=== PATIENT | male | born 1960 | race Caucasian/White ===

== ENCOUNTER 2018-06-09 06:50 | Inpatient (IN) ==
--- NOTE | 2018-05-22 09:19 | PAT Medication Instructions ---
Medication Instructions Date of Service May 22, 2018 Home Medications lisinopril-hydrochlorothiazide 1 tab PO QAM gabapentin 300 mg PO BID meloxicam 7.5 mg PO QAM ASK your surgeon for instructions meloxicam 7.5 mg PO QAM DO NOT take the morning of surgery lisinopril-hydrochlorothiazide 1 tab PO QAM Take morning of surgery With a small sip of water, OTHERWISE NOTHING TO EAT OR DRINK AFTER MIDNIGHT: gabapentin 300 mg PO BID Take evening before surgery gabapentin 300 mg PO BID Other Notes If you have any questions please call us at [phone] or [phone] or [phone] or [phone]
--- NOTE | 2018-05-22 12:52 | Anesthesiology Consultation ---
Date of Service May 22, 2018 Assessment & Plan (1) Encounter for pre-operative examination: Plan: Note sent to PCP re: hyponatremia ON 05/25/18. PCP rechecked labs initially and there was minimal improvement, so they had him increase salt intake and decrease free water intake. Repeat labs showed that sodium had normalized. Updated labs included above in testing section. Chart Review Chart Review: Acceptable Risk for Surgery and Patient seen in Pre Admission Testing Consults Requested medical (Dr. Edward (05/22/18)) Teaching & Discussion Pre-Anesthesia Teaching/Discussion Notes: Instructed NPO after midnight before surgery, except medications with 15 cc of water. Medication instructions provided according to the PAT guidelines. Note received from Dr. Edward on 06/03 stating that patients labs have normalized and patient is "ok to proceed". History Surgery Operation Date: 06/09/18 09:20 Proposed Procedures p Right Total Knee Arthroplasty - Gasper Everett MD Height/Weight Height: 6 ft 2 in Weight: 90.2 kg Allergies Allergy/AdvReac Type Severity Reaction Status Date / Time No Known Allergies Allergy Unknown Verified 05/21/18 07:35 Medications Home Medications Medication Instructions Recorded Confirmed Last Taken lisinopril-hydrochlorothiazide 1 tab PO QAM 03/10/18 05/22/18 03/11/18 gabapentin 300 mg PO BID 05/21/18 05/22/18 Unknown meloxicam 15 mg PO QAM 05/22/18 05/22/18 Unknown Past Anesthesia History No Hx of Anesthesia Complications and No Family Hx of Anesthesia Complications History of PONV No Motion Sickness Screening History of Motion Sickness: No Social History Smoking Status: Former smoker Smoking cigarettes per day: 1ppd x 20+ years Do You Dip or Chew Tobacco: No Smoking End Date: QUIT 6 YEARS AGO Hx Alcohol Use: Yes Alcohol type: beer alcohol intake frequency: a few times a week Hx Substance Use: No substance use type: does not use Exercise / Class Metabolic Activity II 4-5 Yardwork/Stairs/Walk up hill (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 Still able to climb stairs. Denies CP. Does have some SOB when knee pain is acting up, but when taking meloxicam, SOB goes away. ) Review of Systems Patient denies chest pain, shortness of breath, dyspnea on exertion (see previous section), reflux, cough, wheezing, palpitations. +joint pain (knees) Physical Exam Vital Signs BP: 126/80 P: 97 R: 14 T: 98.1 SPO2: 96% on RA ENMT Mouth: + dentures (upper and lower) and + edentulous Thyromental Distance: > or= 3.5 Finger Breadths (4) Mallampati Class: II Neck normal visual inspection and trachea midline; neck extension not limited Respiratory normal respiratory effort Auscultation: lungs clear to auscultation bilaterally Cardiovascular Rate/Rhythm: regular rate and regular rhythm Heart Sounds: no murmur Vessels: no carotid bruit Neurologic moves all extremities Psychiatric Orientation: alert and oriented x 3 Testing Electrocardiogram Date: 05/22/18 Findings: + NSR @ (94) and + no change from (01/17/16) Chest X-Ray Date: 05/22/18 Findings: + NAD FINDINGS: Mild chronic parenchymal scarring both lung bases. Old bilateral healed rib fractures. Lungs are considered clear. Diaphragms are smooth. No significant cardiac enlargement. IMPRESSION: No acute process. Chronic changes as noted. Stress Test Date: 04/17/18 Type: DSE Findings: + WNL Resting EF: 75% Resting LV Function: normal Resting RWMA: + none Resting ECG showed NSR with nonspecific ST/T wave abnormalities. Stess ECG showed no ischemic ST/T wave changes with dobutamine. No cardiac symptoms. Rare PVCs. Hyperdynamic LV systolic function. Negative Dobutamine stress ECG for ischemia at 88% MPHR. Negative Dobutamine stress echo for ischemia at 88% MPHR. Other Testing CT Angio chest PE Protocol 05/22/18: IMPRESSION: 1. No evidence for pulmonary most. 2. Subsegmental atelectasis posterior aspect right midlung. 3. Lungs otherwise are clear. Laboratory Results 05/22/18 12:45 05/22/18 12:45 Blood Type O Positive 05/22/18 12:45 Antibody Screen NEGATIVE 05/22/18 12:45 PT 10.1 Seconds (9.0-12.0) 05/22/18 12:45 INR 1.0 (0.9-1.1) 05/22/18 12:45 APTT 26.6 Seconds (21.0-31.0) 05/22/18 12:45 UPDATED LABS FROM [facility] [place]: 06/02/18 SODIUM: 138 POTASSIUM: 4.3 CHLORIDE: 104 CO2: 27 BUN: 17 CREATININE: 0.99 GLUCOSE: 106
[2018-05-22 13:20] LABS: Basophils # (auto) 0.04 K/uL (0-0.2); Basophils % (auto) 0.6 %; Eosinophils # (auto) 0.04 K/uL (0-0.5); Eosinophils % (auto) 0.6 %; Hematocrit (blood only) 44.9 % (42-52); Hemoglobin 15.8 g/dL (14.0-18.0); Immature Granulocytes # (auto) 0.02 K/uL (0.00-0.02); Immature Granulocytes % (auto) 0.3 %; Lymphocytes # (auto) 0.68 K/uL (1.2-3.4); Lymphocytes % (auto) 10.6 %; Mean Corpuscular Hgb Conc 35.2 g/dL (32-36); Mean Corpuscular Volume 95.3 fL (80-100); Mean Platelet Volume 8.8 fL (7.4-10.4); Monocytes # (auto) 0.67 K/uL (0.11-0.59); Monocytes % (auto) 10.5 %; Neutrophils # (auto) 4.94 K/uL (1.4-6.5); Neutrophils % (auto) 77.4 %; Platelet Count 201 K/uL (130-400); RDW Coefficient of Variation 12.8 % (11.5-14.5); RDW Standard Deviation 44.8 fL (36.4-46.3); Red Blood Count 4.71 M/uL (4.7-6.1); White Blood Count 6.39 K/uL (4.8-10.8)
[2018-05-22 13:37] LABS: Partial Thromboplastin Time 26.6 Seconds (21.0-31.0); Prothrombin Time 10.1 Seconds (9.0-12.0)
--- NOTE | 2018-05-22 13:41 | XRay Report ---
XR chest Pre-admission PA/Lat CLINICAL HISTORY: pat preoperative evaluation COMPARISON STUDY: 11/30/2014 FINDINGS: Mild chronic parenchymal scarring both lung bases. Old bilateral healed rib fractures. Lung s are considered clear. Diaphragms are smooth. No significant cardiac enlargement. IMPRESSION: No acute process. Chronic changes as noted. The above report was generated using voice recognition software. It may contain grammatical, syntax or spelling errors. Electronically signed by: Michael Mcdermott M.D. 05/22/2018 1:40 PM
[2018-05-22 14:03] LABS: BUN Creatinine Ratio 10.2 (10-20); Creatinine Clr Calc Pharmacy 92.4 ml/min; Est GFR (African American) 92.2; Est GFR (Non-African American) 79.5; Potassium 4.7 mmol/L (3.5-5.1)
--- NOTE | 2018-05-25 14:34 | History & Physical Report ---
Date of Service May 25, 2018 History of Present Illness Chief Complaint: Right knee pain Primary Care Provider: Liliam Edward Allergies Allergy/AdvReac Type Severity Reaction Status Date / Time No Known Allergies Allergy Unknown Verified 05/21/18 07:35 Home Medications Home Medications Medication Instructions Recorded Confirmed Type lisinopril-hydrochlorothiazide 1 tab PO QAM 03/10/18 05/22/18 History gabapentin 300 mg PO BID 05/21/18 05/22/18 History meloxicam 15 mg PO QAM 05/22/18 05/22/18 History Past Med/Surg History Social History marital status: Current Living Situation: Significant Other Feels Safe at Home: Yes Smoking Status: Former smoker Second Hand Exposure: No Hx Alcohol Use: Yes Alcohol type: beer Alcohol Intake Frequency: a few times a week Hx Substance Use: No Beliefs That Will Affect Care: None Preferred Language: Welsh Communication Ability: Effective
--- NOTE | 2018-05-28 14:34 | History & Physical Report ---
Date of Service May 28, 2018 Assessment & Plan (1) DJD (degenerative joint disease) of knee: Patient (scheduled for right total knee arthroplasty on June 09, [address] Gasper Everett. Risks and complications surgery were explained to the patient and include but are not limited to infection, pain, bleeding, scarring, nerve and blood vessel damage, wound problems, weakness, stiffness, incomplete relief of symptoms, hardware failure, loosening, wear, fracture, blood clots, embolisms, heart attack, stroke and . All questions were answered and informed consent was obtained Dr. Everett. He will have preoperative medical clearance by his family physician Dr. Edward. We will use Lovenox 30 mg twice a day 2-4 weeks after surgery for DVT prophylaxis. Once the Lovenox is completed he will use aspirin 325 mg twice a day 4 weeks. He will preadmission testing which she will obtain a preoperative CBC, BMP, PT/PTT, type and screen, EKG and chest x-ray. He would like to go home after surgery with outpatient physical therapy versus an home health and physical therapy. Hospitalists will be consult did postoperatively on an as-needed basis for postoperative medical management. His home medications will be continued during his inpatient stay. He will be admitted for 1-2 nights after surgery. All questions were answered and he knows to call with any further palms questions or concerns. Present on Admission?: Yes History of Present Illness Chief Complaint: Right knee pain Primary Care Provider: Liliam Edward Patient is a pleasant 57-year-old male who is here today for preoperative history and physical. He is scheduled to have an elective right total knee arthroplasty by Dr. Everett on June 09, 2018 at the [facility]. He complains of right knee pain that has beenFor the last year or so. He has had progressively worsening symptoms over the last 2-3 months. 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 He states that he does have bilateral knee pain but his right knee pain is more significant than the left. Pain is located on the anterior medial aspect of his right knee. He does have some mild radiation down into his bertrand and occasionally up into his thigh. His pain is increased with activity and weightbearing. He does have decreasing activities of daily living due to pain in his right knee. He has pain with range of motion and occasionally limited range of motion due to pain in his right knee. He states that he also gets swelling and stiffness of the right knee. Aggravating activities include walking, going up and down steps. He also has pain at rest and occasionally at night. He states that after he sits or stands or sleeps for a length of time he gets significant stiffness in his right knee. Prior treatments include nonsteroidal anti-inflammatory medications such as meloxicam and ibuprofen. He also has undergone corticosteroid injections with no significant relief. He also occasionally wears a knee brace. He does not use any assistive device to assist with ambulation at this time. Pain does cause him to limp. He has also taken Tylenol for pain control. He feels that his pain is controlled with the Mobic but he otherwise has failed conservative treatment. Due to his failure conservative treatment, he wishes to proceed with a right total knee arthroplasty. Allergies Allergy/AdvReac Type Severity Reaction Status Date / Time No Known Allergies Allergy Unknown Verified 05/21/18 07:35 Home Medications Home Medications Medication Instructions Recorded Confirmed Type lisinopril-hydrochlorothiazide 1 tab PO QAM 03/10/18 05/22/18 History gabapentin 300 mg PO BID 05/21/18 05/22/18 History meloxicam 15 mg PO QAM 05/22/18 05/22/18 History Past Med/Surg History Family History Brother Colon cancer Mother Cancer Brain Father CVA (cerebral vascular accident) Other HTN (hypertension) Social History marital status: Current Living Situation: Significant Other Feels Safe at Home: Yes Smoking Status: Former smoker Second Hand Exposure: No Hx Alcohol Use: Yes Alcohol type: beer Alcohol Intake Frequency: a few times a week Hx Substance Use: No Beliefs That Will Affect Care: None Preferred Language: Mohawk Communication Ability: Effective Review of Systems Constitutional: no fever, no chills, no sweats, no weight loss and no weight gain Eyes: no blind spots, no discharge and no dry eyes Ear, Nose, Mouth, Throat: no ear pain, no tinnitus, no dizziness, no nasal discharge, no sinus pain/pressure, no dental pain and no dental caries Respiratory: + dyspnea on exertion (Recent dyspnea on exertion but patient feels that is resolved. He feels that he was short of breath due to uncontrolled pain and in his right knee. He is reecently been taking meloxicam which has helped his pain and his shortness of breath has improved.); no stopping breathing during sleep and no wheezing Cardiovascular: no chest pain, no chest pain at rest, no chest pain with activity, no dyspnea at rest, no palpitations, no syncope, no edema and no calf pain Gastrointestinal: no abdominal pain, no heartburn, no nausea, no vomiting, no constipation and no diarrhea/loose stools Genitourinary (Male): no dysuria, no urinary frequency and no post-void dribbling Musculoskeletal: + joint pain and + limited range of motion; no back pain, no deformity and no swelling Integumentary: + lesions (eczema), + dry skin and + pruritus; no rash, no sores and no skin swelling Neurologic: + gait abnormality; no unsteadiness, no localized weakness, no loss of sensation, no tingling, no numbness, no paresthesia, no radiating pain, no dizziness and no syncope Psychiatric: no depression, no irritability and no anxiety Hematologic / Lymphatic: no easy bleeding, no easy bruising and no coagulopathy Physical Exam 2 Constitutional: well developed, well nourished and + acute distress Eyes: PERRL, conjunctivae normal, anicteric sclerae ENMT: external ear and nose normal, oropharynx normal Nose: no nasal discharge and no sinus tenderness Mouth: no dentition abnormality Throat: uvula midline Neck: trachea midline, no thyromegaly normal visual inspection; no neck crepitus Thyroid: normal thyroid Respiratory: normal respiratory effort, lungs clear to auscultation Auscultation: no rales, no rhonchi and no wheezes Cardiovascular: RRR, no murmur, no edema Heart Sounds: normal S1 and normal S2 Vessels: posterior tibial pulses present and dorsalis pedis pulses present Extremities: normal capillary refill; no calf tenderness and no pedal edema Gastrointestinal (Abdomen): normal bowel sounds, soft, nontender, no hepatosplenomegaly Musculoskeletal: Exam of right knee: Medial joint line tenderness with palpation. 1+ MCL and LCL laxity. Full extension and flexion to about 130. No effusion. Active leg raise intact with normal strength throughout both lower extremities. There is alignment with some minor thrust. Neutral alignment on the left. Minor antalgic gait. Painless range of motion of bilateral hips. Posterior tibial pulses 1+. Small patches erythema, thickened skin right lateral aspect of his knee. Skin: + rash Eczema Neurologic: moves all extremities Psychiatric: A+Ox3, euthymic affect Speech: normal rate/rhythm/volume of speech Results & Data Laboratory Results Lab Results 05/22/18 05/22/18 05/22/18 Range/Units 12:45 12:45 12:45 WBC 6.39 (4.8-10.8) K/uL RBC 4.71 (4.7-6.1) M/uL Hgb 15.8 (14.0-18.0) g/dL Hct 44.9 (42-52) % MCV 95.3 (80-100) fL MCH 33.5 (25-34) pg MCHC 35.2 (32-36) g/dL RDW Std Deviation 44.8 (36.4-46.3) fL RDW Coeff of Mabel 12.8 (11.5-14.5) % Plt Count 201 (130-400) K/uL MPV 8.8 (7.4-10.4) fL Immature Gran % (Auto) 0.3 % Neut % (Auto) 77.4 % Lymph % (Auto) 10.6 % Williamson % (Auto) 10.5 % Eos % (Auto) 0.6 % Baso % (Auto) 0.6 % Immature Gran # (Auto) 0.02 (0.00-0.02) K/uL Neut # (Auto) 4.94 (1.4-6.5) K/uL Lymph # (Auto) 0.68 L (1.2-3.4) K/uL Williamson # (Auto) 0.67 H (0.11-0.59) K/uL Eos # (Auto) 0.04 (0-0.5) K/uL Baso # (Auto) 0.04 (0-0.2) K/uL PT 10.1 (9.0-12.0) Seconds INR 1.0 (0.9-1.1) APTT 26.6 (21.0-31.0) Seconds PTT Ratio 1.0 Sodium 128 L (136-145) mmol/L Potassium 4.7 (3.5-5.1) mmol/L Chloride 93 L (98-107) mmol/L Carbon Dioxide 24 (21-32) mmol/L Anion Gap 12.0 H (3-11) BUN 11 (7-18) mg/dl Creatinine 1.05 (0.6-1.4) mg/dl Est Cr Clr Drug Dosing 92.4 ml/min Est GFR ( Amer) 92.2 Est GFR (Non-Af Amer) 79.5 BUN/Creatinine Ratio 10.2 (10-20) Glucose 76 (70-99) mg/dl Calcium 10.0 (8.5-10.1) mg/dl Blood Type Antibody Screen 05/22/18 Range/Units 12:45 WBC (4.8-10.8) K/uL RBC (4.7-6.1) M/uL Hgb (14.0-18.0) g/dL Hct (42-52) % MCV (80-100) fL MCH (25-34) pg MCHC (32-36) g/dL RDW Std Deviation (36.4-46.3) fL RDW Coeff of Mabel (11.5-14.5) % Plt Count (130-400) K/uL MPV (7.4-10.4) fL Immature Gran % (Auto) % Neut % (Auto) % Lymph % (Auto) % Williamson % (Auto) % Eos % (Auto) % Baso % (Auto) % Immature Gran # (Auto) (0.00-0.02) K/uL Neut # (Auto) (1.4-6.5) K/uL Lymph # (Auto) (1.2-3.4) K/uL Williamson # (Auto) (0.11-0.59) K/uL Eos # (Auto) (0-0.5) K/uL Baso # (Auto) (0-0.2) K/uL PT (9.0-12.0) Seconds INR (0.9-1.1) APTT (21.0-31.0) Seconds PTT Ratio Sodium (136-145) mmol/L Potassium (3.5-5.1) mmol/L Chloride (98-107) mmol/L Carbon Dioxide (21-32) mmol/L Anion Gap (3-11) BUN (7-18) mg/dl Creatinine (0.6-1.4) mg/dl Est Cr Clr Drug Dosing ml/min Est GFR ( Amer) Est GFR (Non-Af Amer) BUN/Creatinine Ratio (10-20) Glucose (70-99) mg/dl Calcium (8.5-10.1) mg/dl Blood Type O Positive Antibody Screen NEGATIVE Diagnostic Findings XR chest Pre-admission PA/Lat CLINICAL HISTORY: pat preoperative evaluation COMPARISON STUDY: 11/30/2014 FINDINGS: Mild chronic parenchymal scarring both lung bases. Old bilateral healed rib fractures. Lungs are considered clear. Diaphragms are smooth. No significant cardiac enlargement. IMPRESSION: No acute process. Chronic changes as noted. Diagnostic imagin views of both knees show osteoarthritis bilaterally varus deformity with medial joint space narrowing of the right knee. Osteophyte formation and [id number] changes. The left knee shows more uniform narrowing of both the medial and lateral compartments. There is no fracture and no visible bone or soft tissue lesions.
[~2018-06-09 06:50] MED LIST: ACETAMINOPHEN 500 MG TAB PO SCH; BUPIVACAINE 0.5 % 5 MG/1 ML PF 10ML VIAL ONE; CEFAZOLIN 2000MG 2,000 MG/15 ML SYR IV SCH; CeleBREX 200 MG CAP PO SCH; FAMOTIDINE 20 MG TAB PO SCH; GABAPENTIN 300 MG x 2 PO SCH; LR 60ML/HR IV SCH; METOCLOPRAMIDE HCL 10 MG TABLET PO SCH; OXYCODONE HCL 10 MG TABCR (OXYCONTIN) PO SCH; ROPIVACAINE 0.5% 5 MG/ML 30 ML VIAL ONE; ROPIVACAINE 0.5% HCL/PF 150 MG, BUPIVACAINE 0.5% MPF 30 ML, EPINEPHrine 0.15 MG, Ketoro... INFIL SCH; TRAMADOL HCL 50 MG TABLET PO SCH; TRANEXAMIC ACID 1,000 MG **IV Intra-op IV SCH; TRANEXAMIC ACID 1,000 MG **IV Pre-op IV SCH; cloNIDine HCL 0.1 MG/24 HR TRANSDERM SYS TD SCH; dexAMETHasone 4 MG TAB PO SCH
[2018-06-09] MEDS: LR 500ML BOLUS, THEN 15ML/HR IV SCH ×3 (07:50→15:52)
[2018-06-09] MEDS ORDERED: PROPOFOL IV EMULSION 10 MG/ML 20 ML VIAL IV ONE ×6 (08:13→13:22)
[2018-06-09] MEDS ORDERED: fentaNYL citrate 100 MCG/2 ML VIAL ONE (08:14)
[2018-06-09] MEDS ORDERED: MIDAZOLAM HCL 1 MG/ML 2ML VIAL ONE ×2 (08:14→11:09)
[2018-06-09] MEDS ORDERED: PROMETHAZINE HCL 12.5 MG in SODIUM CHLORIDE 0.9% 50 ML IV PRN (08:26)
[2018-06-09] MEDS ORDERED: ATROPINE SULFATE 0.1 MG/ML 10ML SYR IV PRN (08:26)
[2018-06-09] MEDS ORDERED: ONDANSETRON INJ 2 MG/ML 2 ML VIAL IV PRN ×2 (08:26→15:17)
[2018-06-09] MEDS ORDERED: PHENYLEPHRINE 100MCG/ML 5ML SYR IV PRN (08:26)
[2018-06-09] MEDS ORDERED: HYDROmorphone INJ 1 MG/ML SYRINGE IV PRN (08:26)
[2018-06-09] MEDS ORDERED: fentaNYL citrate 100 MCG/2 ML VIAL IV PRN (08:26)
[2018-06-09] MEDS ORDERED: ePHEDrine sulfate 50 MG/ML AMP IV PRN (08:26)
--- NOTE | 2018-06-09 10:16 | History & Physical Bridge Note ---
Date of Service June 09, 2018 History & Physical Bridge Note I have examined the patient, reviewed the History & Physical and in the interval since the performance of the History & Physical I have noted the following changes of clinical significance: no changes noted. Echo results yesterday are noted and do not preclude surgery. His lower extremities are free of eczema. He does have some mild eczema on both elbows which is under treatment. There is no evidence of infection. Sodium normal.
[2018-06-09] MEDS ORDERED: ORTHO JOINT ANESTHETIC ONE (10:30)
[2018-06-09] MEDS ORDERED: BACITRACIN INJ 50,000 UNIT VIAL ONE (10:30)
[2018-06-09] MEDS ORDERED: POVIDONE-IODINE OP SOLN 30 ML BTL ONE (10:30)
--- NOTE | 2018-06-09 13:33 | Post Operative Brief Note ---
Immediate Post Op Note v1 Date of Surgery June 09, 2018 Pre & Post Diagnosis Operation Date: 06/09/18 09:20 Pre-Op Diagnosis: Right Knee Osteoarthritis Post-Op Diagnosis: Right Knee Osteoarthritis Procedure Operation Date: 06/09/18 09:20 Actual Procedures p Right Total Knee Arthroplasty(Right) - Gasper Everett MD Surgeon Gasper Everett MD Appeals Board Referee Tala Chase Estimated Blood Loss 35 Findings Consistent with Post-Op Diagnosis Anesthesia Type MAC Spinal Regional Complications none Disposition Accompanied Patient To Recovery: No Disposition: Recovery Room
--- NOTE | 2018-06-09 14:00 | Operative Report ---
Post Operative Report Pre & Post Diagnosis Operation Date: 06/09/18 09:20 Pre-Op Diagnosis: Right Knee Osteoarthritis Post-Op Diagnosis: Right Knee Osteoarthritis Procedure Operation Date: 06/09/18 09:20 Actual Procedures p Right Total Knee Arthroplasty(Right) - Gasper Everett MD Surgeon Gasper Everett MD Academic Physician Tala Chase Estimated Blood Loss 35 Findings Consistent with Post-Op Diagnosis Specimens Bone and soft tissue Drains None Anesthesia Type MAC Spinal Regional Complications none Disposition Accompanied Patient To Recovery: No Disposition: Recovery Room Indications Patient is a 57-year-old male. Severe osteoarthritis right knee medial compartment. Refractory to nonsurgical methods of management. He wishes to proceed with surgery. He has had an extensive preoperative medical workup. He does have eczema but his skin was clear on his knee prior to surgery. He had eczema on his elbows but nothing that was inflamed or infected. Description of Procedure Informed consent obtained. Patient identified. He identified the operative site the right knee. I marked with my initials. A preop surgical timeout was performed. Preop dose of IV antibiotics given. He was positioned supine on the OR table with a bump under the right calf and right hip. A tourniquet was applied to the right thigh and the leg was prepped and draped in the usual sterile fashion. DVT prophylaxis with foot pumps intraoperatively and Lovenox and aspirin postoperatively. The exam under anesthesia revealed range of motion 0-140 degrees with 1+ MCL laxity in mid position and varus alignment to the knee. There is no effusion. The knee was otherwise stable. The limb was exsanguinated with the Esmarch. Tourniquet inflated to 250 mmHg. A midline longitudinal incision was made followed by medial parapatellar arthrotomy. The patella was large and thick. It had very minimal osteophytes around the margin of the patella. The synovium around the patella was resected. There was some grade 1 chondrosis around the periphery of the patella but by enlarge the majority of the cartilage was normal except for a small area laterally. I elected to leave the patella and resurfaced. It was difficult to aurelio the patella and I therefore went ahead and did a quadriceps snip. Marginal osteophytes were removed particularly in the medial compartment. The ACL was apparently absent. The medial meniscus was largely deficient and/or torn. There is a flipped fragment anteriorly but the meniscus generally was largely deficient. In the lateral compartment the articular surfaces were normal and the meniscus was intact. There were large areas of grade 4 chondrosis with aware and eburnation and osteophyte formation on both sides of the medial compartment. The PCL was sacrificed. The retropatellar fat pad was resected. The synovial reflection in the lateral gutter was released. The medial release on the tibia was performed and the tibia was subluxated. A captain airline pilot hole was drilled in the proximal tibia just in front of the tibial spines. An intramedullary alignment sunitha was inserted. The 0 degree cutting block was applied. It was aligned with the tibial tubercle and pinned into place. It was set to take 10 mm off the lateral side corresponding to a skim cut medially. The geometry of the proximal tibia made it a little bit difficult to get the rotational alignment perfect. The extra medullary alignment sunitha was utilized and the slope was acceptable. The alignment was good. Intersecting the second ray and bisecting the ankle joint. This cut was then made. Marginal osteophytes medial and posterior medial removed and the tibia was sized to a 4 or 5.Sod Cutter hole drilled in the distal femur followed by the insertion of the intramedullary cutting guide set at 6 degrees right knee valgus 12 mm thick cut. This was pinned in place and the cut was made and the extension gap was a 10 with slight laxity on the lateral side. The epicondylar axis was marked out. The sizing block was utilized to a #4. The femur was a little bit wider but the AP depth was not a 5. The external rotation match the epicondylar axis. The block was pinned in the place and the cuts were made protecting the collateral ligaments. The the osteophytes in the back of the knee were then removed particularly medially. The flexion gap was 12.5. The extension gap was rechecked and it also was 12.5. The box cutting guide was applied lateralized and that cut was made. A size 4 femur was applied. The tibia was prepared with the keel and punch at a #5. Trialing was performed. The knee was stable in full extension. There is 1+ LCL laxity in mid position and trace LCL laxity at 90 degrees flexion. The components removed and the bony surfaces were prepared with pulse lavage. The canals were plugged and eburnated bone on the medial tibial plateau was drilled. Orth O joint mix was injected into the back of the knee and later throughout the remainder of the knee. 2 bags of Simplex P cement were mixed and while in a doughy state. The femur and tibia were cemented into place with the knee held in full extension with a trial spacer in place until the cement hardened. The remainder of the Orth O joint mix was injected and the Betadine lavage was performed. Trialing was again performed after letting the tourniquet down and the 12.5 spacer gave the appropriate stability and this was inserted. The back the knee was inspected for cement of which there was none. Pulsatile lavage was performed. The extensor mechanism was closed with interrupted #2 FiberWire. This was above the equator of the patella. The quadriceps snip was closed with #2 FiberWire. The entire repair was then oversewn with #1 Vicryl. [place] assisted flexion was 130 degrees although I did not push it very far. The knee could easily be flexed to 90. The patella tracked appropriately. The inferior portion of the extensor mechanism was closed with running and interrupted #1 Vicryl. The skin was closed in layers with 0 and 2-0 Vicryl and janina on the skin. The leg was cleaned with wet and dry sponges. A soft sterile dressing was applied Xeroform 4 x 4's ABD full-length Gabriel wrap. He was awakened from anesthesia without difficulty and taken to the recovery room in stable condition. There were no complications. Bone and soft tissue were sent for specimen. Counts were correct. Blood loss is estimated to be 35 cc. Transanexamic acid was utilized. PT will be slightly modified. We will hold on active straight leg raises until he has good quad control. He can do quad sets and will have him do knee flexion 0-60. He can weight-bear as tolerated with a knee immobilizer. Lovenox will be begun the evening of surgery. Components inserted with a J[employer]J PFC Sigma rotating platform knee size 4 right posterior stabilized femur. A size 5 mobile bearing keeled tibial tray. No patella. A size 4 12.5 mm thick polyethylene insert. I attest to the content of the Intraoperative Record and any orders documented therein. Any exceptions are noted below.
--- NOTE | 2018-06-09 14:10 | Operative Report ---
Post Operative Report Pre & Post Diagnosis Operation Date: 06/09/18 09:20 Pre-Op Diagnosis: Right Knee Osteoarthritis Post-Op Diagnosis: Right Knee Osteoarthritis Procedure Operation Date: 06/09/18 09:20 Actual Procedures p Right Total Knee Arthroplasty(Right) - Gasper Everett MD Surgeon Willard Brar. Blacksmith Supervisor Tala Chase PA-C Estimated Blood Loss 35 Findings Consistent with Post-Op Diagnosis Specimens Bone and soft tissue Drains None Anesthesia Type MAC Spinal Regional Complications none Disposition Accompanied Patient To Recovery: No Description of Procedure Patient was taken to the operating room and placed under IV sedation spinal anesthesia. He was also given a peripheral nerve block preoperatively. He was given 2 g of IV Ancef for surgical prophylaxis. Timeout was performed. He was prepped and draped in routine sterile fashion. I was present during the entire case, please see Dr. Everett's operative report for further detail. Patient was awakened and transferred to recovery room in stable condition.
--- NOTE | 2018-06-09 14:30 | XRay Report ---
XR knee RT 2V routine CLINICAL HISTORY: 57 years-old Male presenting with Surgical Post Op. TECHNIQUE: Frontal and lateral views of the right knee were obtained. COMPARISON: 02/19/2019. FINDINGS: Interval post-surgical changes of total right knee arthroplasty. Expected intra-articular and soft ti ssue emphysema. No malalignment or periprosthetic fracture. Skin janina noted. Atherosclerosis. IMPRESSION: Expected post-surgical findings of total right knee arthroplasty. Electronically signed by: Gasper Gibson M.D. 06/09/2018 2:29 PM
--- NOTE | 2018-06-09 14:37 | Anesthesiology Progress Note ---
Date of Service June 09, 2018 Anesthesia Post Procedure Vital Signs Vital Signs: Temp Pulse Pulse Resp BP Pulse Ox 06/09/18 14:25 37.3 C 81 14 104/74 94 06/09/18 14:15 80 12 104/76 93 06/09/18 14:05 81 16 107/73 93 06/09/18 13:59 36.5 C 84 18 109/77 96 06/09/18 08:17 37 C 88 20 117/85 95 06/09/18 08:14 37 C 88 20 95 Pain Intensity Right Knee: Pain Intensity: 0 Notes Mental Status: alert / awake / arousable Patient Amnestic to Procedure: Yes Nausea / Vomiting: adequately controlled Pain: adequately controlled Airway Patency, RR, SpO2: stable & adequate BP & HR: stable & adequate Neuraxial Anesthesia: was administered and sensory block is resolving Anesthetic Complications: no major complications apparent
[2018-06-09] MEDS ORDERED: NALOXONE HCL 0.4 MG/1 ML VIAL/CARP IV PRN (15:17)
[2018-06-09] MEDS ORDERED: TAMSULOSIN HCL 0.4 MG CAP PO PRN (15:17)
[2018-06-09] MEDS ORDERED: BISACODYL 10 MG SUPP PR PRN (15:17)
[2018-06-09] MEDS ORDERED: MAGNESIUM HYDROXIDE SUSP 30 ML UDC PO PRN (15:17)
[2018-06-09] MEDS ORDERED: METOCLOPRAMIDE HCL INJ 5 MG/ML 2 ML VIAL IV PRN (15:17)
[2018-06-09] MEDS ORDERED: ALUMINUM/MAGNESIUM SUSP 30 ML UDC PO PRN (15:17)
[2018-06-09] MEDS ORDERED: DiphenhydrAMINE HCL 50 MG/ML VIAL IV PRN (15:17)
[2018-06-09] MEDS ORDERED: HYDROmorphone INJ 0.5 MG/0.5 ML SYR IV PRN (15:17)
[2018-06-09] MEDS: CHECK CLONIDINE PATCH PLACEMENT SCH ×3 (15:27→16:26)
[2018-06-09] MEDS: SODIUM CHLORIDE 0.9% 1000ML 1,000 ML IV SCH (15:30)
[2018-06-09] MEDS: KETOROLAC 30 MG/ML VIAL IV SCH ×2 (16:26→21:26)
[2018-06-09] MEDS ORDERED: INFLUENZA VIRUS QUAD VACCINE 0.5 ML SYR IM ONE (16:30)
[2018-06-09] MEDS ORDERED: INFLUENZA ADMINISTRATION CHARGE ONE (16:30)
[2018-06-09] MEDS: TRAMADOL HCL 50 MG TABLET PO PRN ×2 (17:13→21:23)
--- NOTE | 2018-06-09 18:06 | Progress Note ---
DATE: 06/09/2018 SUBJECTIVE: He is resting comfortably in bed. No nausea. Tolerating oral diet. He is experiencing some pain, which is reflected in his elevated blood pressure. OBJECTIVE: VITAL SIGNS: Otherwise stable. EXTREMITIES: Posterior tibial is 1+. I do not palpate a dorsalis pedis. Sensation is normal in the foot. Dressing is clean and dry. Ankle and toe plantar flexion and dorsiflexion are 5/5. IMAGING: X-rays show good positioning of the implants without complication. The patella is not resurfaced. IMPRESSION: Right knee replacement. PLAN: I discussed my findings with him. We talked about not resurfacing the patella. I did give him some minor restrictions on rehabilitation due to the quadriceps snip needed for exposure of the knee. We talked about pain control. [place]ev[place]t will begin tonight. Will follow up with him tomorrow. Surgical findings discussed.
[2018-06-09] MEDS: CEFAZOLIN 2000MG 2,000 MG/15 ML SYR IV SCH (19:36)
[2018-06-09] MEDS: GABAPENTIN 300 MG CAP PO SCH (21:24)
[2018-06-09] MEDS: SENNA 8.6 MG TAB PO SCH (21:25)
[2018-06-09] MEDS: ACETAMINOPHEN 500 MG TAB PO SCH (21:25)
[2018-06-09] MEDS: DOCUSATE SODIUM 100 MG CAP PO SCH (21:25)
[2018-06-10] MEDS: OXYCODONE HCL IR 5 MG TAB (IMMEDIATE RELEASE) PO PRN ×6 (01:22→22:29)
[2018-06-10] MEDS: CHECK CLONIDINE PATCH PLACEMENT SCH ×3 (01:24→15:50)
[2018-06-10] MEDS: KETOROLAC 30 MG/ML VIAL IV SCH ×2 (03:09→09:26)
[2018-06-10] MEDS: CEFAZOLIN 2000MG 2,000 MG/15 ML SYR IV SCH (03:09)
[2018-06-10] MEDS: ACETAMINOPHEN 500 MG TAB PO SCH ×3 (05:41→21:44)
[2018-06-10 07:02] LABS: Hematocrit (blood only) 31.3 % (42-52); Hemoglobin 10.6 g/dL (14.0-18.0); Mean Corpuscular Hgb Conc 33.9 g/dL (32-36); Mean Corpuscular Volume 96.9 fL (80-100); Mean Platelet Volume 8.5 fL (7.4-10.4); Platelet Count 156 K/uL (130-400); RDW Coefficient of Variation 12.6 % (11.5-14.5); RDW Standard Deviation 44.4 fL (36.4-46.3); Red Blood Count 3.23 M/uL (4.7-6.1); White Blood Count 7.47 K/uL (4.8-10.8)
[2018-06-10] MEDS: SODIUM CHLORIDE 0.9% 1000ML 1,000 ML IV SCH (07:02)
[2018-06-10 07:29] LABS: BUN Creatinine Ratio 17.7 (10-20); Calcium 8.1 mg/dl (8.5-10.1); Creatinine Clr Calc Pharmacy 101.1 ml/min; Est GFR (African American) 102.7; Est GFR (Non-African American) 88.6; Potassium 3.8 mmol/L (3.5-5.1)
[2018-06-10] MEDS: TRAMADOL HCL 50 MG TABLET PO PRN ×4 (07:36→20:08)
[2018-06-10] MEDS ORDERED: dexAMETHasone 4 MG TAB PO SCH (08:00)
[2018-06-10] MEDS: LISINOPRIL/HCTZ 10/12.5MG TAB PO SCH (08:35)
[2018-06-10] MEDS: MULTIVITAMIN TAB PO SCH (08:35)
[2018-06-10] MEDS: ENOXAPARIN INJ 30 MG/0.3 ML SYR SQ SCH ×3 (08:35→20:12)
[2018-06-10] MEDS: DOCUSATE SODIUM 100 MG CAP PO SCH ×2 (08:35→20:12)
[2018-06-10] MEDS: GABAPENTIN 300 MG CAP PO SCH ×2 (08:36→20:12)
[2018-06-10] MEDS ORDERED: TRIAMCINOLONE ACET 0.1% CR 15 GM TUBE EXT PRN (10:17)
--- NOTE | 2018-06-10 10:22 | Progress Note ---
DATE: 06/10/2018 SUBJECTIVE: Mr. Fraser is up and out of bed. He has already had a sponge bath, and he is sitting in a chair. He did have substantial pain last night. We reviewed the pain medication options that were available to him. Otherwise, he is breathing well, has no chest or abdominal pain. OBJECTIVE: VITAL SIGNS: He is afebrile. Stable. EXTREMITIES: The foot is warm with normal sensation and 5/5 ankle and toe plantar flexion and dorsiflexion strength. Pedal pulses are not palpable, but they are dopplerable at both the posterior tibialis and dorsalis pedis. His dressing shows a minimal amount of breakthrough bleeding, which has been reinforced with no further breakthrough. LABORATORY DATA: White count is 7, hemoglobin 11, hematocrit 31, platelet count is 156. PRP is noted. His sodium is 134. We will check that again in a few days as an outpatient. IMAGING: X-rays were reviewed with the patient last evening and showed good positioning of the implants, without evidence of complication. There was no fracture. IMPRESSION: Right total knee replacement. PLAN: Findings discussed. He is thinking about staying an additional day, which is fine. He would like to get more PT and better pain control. We did talk to him about some generalities of discharge in terms of followup, bathing instructions, etc. Will check back with him later today and see what his status is. Will order triamcinolone cream for his eczema on the elbow. Lovenox for DVT prophylaxis. PT ponce, we are going to limit him to 60 degrees. We are going to hold on active straight leg raises for now, but he can do quad sets, ambulate with knee immobilizer. He had a quadriceps snip to aid in exposure of his knee.
--- NOTE | 2018-06-10 16:44 | Discharge Summary ---
Date of Service June 10, 2018 Admission HPI Per Admitting Provider Patient is a pleasant 57-year-old male who is here today for preoperative history and physical. He is scheduled to have an elective right total knee arthroplasty by Dr. Everett on June 09, 2018 at the [facility]. He complains of right knee pain that has beenFor the last year or so. He has had progressively worsening symptoms over the last 2-3 months. 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 He states that he does have bilateral knee pain but his right knee pain is more significant than the left. Pain is located on the anterior medial aspect of his right knee. He does have some mild radiation down into his bertrand and occasionally up into his thigh. His pain is increased with activity and weightbearing. He does have decreasing activities of daily living due to pain in his right knee. He has pain with range of motion and occasionally limited range of motion due to pain in his right knee. He states that he also gets swelling and stiffness of the right knee. Aggravating activities include walking, going up and down steps. He also has pain at rest and occasionally at night. He states that after he sits or stands or sleeps for a length of time he gets significant stiffness in his right knee. Prior treatments include nonsteroidal anti-inflammatory medications such as meloxicam and ibuprofen. He also has undergone corticosteroid injections with no significant relief. He also occasionally wears a knee brace. He does not use any assistive device to assist with ambulation at this time. Pain does cause him to limp. He has also taken Tylenol for pain control. He feels that his pain is controlled with the Mobic but he otherwise has failed conservative treatment. Due to his failure conservative treatment, he wishes to proceed with a right total knee arthroplasty. Discharge Data Consultations 06/09/18 15:17 Consult Case Management - Discharge Planning Routine Procedures Performed Operation Date: 06/09/18 09:20 Actual Procedures p Right Total Knee Arthroplasty(Right) - Gasper Everett MD Hospital Course (1) DJD (degenerative joint disease) of knee: Patient was admitted the [facility] after undergoing an elective right total knee arthroplasty with Dr. Everett on June 09, 2018. His surgery was performed with IV sedation, spinal anesthesia and a peripheral nerve block. He tolerated the procedure well without any intraoperative complications. He was given 2 g of IV Ancef for surgical prophylaxis and was continued for 24 hours postoperatively. His postoperative x-rays were performed in PACU and showed a stable prosthesis with neutral alignment. Vital signs were stable during his inpatient stay. He tolerated a regular diet during his inpatient stay. His pain was well-controlled with oral Tylenol, tramadol and oxycodone. He did develop acute blood loss anemia but was asymptomatic during his inpatient stay and did not require any blood transfusions. This we followed as an outpatient. He also developed a low sodium of 134 which will also be rechecked early next week as an outpatient. Consultation was placed for physical therapy and occupational therapy as well as case management. He did well in PT and OT and was deemed safe for home. Case management made arranges for in-home nursing and home physical therapy. No medical Consultation was placed during his inpatient stay as it was not as necessary. He did have some smallish actions with flexion as and no flexion passed 60 and no active straight leg raising due to his procedure. He was allowed out of bed, weightbearing as tolerated right lower extremity with a knee immobilizer and the assistance of a walker or crutches. On POD 2 his dressings were changed, he had some mild bloody drainage with fluid in the prepatellar bursa, this was removed by Dr. Everett at the bedside, another pressure dressing applied. Follow up as instructed in our office as an outpatient on 06/12/18. Instructed to hold Lovenox until further notice and take a baby ASA tomorrow morning. He was deemed safe for home and was discharged to his home on June 11, 2018. Discharge instructions were reviewed and provided. Discharge Instructions New Medicine: * You will likely be taking one or more of these medications: 1. Oxycodone - Take, as directed, when you need it, every four to six hours to control your pain. Take 1 tablet every 4 hours or 1-2 tabs every 4-6 hours 2. Tramadol - Take, as directed, when you need it, every four to six hours to control your pain. 3. Lovenox - Take 30mg twice daily as instructed, HOLD LOVENOX STARTING 06/11 UNTIL FURTHER NOTICE. You will take this for 2-4 weeks after surgery. This thins your blood to lessen the chance of forming a blood clot. 4. Senokot/Colace (Senokot-S)- take twice daily, as needed for constipation. You should take while on pain medication. You can get this over the counter. 5. Tylenol - 2 tabs oral every 8 hours as needed for pain. You can get this over the counter. 6. ASPIRIN - 81mg tablet, tomorrow morning x 1 dose. "VERY IMPORTANT TO READ AND REVIEW" Blood Clots and Blood Thinning Medicine: * You are given Lovenox during the immediate post-operative period to lessen the risk of blood clots forming in your legs and/or lungs. Lovenox is usually given for 2-4 weeks after surgery. * The prescription is for 30 mg syringes. * You will need to get your blood checked on Friday following your surgery. You will have a prescription for this when you leave the hospital. If you are having home nursing come to your house, they will take the blood work. Pain: * The immediate post-operative period after knee replacement surgery is often quite painful. * You are given a prescription for pain medicine. You should take it, as directed, when you need it, especially before physical therapy and before going to bed. Pain that interferes with sleep is very common and can last several months. * You will likely need pain medicine for the first four to six weeks. It will not stop all of the pain. The pain will lessen and as you feel better, you may change to milder pain medicine such as Tylenol. * The most common side effects of pain medicine are nausea and constipation, so don't take more than you need. Physical Therapy: * You will have physical therapy two or three times each week for four to six weeks after your surgery in order to regain your knee range of motion and to retrain your knee to work properly. * It is just as important to make sure you are getting your knee perfectly straight as it is to regain your knee bend. * Taking a pain pill an hour before therapy can help you have a more productive and comfortable therapy session if needed. Home Exercise: * You were shown a series of exercises (heel props, heel slides, etc.) in the hospital. Do these exercises three to four times each day including the exercises you were shown in physical therapy. Walking: * Get up and walk several times each day. For the first four weeks, try not to stand or walk for more than one hour at a time. If you do stand or walk for more than one hour, you will not hurt anything, but your knee and leg will likely swell. * As you feel comfortable, you may change from the walker or crutches to a cane and then to independent walking. SELF CARE INSTRUCTIONS AFTER TOTAL KNEE REPLACEMENT A. You may need to continue a physical therapy program after discharge from the hospital. There are several options available to you. Your doctor will assist you in selecting the best one for you. 1. An out-patient facility 2 to 3 times a week for therapy or home therapy. 2. Continue working on all exercises taught to you in the hospital. Your goals should be to increase bending of your knee to 90 degrees and beyond and to fully straighten your knee. B. You may progress at your own pace from walking with a walker or crutches to a cane; then to no assistive devices. C. Make walking a part of your daily routine. Be up as much as comfortable with rest periods throughout the day. Rest with leg elevation is very important. Use the ice wrap frequently for the first 3-4 weeks. D. There are no restrictions on activities. You may ride in a car, shop, participate in circular saw filer and all social activities. E. Wear the long elastic stockings (SABINO hose) 20 hours a day for six weeks after surgery. They can be removed several times a day for laundering and for a shower. F. Do not place a pillow behind your knee when resting. A pillow at your ankle is okay. VERY IMPORTANT TO READ AND REVIEW A. Take Lovenox (blood thinning medications) as directed by your doctor. 1. YOU WILL BE GIVEN AN ORDER AT DISCHARGE FOR CBC (BLOOD WORK). PLEASE HAVE THIS DONE INSTRUCTED. PLEASE CALL OUR OFFICE AFTER YOUR BLOODWORK IS COMPLETE SO WE CAN TRACK YOUR RESULTS. You will get a CBC on Friday06/01/18 ( script provided at discharge). You may get done as an outpatient after your appointment Friday. IF YOU ARE GOING TO OUTPATIENT PHYSICAL THERAPY, YOU WILL NEED TO GO TO OUTPATIENT TESTING TO HAVE IT DRAWN. B. There are a few signs you need to watch for after you are home. Call [facility] if you notice any of the followin. Increased severe knee pain. Some pain is expected especially when you exercise. 2. Increased swelling in your leg or knee; pain or swelling of the calf muscle in either lower leg. 3. Any fluid drainage from the incision. 4. Shortness of breath or chest pain. C. Please call [facility] at if you have any concerns or questions about your operation or recovery. The doctor or his nurse will return your call promptly. D. You must take antibiotics before dental work, bladder, bowel or other surgery. Call the office to obtain a prescription at least 2 days prior to your appointment. * CALL IF INCREASED PAIN, REDNESS, DRAINAGE OR FEVER GREATER THAT 101. * Sutures should be removed 12-14 days after surgery unless you are on chronic steriods, then it will be 14-18 days after surgery. Call your doctor if: * Temperature above 101 degrees F. * Pain not relieved by pain medicine ordered. * Increased drainage or redness from incision. * Notify your doctor with any questions or concerns. YOU MAY SHOWER STARTING ON FRIDAY, DO NO SCRUB OR SOAK INCISION. PAT INCISION DRY. CHANGE DRESSING ON RIGHT KNEE FRIDAY WITH HOME NURSING, KEEP INCISION COVERED , APPLY SABINO STOCKING ONCE VENITA REMOVED DO NOT TOUCH INCISION, IF SOMEONE IS CHANGING DRESSING YOU MUST WASH HANDS AND WEAR GLOVES.
[2018-06-10] MEDS: SENNA 8.6 MG TAB PO SCH (20:12)
[2018-06-10] MEDS: CeleBREX 200 MG CAP PO SCH (20:12)
[2018-06-11] MEDS: CHECK CLONIDINE PATCH PLACEMENT SCH ×2 (00:30→09:26)
[2018-06-11] MEDS: TRAMADOL HCL 50 MG TABLET PO PRN ×4 (00:38→13:14)
[2018-06-11] MEDS: OXYCODONE HCL IR 5 MG TAB (IMMEDIATE RELEASE) PO PRN ×3 (03:02→11:13)
[2018-06-11] MEDS: ACETAMINOPHEN 500 MG TAB PO SCH ×2 (06:09→13:14)
[2018-06-11] MEDS: CeleBREX 200 MG CAP PO SCH (09:20)
[2018-06-11] MEDS: LISINOPRIL/HCTZ 10/12.5MG TAB PO SCH (09:21)
[2018-06-11] MEDS: MULTIVITAMIN TAB PO SCH (09:21)
[2018-06-11] MEDS: DOCUSATE SODIUM 100 MG CAP PO SCH (09:22)
[2018-06-11] MEDS: GABAPENTIN 300 MG CAP PO SCH (09:22)
[2018-06-11] MEDS: ENOXAPARIN INJ 30 MG/0.3 ML SYR SQ SCH (09:31)
--- NOTE | 2018-06-11 10:23 | Progress Note ---
DATE: 06/11/2018 SUBJECTIVE: No problems reported. Having pain, but controlled. Up with therapy and is pleased with progress. OBJECTIVE: Afebrile, vital signs stable. Urine output adequate. He does not have palpable pedal pulses bilaterally, but both feet are warm with capillary refill less than 2 seconds. He has 5/5 ankle and toe plantar flexion and dorsiflexion strength with normal sensation throughout the foot and leg and no significant swelling. There is some bleed through on this dressing. The dressing is changed. There is some active oozing from the central medial portion of the wound. He does not have a tense hemarthrosis. He does have a slight bit of fluid in the subcutaneous tissues. He did have well-developed bursa which may have accumulated some bleeding. Verbal informed consent is obtained and a preprocedural timeout is performed. Sterile technique utilized with alcohol and Betadine double prep followed by aspiration of the prepatellar bursa from the lateral approach yielding 2.5 mL of blood. A compressive dressing is then applied with a full-length SABINO hose. Xeroform, 4 x 4's, multiple ABDs, Michi and VENITA. IMPRESSION: Right knee replacement. PLAN: Findings discussed. He is set for discharge. He will follow up in my office tomorrow. He will minimize activity, elevate and ice. Wear a knee immobilizer and do minimal bending. Hold on straight leg raises. He can do quad sets and weightbear as tolerated. Reviewed heel props, ankle pumps and gluteal squeezes. We will see him in the office tomorrow and evaluate wound. I think that he has a small subcutaneous hematoma which has been evacuated. We will also have him hold his Lovenox at this point and have him take an 81 mg aspirin. We will reevaluate him tomorrow. Activity restrictions reinforced. We have gone over his medications with him.
== END 2018-06-11 13:41 | disposition home health service (06) | DRG 470 ==
LOC: ASU 06:50 → 3E 14:07

== ENCOUNTER 2018-06-26 12:30 | Inpatient (IN) ==
[2018-06-26] MEDS ORDERED: ONDANSETRON INJ 2 MG/ML 2 ML VIAL IV PRN (13:02)
[2018-06-26] MEDS ORDERED: VANCOMYCIN CONSULT ACTIVE PRN (13:02)
[2018-06-26] MEDS ORDERED: METOCLOPRAMIDE HCL INJ 5 MG/ML 2 ML VIAL IV PRN (13:02)
[2018-06-26] MEDS ORDERED: MAGNESIUM HYDROXIDE SUSP 30 ML UDC PO PRN (13:02)
[2018-06-26] MEDS ORDERED: VANCOMYCIN HCL 1,250 MG in SODIUM CHLORIDE 0.9% 500 ML IV SCH (13:15)
[2018-06-26] MEDS ORDERED: PATIENT'S HEIGHT AND/OR WEIGHT NEEDED SCH (13:30)
[2018-06-26] MEDS ORDERED: TRIAMCINOLONE ACET 0.1% CR 15 GM TUBE EXT PRN (14:14)
--- NOTE | 2018-06-26 14:14 | History & Physical Report ---
Date of Service June 26, 2018 Assessment & Plan (1) Cellulitis, wound, post-operative: Patient is status post right total knee arthroplasty on June 09, 2018. We will plan to admit to [facility] and will start IV vancomycin every 12 hours. We will start with a regular diet and follow cultures obtained today in our office. Obtain a CBC, sedimentation rate, CRP. Regular diet ordered. Erythema marked on his right leg. We will plan to hold his Lovenox for the time being and preparation for possible upcoming surgery. Place him on aspirin 325 mg by mouth twice a day for DVT prophylaxis. We will also order thigh-high SABINO stockings for bilateral lower extremities. He can be out of bed, weightbearing as tolerated right lower extremity with the assistance of crutches. Regular pain medication was ordered which included oxycodone, tramadol, Tylenol. Activities as tolerated, range of motion to his right knee as tolerated. We will follow cultures of his prepatellar bursa as well as his right knee joint and decide upon surgery based on those results. Patient understands and agrees to plan. We will also continue his home medications. All questions were answered. Present on Admission?: Yes History of Present Illness Chief Complaint: Right knee pain, status post right total knee arthroplasty with new erythema and drainage Primary Care Provider: Liliam Edward Patient is a 57-year-old male who was seen and evaluated by Dr. Everett in his cuff patient clinic today. He is status post a right total knee arthroplasty on June 09, 2018. Lesion states that he noticed some redness starting over the weekend worsening on Friday. He is here today for his two- week postoperative check. His janina have remained intact. He has been keeping his incision clean and dry. He states that his home nurses also been coming to look at it. He has had some mild drainage. He changes his dressings daily. As needed fevers or chills. States that he does have a lot of pain in his right knee which been has been constant since his surgery. His been taking oxycodone and tramadol for his pain. Dr. Everett was unaware of the redness or drainage up until today. He denies any fevers or chills. Denies any nausea or vomiting. Stop relief from his knee did develop some fracture blisters which have healed nicely. Bombay were removed today. We also aspirated his prepatellar bursa as well as his right knee joint and sent for cell counts, aerobic and anaerobic cultures of both. Due to him having a recent total knee replacement and this new erythema and drainage admission to the hospital was recommended. We will start him on IV antibiotics and await the cultures that were taken today. We will continue his routine pain medications which consist of oxycodone, tramadol, and Tylenol. New dressings are applied to his right knee. Depending on the alters he may need to undergo formal irrigation and debridement of his right knee in the future. Patient agrees. Allergies Allergy/AdvReac Type Severity Reaction Status Date / Time No Known Allergies Allergy Unknown Verified 06/09/18 08:04 Home Medications Home Medications Medication Instructions Recorded Confirmed Type acetaminophen [Pain Reliever] 1,000 mg PO Q8 #30 tab 06/10/18 Rx docusate sodium 100 mg PO BID 30 Days #60 cap 06/10/18 Rx enoxaparin [Lovenox] 30 mg SUBCUT Q12H 14 Days #28 syr 06/10/18 Rx multivitamin [Daily-Jose Eduardo] 1 tab PO QAM #30 tab 06/10/18 Rx sennosides [Senokot] 17.2 mg PO HS 30 Days #60 tab 06/10/18 Rx triamcinolone acetonide 1 applic EXT Q6H PRN 30 Days #30 gm 06/10/18 Rx gabapentin 300 mg PO BID #30 cap 06/11/18 Rx lisinopril-hydrochlorothiazide 1 tab PO QAM #7 tab 06/11/18 Rx oxycodone 5 - 10 mg PO Q6H PRN #40 cap 06/11/18 Rx tramadol 50 - 100 mg PO Q6H PRN #40 tab 06/11/18 Rx Past Med/Surg History Medical History Abdominopelvic abscess (Resolved) Diverticular disease H/O cervical fracture 2014. FULL ROM Hypertension Osteoarthritis Surgical History History of appendectomy History of bowel resection History of cataract surgery BILATERAL History of colonoscopy History of colostomy History of colostomy reversal Social History marital status: Current Living Situation: Significant Other Other Information That Helps Us Care for You: No Feels Safe at Home: Yes Safety Concerns: Feels Safe At This Time Smoking Status: Former smoker Second Hand Exposure: No Hx Alcohol Use: Yes Alcohol type: beer Alcohol Intake Frequency: a few times a week Hx Substance Use: No Beliefs That Will Affect Care: None Preferred Language: Colombian Communication Ability: Effective Human Relations Professor Required: No Review of Systems Constitutional: + fatigue and + weakness (right leg); no fever, no chills and no sweats Eyes: no discharge and no eye pain Ear, Nose, Mouth, Throat: no ear pain, no tinnitus, no hearing loss and no dizziness Respiratory: no cough, no chest congestion and no dyspnea Cardiovascular: no chest pain, no chest pain at rest, no dyspnea at rest, no lightheadedness, no syncope, no edema and no calf pain Gastrointestinal: no abdominal pain, no heartburn, no nausea, no vomiting, no constipation and no diarrhea/loose stools Genitourinary (Male): no dysuria, no difficulty urinating, no urinary frequency and no urinary incontinence Musculoskeletal: + joint pain (right knee) and + swelling (right knee) Integumentary: + erythema (surrounding surgical incision); no pruritus Neurologic: no tingling and no numbness Psychiatric: no behavioral changes, no depression and no anxiety Physical Exam 2 Physical Exam: Weight 88.6 kg Height 184.5cm Constitutional: WD/WN, vitals as above average body habitus; no acute distress Eyes: PERRL, conjunctivae normal, anicteric sclerae EOM intact bilaterally ENMT: external ear and nose normal, oropharynx normal Mouth: no dentition abnormality Neck: trachea midline, no thyromegaly tolerates gentle ROM neck Respiratory: normal respiratory effort, lungs clear to auscultation Auscultation: no rales, no rhonchi and no wheezes Cardiovascular: RRR, no murmur, no edema Heart Sounds: normal S1 and normal S2 Vessels: no carotid bruit Extremities: normal capillary refill; no calf tenderness and no pedal edema Gastrointestinal (Abdomen): Inspection/Auscultation: abdomen normal to inspection and normal bowel sounds; abdomen not distended Percussion/ Palpation: abdomen soft; abdomen nontender Musculoskeletal: no cyanosis or clubbing, extremities motor strength 5/5 ROM right knee 0-110 degrees. Erythema outlining border of incision. Incision intact, with small amount of clear yellow drainage from central/proximal aspect of incision. Small pustules around insertion of janina, Tenderness to palpation, warmth to palpation. Bombay removed, Prepatellar bursa effusion, moderate right knee joint effusion. Able to independently SLR right lower extremity, ambulates with antaligic gait with assistance of a crutch. Mild distal edema. Skin: normal turgor, + ulcer and + induration Neurologic: patellar DTR's 2+ bilat, sensation intact moves all extremities Psychiatric: A+Ox3, euthymic affect Results & Data Laboratory Results CBC, ESR, CRP ordered upon admission, currently pending.
[2018-06-26 14:18] LABS: Basophils # (auto) 0.06 K/uL (0-0.2); Basophils % (auto) 1.1 %; Eosinophils # (auto) 0.09 K/uL (0-0.5); Eosinophils % (auto) 1.6 %; Hematocrit (blood only) 34.7 % (42-52); Hemoglobin 11.7 g/dL (14.0-18.0); Immature Granulocytes # (auto) 0.02 K/uL (0.00-0.02); Immature Granulocytes % (auto) 0.4 %; Lymphocytes % (auto) 19.9 %; Mean Corpuscular Hgb Conc 33.7 g/dL (32-36); Mean Corpuscular Volume 96.7 fL (80-100); Mean Platelet Volume 7.9 fL (7.4-10.4); Monocytes # (auto) 0.47 K/uL (0.11-0.59); Monocytes % (auto) 8.5 %; Neutrophils % (auto) 68.5 %; Platelet Count 375 K/uL (130-400); RDW Coefficient of Variation 12.9 % (11.5-14.5); RDW Standard Deviation 45.1 fL (36.4-46.3); Red Blood Count 3.59 M/uL (4.7-6.1); White Blood Count 5.54 K/uL (4.8-10.8)
[2018-06-26] MEDS ORDERED: VANCOMYCIN HCL 1,750 MG in SODIUM CHLORIDE 0.9% 500 ML IV STA (14:22)
[2018-06-26 14:35] LABS: Creatinine Clr Calc Pharmacy 115.5 ml/min; Est GFR (African American) 114.2; Est GFR (Non-African American) 98.6
[2018-06-26] MEDS: TRAMADOL HCL 50 MG TABLET PO PRN ×2 (15:24→21:00)
[2018-06-26] MEDS: ACETAMINOPHEN 500 MG TAB PO SCH ×2 (15:26→22:37)
--- NOTE | 2018-06-26 15:33 | Pharmacy Report ---
Pharmacy Abx Dose Short Note - Date of Service June 26, 2018 - Assessment & Plan A/P Pt is a 57yo M receiving vancomycin for erythematous cellulitis. Unsure if there is presence of purulent discharge. Pt population p'kinetics: t1/2=7hrs, ke =[phone]. C/s ordered and pending. trough ordered for 06/27/18 @1530 prior to the third maintenance dose. Goal trough until c/s result will be 15-20mcg/mL Vancomycin: Vanco 1750mg (20mg/kg) x1 to quickly achieve a therapeutic peak then vanco 1250mg (14.5mg/kg) q8 Pharmacy will continue to follow and will adjust dose/frequency as necessary. Thank you.
[2018-06-26] MEDS: OXYCODONE HCL IR 5 MG TAB (IMMEDIATE RELEASE) PO PRN ×2 (17:11→20:59)
[2018-06-26] MEDS: GABAPENTIN 300 MG CAP PO SCH (20:57)
[2018-06-26] MEDS: ASPIRIN 325 MG ECTAB PO SCH (20:57)
[2018-06-26] MEDS: DOCUSATE SODIUM 100 MG CAP PO SCH (20:57)
[2018-06-26] MEDS: VANCOMYCIN HCL 1,250 MG in SODIUM CHLORIDE 0.9% 250 ML IV SCH (23:48)
[2018-06-27] MEDS: OXYCODONE HCL IR 5 MG TAB (IMMEDIATE RELEASE) PO PRN ×6 (01:13→23:13)
[2018-06-27] MEDS: ACETAMINOPHEN 500 MG TAB PO SCH ×3 (06:06→21:45)
[2018-06-27] MEDS: TRAMADOL HCL 50 MG TABLET PO PRN ×3 (08:04→21:46)
[2018-06-27] MEDS: VANCOMYCIN HCL 1,250 MG in SODIUM CHLORIDE 0.9% 250 ML IV SCH ×3 (08:06→23:42)
[2018-06-27] MEDS: LISINOPRIL/HCTZ 10/12.5MG TAB PO SCH (09:15)
[2018-06-27] MEDS: ASPIRIN 325 MG ECTAB PO SCH ×2 (09:15→20:51)
[2018-06-27] MEDS: PANTOprazole 40 MG TAB PO SCH (09:15)
[2018-06-27] MEDS: GABAPENTIN 300 MG CAP PO SCH ×2 (09:16→20:51)
[2018-06-27] MEDS: MULTIVITAMIN TAB PO SCH (09:16)
--- NOTE | 2018-06-27 09:54 | Orthopedic Progress Note ---
Date of Service June 27, 2018 Assessment & Plan (1) Cellulitis, wound, post-operative: We will continue to monitor while he is in the hospital. He remains afebrile. Awaiting culture results to determine whether he requires irrigation and debridement tomorrow morning. Continue vancomycin twice a day. Subjective Patient evaluated in 356 this morning. States that his knee is still painful. He denies any fevers. He states he did not sleep well due to interruptions. Other than his knee, he feels fine. No other complaints. Physical Exam 2 Vital Signs (Past 24 Hours): Last Vital Signs Temp 36.6 C 06/27/18 07:56 Pulse 73 06/27/18 07:56 Resp 16 06/27/18 07:56 BP 123/77 06/27/18 07:56 Pulse Ox 96 06/27/18 07:56 Physical Exam: Reclining in bed. No acute distress. Afebrile. Right knee has the Gabriel wrap and web roll in place. Gabriel wraps were removed. Upper portion of the labral was removed for inspection. Wound remains red. It is within the initial line of demarcation and has actually receded slightly. No significant warmth when compared to his surrounding normal tissue. He does have some very minor a drop of pus at each of the staple entry sites. A single drop is expressible at several of the visible sites. Full terminal extension. Flexion to around 45 degrees secondary to pain. Intact motor function to the ankle. Neurologic exam reveals intact sensation across the right knee and lower leg. Results & Data Laboratory Results Gram stain submitted yesterday is negative for WBCs and negative for organisms. Cultures are pending.
[2018-06-27] MEDS: DOCUSATE SODIUM 100 MG CAP PO SCH ×2 (10:02→20:51)
[2018-06-27] MEDS ORDERED: VANCOMYCIN TROUGH ONE (15:30)
[2018-06-28] MEDS: OXYCODONE HCL IR 5 MG TAB (IMMEDIATE RELEASE) PO PRN ×5 (03:34→20:21)
[2018-06-28] MEDS: ACETAMINOPHEN 500 MG TAB PO SCH ×3 (06:13→21:09)
[2018-06-28] MEDS: TRAMADOL HCL 50 MG TABLET PO PRN ×3 (06:14→23:25)
[2018-06-28] MEDS ORDERED: VANCOMYCIN TROUGH ONE (07:30)
[2018-06-28] MEDS: PANTOprazole 40 MG TAB PO SCH (07:53)
[2018-06-28] MEDS: VANCOMYCIN HCL 1,250 MG in SODIUM CHLORIDE 0.9% 250 ML IV SCH ×2 (07:53→20:11)
[2018-06-28] MEDS: ASPIRIN 325 MG ECTAB PO SCH ×2 (07:53→20:12)
[2018-06-28] MEDS: MULTIVITAMIN TAB PO SCH (07:53)
[2018-06-28] MEDS: LISINOPRIL/HCTZ 10/12.5MG TAB PO SCH (07:53)
[2018-06-28] MEDS: GABAPENTIN 300 MG CAP PO SCH ×2 (07:54→20:12)
[2018-06-28] MEDS: DOCUSATE SODIUM 100 MG CAP PO SCH ×2 (07:54→20:11)
[2018-06-28 08:23] LABS: Creatinine Clr Calc Pharmacy 115.5 ml/min; Est GFR (African American) 114.2; Est GFR (Non-African American) 98.6
--- NOTE | 2018-06-28 09:25 | Pharmacy Report ---
Pharmacy Abx Dose Short Note - Date of Service June 28, 2018 - Assessment & Plan Laboratory Tests 06/28/18 06/28/18 07:28 07:28 Creatinine 0.84 Est Cr Clr Drug Dosing 115.5 Vancomycin Trough 21.9 Assessment: 57 yo Male receiving VANC-IV for treatment of cellulitis, wound, post-operative- s/p right TKA 06/09/18. * Day # 3 of antimicrobial therapy. Plan: Vanc-IV: * Trough level of 21.9 mcg/mL is supratherapeutic and indicates drug accumulation. Will extend dosing interval moving forward. * Change to VANC 1250mg (~14.5mg/kg) IV every 12 hours (was q8h). * Goal trough level: ~15 mcg/mL * Will recheck VANC Trough in ~2 days. Pharmacy will continue to follow and will adjust dose/frequency as necessary. Thank you.
--- NOTE | 2018-06-28 12:38 | Progress Note ---
DATE: 06/28/2018 SUBJECTIVE: Knee feels better. Feels stronger. No problems reported. He is afebrile and his vital signs are stable. Distal neurovascularly intact. Range of motion easily 0-90. Straight leg raise without a lag. The wound is inspected. There were some punctate areas of purulence expressed only from the areas where the janina were, mainly in the upper half of the wound. There is some fluid within the knee joint, but I would grade this as being a small amount of fluid. There is no fluctuance within the subcutaneous tissues and there is no drainage from the wound. There is an area 1 cm proximally where there is some blackish discoloration consistent with some superficial necrosis. There is an area of mid incision where the skin edges are not completely healed together, about 1 cm in length; otherwise, the wound is healed. There is induration and erythema present. The erythema is less than it was previously and has not extended beyond the inked margin. Tenderness is absent around the incision. IMPRESSION: Cellulitis of the right knee, status post right total knee replacement. PLAN: My findings are discussed with the patient. His cultures today both of the superficial bursa area and of the knee joint proper show no growth to date. He is informed of these findings. At this time, this is consistent with a postoperative cellulitis. My recommendations are that we continue the antibiotics and continue to monitor the wound. I do not see an indication for repeat aspiration, nor is there any indication for surgery at present. He will continue to rest and elevate. Aspirin for DVT prophylaxis. PT will be consulted along with Infectious Diseases for antibiotic recommendations, type, route and duration.
--- NOTE | 2018-06-28 16:38 | Infectious Disease Consult ---
Date of Consultation June 28, 2018 Assessment & Plan (1) Cellulitis, wound, post-operative: 57-year-old male with what appears to be superficial wound infection following TKA with right knee cellulitis, appears to be responding to IV vancomycin. Patient will continue on IV antibiotics through tonight, may be able to transition to oral antibiotics tomorrow if continues to improve. Await final culture results. Will follow. History of Present Illness Reason for Consultation: Cellulitis right knee status post TKA Attending Physician: Gasper Everett MD History of Present Illness 57-year-old male who underwent right knee replacement June 09, did well initially, but then developed increasing redness at the superior aspect of wound with some serous drainage, then developed fever and chills so was admitted to the hospital for further management. He was started on IV vancomycin and has shown clinical improvement with resolution of fever and regression of erythema from marked margins. Has had significant pain in his knee since surgery, relatively unchanged. Allergies Allergy/AdvReac Type Severity Reaction Status Date / Time No Known Allergies Allergy Unknown Verified 06/09/18 08:04 Home Medications Home Medications Medication Instructions Recorded Confirmed Type acetaminophen [Pain Reliever] 1,000 mg PO Q8 #30 tab 06/10/18 Rx docusate sodium 100 mg PO BID 30 Days #60 cap 06/10/18 Rx enoxaparin [Lovenox] 30 mg SUBCUT Q12H 14 Days #28 syr 06/10/18 Rx multivitamin [Daily-Jose Eduardo] 1 tab PO QAM #30 tab 06/10/18 Rx sennosides [Senokot] 17.2 mg PO HS 30 Days #60 tab 06/10/18 Rx triamcinolone acetonide 1 applic EXT Q6H PRN 30 Days #30 gm 06/10/18 Rx gabapentin 300 mg PO BID #30 cap 06/11/18 Rx lisinopril-hydrochlorothiazide 1 tab PO QAM #7 tab 06/11/18 Rx oxycodone 5 - 10 mg PO Q6H PRN #40 cap 06/11/18 Rx tramadol 50 - 100 mg PO Q6H PRN #40 tab 06/11/18 Rx Patient History Medical History Abdominopelvic abscess (Resolved) Diverticular disease H/O cervical fracture 2014. FULL ROM Hypertension Osteoarthritis Surgical History History of appendectomy History of bowel resection History of cataract surgery BILATERAL History of colonoscopy History of colostomy History of colostomy reversal Family History Brother Colon cancer Mother Cancer Brain Father CVA (cerebral vascular accident) Other HTN (hypertension) Social History marital status: Current Living Situation: Significant Other Feels Safe at Home: Yes Smoking Status: Former smoker Second Hand Exposure: No Hx Alcohol Use: Yes Alcohol type: beer Alcohol Intake Frequency: a few times a week Hx Substance Use: No Beliefs That Will Affect Care: None Preferred Language: Icelandic Communication Ability: Effective Review of Systems All systems were reviewed and are negative except as per HPI Physical Exam 2 Vital Signs (Past 24 Hours): Last Vital Signs Temp 36.5 C 06/28/18 15:18 Pulse 74 06/28/18 15:18 Resp 18 06/28/18 15:18 BP 95/61 L 06/28/18 15:18 Pulse Ox 92 06/28/18 15:18 Constitutional: WD/WN, vitals as above comfortable; no acute distress Eyes: PERRL, conjunctivae normal, anicteric sclerae ENMT: external ear and nose normal, oropharynx normal Neck: trachea midline, no thyromegaly neck nontender Respiratory: normal respiratory effort, lungs clear to auscultation normal percussion; does not use accessory muscles Cardiovascular: Rate/Rhythm: regular rate and regular rhythm Heart Sounds: normal S1 and normal S2; no gallop, no murmur and no cardiac rub Vessels: normal peripheral pulses; no JVD Gastrointestinal (Abdomen): normal bowel sounds, soft, nontender, no hepatosplenomegaly Musculoskeletal: no cyanosis or clubbing, extremities motor strength 5/5 Spine: thoracic spine normal to inspection and lumbar spine normal to inspection ; no cervical spinal tenderness Skin: no rashes, warm and dry Right knee with erythema around superior aspect of surgical wound, appears regressed from marked lines Neurologic: patellar DTR's 2+ bilat, sensation intact no focal motor deficits Psychiatric: A+Ox3, euthymic affect Orientation: cooperative Lymphatic: no cervical or axillary lymphadenopathy no inguinal lymphadenopathy Results & Data Laboratory Results BMP 06/28/18 07:28 Creatinine 0.84 Laboratory Results - last 48 hr 06/27/18 06/28/18 06/28/18 15:21 07:28 07:28 Creatinine 0.84 Est Cr Clr Drug Dosing 115.5 Est GFR ( Amer) 114.2 Est GFR (Non-Af Amer) 98.6 Vancomycin Trough 18.8 21.9 Diagnostic Findings Name: MONTSE ROSARIO Acct: [id number] Status: DEP CLI : 1960 [facility] [place] Date: 01/04 Age: 57 Sex: M Dis Date: Loc: Laboratory Specimen Drop Off Spec: [id number] Collected: 06/26/18-1230 Received: 06/26/18-[address]: Gasper Everett M.D. Copy To: Pradeep Edward M.D. Source: Knee OV Order: Ordered: Aer/Aleksandra Cult/Sm Comments: SYNOVIAL FLUID #1 Procedure Result Verified Site Gram Stain Final 06/27/1831 Gram Stain Result No WBCs Seen No Organisms Seen Aero/Aleksandra Cult Preliminary 06/28/18 No growth to date.
[2018-06-29] MEDS: OXYCODONE HCL IR 5 MG TAB (IMMEDIATE RELEASE) PO PRN ×4 (00:41→13:49)
[2018-06-29] MEDS: ACETAMINOPHEN 500 MG TAB PO SCH ×2 (05:51→13:49)
[2018-06-29] MEDS: TRAMADOL HCL 50 MG TABLET PO PRN (07:09)
[2018-06-29] MEDS: VANCOMYCIN HCL 1,250 MG in SODIUM CHLORIDE 0.9% 250 ML IV SCH (07:42)
[2018-06-29] MEDS: GABAPENTIN 300 MG CAP PO SCH (07:42)
[2018-06-29] MEDS: DOCUSATE SODIUM 100 MG CAP PO SCH (07:43)
[2018-06-29] MEDS: LISINOPRIL/HCTZ 10/12.5MG TAB PO SCH (07:43)
[2018-06-29] MEDS: MULTIVITAMIN TAB PO SCH (07:43)
[2018-06-29] MEDS: PANTOprazole 40 MG TAB PO SCH (07:43)
[2018-06-29] MEDS: ASPIRIN 325 MG ECTAB PO SCH (07:43)
--- NOTE | 2018-06-29 11:38 | Progress Note ---
DATE: 06/29/2018 SUBJECTIVE: No problems are reported. Overall, pain is slightly less. He did well with physical therapy. OBJECTIVE: He is afebrile. His vital signs are stable. Both of his cultures from the knee joint and the bursa are no growth to date. The knee motion is 0-90 without difficulty and he is able to do a leg raise without difficulty. There is minimal if any fluid within the knee joint and no fluid within the prepatellar bursa. There is markedly less erythema. The wound is completely healed today with no areas of opening and no drainage. There is no purulent drainage from the staple holes. There is 1 small eschar present proximally. Induration is present, but there is no significant tenderness. Skin wrinkles are in place. Calf is soft and supple. ASSESSMENT AND PLAN: He will be discharged today on oral antibiotics. I spoke with Dr. Farrar. Cefadroxil 1 gram b.i.d. and Bactrim DS 1 p.o. b.i.d. We will do this for 10 days and then reassess. He will need an appointment with Dr. Farrar in 1 week. We will have nursing see him at home tomorrow for dressing change and he will be seen at my office for physical therapy on and we will also do a wound check at that time. If there are any problems with increased pain, fever, swelling, redness or any other problems or questions, please contact me. He will continue to do PT, but will try to minimize his activity to promote healing. Continue to elevate, ice. He will resume his Lovenox injections until they are gone. Discontinue aspirin during that time and then will resume aspirin 325 mg p.o. b.i.d. He will continue his pain medication and should be in the process of tapering his medication. He will leave the dressing in place and keep clean and dry.
--- NOTE | 2018-06-29 11:50 | Discharge Summary ---
Date of Service June 29, 2018 Admission HPI Per Admitting Provider Patient is a 57-year-old male who was seen and evaluated by Dr. Everett in his cuff patient clinic today. He is status post a right total knee arthroplasty on June 09, 2018. Lesion states that he noticed some redness starting over the weekend worsening on Friday. He is here today for his two- week postoperative check. His janina have remained intact. He has been keeping his incision clean and dry. He states that his home nurses also been coming to look at it. He has had some mild drainage. He changes his dressings daily. As needed fevers or chills. States that he does have a lot of pain in his right knee which been has been constant since his surgery. His been taking oxycodone and tramadol for his pain. Dr. Everett was unaware of the redness or drainage up until today. He denies any fevers or chills. Denies any nausea or vomiting. Stop relief from his knee did develop some fracture blisters which have healed nicely. [place] were removed today. We also aspirated his prepatellar bursa as well as his right knee joint and sent for cell counts, aerobic and anaerobic cultures of both. Due to him having a recent total knee replacement and this new erythema and drainage admission to the hospital was recommended. We will start him on IV antibiotics and await the cultures that were taken today. We will continue his routine pain medications which consist of oxycodone, tramadol, and Tylenol. New dressings are applied to his right knee. Depending on the alters he may need to undergo formal irrigation and debridement of his right knee in the future. Patient agrees. Discharge Data Consultations 06/26/18 13:25 Consult Case Management - Discharge Planning Routine 06/28/18 11:34 Consult Infectious Diseases Routine Hospital Course (1) Cellulitis, wound, post-operative: Patient was direct admitted from Dr. Everett's office on 06/26/18 due to post operative wound cellulitis possible joint or bursal infection. Cultures from right pre-patella bursa and right knee joint were obtained on Friday. He was admitted and IV Vancomycin was started. His pain and redness improved daily. He was allowed out of bed, weight bear as tolerated right knee with the assistance of one crutch. He was given pain medication which consisted of oxycodone, oral Tylenol, tramadol for pain control. Cultures were followed daily and remained at no growth during his inpatient stay. He had physical therapy see him to do exercises. Dressing changes were done daily. IV Vancomycin was continued twice daily. A consult was placed for DR. Farrar from Infectious Disease, recommendations were to continue IV Vanco, followed cultures , and recommended to go home on oral antibiotics Bactrim and cefadroxil. He tolerated a regular diet during his stay. Due to the cultures remaining negative and his improving pain and redness, no surgical intervention was needed. He continued to do well out of bed, pain was controlled during his stay. Cultures remained no growth. No fluid recollected in bursa or knee joint. New dressings applied daily. Placed on ASA 325mg BID and SABINO stocking LLE for DVT prophylaxis. New prescriptions called into his pharmacy. Follow up instructions provided. He was discharged to his home in stable condition on 06/29/18. He will start outpatient PT on 07/02/18. Discharge Instructions as per EMR.
--- NOTE | 2018-06-29 15:10 | Infectious Disease Progress Nt ---
Date of Service June 29, 2018 Assessment & Plan (1) Cellulitis, wound, post-operative: 57-year-old male with what appears to be superficial wound infection following TKA with right knee cellulitis, responding to IV vancomycin. Patient will continue be discharged home on oral antibiotics with, and an cefadroxil, and will see patient back within 10 days to evaluate need for further therapy. Patient advised to call immediately if any signs or symptoms of worsening infection. Discussed with Dr. Craig. Subjective Patient seen in follow-up for right lower extremity cellulitis/wound infection. Patient states pain and swelling and erythema have improved since yesterday. Has been afebrile, tolerating antibiotics without apparent difficulty. No new complaints. Review of Systems All systems reviewed & are unremarkable except as noted in HPI & below Physical Exam 2 Vital Signs (Past 24 Hours): Last Vital Signs Temp 36.6 C 06/29/18 12:36 Pulse 75 06/29/18 12:36 Resp 18 06/29/18 12:36 BP 118/84 06/29/18 12:36 Pulse Ox 96 06/29/18 12:36 Constitutional: WD/WN, vitals as above comfortable; no acute distress Eyes: PERRL, conjunctivae normal, anicteric sclerae ENMT: external ear and nose normal, oropharynx normal Neck: trachea midline, no thyromegaly neck nontender Respiratory: normal respiratory effort, lungs clear to auscultation normal percussion; does not use accessory muscles Cardiovascular: Rate/Rhythm: regular rate and regular rhythm Heart Sounds: normal S1 and normal S2; no gallop, no murmur and no cardiac rub Vessels: normal peripheral pulses; no JVD Gastrointestinal (Abdomen): normal bowel sounds, soft, nontender, no hepatosplenomegaly Musculoskeletal: no cyanosis or clubbing, extremities motor strength 5/5 Spine: thoracic spine normal to inspection and lumbar spine normal to inspection ; no cervical spinal tenderness Skin: no rashes, warm and dry Neurologic: patellar DTR's 2+ bilat, sensation intact no focal motor deficits Psychiatric: A+Ox3, euthymic affect Orientation: cooperative Lymphatic: no cervical or axillary lymphadenopathy no inguinal lymphadenopathy Results & Data Laboratory Results Laboratory Results - last 48 hr 06/27/18 06/28/18 06/28/18 15:21 07:28 07:28 Creatinine 0.84 Est Cr Clr Drug Dosing 115.5 Est GFR ( Amer) 114.2 Est GFR (Non-Af Amer) 98.6 Vancomycin Trough 18.8 21.9
== END 2018-06-29 15:49 | disposition home or self-care (01) | DRG 561 ==
LOC: 3W 13:41

== ENCOUNTER 2018-09-08 06:53 | Inpatient (IN) ==
--- NOTE | 2018-09-03 14:42 | Anesthesiology Consultation ---
Date of Service September 03, 2018 Assessment & Plan (1) Encounter for pre-operative examination: - S/P Right TKA= 06/09/18= SAB x 1 attempt + PNB at [facility] Chart Review Chart Review: Acceptable Risk for Surgery (pending preop labs) and Patient NOT seen in Pre Admission Testing History Surgery Operation Date: 09/08/18 09:20 Proposed Procedures p Right Total Knee Arthroplasty Arthrotomy Disruption Repair, Possible Allograft - Gasper Everett MD Allergies Allergy/AdvReac Type Severity Reaction Status Date / Time No Known Allergies Allergy Unknown Verified 06/09/18 08:04 Medications Home Medications Medication Instructions Recorded Confirmed Last Taken acetaminophen [Pain Reliever] 1,000 mg PO Q8 #30 tab 06/10/18 Unknown multivitamin [Daily-Jose Eduardo] 1 tab PO QAM #30 tab 06/10/18 Unknown gabapentin 300 mg PO BID #30 cap 06/11/18 Unknown lisinopril-hydrochlorothiazide 1 tab PO QAM #7 tab 06/11/18 Unknown oxycodone 5 - 10 mg PO Q6H PRN #40 cap 06/11/18 Unknown tramadol 50 - 100 mg PO Q6H PRN #40 tab 06/29/18 Unknown Past Medical History Medical History Diverticular disease Hypertension Osteoarthritis Past Family History Family History Brother Colon cancer Mother Cancer Brain Father Stroke Other Hypertension Past Surgical History Surgical History History of appendectomy History of bowel resection History of cataract surgery BILATERAL History of colonoscopy History of colostomy History of colostomy reversal Social History Smoking Status: Former smoker Hx Alcohol Use: Yes Alcohol type: beer alcohol intake frequency: a few times a week Hx Substance Use: No substance use type: does not use Testing Electrocardiogram Date: 05/22/18 Findings: + NSR @ (94) Chest X-Ray Date: 05/22/18 Findings: + NAD Mild chronic parenchymal scarring both lung bases. Old bilateral healed rib fractures. Echocardiogram Date: 06/05/18 EF: 65%. No RWMA. Mild concentric LVH. Grade I diastolic dysfunction. Indeterminate LA pressures. Stress Test Date: 04/17/18 Type: DSE Negative Dobutamine stress ECG for ischemia at 88% MPHR. Negative Dobutamine stress echo for ischemia at 88% MPHR. Hyperdynamic LV systolic function. LVEF 75%.
--- NOTE | 2018-09-04 16:47 | History & Physical Report ---
Date of Service September 04, 2018 Assessment & Plan (1) Painful total knee replacement, right: Dr. Everett discussed the options with the patient. We feel it is disrupted the arthrotomy from his total knee replacement surgery. He was recommended that it be explored and repaired. He does agree to proceed with surgery.[place] competition of the procedure were extended the patient and include but are not limited to infection, pain, bleeding, scarring, nerve and blood vessel damage, wound problems, weakness, stiffness, incomplete relief of symptoms, hardware failure, hardware loosening, wear, fracture, tendon or ligament injury, blood clots, embolisms, heart attack, stroke or . Also discussed the risks of the allograft such as transmission of infections or diseases including bacteria viruses such as HIV or hepatitis and a low-grade immunoreaction.Informed consent was obtained by Dr. Everett. He will have a right total knee arthroplasty arthrotomy disruption repair and possible allograft with Dr. Everett on September 08, 2018. He does not need any preadmission testing as he recently had his lab work performed. He does not need preoperative medical clearance. Postoperative course was discussed. He will be admitted to [facility] for 1-2 days after surgery. We will use aspirin 325 mg one tab by mouth twice a day 3-4 weeks after surgery for DVT prophylaxis. We most likely will need to use oxycodone and tramadol for postoperative pain management. He does have crutches which she will bring with him on the day of surgery. He has postoperative physical therapy scheduled as well as a postoperative appointment with Dr. Everett scheduled for suture removal. We most likely will use an incisional wound VAC after surgery. All questions were answered and he knows to call with any further problems, questions or concerns. Present on Admission?: Yes History of Present Illness Chief Complaint: Continued right knee pain, swelling. Status post right total knee arthroplasty Primary Care Provider: Pradeep Edward Patient is a 57-year-old maleStatus post a right total knee arthroplasty by Dr. Everett on June 09 2018.He then developed some wound breakdown and was admitted to [facility] for postoperative wound cellulitis. At that time he was started on IV antibiotics and was continued on oral antibiotics. Since that time he has had continued pain and swelling to his right knee. His had multiple aspirations of the right knee and multiple cultures obtained which have all been negative for any bacterial growth. He then had an injury to his right knee. He states he had an injury where he fell and this may have been where he injured the extensor mechanism. He subsequently had an aspiration which grew out nothing but he was on some oral antibiotics at that time he is now been off oral antibiotics for a month and re-aspiration was done for approximate 2 weeks ago. Cultures finalize on Friday for and show no growth. Labs look clean. He had an MRI of his right knee which was difficult to interpret but pretty clearly shows there is destruction of the arthrotomy over the superior portion of the patella. Due to his continued swelling, pain and MRI results surgical intervention was recommended for repair of the arthrotomy disruption. He continues to have pain in the front of his knee. Most of his pain is at nighttime. He continues to have some giving out type symptoms of his knee. He has elected to proceed with surgery and agrees with the plan. Allergies Allergy/AdvReac Type Severity Reaction Status Date / Time No Known Allergies Allergy Unknown Verified 09/03/18 15:30 Home Medications Home Medications Medication Instructions Recorded Confirmed Type multivitamin [Daily-Jose Eduardo] 1 tab PO QAM #30 tab 06/10/18 09/03/18 Rx gabapentin 300 mg PO BID #30 cap 06/11/18 09/03/18 Rx lisinopril-hydrochlorothiazide 1 tab PO QAM #7 tab 06/11/18 09/03/18 Rx oxycodone 5 - 10 mg PO Q6H PRN #40 cap 06/11/18 09/03/18 Rx tramadol 50 - 100 mg PO Q6H PRN #40 tab 06/29/18 09/03/18 Rx ibuprofen 2 tab PO QID PRN 09/03/18 09/03/18 History Past Med/Surg History Medical History Cellulitis RT S/T TKA 06/2018 Diverticular disease Eczema Hypertension Osteoarthritis Surgical History History of appendectomy History of bowel resection History of cataract surgery BILATERAL History of colonoscopy History of colostomy History of colostomy reversal History of total knee replacement RT Family History Brother Colon cancer Mother Cancer Brain Father Stroke Other Hypertension Social History Preferred Language: Polish Communication Ability: Effective Visual Impairment: No Limitations Hearing Ability: Normal 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 Required: No Beliefs That Will Affect Care: None marital status: Current Living Situation: Family and Significant Other Current Living Situation Comment: STEP-DAUGHTER Other Information That Helps Us Care for You: No Feels Safe at Home: Yes Safety Concerns: Feels Safe At This Time Smoking Status: Former smoker Cigarettes Per Day: 1ppd x 20+ years Do You Dip or Chew Tobacco: No Smoking End Date: 6 YEARS AGO Second Hand Exposure: No Tobacco Cessation Education Requested by Patient: No Hx Alcohol Use: Yes Alcohol type: beer Hx Substance Use: No Review of Systems Constitutional: no fever, no chills, no sweats and no weakness Eyes: no dry eyes and no itchy eyes Ear, Nose, Mouth, Throat: no tinnitus, no hearing loss, no dizziness, no nasal congestion, no sinus pain/pressure, no snoring and no dental pain Respiratory: no cough, no dyspnea, no pain on inspiration and no wheezing Cardiovascular: no chest pain, no chest pain with activity, no dyspnea, no dyspnea at rest, no dyspnea on exertion, no palpitations, no lightheadedness, no syncope, no edema and no calf pain Gastrointestinal: + nausea (while on antibiotics) and + diarrhea/loose stools (occasional); no abdominal pain, no belching, no heartburn, no vomiting, no pain with swallowing and no constipation Genitourinary: no dysuria, no urinary hesitancy, no hematuria and no flank pain Musculoskeletal: + joint pain (right knee); no back pain, no radicular pain and no deformity Integumentary: no rash, no lesions, no dry skin and no pruritus Neurologic: + headache(s) (occasional ); no unsteadiness, no tingling, no numbness, no radiating pain, no syncope and no memory loss Psychiatric: no irritability and no anxiety Endocrine: no polydipsia, no polyphagia and no polyuria Hematologic / Lymphatic: no easy bleeding, no easy bruising, no coagulopathy and no lymphadenopathy Physical Exam Constitutional: WD/WN, vitals as above + acute distress Eyes: PERRL, conjunctivae normal, anicteric sclerae ENMT: external ear and nose normal, oropharynx normal Nose: no nasal disch arge and no sinus tenderness Throat: uvula midline Neck: trachea midline, no thyromegaly no neck crepitus Respiratory: normal respiratory effort, lungs clear to auscultation Auscultation: no crackles and no wheezes Cardiovascular: RRR, no murmur, no edema Heart Sounds: normal S1 and normal S2 Palpation: normal PMI Vessels: posterior tibial pulses present and dorsalis pedis pulses present Extremities: normal capillary refill; no calf tenderness and no pedal edema Chest (Breasts): Chest: normal inspection of chest Gastrointestinal (Abdomen): normal bowel sounds, soft, nontender, no hepatosplenomegaly Inspection/Auscultation: abdomen not distended Musculoskeletal: Exam of his right knee: No patellar subluxation or apprehension. Moderate right knee effusion, no erythema or induration or drainage. He is a little bit of dry skin over the upper area of the incision. There is 1+ LCL laxity, trace MCL laxity, intact posterior drawer. Almost a normal gait. Range of motion is 0-140. Couple defect is present within the quads superior and slightly medial but does not appear to extend too far proximal. Does not appear to extend more than about 57 m proximal about 5 cm from midline. Straight leg raise intact without lag. Results & Data Laboratory Results Sent labs done on August 24, 2018 CBC: WBC 5.89, hemoglobin 14.0, hematocrit 42.5, platelets 220 ESR: 1 CRP: 0.19 Diagnostic Findings MRI of his right knee: Difficult to interpret but she is pretty clearly that there is a distraction of the arthrotomy over the superior portion of the patella. Status of the quadriceps snip is not clear
[~2018-09-08 06:53] MED LIST changes: -ACETAMINOPHEN 500 MG TAB PO SCH; -BUPIVACAINE 0.5 % 5 MG/1 ML PF 10ML VIAL ONE; -CeleBREX 200 MG CAP PO SCH; -FAMOTIDINE 20 MG TAB PO SCH; -GABAPENTIN 300 MG x 2 PO SCH; +LR 15ML/HR IV SCH; -LR 60ML/HR IV SCH; -METOCLOPRAMIDE HCL 10 MG TABLET PO SCH; -OXYCODONE HCL 10 MG TABCR (OXYCONTIN) PO SCH; -ROPIVACAINE 0.5% 5 MG/ML 30 ML VIAL ONE; -ROPIVACAINE 0.5% HCL/PF 150 MG, BUPIVACAINE 0.5% MPF 30 ML, EPINEPHrine 0.15 MG, Ketoro... INFIL SCH; -TRAMADOL HCL 50 MG TABLET PO SCH; -TRANEXAMIC ACID 1,000 MG **IV Intra-op IV SCH; -TRANEXAMIC ACID 1,000 MG **IV Pre-op IV SCH; -cloNIDine HCL 0.1 MG/24 HR TRANSDERM SYS TD SCH; -dexAMETHasone 4 MG TAB PO SCH
[2018-09-08] MEDS ORDERED: MIDAZOLAM HCL 1 MG/ML 2ML VIAL ONE ×3 (07:12→09:46)
[2018-09-08] MEDS ORDERED: fentaNYL citrate 100 MCG/2 ML VIAL ONE (07:12)
[2018-09-08] MEDS ORDERED: BUPIVACAINE 0.5 % 5 MG/1 ML PF 10ML VIAL ONE (07:12)
[2018-09-08] MEDS ORDERED: ROPIVACAINE 0.5% 5 MG/ML 30 ML VIAL ONE (07:12)
[2018-09-08] MEDS ORDERED: PROPOFOL IV EMULSION 10 MG/ML 20 ML VIAL IV ONE ×4 (07:14→10:57)
[2018-09-08] MEDS ORDERED: PROMETHAZINE HCL 12.5 MG in SODIUM CHLORIDE 0.9% 50 ML IV PRN (07:24)
[2018-09-08] MEDS ORDERED: HYDROmorphone INJ 1 MG/ML SYRINGE IV PRN (07:24)
[2018-09-08] MEDS ORDERED: ePHEDrine sulfate 50 MG/ML AMP IV PRN (07:24)
[2018-09-08] MEDS ORDERED: ONDANSETRON INJ 2 MG/ML 2 ML VIAL IV PRN ×2 (07:24→14:01)
[2018-09-08] MEDS ORDERED: PHENYLEPHRINE 100MCG/ML 5ML SYR IV PRN (07:24)
[2018-09-08] MEDS ORDERED: fentaNYL citrate 100 MCG/2 ML VIAL IV PRN (07:24)
[2018-09-08] MEDS ORDERED: ATROPINE SULFATE 0.1 MG/ML 10ML SYR IV PRN (07:24)
[2018-09-08 08:02] LABS: Partial Thromboplastin Time 26.9 Seconds (21.0-31.0); Prothrombin Time 10.3 Seconds (9.0-12.0)
[2018-09-08 08:08] LABS: Calcium 9.2 mg/dl (8.5-10.1); Creatinine Clr Calc Pharmacy 131.1 ml/min; Est GFR (African American) 120.4; Est GFR (Non-African American) 103.8
[2018-09-08] MEDS ORDERED: POVIDONE-IODINE OP SOLN 30 ML BTL ONE (08:23)
--- NOTE | 2018-09-08 08:36 | History & Physical Bridge Note ---
Date of Service September 08, 2018 History & Physical Bridge Note I have examined the patient, reviewed the History & Physical and in the interval since the performance of the History & Physical I have noted the following changes of clinical significance: His preoperative aspiration shows no growth for anaerobes x2 weeks and aerobes x5 days. No changes noted
[2018-09-08] MEDS ORDERED: KETAMINE HCL INJ 50 MG/ML 10 ML VIAL ONE (10:38)
[2018-09-08] MEDS ORDERED: TRANEXAMIC ACID 1,000 MG in 0.9 % SODIUM CHLORIDE 100 ML IV ONE (11:15)
[2018-09-08] MEDS ORDERED: PHENYLEPHRINE HCL 10 MG/ML VIAL ONE (11:35)
--- NOTE | 2018-09-08 12:35 | Post Operative Brief Note ---
Immediate Post Op Note v1 Date of Surgery September 08, 2018 Pre & Post Diagnosis Operation Date: 09/08/18 09:20 Pre-Op Diagnosis: Arthrotomy Disruption Right Total Knee Arthroplasty Post-Op Diagnosis: Arthrotomy Disruption Right Total Knee Arthroplasty Procedure Operation Date: 09/08/18 09:20 Actual Procedures p Right Total Knee Arthroplasty Arthrotomy Disruption Repair(Right) - Gasper Everett MD Surgeon Gasper Everett MD Slot Floorman cece Estimated Blood Loss 150 Findings Consistent with Post-Op Diagnosis Drains Hemovac Drain Anesthesia Type MAC Spinal Regional Complications none Disposition Accompanied Patient To Recovery: No Disposition: Recovery Room
--- NOTE | 2018-09-08 12:48 | Operative Report ---
Post Operative Report Pre & Post Diagnosis Operation Date: 09/08/18 09:20 Pre-Op Diagnosis: Arthrotomy Disruption Right Total Knee Arthroplasty Post-Op Diagnosis: Arthrotomy Disruption Right Total Knee Arthroplasty Procedure Operation Date: 09/08/18 09:20 Actual Procedures p Right Total Knee Arthroplasty Arthrotomy Disruption Repair(Right) - Gasper Everett MD Surgeon Gasper Everett M.D. Lot Attendant Tala Chase PA-C Estimated Blood Loss 150 Findings Consistent with Post-Op Diagnosis Specimens none Drains Prevena incisional wound vac Hemovac x 2 - deep and superficial Anesthesia Type MAC Spinal Regional Complications none Disposition Accompanied Patient To Recovery: No Disposition: Recovery Room Description of Procedure Patient was taken to the operating room, given IV Ancef for surgical prophylaxis. Time out was performed, prepped and draped in routine sterile fashion. I was present during the entire case, please see Dr. Everett's operative report for further detail. Patient was awakened and taken to the recovery room in stable condition. I attest to the content of the Intraoperative Record and any orders documented therein. Any exceptions are noted below.
--- NOTE | 2018-09-08 12:49 | Operative Report ---
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 Anesthesia Type MAC Spinal Regional Complications none Disposition Accompanied Patient To Recovery: No Disposition: Recovery Room Indications Patient is 57 years old. And is status post a right total knee replacement approximately 3 months ago. He developed a cellulitis in the early postoperative period. He also had a superficial hematoma that was evacuated percutaneously several times. He was admitted to the hospital for intravenous antibiotics. The knee was aspirated and did not grow out any bacteria. He was discharged home on antibiotics. He did have some lingering knee pain and swelling. About 6 weeks ago he stumbled and fell breaking his knee. I think that this is possibly when the arthrotomy may have been disrupted. I waited until his antibiotics were finished and reaspirated his knee. Cultures aerobic and anaerobic help for 14 days were no growth. Fluid showed a few 100 white cells and had normal sed rate and C-reactive protein. Neutrophil elastase and synovia sure alpha defense and were negative. As healing progressed his pain became more evident in the anterior knee. His extensor mechanism remained intact. Recently he reported some buckling symptoms and in the past few weeks it became evident that the arthrotomy was disrupted but his extensor mechanism remained intact. An MRI confirms this. He is taken to surgery for exploration. If his patella has changed substantially I would resurface it but otherwise leave it in situ as it was fairly normal at the time of surgery. I have allografts available if needed and plan on doing a repair of the disrupted arthrotomy. Description of Procedure Informed consent obtained. Patient identified. He identified the operative site as the right knee. I marked with my initials and a preop surgical timeout performed. Preop dose of IV antibiotics given. He was taken to the operating room positioned supine on the OR table with a bump under the right hip and a tourniquet on the right thigh. The right leg was prepped and draped completely. Exam showed range 0-1 35 with 1+ LCL laxity trace MCL laxity and intact posterior drawer. There is a moderate knee effusion and a palpable softness within the midportion medial and lateral portions of the arthrotomy consistent with superior and medial disruption and probable disruption of the quadriceps snip. DVT prophylaxis with the mechanical devices and postoperatively with early mobility mechanical devices and aspirin. The patella could not be dislocated or subluxated and patellar translation was 1 quadrant medial and la teral. The limb was exsanguinated with the Esmarch and tourniquet inflated 250 mmHg. After exposure of the arthrotomy disruption the tourniquet was let down after approximately 45 minutes of inflation and meticulous hemostasis was performed with electrocautery. The patient received intraoperative dose of TXA will receive 1 postoperatively. He had a area of delayed wound healing approximately with some hardness under the skin. His wound was completely healed with no drainage. He has been off antibiotics for almost a month. I excised the old scar and obliquely excised this proximal area which is about a centimeter in size where there had been some extra scarring. I then elevated full-thickness flaps down to the level of the inferior pole the patella. I identified the vastus medialis and vastus lateralis proximally and then worked distally to identify the extensor mechanism. A palpable softness was noted for the quadriceps snip superior and medial to about the 2 o'clock position on the patella. I then made an incision through the soft area which corresponded with a healed over scar defect. This was done at the mid to distal portion of this. I then exposed the proximal patella and noted that there was granulation tissue and complete avulsion of the repair from the proximal patella from 12 to about 230. I denuded the portion of the patella of soft tissue as there was nothing viable at this level to repair the tendon to. I excoriated it down to the level of the bone using a curette and rondure. The scar tissue I elevated as a flap slightly anterior. I then went ahead and debrided the intervening scar tissue back to the thickened quad tendon VMO tendon. I then debrided this with a rondure for getting rid of some granulation tissue until appeared to be reasona nohemy healthy thick tendon tissue. I then extended the arthrotomy proximally up the quadriceps tendon. Old sutures were removed as encountered. There was a palpable V-shaped defect laterally which I incised in the middle and this corresponded to the disruption of the quadriceps snip. This was taken down to healthy quad tendon tissue both proximally and distally. A provisional realignment was then made in repair was then able to be possible. Fluid from the knee was normal appearance without purulence. The patella looked normal with some minorly softened cartilage but nothing that was of any major thickness and I therefore did not think that a resurfacing of the patella was indicated. There is no significant synovitis within the knee itself and there was no fluid accumulation superficial to the extensor mechanism. I inserted to 2.9 juggernaut anchors into the proximal patella under direct visualization. I then took 1 of the double sutures from each anchor and ran it in a Krakw stitch up and down for 2-3 throws in either direction for a tension slide type repair. The opposite end of the stitch was passed up through the tendon. I then took the second stitch from each of the anchors and passed them up in a horizontal mattress fashion. The tension slide was done and tied x2 followed by the horizontal mattress stitches yielding a secure repair. I then went over to the disruption the quadriceps snip and ran #2 FiberWire proximally and distally at bili and a Achilles Krakw type we have. This was then reapproximated and tensioned and tied. I then took several #2 FiberWire's and use them to repair the VMO tendon back over to the intact distal stump of the vastus lateralis and also simple side to side repair of the quad tendon. Laterally there was a 2 cm stump of the vastus lateralis tendon which remained attached to the patella. There is intervening scar tissue and then the rest of the vastus lateralis sided quad tendon. I then took the stitches from the anc hor passed them up through the anterior leaflet of scar tissue after passing them through the tendon itself and double imbricated the repair. I then took several running locked #1 PDS sutures and oversewed all of the repairs. Prior to this I inserted a deep drain and made sure that was not incarcerated by the stitches. Betadine lavage was performed within the knee joint followed by about a liter and a half of irrigation. Prior to the repair I also released the suprapatellar pouch to mobilize the quad thoroughly on its inferior surface and I also dissected up into virgin tissue superficially to relieve any adhesions on the superficial surface of the quad tendon. The tendon could be easily reapproximated back down to where it belonged. After the repair had been performed [place] assisted flexion was approximately 80 to 90 degrees. There was no notable gaping. Again meticulous hemostasis was performed and irrigation was done. The cysts skin was 0 Vicryl 2-0 and 3-0 Vicryl. A superficial drain was inserted and placed medially. The deep drain exited laterally. Daquan were applied followed by a Sayra wound VAC. The leg was then placed into a hinged brace locked in extension after a full-length Gabriel wrap. There were no specimens or complications. Counts were correct. Blood loss was proximal 150 cc. There was no unavailable to speak to at the conclusion of the procedure. He was awakened from anesthesia without difficulty and taken to the recovery room stable condition. He will be admitted to the hospital. The plan will be to allow him to weight- bear as tolerated with the brace locked in extension. I will hold on any knee range of motion or straight leg raises for now he will be able to do some control quadriceps sets. I think eventually I will allow him to do some passive movement 0-30 initially. I will gradually increase his range of motion over the next couple months. I attest to the content of the Intraoperative Record and any orders documented therein. Any exceptions are noted below.
[2018-09-08] MEDS ORDERED: NALOXONE HCL 0.4 MG/1 ML VIAL/CARP IV PRN (14:01)
[2018-09-08] MEDS ORDERED: MAGNESIUM HYDROXIDE SUSP 30 ML UDC PO PRN (14:01)
[2018-09-08] MEDS ORDERED: HYDROmorphone INJ 0.5 MG/0.5 ML SYR IV PRN (14:01)
[2018-09-08] MEDS ORDERED: TAMSULOSIN HCL 0.4 MG CAP PO PRN (14:01)
[2018-09-08] MEDS ORDERED: BISACODYL 10 MG SUPP PR PRN (14:01)
[2018-09-08] MEDS ORDERED: METOCLOPRAMIDE HCL INJ 5 MG/ML 2 ML VIAL IV PRN (14:01)
[2018-09-08] MEDS: ACETAMINOPHEN 500 MG TAB PO SCH ×2 (14:36→22:08)
[2018-09-08] MEDS: SODIUM CHLORIDE 0.9% 1000ML 1,000 ML IV SCH ×2 (14:36→23:28)
[2018-09-08] MEDS: OXYCODONE HCL IR 5 MG TAB (IMMEDIATE RELEASE) PO PRN ×3 (14:39→23:27)
--- NOTE | 2018-09-08 15:15 | Anesthesiology Progress Note ---
Date of Service September 08, 2018 Anesthesia Post Procedure Vital Signs Vital Signs: Temp Pulse Pulse Resp BP Pulse Ox 09/08/18 14:51 36.2 C L 89 16 133/86 96 09/08/18 14:01 69 16 146/92 H 96 09/08/18 13:45 36.2 C L 68 18 126/85 99 09/08/18 13:25 36.3 C L 63 17 137/87 98 09/08/18 13:15 56 L 14 127/88 99 09/08/18 13:05 59 L 17 121/94 98 09/08/18 12:55 54 L 12 125/88 98 09/08/18 12:47 36.2 C L 62 14 108/85 96 09/08/18 07:16 36.6 C 88 18 133/88 93 Pain Intensity Right Knee: Pain Intensity: 5 Notes Mental Status: alert / awake / arousable Patient Amnestic to Procedure: Yes Nausea / Vomiting: adequately controlled Pain: adequately controlled Airway Patency, RR, SpO2: stable & adequate BP & HR: stable & adequate Neuraxial Anesthesia: was administered and sensory block is resolving Anesthetic Complications: no major complications apparent
[2018-09-08] MEDS: TRAMADOL HCL 50 MG TABLET PO PRN ×2 (15:45→21:16)
--- NOTE | 2018-09-08 16:31 | Orthopedic Progress Note ---
Date of Service September 08, 2018 Assessment & Plan (1) Painful total knee replacement, right: POD 0 - Repair right knee arthrotomy with Dr. Everett He may be out of bed, WBAT with brace locked in extension at all times PT/OT to start tomorrow - no knee ROM or SLR, allowed for quad sets Regular diet as ordered ASA 325mg BID for DVT prophylaxis. Pain medication as ordered Will discuss findings with Dr. Everett Will re-eval in AM. Present on Admission?: Yes Subjective Patient doing well, complaining of some pain in right knee. Seems worse than before. Taking pain medication. Tolerating regular diet. Denies chest pain, shortness of breath, headache, nausea or vomiting. Has not been out of bed yet. Physical Exam Physical Exam: Right knee dressings clean, dry, intact. Distal sensation normal. Strength 5/5. Moves toes well, brace intact. Hemovacs and Prevenas functioning. Results & Data Vital Signs (Past 12 Hours) Vital Signs Temp Pulse Pulse Resp BP Pulse Ox 09/08/18 15:57 36.6 C 101 H 16 130/88 94 09/08/18 14:51 36.2 C L 89 16 133/86 96 09/08/18 14:01 69 16 146/92 H 96 09/08/18 13:45 36.2 C L 68 18 126/85 99 09/08/18 13:25 36.3 C L 63 17 137/87 98 09/08/18 13:15 56 L 14 127/88 99 09/08/18 13:05 59 L 17 121/94 98 09/08/18 12:55 54 L 12 125/88 98 09/08/18 12:47 36.2 C L 62 14 108/85 96 09/08/18 07:16 36.6 C 88 18 133/88 93
[2018-09-08] MEDS: KETOROLAC 30 MG/ML VIAL IV PRN ×2 (16:51→23:28)
[2018-09-08] MEDS: CEFAZOLIN 2000MG 2,000 MG/15 ML SYR IV SCH (16:53)
--- NOTE | 2018-09-08 17:58 | Progress Note ---
DATE: 09/08/2018 I discussed with him my findings and recommendations. Reviewed with him my findings related to the surgery and we discussed the postoperative plan, rehab and restrictions. We discussed pain management. I louie him some pictures. His dorsalis pedis is 1+. His sensation is normal. Pain is controlled and his motor strength is 5/5 at the toes and ankle. The brace is intact and the drains are in place. He may weightbear as tolerated.
[2018-09-08] MEDS ORDERED: TRANEXAMIC ACID 1,000 MG in 0.9 % SODIUM CHLORIDE 100 ML IV SCH (18:52)
[2018-09-08] MEDS: GABAPENTIN 300 MG CAP PO SCH (21:13)
[2018-09-08] MEDS: DOCUSATE SODIUM 100 MG CAP PO SCH (21:13)
[2018-09-08] MEDS: ASPIRIN 325 MG ECTAB PO SCH (21:13)
[2018-09-08] MEDS: SENNA 8.6 MG TAB PO SCH (21:13)
[2018-09-09] MEDS: CEFAZOLIN 2000MG 2,000 MG/15 ML SYR IV SCH (02:06)
[2018-09-09] MEDS: TRAMADOL HCL 50 MG TABLET PO PRN ×5 (02:49→23:46)
[2018-09-09] MEDS: OXYCODONE HCL IR 5 MG TAB (IMMEDIATE RELEASE) PO PRN ×5 (03:37→21:45)
[2018-09-09] MEDS: ACETAMINOPHEN 500 MG TAB PO SCH ×3 (05:18→21:41)
[2018-09-09] MEDS: KETOROLAC 30 MG/ML VIAL IV PRN ×3 (05:39→23:00)
[2018-09-09 06:09] LABS: Hematocrit (blood only) 33.6 % (42-52); Mean Corpuscular Hgb Conc 32.7 g/dL (32-36); Mean Corpuscular Volume 90.8 fL (80-100); Mean Platelet Volume 8.8 fL (7.4-10.4); Platelet Count 173 K/uL (130-400); RDW Coefficient of Variation 14.6 % (11.5-14.5); RDW Standard Deviation 48.5 fL (36.4-46.3); White Blood Count 4.47 K/uL (4.8-10.8)
[2018-09-09] MEDS: PANTOprazole 40 MG TAB PO SCH (07:39)
[2018-09-09] MEDS: LISINOPRIL/HCTZ 10/12.5MG TAB PO SCH (07:39)
[2018-09-09] MEDS: ASPIRIN 325 MG ECTAB PO SCH (07:39)
[2018-09-09] MEDS: MULTIVITAMIN TAB PO SCH (07:39)
[2018-09-09] MEDS: GABAPENTIN 300 MG CAP PO SCH ×2 (07:39→20:32)
[2018-09-09] MEDS: DOCUSATE SODIUM 100 MG CAP PO SCH ×2 (07:40→20:32)
--- NOTE | 2018-09-09 08:08 | Anesthesiology Progress Note ---
Date of Service September 09, 2018 Anesthesia Post Procedure Vital Signs Vital Signs: Temp Pulse Pulse Resp BP Pulse Ox 09/09/18 07:56 36.3 C L 75 19 140/93 94 09/09/18 02:46 36.3 C L 82 16 138/79 97 09/08/18 23:13 36.4 C L 82 16 119/77 97 09/08/18 19:10 36.5 C 93 H 16 126/83 96 09/08/18 16:48 36.6 C 91 H 16 136/92 95 09/08/18 15:57 36.6 C 101 H 16 130/88 94 09/08/18 14:51 36.2 C L 89 16 133/86 96 09/08/18 14:01 69 16 146/92 H 96 09/08/18 13:45 36.2 C L 68 18 126/85 99 09/08/18 13:25 36.3 C L 63 17 137/87 98 09/08/18 13:15 56 L 14 127/88 99 09/08/18 13:05 59 L 17 121/94 98 09/08/18 12:55 54 L 12 125/88 98 09/08/18 12:47 36.2 C L 62 14 108/85 96 Pain Intensity Right Knee: Pain Intensity: 7 Notes Mental Status: alert / awake / arousable Patient Amnestic to Procedure: Yes Nausea / Vomiting: adequately controlled Pain: adequately controlled Airway Patency, RR, SpO2: stable & adequate BP & HR: stable & adequate Hydration State: stable & adequate Neuraxial Anesthesia: was administered and sensory block resolved Anesthetic Complications: no major complications apparent
--- NOTE | 2018-09-09 10:17 | Orthopedic Progress Note ---
Date of Service September 09, 2018 Assessment & Plan (1) Quadriceps tendon rupture: Patient had a total knee arthroplasty and he has a partially ruptured his quadriceps tendon and disrupted his arthrotomy repair. Continued admission for pain control and keep lateral Hemovac drain in place. We will continue with some simple PT for quad sets and ankle pumps and weightbearing. Would like to have wound stabilize. Will begin range of motion probably 0-30 in the near future. Continue brace with knee locked in extension. Change aspirin to 325 daily. Toradol is been helpful for the pain and will be continued 30 mg IV every 6 as needed and we can continue this as an outpatient. A.m. labs noted. Present on Admission?: Yes Subjective Pain reasonably well controlled. Toradol helps but still requires narcotics. Poor sleep. Otherwise okay. Has been able to do quad sets and get up and walk around the ortiz with crutches and brace. Physical Exam Physical Exam: Dorsalis pedis 1+. Ankle and toe plantarflexion and dorsiflexion 5 out of 5. Fair quad set. Medial Hemovac drain superficial 5 cc. Lateral Hemovac drain deep 110 cc. Dressings partially removed. The wound VAC intact. Medial Hemovac applied and dressing and brace reapplied. Results & Data Vital Signs (Past 12 Hours) Vital Signs Temp Pulse Pulse Resp BP Pulse Ox 09/09/18 07:56 36.3 C L 75 19 140/92 94 09/09/18 02:46 36.3 C L 82 16 138/79 97 09/08/18 23:13 36.4 C L 82 16 119/77 97 Laboratory Results 09/09/18 09/08/18 Range/Units 05:27 09:03 WBC 4.47 L (4.8-10.8) K/uL RBC 3.70 L (4.7-6.1) M/uL Hgb 11.0 L (14.0-18.0) g/dL Hct 33.6 L (42-52) % MCV 90.8 (80-100) fL MCH 29.7 (25-34) pg MCHC 32.7 (32-36) g/dL RDW Std Deviation 48.5 H (36.4-46.3) fL RDW Coeff of Mabel 14.6 H (11.5-14.5) % Plt Count 173 (130-400) K/uL MPV 8.8 (7.4-10.4) fL Miscellaneous Test Pending
[2018-09-09] MEDS: SENNA 8.6 MG TAB PO SCH ×2 (20:32→20:35)
[2018-09-10] MEDS: ACETAMINOPHEN 500 MG TAB PO SCH ×2 (05:57→13:04)
[2018-09-10] MEDS: OXYCODONE HCL IR 5 MG TAB (IMMEDIATE RELEASE) PO PRN ×3 (05:57→14:36)
[2018-09-10] MEDS: KETOROLAC 30 MG/ML VIAL IV PRN ×2 (05:58→13:06)
[2018-09-10] MEDS: TRAMADOL HCL 50 MG TABLET PO PRN (07:31)
[2018-09-10] MEDS: PANTOprazole 40 MG TAB PO SCH (07:32)
[2018-09-10] MEDS: DOCUSATE SODIUM 100 MG CAP PO SCH (07:32)
[2018-09-10] MEDS: LISINOPRIL/HCTZ 10/12.5MG TAB PO SCH (07:32)
[2018-09-10] MEDS: MULTIVITAMIN TAB PO SCH (07:32)
[2018-09-10] MEDS: GABAPENTIN 300 MG CAP PO SCH (07:32)
[2018-09-10 08:24] VITALS: TEMP 97.9; O2SAT 93
[2018-09-10] MEDS ORDERED: ASPIRIN 325 MG ECTAB PO SCH (09:00)
--- NOTE | 2018-09-10 09:20 | Orthopedic Progress Note ---
Date of Service September 10, 2018 Assessment & Plan (1) Quadriceps tendon rupture: Doing well. Pain well controlled. Discharge home. Aspirin 325 daily for DVT prophylaxis. Toradol 10 mg p.o. q. 6 as needed for pain along with Tylenol Ultram and oxycodone. We talked about minimizing use of narcotics as best as possible. Leave brace on keep clean and dry. Cover to bathe. Ice elevate. Weight-bear as tolerated. Quad sets and ankle pumps gluteal squeezes. No straight leg raises her knee range of motion for the time being. If there is any problems with the pump swelling fevers tingling numbness any other issues please call the office or go to the emergency room. Use a stool softener. Follow-up Friday or Friday and PT and we will change his dressing and initiate some gentle passive range of motion probably 0-30 to start. (2) Painful total knee replacement, right: Subjective Pain better controlled. No other issues. He has been up and about. Physical Exam Physical Exam: Dressing changed. Sayra left intact. SABINO hose applied. Drain pulled. 25 to 50 cc over the last several shifts. There is no significant fluid accumulation within the knee or subcutaneous tissues. The calf is soft the leg is not swollen and his strength and distal neurovascular function are intact. He is able to do a quad set. Results & Data Vital Signs (Past 12 Hours) Vital Signs Temp Pulse Resp BP BP Pulse Ox 09/10/18 08:00 36.6 C 69 16 107/68 93 09/09/18 23:15 36.8 C 86 14 137/81 95 09/09/18 21:42 92 H 99/63 L
--- NOTE | 2018-09-10 10:25 | Discharge Summary ---
Date of Service September 10, 2018 Admission HPI Per Admitting Provider Patient is a 57-year-old male status post a right total knee arthroplasty by Dr. Everett on June 09 2018.He then developed some wound breakdown and was admitted to [facility] for postoperative wound cellulitis. At that time he was started on IV antibiotics and was continued on oral antibiotics. Since that time he has had continued pain and swelling to his right knee. His had multiple aspirations of the right knee and multiple cultures obtained which have all been negative for any bacterial growth. He then had an injury to his right knee. He states he had an injury where he fell and this may have been where he injured the extensor mechanism. He subsequently had an aspiration which grew out nothing but he was on some oral antibiotics at that time he is now been off oral antibiotics for a month and re-aspiration was done for approximate 2 weeks ago. Cultures finalize on Friday for and show no growth. Labs look clean. He had an MRI of his right knee which was difficult to interpret but pretty clearly shows there is destruction of the arthrotomy over the superior portion of the patella. Due to his continued swelling, pain and MRI results surgical intervention was recommended for repair of the arthrotomy disruption. He continues to have pain in the front of his knee. Most of his pain is at nighttime. He continues to have some giving out type symptoms of his knee. He has elected to proceed with surgery and agrees with the plan. Discharge Data Consultations 09/08/18 14:01 Consult Case Management - Discharge Planning Routine Procedures Performed Operation Date: 09/08/18 09:20 Actual Procedures p Right Total Knee Arthroplasty Arthrotomy Disruption Repair(Right) - Gasper Everett MD Hospital Course (1) Painful total knee replacement, right: Patient was admitted to [facility] after undergoing a repair of his right total knee arthroplasty arthrotomy on September 08, [address] Gasper Everett. Surgery was performed with spinal anesthesia in peripheral nerve block. He was given 2 g of IV Ancef for surgery and this was continued for 24 hours after surgery.He tolerated the procedure well without any intraoperative complications. A serum drug test was performed prior to anesthesia due to insurance recommendations for preauthorization of his pain medication. He was allowed out of bed, weightbearing as tolerated right lower extremity with a hinged brace on his right leg locked in extension at all times. He used crutches for assistance with ambulation. PT consult was placed and he was deemed safe for out of bed. He was allowed to do quad sets, ankle pumps but no straight leg raising or region motion to his right knee. Postoperatively he had 2 Hemovacs placed in his knee, one superficial and one deep. Superficial one was removed on postop day one and a deep drain was removed on postop day 2. An incisional wound VAC was placed intraoperatively and will remain intact for 7 days after surgery. His pain was controlled with IV Toradol, oral Tylenol, oxycodone, tramadol and IV Dilaudid. On postoperative day 2 his pain much much better controlled and manageable. His dressings were changed on postoperative day 2 and the Gabriel bandage was removed and it had stocking was applied underneath his brace. He tolerated a regular diet. He did not develop any postoperative chest pain, shortness of breath, headaches, nausea or vomiting. He was seen and evaluated by case management. Vital signs remained stable during his inpatient stay. He was placed on aspirin 325 mg daily for DVT prophylaxis. This will be continued as an outpatient. His Toradol helped significantly with pain management, so he was discharged with oral Toradol for 3 days after surgery. It was determined that he would return home after surgery with outpatient physical therapy. Discharge instructions were reviewed with the patient. Follow-up appointments for physical therapy and see Dr. Everett were arranged. All questions were answered. He was discharged to his home in stable condition on September 10, 2018. Prescriptions for pain medication were provided. Discharge Instructions as per EMR
[2018-09-10 13:17] VITALS: BP 137/81; PULSE 81
--- OUTSIDE RECORDS SUMMARY | 2018-09-14 15:52 | External Medical Summary | Continuity of Care Document ---
:1960 Author Name Marge Eugene, Provider Address Unavailable Unavailable , Care Team Providers Name Role Phone Unavailable Unavailable Unavailable Leni Eugene, Gregorio Garces Unavailable [email or web address] Nikolay CONNORS Unavailable Unavailable Unavailable Unavailable Unavailable Problems Knee pain (719.46) (M25.569) History of colostomy (V12.70) Snoring (786.09) (R06.83) Fatigue (780.79) (R53.83) Witnessed apneic spells (786.03) (R06.81) Sleep disturbances (780.50) (G47.9) Insomnia (780.52) (G47.00) Cellulitis, wound, post-operative (998.59) (T81.49XA) Allergies and Adverse Reactions No Known Drug Allergies (Allergy) Medications Cefadroxil 1 GM Oral Tablet; Take 1 tablet twice daily Valorie Farrar Start: 07-Jul-2018 Quantity: 60 Refills: 1 Bactrim DS 800-160 MG Oral Tablet; Take 1 tablet twice daily Valorie Farrar Start: 07-Jul-2018 Quantity: 60 Refills: 1 Lisinopril-hydroCHLOROthiazide 10-12.5 MG Oral Tablet; Take 1 tablet daily , M.D. Refills: 0 Procedures History of Partial Colectomy With Colostomy Status: Completed 31-Aug-2014 0:00 History of Colostomy Closure Status: Com pleted 30-Nov-2014 0:00 History of Appendectomy Status: Complete d 30-Nov-2014 0:00 Immunizations Immunizations not documented Family History Mother No pertinent family history (V49.89) (Z78.9) Status: Active Father No pertinent family history (V49.89) (Z78.9) Status: Active Social History - Smoking Status Former smoker Former smoker Plan of Treatment Planned Observations Planned Goals not documented Results No Known Results Results not documented Encounters Appointment; Gregorio Farrar M.D. 28-Aug-2018 11:45 Encounter Diagnosis: Problem not documented Appointment; Gregorio Farrar M.D. 28-Jul-2018 14:00 Encounter Diagnosis: Problem not documented Appointment; Gregorio Farrar M.D. 07-Jul-2018 14:00 Encounter Diagnosis: Problem not documented Appointment; Chetan Bain M.D. 17-Apr-2018 8:30 Encounter Diagnosis: Problem not documented Appointment; Chetan Bain M.D. 20-Mar-2018 8:30 Encounter Diagnosis: Problem not documented
== END 2018-09-10 17:04 | disposition home or self-care (01) | DRG 502 ==
LOC: ASU 06:53 → 3E 13:02

== ENCOUNTER 2023-08-03 15:24 | Inpatient (IN) ==
[2023-08-03 17:04] LABS: Appearance Urine Cloudy (Clear); Blood Urine Negative (Negative); Color Urine Orange; Epithelial Cell Urine Auto >30 /lpf (0-5); Glucose Urine UA Negative (Negative); Ketones Urine Trace (Negative); Leukocyte Esterase Urine 1+ (Negative); Nitrite Urine Positive (Negative); Protein Urine 1+ (Negative); Urobilinogen Urine Negative (Negative)
[2023-08-03 17:07] LABS: Bilirubin Urine 2+ (Negative)
[2023-08-03 17:07] LABS: Basophils # (auto) 0.04 K/uL (0.00-0.20); Basophils % (auto) 0.5 %; Eosinophils # (auto) 0.03 K/uL (0.00-0.50); Eosinophils % (auto) 0.4 %; Hematocrit (blood only) 50.6 % (42.0-52.0); Hemoglobin 17.7 g/dl (14.0-18.0); Immature Granulocytes # (auto) 0.11 K/uL (0.01-0.20); Immature Granulocytes % (auto) 1.4 %; Lymphocytes # (auto) 0.97 K/uL (1.20-3.40); Lymphocytes % (auto) 12.6 %; Mean Corpuscular Hemoglobin 35.5 pg (25.0-34.0); Mean Corpuscular Volume 101.4 fL (80.0-100.0); Monocytes # (auto) 0.56 K/uL (0.11-0.59); Monocytes % (auto) 7.3 %; Neutrophils % (auto) 77.8 %; Platelet Count 159 K/uL (130-400); RDW Coefficient of Variation 13.8 % (11.5-14.5); RDW Standard Deviation 51.9 fL (36.4-46.3); Red Blood Count 4.99 M/uL (4.70-6.10); White Blood Count 7.71 K/ul (4.8-10.8)
--- NOTE | 2023-08-03 17:14 | XRay Report ---
XR chest 1V portable HISTORY: Dyspnea COMPARISON: Chest 01/17/2020. FINDINGS: No pneumothorax. No pleural effusions. There is mild elevation of the right hemidiaphragm, unchanged. Right basilar linear densities favor scarring or subsegmental atelectasis. Otherwise, the lungs are clear. The heart is normal in size. Posterior fusion hardware again noted within the mid th oracic spine. There are old, healed left-sided rib fractures again noted. IMPRESSION: No acute process. ACT 112: Negative or not required by law. Electronically signed by: Omer Lares M.D. 08/03/2023 5:12 PM
[2023-08-03 17:16] LABS: Calcium Oxalate Crystals Urine Present (None Prsent); Mucus Urine Present (None Prsent)
[2023-08-03 17:17] LABS: Bacteria Urine Automated 1+ (Negative); RBC Urine Automated 0-4 /hpf (0-4)
[2023-08-03 17:24] LABS: Albumin Globulin Ratio 1.1 (0.9-2); Albumin Level 3.6 gm/dl (3.4-5.0); BUN Creatinine Ratio 7.5 (10-20); Bilirubin,Total 1.6 mg/dl (0.2-1.0); Calcium 9.3 mg/dl (8.6-10.3); Creatinine Clr Calc Pharmacy 121.1 ml/min; Est GFR (Non-African American) 104.4 ml/min; Globulin 3.3 gm/dl (2.5-4.0); Potassium 4.7 mmol/L (3.5-5.1); Total Protein 6.9 gm/dl (6.0-8.3)
[2023-08-03 17:31] LABS: Troponin I High Sensitivity 7.9 pg/ml (0-20)
--- NOTE | 2023-08-03 17:48 | Emergency Department Note ---
Impression & Plan Syncope and collapse, Alcohol use, Shortness of breath, Emphysema lung ED Provider Note NAME: MONTSE ROSARIO AGE: 62 SEX: M : 1960 ARRIVES VIA: Walk-In INFORMANT: Patient, ED PROVIDER(S): Dario Marie MD CHIEF COMPLAINT: Shortness of breath, recurrent "seizures " HPI: This is a 62-year-old male presented for shortness of breath. Patient states that over the past 6 months he has had worsening shortness of breath. In this time he is also noticed worsening "seizures ". He states that whenever he stands up, at least once per day he will pass out and have "seizures". His is with him and states that she witnesses him going from sitting to standing, he feels an aura where he feels the vision going hoffman and he hangs onto something. He then collapses to the ground and had shaking-like episodes of the whole body for between 30 seconds to 5 minutes. He is somewhat confused during this time but quickly goes back to normal within 5 minutes. This happens almost daily for the past few days to months. Otherwise he noticed nausea and vomiting. He also notes chest tightness and shortness of breath that is progressively worsening. He does smoke about 4 cigars/day. ROS: See above HPI for pertinent positives & negatives. A total of 10 systems reviewed and were otherwise negative. PAST MEDICAL HISTORY: See Below PAST SURGICAL HISTORY: See Below FAMILY HISTORY: See Below SOCIAL HISTORY: See Below HOME MEDICATIONS: See Below ALLERGIES: See Below VITALS: See Below PHYSICAL EXAMINATION: General: resting comfortably in no acute distress Head: Normocephalic and atraumatic Eyes: Normal inspection, extraocular muscles intact Ear, nose, throat: Normal external exam Neck: Normal range of motion Respiratory: lungs clear to auscultation bilaterally Cardiovascular: Regular rate/rhythm, no murmur GI: soft, nontender, no guarding or rebound Extremities: nontender, moves all extremities Neuro: The patient awake and alert, appropriately conversive, no focal deficits, symmetric faces Skin: Warm, dry, and intact MEDICAL DECISION MAKING: Provider summary this is a 62-year-old male presented for shortness of breath and recurrent "seizures". I believe these are more likely syncopal episodes based on the description of the symptoms. He states when he stands up he feels lightheaded and then passes out. He has no chest pain and these episodes make cardiogenic syncope less likely kitty. Will do screening workup with CT imaging of the head to rule intracranial process such as mass, CTA of the chest and CT ab/pelvis. Patient has fallen multiple times requiring scans for trauma as well. -Blood was reviewed showing no leukocytosis, anemia, electrolyte disturbances. His AST is significant elevated compared to his ALT. Patient department 7.9 with a BNP of 51. -Urinalysis reveals signs of contamination. -Chest Xray independently interpreted by me showing no pneumothorax, focal opacity, or pleural effusions. -Patient CT imaging does not reveal any acute intracranial process, intrathoracic process or intra-abdominal abdominal process to explain his current symptoms. There are chronic findings as noted. -Patient orthostatic vital signs are positive. Will admit for further workup -Patient care scented under Differential diagnosis: Cardiogenic syncope, intracranial hemorrhage versus mass, hypovolemia, heart failure ER treatment provided: See below Diagnostics interpreted by me: ECG: ECG independently interpreted by me with sinus tachycardia, rate of 106, normal axis, normal DC, normal QRS, borderline QTc, no ST segment elevations consistent with STEMI criteria Cardiac Monitoring: An order was placed for continuous cardiac monitoring. The monitor shows a rate of 105 with sinus rhythm. Laboratory studies: As stated above and show below. Imaging studies: See below. Past Med/Surg History Medical History (Updated 08/04/23 @ 00:17 by Dario Marie MD) Alcohol use Tobacco use Syncope and collapse History of rib fracture Hx of fall fell from rope swing and landed on back. fx cervical and had emergency sugery fusion of c5-6-c7 Eczema Cellulitis RT S/T TKA 06/2018 Osteoarthritis Diverticular disease Hypertension no medication Surgical History Hx of fusion of cervical spine c5-c7 has some limitation with range of motion History of surgery on left wrist History of total knee replacement RT History of cataract surgery BILATERAL History of appendectomy History of colonoscopy History of colostomy reversal History of colostomy d/t diverticulitis Family History Brother Colon cancer Mother Cancer Brain Father Stroke Other Hypertension Social History Smoking Status: Current every day smoker Tobacco Type: Cigars Cigarettes Per Day: 4; Second Hand Exposure: No; Do You Dip or Chew Tobacco: No; Hx Alcohol Use: Yes Alcohol type: beer Hx Substance Use: No Preferred Language: B[place] Communication Ability: Effective Visual Impairment: No Limitations Hearing Ability: Normal Station Engineer Required: No Beliefs That Will Affect Care: None marital status: Current Living Situation: Significant Other Current Living Situation Comment: STEP-DAUGHTER How many Children do You have: 1 Other Information That Helps Us Care for You: No Feels Safe at Home: Yes Safety Concerns: Feels Safe At This Time Assistive Devices: Cane Allergies Allergies Allergy/AdvReac Type Severity Reaction Status Date / Time CELLULOSE Allergy Unknown cant Uncoded 08/03/23 17:07 process it Home Meds Home Medications Medication Instructions Recorded Confirmed acetaminophen 500 mg tablet 1,000 mg PO Q6H PRN Pain 01/17/20 08/03/23 meloxicam 15 mg tablet 15 mg PO DAILY 01/17/20 08/03/23 gabapentin 300 mg capsule 300 mg PO HS 04/14/23 08/03/23 gabapentin 600 mg tablet 600 mg PO TID 04/14/23 08/03/23 naproxen sodium 220 mg tablet 660 mg PO DIRECTED PRN Pain 08/03/23 08/03/23 (Aleve) Results & Data (ED) Vital Signs Vital Signs - 24 hr 08/03/23 15:31 08/03/23 16:48 08/03/23 16:54 Temperature 36.9 C Temperature Source Temporal Artery Scan Pulse Rate - Lying Pulse Rate - Sitting Pulse Rate - Standing Pulse Rate 104 H 109 H Pulse Rate [Apical] 109 H Respiratory Rate 19 18 20 Respiratory Effort / Characteristics Non-Labored Spontaneous Respiratory Depth Normal Blood Pressure - Lying Blood Pressure - Sitting Blood Pressure- Standing Blood Pressure 143/90 H Blood Pressure [Right Arm] 154/110 H Blood Pressure Mean 107 Blood Pressure Mean [Right Arm] 124 Pulse Oximetry 100 96 96 Oxygen Delivery Method Room Air Room Air Room Air Sepsis Recent Fever Within 48 Hours No Sepsis New/Unexplained Change in Mental Status No Sepsis Action Taken by Nursing No Action Required 08/03/23 17:11 08/03/23 18:00 08/03/23 20:00 Temperature Temperature Source Pulse Rate - Lying Pulse Rate - Sitting Pulse Rate - Standing Pulse Rate 99 H Pulse Rate [Apical] 96 H 113 H Respiratory Rate 18 20 Respiratory Effort / Characteristics Respiratory Depth Normal Blood Pressure - Lying Blood Pressure - Sitting Blood Pressure- Standing Blood Pressure Blood Pressure [Right Arm] 149/105 H 166/112 H Blood Pressure Mean Blood Pressure Mean [Right Arm] 119 130 Pulse Oximetry 100 Oxygen Delivery Method Sepsis Recent Fever Within 48 Hours Sepsis New/Unexplained Change in Mental Status Sepsis Action Taken by Nursing 08/03/23 20:30 08/03/23 21:12 Temperature Temperature Source Pulse Rate - Lying 104 H Pulse Rate - Sitting 108 H Pulse Rate - Standing 114 H Pulse Rate 101 H Pulse Rate [Apical] Respiratory Rate Respiratory Effort / Characteristics Respiratory Depth Blood Pressure - Lying 136/94 Blood Pressure - Sitting 114/90 Blood Pressure- Standing 87/69 L Blood Pressure Blood Pressure [Right Arm] Blood Pressure Mean Blood Pressure Mean [Right Arm] Pulse Oximetry Oxygen Delivery Method Sepsis Recent Fever Within 48 Hours Sepsis New/Unexplained Change in Mental Status Sepsis Action Taken by Nursing Laboratory Data 08/03/23 16:42 08/03/23 16:42 Lab Results 08/03/23 08/03/23 08/03/23 Range/Units 15:32 16:37 16:42 WBC 7.71 (4.8-10.8) K/ul RBC 4.99 (4.70-6.10) M/uL Hgb 17.7 (14.0-18.0) g/dl Hct 50.6 (42.0-52.0) % MCV 101.4 H (80.0-100.0) fL MCH 35.5 H (25.0-34.0) pg MCHC 35.0 (32.0-36.0) g/dL RDW Std Deviation 51.9 H (36.4-46.3) fL RDW Coeff of Mabel 13.8 (11.5-14.5) % Plt Count 159 (130-400) K/uL MPV 9.0 L (9.4-12.4) fL Immature Gran % (Auto) 1.4 % Neut % (Auto) 77.8 % Lymph % (Auto) 12.6 % [place] % (Auto) 7.3 % Eos % (Auto) 0.4 % Baso % (Auto) 0.5 % Neut # (Auto) 6.00 (1.40-6.50) K/uL Lymph # (Auto) 0.97 L (1.20-3.40) K/uL [place] # (Auto) 0.56 (0.11-0.59) K/uL Eos # (Auto) 0.03 (0.00-0.50) K/uL Baso # (Auto) 0.04 (0.00-0.20) K/uL Immature Gran # (Auto) 0.11 (0.01-0.20) K/uL Sodium 138 (136-145) mmol/L Potassium 4.7 (3.5-5.1) mmol/L Chloride 103 (98-107) mmol/L Carbon Dioxide 27 (21-32) mmol/L Anion Gap 8 (3-11) BUN 5 L (6-23) mg/dl Creatinine 0.67 (0.6-1.4) mg/dl Est Cr Clr Drug Dosing 121.1 ml/min Est GFR ( Amer) 121.0 ml/min Est GFR (Non-Af Amer) 104.4 ml/min BUN/Creatinine Ratio 7.5 L (10-20) Glucose 101 H (70-99(Fasting)) mg/dl Calcium 9.3 (8.6-10.3) mg/dl Magnesium 1.6 L (1.7-2.4) mg/dl Total Bilirubin 1.6 H (0.2-1.0) mg/dl AST 109 H (13-39) U/L ALT 41 (7-52) U/L Alkaline Phosphatase 228 H (34-104) U/L Troponin I High Sens 7.9 (0-20) pg/ml B-Natriuretic Peptide 51 (0-100) pg/ml Total Protein 6.9 (6.0-8.3) gm/dl Albumin 3.6 (3.4-5.0) gm/dl Globulin 3.3 (2.5-4.0) gm/dl Albumin/Globulin Ratio 1.1 (0.9-2) Vitamin B12 557 (180-914) pg/ml Folate 10.50 (>5.38) ng/ml Urine Color [place] Urine Appearance Cloudy A (Clear) Urine pH 6.0 (4.5-7.5) Ur Specific [place] 1.020 (1.000-1.030) Urine Protein 1+ H (Negative) Urine Glucose (UA) Negative (Negative) Urine Ketones Trace H (Negative) Urine Blood Negative (Negative) Urine Nitrite Positive A (Negative) Urine Bilirubin 2+ H (Negative) Urine Urobilinogen Negative (Negative) Ur Leukocyte Esterase 1+ H (Negative) Urine WBC (Auto) 5-10 H (0-5) /hpf Urine RBC (Auto) 0-4 (0-4) /hpf U Hyaline Cast (Auto) 10-30 H (0-5) /lpf U Epithel Cells (Auto) >30 H (0-5) /lpf Urine Bacteria (Auto) 1+ H (Negative) Urine Crystals Not Reportable Calcium Oxalate Crystal Present A (None Prsent) Urine Mucus Present A (None Prsent) Adenovirus (PCR) Not Detected (NotDetected) B. pertussis DNA (PCR) Not Detected (NotDetected) B.parapertussis DNA PCR Not Detected (NotDetected) C. pneumoniae DNA (PCR) Not Detected (NotDetected) Coronavirus OC43 (PCR) Not Detected (NotDetected) Coronavirus HKU1 (PCR) Not Detected (NotDetected) Coronavirus 229E (PCR) Not Detected (NotDetected) SARS-CoV-2 (PCR) Not Detected (NotDetected) Coronavirus NL63 (PCR) Not Detected (NotDetected) Human Metapneumovir PCR Not Detected (NotDetected) Influenza Type A (PCR) Not Detected (NotDetected) Influenza Type B (PCR) Not Detected (NotDetected) M. pneumoniae (PCR) Not Detected (NotDetected) Parainfluenza 1 (PCR) Not Detected (NotDetected) Parainfluenza 2 (PCR) Not Detected (NotDetected) Parainfluenza 3 (PCR) Not Detected (NotDetected) Parainfluenza 4 (PCR) Not Detected (NotDetected) RSV (PCR) Not Detected (NotDetected) Entero/Rhino (PCR) Not Detected (NotDetected) Administered Medications Discontinued Medications Multivitamins 10 ml/ Thiamine HCl 100 mg/ Folic Acid 1 mg/Sodium Chloride 1,011.2 mls @ 500 mls/hr IV .Q2H2M ONE Stop: 08/03/23 23:23 Last Admin: 03/17/24 22:17 Dose: 500 mls/hr Documented By: MARLENA Ioversol (Optiray 320 125ml) 115 ml IV ONCE ONE Stop: 08/03/23 18:12 Last Admin: 08/03/23 18:11 Dose: 115 ml Documented By: YOUSIF Nicotine (Nicotine 21 Mg/24 Hr Tdsy) 21 mg TD NOW STA Stop: 08/03/23 21:43 Last Admin: 08/03/23 22:17 Dose: 21 mg Documented By: MARLENA Pantoprazole Sodium (Pantoprazole 40 Mg Tab) 40 mg PO NOW STA Stop: 08/03/23 21:28 Last Admin: 08/03/23 22:17 Dose: 40 mg Documented By: MARLENA Imaging Data Radiologist's Impression: Chest X-Ray 08/03/23 16:30 XR chest 1V portable HISTORY: Dyspnea COMPARISON: Chest 01/17/2020. FINDINGS: No pneumothorax. No pleural effusions. There is mild elevation of the right hemidiaphragm, unchanged. Right basilar linear densities favor scarring or subsegmental atelectasis. Otherwise, the lungs are clear. The heart is normal in size. Posterior fusion hardware again noted within the mid thoracic spine. There are old, healed left-sided rib fractures again noted. IMPRESSION: No acute process. ACT 112: Negative or not required by law. Electronically signed by: Omer Lares M.D. 08/03/2023 5:12 PM Chest CTA 08/03/23 17:45 CHEST CTA for PULMONARY ARTERIES CT DOSE: 2689.96 mGy.cm HISTORY: PE, shortness of breath, chest pain TECHNIQUE: Multiaxial CT images of the chest were performed following the intravenous administration of contrast to evaluate the pulmonary arteries. 3D/Maximal intensity projection images were also obtained. Sagittal and coronal reformations were also reviewed. A dose lowering technique was utilized adhering to the principles of ALARA. COMPARISON STUDY: Chest CT 02/21/2023. FINDINGS: T6-T9 spinal fusion again noted with minimal anterior wedging at T7. This is considered to be chronic. Right posterior 11th and 12th rib fractures. Multiple old, healed additional bilateral rib fractures. No acute fractures within the chest. Abdominal structures will be reported on the same day abdomen and pelvis CT. Normal thyroid gland. Normal caliber esophagus. The heart is normal in size. No pleural or pericardial effusions. No mediastinal or hilar lymphadenopathy. Normal caliber thoracic aorta with no evidence for a dissection. Moderate coronary artery calcifications are noted. There is left ventricular hypertrophy, unchanged. No filling defects within the pulmonary arteries to suggest a pulmonary embolus. No pneumothorax. The central airways are patent. Mild emphysema. Bilateral lower lobe linear densities favor subsegmental atelectasis are scarring. Otherwise, no focal lung consolidations to suggest a pneumonia. No evidence for pulmonary edema. IMPRESSION: 1. No evidence for a pulmonary embolus. 2. No acute traumatic process within the chest. 3. Healing right posterior 11th and 12th rib fractures again noted. 4. Left ventricular hypertrophy. 5. Emphysema. ACT 112: Negative or not required by law. Electronically signed by: Omer Lares M.D. 08/03/2023 6:[address] 08/03/23 17:[address] DOSE: HISTORY: head trauma, recurrent syncope TECHNIQUE: Multiaxial CT images of the head were performed without the use of intravenous contrast. Automated exposure control was utilized for this study. A dose lowering technique was utilized adhering to the principles of ALARA. Comparison: Head CT 04/14/2023. Findings: Old nasal bone deformities again noted. The paranasal sinuses and mastoid air cells are clear. The calvarium and skull base are intact. There is no mass, hematoma, midline shift, acute infarct. White matter hypodensity is nonspecific but suggestive of microvascular ischemic change. The ventricles and sulci demonstrate mild age-related involutional changes. Impression: No acute intracranial abnormality. ACT 112: Negative or not required by law. Electronically signed by: Omer Lares M.D. 08/03/2023 6:46 PM Abdomen/Pelvis CT 08/03/23 17:[address] WITH IV CONTRAST CT DOSE: HISTORY: multiple falls, abd pain TECHNIQUE: Multiaxial CT images of the abdomen and pelvis were performed following the use of intravenous contrast. A dose lowering technique was utilized adhering to the principles of ALARA. COMPARISON STUDY: Abdomen and pelvis CT 02/21/2023. FINDINGS: The lung bases will be reported on the same day chest CT. No pneumoperitoneum. No pneumatosis. Healing fractures within the right posterior 11th and 12th ribs as well as the right L1 transverse process again noted. Multiple old, healed bilateral rib fractures again noted. No acute fractures identified. There are few small gallstones. No gallbladder wall thickening. Hepatic steatosis. The main portal vein is patent. The pancreas, spleen, and kidneys are unremarkable. No hydronephrosis. Small bilateral adrenal gland nodules, unchanged. Normal caliber abdominal aorta with extensive calcified plaque. No retroperitoneal hematoma or lymphadenopathy. No pelvic lymphadenopathy or pelvic free fluid. The bladder is decompressed. Bladder wall thickening may be due to underdistention and the mildly enlarged prostate gland. Small fat-containing left inguinal hernia is noted. Degenerative changes and mild scoliosis again noted within the lumbar spine. There are few punctate metallic densities within the proximal left thigh and left gluteal region. No bowel wall thickening or obstruction. Fluid-filled nondilated loops of large and small bowel seen throughout the abdomen. IMPRESSION: 1. No acute traumatic process within the abdomen or pelvis. 2. Hepatic steatosis. 3. Healing right posterior 11th and 12th rib fractures and a right L1 transverse process fracture again noted. 4. No bowel wall thickening or obstruction. 5. Fluid-filled nondilated loops of large and small bowel. This could represent a gastroenteritis/diarrheal illness. 6. Additional findings as described above. ACT 112: Negative or not required by law. Electronically signed by: Omer Lares M.D. 08/03/2023 7:03 PM Discharge Plan Visit Data Chief Complaint: Illness Stated Complaint: SHORTNESS BREATH,TIGHTNESS IN CHEST,POSS SEIZURE ED Provider: Dario Marie Discharge Problem: Syncope and collapse, Alcohol use, Shortness of breath, Emphysema lung Patient Disposition: Admitted As Inpatient Discharge Instructions Interventions: ED Discharge Assessment Last Done: 08/03/23 22:49
[2023-08-03 18:00] LABS: Adenovirus PCR Not Detected (NotDetected); Bordetella parapertussis PCR Not Detected (NotDetected); Bordetella pertussis PCR Not Detected (NotDetected); Chlamydia pneumoniae PCR Not Detected (NotDetected); Coronavirus 229E PCR Not Detected (NotDetected); Coronavirus CoV-2 (COVID19)PCR Not Detected (NotDetected); Coronavirus HKU1 PCR Not Detected (NotDetected); Coronavirus NL63 PCR Not Detected (NotDetected); Coronavirus OC43PCR Not Detected (NotDetected); Human Metapneumovirus PCR Not Detected (NotDetected); Influenza A PCR Not Detected (NotDetected); Influenza B PCR Not Detected (NotDetected); Mycoplasma pneumoniae PCR Not Detected (NotDetected); Parainfluenza Virus 1 PCR Not Detected (NotDetected); Parainfluenza Virus 2 PCR Not Detected (NotDetected); Parainfluenza Virus 3 PCR Not Detected (NotDetected); Parainfluenza Virus 4 PCR Not Detected (NotDetected); Respiratory Syncytial VirusPCR Not Detected (NotDetected); Rhinovirus/Enterovirus PCR Not Detected (NotDetected)
[2023-08-03] MEDS: OPTIRAY 320 125ml IV ONE (18:11)
--- NOTE | 2023-08-03 18:48 | CT Scan Report ---
HEAD CT NONCONTRAST CT DOSE: HISTORY: head trauma, recurrent syncope TECHNIQUE: Multiaxial CT images of the head were performed without the use of intravenous contrast. A utomated exposure control was utilized for this study. A dose lowering technique was utilized adheri ng to the principles of ALARA. Comparison: Head CT 04/14/2023. Findings: Old nasal bone deformities again noted. The paranasal sinuses and mastoid air cells are [place] ar. The calvarium and skull base are intact. There is no mass, hematoma, midline shift, acute infarct . White matter hypodensity is nonspecific but suggestive of microvascular ischemic change. The ventri cles and sulci demonstrate mild age-related involutional changes. Impression: No acute intracranial abnormality. ACT 112: Negative or not required by law. Electronically signed by: Omer Lares M.D. 08/03/2023 6:46 PM
--- NOTE | 2023-08-03 18:58 | CT Scan Report ---
CHEST CTA for PULMONARY ARTERIES CT DOSE: 2689.96 mGy.cm HISTORY: PE, shortness of breath, chest pain TECHNIQUE: Multiaxial CT images of the chest were performed following the intravenous administration of contrast to evaluate the pulmonary arteries. 3D/Maximal intensity projection images were also obta ined. Sagittal and coronal reformations were also reviewed. A dose lowering technique was utilized a dhering to the principles of ALARA. COMPARISON STUDY: Chest CT 02/21/2023. FINDINGS: T6-T9 spinal fusion again noted with minimal anterior wedging at T7. This is considered to be chronic. Right posterior 11th and 12th rib fractures. Multiple old, healed additional bilateral rib fractures. No acute fractures within the chest. Abdominal structures will be reported on the same day abdomen a nd pelvis CT. Normal thyroid gland. Normal caliber esophagus. The heart is normal in size. No pleural or pericardial effusions. No mediastinal or hilar lymphadenopathy. Normal caliber thoracic aorta wit h no evidence for a dissection. Moderate coronary artery calcifications are noted. There is left vent ricular hypertrophy, unchanged. No filling defects within the pulmonary arteries to suggest a pulmona ry embolus. No pneumothorax. The central airways are patent. Mild emphysema. Bilateral lower lobe andre ear densities favor subsegmental atelectasis are scarring. Otherwise, no focal lung consolidations to suggest a pneumonia. No evidence for pulmonary edema. IMPRESSION: 1. No evidence for a pulmonary embolus. 2. No acute traumatic process within the chest. 3. Healing right posterior 11th and 12th rib fractures again noted. 4. Left ventricular hypertrophy. 5. Emphysema. ACT 112: Negative or not required by law. Electronically signed by: Omer Lares M.D. 08/03/2023 6:56 PM
--- NOTE | 2023-08-03 19:05 | CT Scan Report ---
ABDOMEN AND PELVIS CT WITH IV CONTRAST CT DOSE: HISTORY: multiple falls, abd pain TECHNIQUE: Multiaxial CT images of the abdomen and pelvis were performed following the use of intrave nous contrast. A dose lowering technique was utilized adhering to the principles of ALARA. COMPARISON STUDY: Abdomen and pelvis CT 02/21/2023. FINDINGS: The lung bases will be reported on the same day chest CT. No pneumoperitoneum. No pneumatos is. Healing fractures within the right posterior 11th and 12th ribs as well as the right L1 transvers e process again noted. Multiple old, healed bilateral rib fractures again noted. No acute fractures i dentified. There are few small gallstones. No gallbladder wall thickening. Hepatic steatosis. The lia n portal vein is patent. The pancreas, spleen, and kidneys are unremarkable. No hydronephrosis. Small bilateral adrenal gland nodules, unchanged. Normal caliber abdominal aorta with extensive calcified plaque. No retroperitoneal hematoma or lymphadenopathy. No pelvic lymphadenopathy or pelvic free flui d. The bladder is decompressed. Bladder wall thickening may be due to underdistention and the mildly enlarged prostate gland. Small fat-containing left inguinal hernia is noted. Degenerative changes and mild scoliosis again noted within the lumbar spine. There are few punctate metallic densities within the proximal left thigh and left gluteal region. No bowel wall thickening or obstruction. Fluid-fill ed nondilated loops of large and small bowel seen throughout the abdomen. IMPRESSION: 1. No acute traumatic process within the abdomen or pelvis. 2. Hepatic steatosis. 3. Healing right posterior 11th and 12th rib fractures and a right L1 transverse process fracture aga in noted. 4. No bowel wall thickening or obstruction. 5. Fluid-filled nondilated loops of large and small bowel. This could represent a gastroenteritis/peyman rrheal illness. 6. Additional findings as described above. ACT 112: Negative or not required by law. Electronically signed by: Omer Lares M.D. 08/03/2023 7:03 PM
--- NOTE | 2023-08-03 20:58 | History & Physical Report ---
Date of Service August 03, 2023 Assessment & Plan (1) Syncope and collapse: Plan: Recurrent syncope over the past several months, that has become a daily occurrence recently Patient reports that he stands up, and then fades to black for approximately 4-5 minutes at a time; witnessed by girlfriend with occasional shaking ? Presumed convulsive syncope He has struck his head on occasion; not on blood thinners Head CT revealed no acute intercranial abnormality Positive orthostatic vital signs on arrival No leukocytosis; afebrile EKG revealed sinus tachycardia at 106 bpm; QTc 499 CXR revealed no acute processes Echocardiogram ordered, pending Fall precautions A.m. CBC, BMP, mag, A1c (2) SOB (shortness of breath): Plan: Worsening SOB x 6 months Chest CTA without pulmonary emboli, but noted emphysema and right ventricular hypertrophy BNP WNL Biofire negative Echocardiogram (as above) Will start on Spiriva QAM Albuterol inhaler as needed Recommend PFTs outpatient (3) Alcohol use: Plan: Patient endorses drinking 3 beers/4 days per week Last drink was the evening of 08/01 Denies history of alcohol withdrawal seizures A/P CT revealed hepatic steatosis Elevated bilirubin at 1.6, AST at 109, and alk phos at 228 UA cloudy orange could indicate break down of bilirubin Not anemic, but macrocytic at MCV 101.4 Patient endorses numbness in his feet Vitamin B12 and folate level ordered, pending AWSS at risk precautions; Ativan as needed Seizure precautions Banana bag x 1 in the ED Daily thiamine and folate supplementation (4) Nausea and vomiting: Plan: Patient endorses abdominal pain with daily nausea/vomiting He endorses occasional blood in his vomit and cough Unclear if meloxicam and naproxen use is playing a role Will start on Protonix 40 mg p.o. QAM Zofran as needed for nausea/vomiting; QTc 499 (5) Tobacco use: Plan: Patient endorses smoking cigars; 4/day; occasional tobacco cigarette use Nicotine patch daily application/removal while inpatient Plan Disposition: Admit to PCU telemetry Full code AHA diet VTE PPx: SCDs (hold chemical DVT PPx in the setting of potential hemoptysis, hematemesis) History of Present Illness Chief Complaint: Recurrent syncope Primary Care Provider: Liliam Edward MD Ancelmo is a 62-year-old male with PMH of DJD and colon perforation. Patient presented for daily episodes of syncope/seizures that have been ongo ing/worsening for the past 6-8 months. Patient is not currently on seizure medication. He reports that it tends to happen when he stands up; he reports that he is not dizzy after standing, but immediately faints. According to his girlfriend, who is not present in the room, he has full LOC for 3-4 minutes, and will occasionally shake, which she believes indicates seizures. He has struck his head on multiple occasions. He can usually feel it coming on, so he attempts to grab onto something prior to syncope. Of note, he decided come in today because he passed out yesterday while he was lying down. Patient also notes he has been having worsening SOB x 6 months. SOB is both at rest and with exertion. He reports that is not worse when lying flat, but does notice it immediately after standing. He reports regular chest tightness, and daily nausea/vomiting. He does not take his temperature at home, but also reports intermittent fevers and cold sweats. When asked about a cough, he says he has a chronic cough that is both productive and dry; notes occasional blood in his cough, but this is not consistent. When he vomited this morning, there was blood in his vomit. He is not currently on blood thinners. He does report that he uses naproxen 3 times daily for aches and pains, as well as meloxicam. He denies dark, tarry stool, but does note he is seeing bright red blood in his stool in the past. He often oscillates between constipation and diarrhea. He also endorses numbness and tingling in his feet. He denies PMH of OK, DVT/PE, or diabetes. He did have a colostomy in the past, but is s/p reversal. History of appendectomy. Patient is a current everyday smoker; he smokes 10 cigars; ~4/day; also endorses occasional tobacco cigarette use. He endorses alcohol use; 3 beers/4 days/week; last alcoholic drink was yesterday on 08/01. He denies history of alcohol withdrawal seizures. Patient is hypertensive at 166/112 and tachycardic at 113 bpm at time of admission. ROS: Patient endorses daily syncope with convulsions that lasts for minutes, worsening SOB x 6 months, difficulty swallowing intermittent fevers, chills, pleuritic CP, chest tightness, cough, hemoptysis, N/V, hematemesis, abdominal pain, diarrhea, constipation, dysuria, bilateral hip pain, and numbness/tingling in his feet. Patient denies changes in his vision, saddle anesthesia, or dark tarry stool. Allergies Allergy/AdvReac Type Severity Reaction Status Date / Time CELLULOSE Allergy Unknown cant Uncoded 08/03/23 17:07 process it Home Medications Medication Instructions Recorded Confirmed Type acetaminophen 500 mg tablet 1,000 mg PO Q6H PRN Pain 01/17/20 08/03/23 History meloxicam 15 mg tablet 15 mg PO DAILY 01/17/20 08/03/23 History gabapentin 300 mg capsule 300 mg PO HS 04/14/23 08/03/23 History gabapentin 600 mg tablet 600 mg PO TID 04/14/23 08/03/23 History naproxen sodium 220 mg tablet 660 mg PO DIRECTED PRN Pain 08/03/23 08/03/23 History (Aleve) Past Med/Surg History Medical History (Updated 08/04/23 @ 00:17 by Dario Marie MD) Alcohol use Tobacco use Syncope and collapse History of rib fracture Hx of fall fell from rope swing and landed on back. fx cervical and had emergency sugery fusion of c5-6-c7 Eczema Cellulitis RT S/T TKA 06/2018 Osteoarthritis Diverticular disease Hypertension no medication Surgical History Hx of fusion of cervical spine c5-c7 has some limitation with range of motion History of surgery on left wrist History of total knee replacement RT History of cataract surgery BILATERAL History of appendectomy History of colonoscopy History of colostomy reversal History of colostomy d/t diverticulitis Family History Brother Colon cancer Mother Cancer Brain Father Stroke Other Hypertension Social History Smoking Status: Current every day smoker Tobacco Type: Cigars Cigarettes Per Day: 1ppd x 20+ years; Second Hand Exposure: No; Do You Dip or Chew Tobacco: No; Hx Alcohol Use: Yes Alcohol type: beer Hx Substance Use: No Preferred Language: Mohawk Communication Ability: Effective Visual Impairment: No Limitations Hearing Ability: Normal 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: No Beliefs That Will Affect Care: None marital status: Current Living Situation: Significant Other Current Living Situation Comment: STEP-DAUGHTER How many Children do You have: 1 Feels Safe at Home: Yes Assistive Devices: Denture - Upper and Denture - Lower Review of Systems Review of Systems: See HPI above Physical Exam Physical Exam: General: no acute distress; non-toxic appearing; may exhibit some malnutrition; pleasant affect; cooperative HEENT: normocephalic, atraumatic; no scleral icterus; PERRLA; strabismus; moist mucus membrane; vision and hearing grossly intact Neck: supple; no lymphadenopathy; trachea midline Skin: warm, dry without signs of tenting; no cyanosis; no rashes, bruising, lesions, or erythema noted CV: chest wall NTP; RR, mildly tachycardic in the 100-110 bpm range; S1/S2 normal; pulses intact and symmetric at radial, DP, and PT Lungs: no acute respiratory distress; symmetrical chest wall expansion; clear breath sounds across all lung flores w/o adventitious sounds; no wheezing ABD: Soft; LUQ is TTP; BS present; no rebound/guarding; negative Keys's sign; no rashes, erythema, bruising, or tick bites on the abdomen MSK: no tics or fasciculations; no edema noted in the LEs b/l, nonerythematous; patient demonstrates ability to wiggle toes Neuro: A&Ox3; normal mood and affect; fluent speech; no focal deficits; sensation intact in the LEs b/l Results & Data Results & Data Vital Signs (Past 12 Hours) Vital Signs Temp Pulse Pulse Resp BP BP Pulse Ox 08/03/23 20:00 113 H 20 166/112 H 08/03/23 18:00 96 H 18 149/105 H 100 08/03/23 17:11 99 H 08/03/23 16:54 109 H 20 154/110 H 96 08/03/23 16:48 109 H 18 96 08/03/23 15:31 36.9 C 104 H 19 143/90 H 100 O2 Del Method 08/03/23 20:00 08/03/23 18:00 08/03/23 17:11 08/03/23 16:54 Room Air 08/03/23 16:48 Room Air 08/03/23 15:31 Room Air Laboratory Results Abnormal lab results 08/03/23 08/03/23 Range/Units 15:32 16:42 MCV 101.4 H (80.0-100.0) fL MCH 35.5 H (25.0-34.0) pg RDW Std Deviation 51.9 H (36.4-46.3) fL MPV 9.0 L (9.4-12.4) fL Lymph # (Auto) 0.97 L (1.20-3.40) K/uL BUN 5 L (6-23) mg/dl BUN/Creatinine Ratio 7.5 L (10-20) Glucose 101 H (70-99(Fasting)) mg/dl Total Bilirubin 1.6 H (0.2-1.0) mg/dl AST 109 H (13-39) U/L Alkaline Phosphatase 228 H (34-104) U/L Urine Appearance Cloudy A (Clear) Urine Protein 1+ H (Negative) Urine Ketones Trace H (Negative) Urine Nitrite Positive A (Negative) Urine Bilirubin 2+ H (Negative) Ur Leukocyte Esterase 1+ H (Negative) Urine WBC (Auto) 5-10 H (0-5) /hpf U Hyaline Cast (Auto) 10-30 H (0-5) /lpf U Epithel Cells (Auto) >30 H (0-5) /lpf Urine Bacteria (Auto) 1+ H (Negative) Calcium Oxalate Crystal Present A (None Prsent) Urine Mucus Present A (None Prsent) Diagnostic Findings Chest X-Ray 08/03/23 16:30 XR chest 1V portable HISTORY: Dyspnea COMPARISON: Chest 01/17/2020. FINDINGS: No pneumothorax. No pleural effusions. There is mild elevation of the right hemidiaphragm, unchanged. Right basilar linear densities favor scarring or subsegmental atelectasis. Otherwise, the lungs are clear. The heart is normal in size. Posterior fusion hardware again noted within the mid thoracic spine. There are old, healed left-sided rib fractures again noted. IMPRESSION: No acute process. ACT 112: Negative or not required by law. Electronically signed by: Omer Lares M.D. 08/03/2023 5:12 PM Chest CTA 03/17/24 17:45 CHEST CTA for PULMONARY ARTERIES CT DOSE: 2689.96 mGy.cm HISTORY: PE, shortness of breath, chest pain TECHNIQUE: Multiaxial CT images of the chest were performed following the intravenous administration of contrast to evaluate the pulmonary arteries. 3D/Maximal intensity projection images were also obtained. Sagittal and coronal reformations were also reviewed. A dose lowering technique was utilized adhering to the principles of ALARA. COMPARISON STUDY: Chest CT 02/21/2023. FINDINGS: T6-T9 spinal fusion again noted with minimal anterior wedging at T7. This is considered to be chronic. Right posterior 11th and 12th rib fractures. Multiple old, healed additional bilateral rib fractures. No acute fractures within the chest. Abdominal structures will be reported on the same day abdomen and pelvis CT. Normal thyroid gland. Normal caliber esophagus. The heart is normal in size. No pleural or pericardial effusions. No mediastinal or hilar lymphadenopathy. Normal caliber thoracic aorta with no evidence for a dissection. Moderate coronary artery calcifications are noted. There is left ventricular hypertrophy, unchanged. No filling defects within the pulmonary arteries to suggest a pulmonary embolus. No pneumothorax. The central airways are patent. Mild emphysema. Bilateral lower lobe linear densities favor subsegmental atelectasis are scarring. Otherwise, no focal lung consolidations to suggest a pneumonia. No evidence for pulmonary edema. IMPRESSION: 1. No evidence for a pulmonary embolus. 2. No acute traumatic process within the chest. 3. Healing right posterior 11th and 12th rib fractures again noted. 4. Left ventricular hypertrophy. 5. Emphysema. ACT 112: Negative or not required by law. Electronically signed by: Omer Lares M.D. 08/03/2023 6:[address] 08/03/23 17:[address] DOSE: HISTORY: head trauma, recurrent syncope TECHNIQUE: Multiaxial CT images of the head were performed without the use of intravenous contrast. Automated exposure control was utilized for this study. A dose lowering technique was utilized adhering to the principles of ALARA. Comparison: Head CT 04/14/2023. Findings: Old nasal bone deformities again noted. The paranasal sinuses and mastoid air cells are clear. The calvarium and skull base are intact. There is no mass, hematoma, midline shift, acute infarct. White matter hypodensity is nonspecific but suggestive of microvascular ischemic change. The ventricles and sulci demonstrate mild age-related involutional changes. Impression: No acute intracranial abnormality. ACT 112: Negative or not required by law. Electronically signed by: Omer Lares M.D. 08/03/2023 6:46 PM Abdomen/Pelvis CT 08/03/23 17:[address] WITH IV CONTRAST CT DOSE: HISTORY: multiple falls, abd pain TECHNIQUE: Multiaxial CT images of the abdomen and pelvis were performed following the use of intravenous contrast. A dose lowering technique was utilized adhering to the principles of ALARA. COMPARISON STUDY: Abdomen and pelvis CT 02/21/2023. FINDINGS: The lung bases will be reported on the same day chest CT. No pneumoperitoneum. No pneumatosis. Healing fractures within the right posterior 11th and 12th ribs as well as the right L1 transverse process again noted. Multiple old, healed bilateral rib fractures again noted. No acute fractures identified. There are few small gallstones. No gallbladder wall thickening. Hepatic steatosis. The main portal vein is patent. The pancreas, spleen, and kidneys are unremarkable. No hydronephrosis. Small bilateral adrenal gland nodules, unchanged. Normal caliber abdominal aorta with extensive calcified plaque. No retroperitoneal hematoma or lymphadenopathy. No pelvic lymphadenopathy or pelvic free fluid. The bladder is decompressed. Bladder wall thickening may be due to underdistention and the mildly enlarged prostate gland. Small fat-containing left inguinal hernia is noted. Degenerative changes and mild scoliosis again noted within the lumbar spine. There are few punctate metallic densities within the proximal left thigh and left gluteal region. No bowel wall thickening or obstruction. Fluid-filled nondilated loops of large and small bowel seen throughout the abdomen. IMPRESSION: 1. No acute traumatic process within the abdomen or pelvis. 2. Hepatic steatosis. 3. Healing right posterior 11th and 12th rib fractures and a right L1 transverse process fracture again noted. 4. No bowel wall thickening or obstruction. 5. Fluid-filled nondilated loops of large and small bowel. This could represent a gastroenteritis/diarrheal illness. 6. Additional findings as described above. ACT 112: Negative or not required by law. Electronically signed by: Omer Lares M.D. 08/03/2023 7:03 PM Code Status & VTE Plan Code Status Full code VTE Prophylaxis Plan VTE Prophylaxis will be ordered: Yes Supervising Physician Co-Signing Physician Notes Patient seen and examined, chart reviewed, case discussed with CAITY Bryan and I agree with the assessment and plan as above. In brief, Mr. Fraser is a 62yo male presenting with ongoing syncope - he reports that it has been going on for appx 6 months to 1 year but has steadily been increasing in frequency. He is not to the point where he is having a syncopal event (presumed) daily. It typically occurs with positional changes, standing up and is associated with a prodrome. His girlfriend notes that he has some full body shaking at times after he has passed out. He is typically out for 30 seconds to up to 3-4 minutes. He denies incontinence or tongue biting, no description of what would be consistent with post-ictal state. He has occasional chest tightness, palpitations and shortness of breath but does not necessarily experience these symptoms prior to his syncope. Patient additionally endorses persistent CHACON and occasional dyspnea at rest He denies previously diagnosed heart disease, lung disease or liver disease. Does not recall having a diagnosis of hypertension or emphysema. No prior OK or h/o CHF. On physical exam he is anxious in appearance, NAD Skin - intact, no rash HEENT - MMM, Neck supple Heart - +S1/S2, regular, no m/r/g, mildly distant sounding Lungs - equal air entry bilaterally, no rales/rhonchi/wheezes Abd - +BS, soft, tenderness in the LUQ Ext - warm, well perfused Patient's orthostatic VS POSITIVE as measured in the ER - laying 136/94 sitting 114/90 and standing 87/69. HR remains elevated 104 --> 108 --> 114 Labs and images reviewed As above, patient with macrocytosis with MCV of 101.4 which is new, no anemia Abnormal liver studies with elevation of AP and Tbili as well as AST of 109. Platelets and Albumin are normal. Patient's urine does shoe orange color with presence of bilirubin. CT with hepatic steatosis. Assessment/Plan: Syncope vs Seizure - patient history suggestive of orthostatic hypotension as well as positive orthostatic VS measured in the ER. Possible medication effect from Gabapentin? If workup unremarkable consider decreasing dose if able -Check 2D echo with bubble study -Consider EEG but more strongly suspect syncope/orthostatic at this time Liver disease - patient does drink EtOH - 4 drinks up to 4x daily -Repeat LFTs in the AM -Check Acetaminophen level, ferritin and acute hepatitis panel -Check INR -Monitor closely for signs of EtOH withdrawal. Placed on AWSS at-risk protocol already. Has been given a banana bag as well. -Daily thiamine and Folate Macrocytosis - B12 and Folate levels are WNL. Possibly secondary to underlying liver process, EtOH intake SOB - suspect COPD/emphysema. Patient with extensive smoking history. Emphysema noted on imaging -Spiriva initiated -Albuterol PRN -Recommend outpatient PFTs for formal diagnosis Remainder as above PG Care Time/CCT Total # of Minutes Spent Total Time Spent with Patient: Total time spent is greater than 50% in coordination of care (as documented) at patient's floor/unit and/or counseling patient: [place] [address] INT INP/OBS CARE 3/75MIN Patient Type New Medical Decision Making High Complexity Diagnoses Syncope and collapse R55 SOB (shortness of breath) R06.02 Alcohol use Z78.9 Nausea and vomiting R11.2 Tobacco use Z72.0
[2023-08-03] MEDS ORDERED: LORazepam 1 MG in SYRINGE 0.5 ML IV PRN (21:22)
[2023-08-03] MEDS ORDERED: FAMOTIDINE 20 MG TAB PO SCH (21:30)
[2023-08-03] MEDS: PANTOprazole 40 MG TAB PO STA (22:17)
[2023-08-03] MEDS: NICOTINE 21 MG/24 HR TDSY TD STA (22:17)
[2023-08-03] MEDS: MULTI-VITAMIN INFUSION 10 ML, THIAMINE HCL 100 MG, FOLIC ACID 1 MG in SODIUM CHLORIDE 0... IV ONE (22:17)
[2023-08-03 22:31] LABS: Magnesium 1.6 mg/dl (1.7-2.4)
[2023-08-03 23:11] LABS: Folate (Folic Acid),Ser orPlas 10.5 ng/ml (>5.38)
[2023-08-03] MEDS ORDERED: ALBUTEROL HFA 8 GM INHALER INH PRN (23:23)
[2023-08-04] MEDS: ACETAMINOPHEN 325 MG TAB PO PRN (00:22)
[2023-08-04] MEDS: MAGNESIUM SULFATE / D5W 1 GM/100 ML BAG IV SCH (01:00)
[2023-08-04 01:13] LABS: Ferritin 173.4 ng/ml (8-388)
[2023-08-04] MEDS: MELATONIN 3 MG TAB PO PRN (01:20)
[2023-08-04 06:47] LABS: BUN Creatinine Ratio 13.5 (10-20); Calcium 7.9 mg/dl (8.6-10.3); Est GFR (African American) 134.3 ml/min; Est GFR (Non-African American) 115.9 ml/min; Magnesium 2.2 mg/dl (1.7-2.4); Potassium 3.3 mmol/L (3.5-5.1)
[2023-08-04 06:55] LABS: Basophils # (auto) 0.04 K/uL (0.00-0.20); Basophils % (auto) 0.6 %; Eosinophils # (auto) 0.11 K/uL (0.00-0.50); Eosinophils % (auto) 1.7 %; Hematocrit (blood only) 41.8 % (42.0-52.0); Hemoglobin 14.6 g/dl (14.0-18.0); Immature Granulocytes # (auto) 0.05 K/uL (0.01-0.20); Immature Granulocytes % (auto) 0.8 %; Lymphocytes # (auto) 1.65 K/uL (1.20-3.40); Lymphocytes % (auto) 26.1 %; Mean Corpuscular Hemoglobin 35.4 pg (25.0-34.0); Mean Corpuscular Hgb Conc 34.9 g/dL (32.0-36.0); Mean Corpuscular Volume 101.2 fL (80.0-100.0); Mean Platelet Volume 9.2 fL (9.4-12.4); Monocytes % (auto) 9.5 %; Neutrophils # (auto) 3.88 K/uL (1.40-6.50); Neutrophils % (auto) 61.3 %; Platelet Count 144 K/uL (130-400); RDW Coefficient of Variation 13.9 % (11.5-14.5); RDW Standard Deviation 51.3 fL (36.4-46.3); Red Blood Count 4.13 M/uL (4.70-6.10); White Blood Count 6.33 K/ul (4.8-10.8)
[2023-08-04 07:33] LABS: Estimated Average Glucose 85 mg/dl; Hemoglobin A1C 4.6 % (4.5-5.6)
[2023-08-04] MEDS: POTASSIUM CHLORIDE CRTAB 20 MEQ TABCR PO ONE (08:35)
[2023-08-04] MEDS: FOLIC ACID 1 MG TAB PO SCH (08:37)
[2023-08-04] MEDS: THIAMINE HCL 100 MG TAB PO SCH (08:37)
[2023-08-04] MEDS: GABAPENTIN 600 MG TAB PO SCH (08:37)
[2023-08-04] MEDS: UMECLIDINIUM BROMIDE 62.5MCG/BLISTER 7 PUFFS/INHALER INH SCH (08:38)
--- NOTE | 2023-08-04 08:51 | Electrocardiogram Report ---
Test Reason : Blood Pressure : / mmHG Vent. Rate : 106 BPM Atrial Rate : 106 BPM P-R Int : 142 ms QRS Dur : 078 ms QT Int : 376 ms P-R-T Axes : 055 024 060 degrees QTc Int : 499 ms Sinus tachycardia Abnormal ECG When compared with ECG of 17-JAN-2020 15:08, No significant change was found Confirmed by Sam Vásquez ([id number]) on 08/04/2023 8:51:18 AM Referred By: REFERRED SELF Confirmed By:Tony Vásquez
--- NOTE | 2023-08-04 09:31 | Hospitalist Progress Note ---
Date of Service August 04, 2023 Assessment & Plan (1) Shortness of breath: Plan: Pt is a 62 yo male with PMH of alcohol/tobacco use, HTN, colon perforation s/p colostomy and subsequent reversal, and diverticulitis presenting d/t multiple concerns. Syncope - recurrent episodes over the past 6-8 mths; appears triggered by standing with some occasional shaking witnessed by pt's girlfriend - head CT neg; echo WNL - orthostatic VS positive; suspect this is the main short haul driver of pt's symptoms - ordered bilateral carotid dopplers to complete work up Shortness of breath - d/t progressive nature and smoking hx, suspect main short haul driver of symptoms is COPD - BNP and trop neg upon admission; echo WNL - CXR neg, CTA neg for PE but revealing for emphysema - began spiriva this hospitalization - recommend outpatient PFTs for official diagnosis - Pt/OT ordered to determine functional capacity Nausea/vomiting - chronic, worsening, unknown etiology with significant weight loss (~20 lbs over the last year) - will treat with daily PPI and famotidine BID, zofran PRN - will consult GI for further eval and possible scope if necessary Elevated LFTs - most likely secondary to alcohol use - hepatic steatosis seen on CTAP - hepatitis panel pending - continue daily thiamine, folate; AWSS protocol- no signs of alcohol withdrawal Dispo: PCU Code: full VTE ppx: SCDs, ambulation Diet: heart healthy (2) Syncope and collapse: (3) Nausea and vomiting: Admission and Anticipated Discharge Date Admission Date: August 03, 2023 Supervising Physician Co-Signing Physician Notes ATTESTATION I also saw the patient and confirmed schulz portions of the history and exam. I agree with the impression and plan in the resident documentation, and as summarized below. In bed this morning, the patient has no new complaints. He relays a 8-month history of progressive increasing nausea with vomiting; at first, it was once or twice a week although for the last couple of months it has been a daily occurrence. There is not a lot in terms of PCP visits and he has an outpatient chart. I was able to document a significant/consistent weight loss over the last 3 years. 12/2020 - 92.8 kg 11/2021 - 85.1 kg 09/2022 - 80.6 kg Admission -74.8 kg EXAM Hemodynamically stable, afebrile Alert and oriented. Heart regular rate and rhythm Respirations nonlabored DATA Labs Hemoglobin 14.6, platelet count 144 Potassium 3.3 BUN 7, creatinine 0.52 A1c 4.6% Total bilirubin 1.6, AST 109, ALT 41, alkaline phosphatase 228 Culture collected 08/03/2023 showed pinpoint growth, reincubating IMPRESSION & PLAN Syncopal episodes, recurrent Nausea with vomiting, with weight loss Elevated liver transaminase, alkaline phosphatase EtOH use Syncope workup nonrevealing thus far Concerning weight loss in the setting of progressively increasing nausea with vomiting, now daily Consult GI, question EGD Continue PPI and H2 orlin Fractionate alkaline phosphatase Additional per resident documentation Subjective Pt is a 62 yo male with PMH of alcohol/tobacco use, HTN, colon perforation s/p colostomy and subsequent reversal, and diverticulitis presenting d/t multiple concerns. Concerning syncope, pt notes this started ~8 mths ago. It mainly happens when standing up. He sometimes can stop it from occurring if he sits down/holds onto something. Concerning his SOB, this has been progressively getting worse over the last 6 mths. It has gotten to the point where he walks to the bathroom (maybe 20-30 feet) and he is out of breath. He does have a hx of cigarette/cigar smoking. He also notes that he has been having on/off nausea/vomiting for the past 6-8 mths. This has also gotten worse to almost a daily occurrence. It doesn't seem to be related to food in any way. Review of Systems Review of Systems: As per HPI Physical Exam Physical Exam: Constitutional: well appearing, no acute distress HEENT: normocephalic, no conjunctival injection CV: RRR, no murmur, no LE edema Respiratory: CTA bilaterally. No rhonchi, wheezes, or crackles. No increased work of breathing MSK: no gross deformities noted Skin: warm, dry, no rashes Neuro: alert, oriented, no FND noted Psych: mood and affect congruent Results & Data Results & Data Vital Signs (Past 12 Hours) Vital Signs Temp Pulse Pulse Resp BP Pulse Ox O2 Del Method 08/04/23 07:40 36.5 C 93 H 18 134/83 95 Room Air 08/04/23 04:00 36.6 C 90 18 129/86 96 Room Air 08/03/23 23:52 36.6 C 105 H 20 127/87 98 Room Air 08/03/23 23:30 108 H 08/03/23 23:23 Room Air 08/03/23 22:00 102 H 18 144/99 H 94 Room Air Resident Activity Tracking Resident Involvement: Resident Care Provided Care Provided: Adult Hospital Medicine
--- NOTE | 2023-08-04 14:08 | XCELERA ---
[id number]
[2023-08-04] MEDS ORDERED: ONDANSETRON INJ 2 MG/ML 2 ML VIAL IV PRN (14:14)
--- NOTE | 2023-08-04 16:05 | Ultrasound Report ---
BILATERAL CAROTID DOPPLER STUDY HISTORY: syncope COMPARISON: None. TECHNIQUE: Real-time, grayscale, and color Doppler sonography of the carotid arteries was performed. Imaging reviewed in the transverse and longitudinal planes. All measurements were calculated based on NASCET criteria. FINDINGS: Antegrade flow is seen in the bilateral vertebral arteries. There is moderate calcified plaque within the proximal bilateral internal carotid arteries. The peak systolic velocity within the right ICA is 92 cm/s. The right systolic ratio is 1.5. The peak systolic velocity within the left ICA is 169 cm/s proximally. The left systolic ratio is 2.6 . IMPRESSION: 1. Approximately 50-69% stenosis within the proximal left internal carotid artery. 2. No significant stenosis within the right carotid arteries. ACT 112: Negative or not required by law. Electronically signed by: Omer Lares M.D. 08/04/2023 4:03 PM
[2023-08-04] MEDS: NICOTINE POLACRILEX 2 MG GUM MT PRN (18:34)
[2023-08-04] MEDS: GABAPENTIN 300 MG CAP PO SCH (20:35)
[2023-08-04] MEDS: FAMOTIDINE 20 MG TAB PO SCH (20:35)
[2023-08-05 07:03] LABS: Basophils # (auto) 0.05 K/uL (0.00-0.20); Eosinophils # (auto) 0.14 K/uL (0.00-0.50); Eosinophils % (auto) 2.8 %; Hematocrit (blood only) 40.3 % (42.0-52.0); Hemoglobin 14.1 g/dl (14.0-18.0); Immature Granulocytes # (auto) 0.07 K/uL (0.01-0.20); Immature Granulocytes % (auto) 1.4 %; Lymphocytes % (auto) 32.4 %; Mean Corpuscular Hemoglobin 35.5 pg (25.0-34.0); Mean Corpuscular Volume 101.5 fL (80.0-100.0); Mean Platelet Volume 9.3 fL (9.4-12.4); Monocytes # (auto) 0.55 K/uL (0.11-0.59); Monocytes % (auto) 11.1 %; Neutrophils # (auto) 2.53 K/uL (1.40-6.50); Neutrophils % (auto) 51.3 %; Platelet Count 148 K/uL (130-400); RDW Coefficient of Variation 13.7 % (11.5-14.5); RDW Standard Deviation 51.4 fL (36.4-46.3); Red Blood Count 3.97 M/uL (4.70-6.10); White Blood Count 4.94 K/ul (4.8-10.8)
[2023-08-05 07:27] LABS: Prothrombin Time 10.9 Seconds (9.0-12.0)
[2023-08-05 07:35] LABS: Albumin Level 2.7 gm/dl (3.4-5.0); Bilirubin Direct 0.4 mg/dl (0-0.2); Bilirubin,Total 1.1 mg/dl (0.2-1.0); Calcium 8.1 mg/dl (8.6-10.3); Creatinine Clr Calc Pharmacy 117.6 ml/min; Est GFR (African American) 119.6 ml/min; Est GFR (Non-African American) 103.2 ml/min; Total Protein 5.3 gm/dl (6.0-8.3)
[2023-08-05] MEDS: PANTOprazole 40 MG TAB PO SCH (09:44)
--- NOTE | 2023-08-05 09:47 | Gastrointestinal Consultation ---
Date of Consultation August 05, 2023 Assessment & Plan (1) Nausea and vomiting: (2) Abdominal pain: (3) Alcohol use: (4) Elevated LFTs: Plan He has had a few month history of nausea, vomiting, heartburn and epigastric abdominal pain. He reports that his symptoms have improved since admission and starting PPI/H2 orlin. suspect a component of Gastritis. - continue with protonix 40mg once daily and famotidine 20mg po BID. he has has seen improvement in symptoms with this. - limit nsaids. - LFTs seem to be trending down. hepatitis panel pending. - we discussed ceasing etoh use. - we discussed fatty liver. advised diet / exercise. - Can consider EGD as an outpatient. Supervising Physician Co-Signing Physician Notes Patient was discharged before I saw him. History of Present Illness Reason for Consultation: daily nausea/vomiting. weight loss Requesting Physician: Mary Ellen Chen DO Attending Physician: Frantz Daniels DO History of Present Illness Patient is a 62 year old male with a past medical history of DJD and spontaneous colon perforation 8 years ago s/p colostomy with reversal. Patient presented to the ED for daily episodes of what he describes as seizures that have been ongoing/worsening for the past 6-8 months. He tells me he will pass out with these. He also has been dealing with issues with worsening shortness of breath over this same timer period. He has been having issues with nausea and vomiting over the past 6-8 months. He also endorses some issues with heartburn on occasion. He can get some epigastric discomfort at times. He tells me he will have 3 beers about 4 days a week. med list does list meloxicam. bowel movements are regular. once daily. no issues with bleeding or melena. He tells me that since admission he has seen improvement with his GI symptoms. nausea has improved. no vomiting. He has been on protonix 40mg once daily and pepcid 20mg po BID. colonoscopy last done 2017 showing anastamosis, rest of exam was unremarkable. He tells me that he has never had an EGD. CT 08/03/23 1. No acute traumatic process within the abdomen or pelvis. 2. Hepatic steatosis. 3. Healing right posterior 11th and 12th rib fractures and a right L1 transverse process fracture again noted. 4. No bowel wall thickening or obstruction. 5. Fluid-filled nondilated loops of large and small bowel. This could represent a gastroenteritis/diarrheal illness. Allergies Allergy/AdvReac Type Severity Reaction Status Date / Time CELLULOSE Allergy Unknown cant Uncoded 08/03/23 17:07 process it Home Medications Medication Instructions Recorded Confirmed Type acetaminophen 500 mg tablet 1,000 mg PO Q6H PRN Pain 01/17/20 08/03/23 History meloxicam 15 mg tablet 15 mg PO DAILY 01/17/20 08/03/23 History gabapentin 300 mg capsule 300 mg PO HS 04/14/23 08/03/23 History gabapentin 600 mg tablet 600 mg PO TID 04/14/23 08/03/23 History famotidine 20 mg tablet 20 mg PO BID #60 tabs 08/05/23 Rx pantoprazole 40 mg tablet,delayed 40 mg PO QAM #30 tabs 08/05/23 Rx release rosuvastatin 10 mg tablet 10 mg PO DAILY #30 tabs 08/05/23 Rx umeclidinium 62.5 mcg/actuation 1 inh inhalation QAM #30 ea 08/05/23 Rx blister powder for inhalation (Incruse Ellipta) Patient History Medical History (Updated 08/05/23 @ 09:50 by John Johns PA-C) Alcohol use Tobacco use Syncope and collapse History of rib fracture Hx of fall fell from rope swing and landed on back. fx cervical and had emergency sugery fusion of c5-6-c7 Eczema Cellulitis RT S/T TKA 06/2018 Osteoarthritis Diverticular disease Hypertension no medication Surgical History Hx of fusion of cervical spine c5-c7 has some limitation with range of motion History of surgery on left wrist History of total knee replacement RT History of cataract surgery BILATERAL History of appendectomy History of colonoscopy History of colostomy reversal History of colostomy d/t diverticulitis Family History Brother Colon cancer Mother Cancer Brain Father Stroke Other Hypertension Social History Smoking Status: Current every day smoker Tobacco Type: Cigars Cigarettes Per Day: 4; Second Hand Exposure: No; Do You Dip or Chew Tobacco: No; Hx Alcohol Use: Yes Alcohol type: beer Hx Substance Use: No Preferred Language: Japanese Communication Ability: Effective Visual Impairment: No Limitations Hearing Ability: Normal Boating Safety Officer Required: No Beliefs That Will Affect Care: None marital status: Current Living Situation: Significant Other Current Living Situation Comment: STEP-DAUGHTER How many Children do You have: 1 Feels Safe at Home: Yes Assistive Devices: None Review of Systems Review of Systems: All systems reviewed & are unremarkable except as noted in HPI & below Physical Exam Constitutional: WD/WN, vitals as above Respiratory: normal respiratory effort, lungs clear to auscultation Cardiovascular: RRR, no murmur, no edema Gastrointestinal (Abdomen): mild epigastric tenderness, no guarding, soft. normal bowel sounds. Psychiatric: Orientation: alert and oriented x 3 Results & Data Vital Signs (Past 12 Hours) Vital Signs Temp Pulse Pulse Resp BP Pulse Ox O2 Del Method 08/05/23 08:18 98.1 F 77 19 148/93 H 96 Room Air 08/05/23 03:11 97.7 F 84 16 121/84 97 Room Air 08/04/23 23:00 90 08/04/23 22:27 98.4 F 84 16 113/77 93 Room Air Coding Level of Care Code 37005 IN/OBS CONSULT LVL 2,35M Diagnoses Nausea and vomiting R11.2 Abdominal pain R10.9 Alcohol use Z78.9 Elevated LFTs R79.89 Time Spent (min) 35
[2023-08-05] MEDS: NICOTINE 21 MG/24 HR TDSY TD SCH (10:15)
--- NOTE | 2023-08-05 12:19 | Discharge Summary ---
Date of Service August 05, 2023 Admission HPI Per Admitting Provider Ancelmo is a 62-year-old male with PMH of DJD and colon perforation. Patient presented for daily episodes of syncope/seizures that have been ongoing/worsening for the past 6-8 months. Patient is not currently on seizure medication. He reports that it tends to happen when he stands up; he reports that he is not dizzy after standing, but immediately faints. According to his girlfriend, who is not present in the room, he has full LOC for 3-4 minutes, and will occasionally shake, which she believes indicates seizures. He has struck his head on multiple occasions. He can usually feel it coming on, so he attempt s to grab onto something prior to syncope. Of note, he decided come in today because he passed out yesterday while he was lying down. Patient also notes he has been having worsening SOB x 6 months. SOB is both at rest and with exertion. He reports that is not worse when lying flat, but does notice it immediately after standing. He reports regular chest tightness, and daily nausea/vomiting. He does not take his temperature at home, but also reports intermittent fevers and cold sweats. When asked about a cough, he says he has a chronic cough that is both productive and dry; notes occasional blood in his cough, but this is not consistent. When he vomited this morning, there was blood in his vomit. He is not currently on blood thinners. He does report that he uses naproxen 3 times daily for aches and pains, as well as meloxicam. He denies dark, tarry stool, but does note he is seeing bright red blood in his stool in the past. He often oscillates between constipation and diarrhea. He also endorses numbness and tingling in his feet. He denies PMH of IN, DVT/PE, or diabetes. He did have a colostomy in the past, but is s/p reversal. History of appendectomy. Patient is a current everyday smoker; he smokes 10 cigars; ~4/day; also endorses occasional tobacco cigarette use. He endorses alcohol use; 3 beers/4 days/week; last alcoholic drink was yesterday on 08/01. He denies history of alcohol withdrawal seizures. Patient is hypertensive at 166/112 and tachycardic at 113 bpm at time of admission. ROS: Patient endorses daily syncope with convulsions that lasts for minutes, worsening SOB x 6 months, difficulty swallowing intermittent fevers, chills, pleuritic CP, chest tightness, cough, hemoptysis, N/V, hematemesis, abdominal pain, diarrhea, constipation, dysuria, bilateral hip pain, and numbness/tingling in his feet. Patient denies changes in his vision, saddle anesthesia, or dark tarry stool. Admission Exam Per Admitting Provider General: no acute distress; non-toxic appearing; may exhibit some malnutrition; pleasant affect; cooperative HEENT: normocephalic, atraumatic; no scleral icterus; PERRLA; strabismus; moist mucus membrane; vision and hearing grossly intact Neck: supple; no lymphadenopathy; trachea midline Skin: warm, dry without signs of tenting; no cyanosis; no rashes, bruising, lesions, or erythema noted CV: chest wall NTP; RR, mildly tachycardic in the 100-110 bpm range; S1/S2 normal; pulses intact and symmetric at radial, DP, and PT Lungs: no acute respiratory distress; symmetrical chest wall expansion; clear breath sounds across all lung flores w/o adventitious sounds; no wheezing ABD: Soft; LUQ is TTP; BS present; no rebound/guarding; negative Keys's sign; no rashes, erythema, bruising, or tick bites on the abdomen MSK: no tics or fasciculations; no edema noted in the LEs b/l, nonerythematous; patient demonstrates ability to wiggle toes Neuro: A&Ox3; normal mood and affect; fluent speech; no focal deficits; sensation intact in the LEs b/l Principal Diagnosis orthostatic hypotension, COPD, N/V Discharge Exam Constitutional: well appearing, no acute distress HEENT: normocephalic, no conjunctival injection CV: clinically well perfused Respiratory: no increased work of breathing MSK: no gross deformities noted Skin: warm, dry, no rashes Neuro: alert, oriented, no FND noted Discharge Data Allergies Allergy/AdvReac Type Severity Reaction Status Date / Time CELLULOSE Allergy Unknown cant Uncoded 08/03/23 17:07 process it Consultations 08/03/23 22:21 ED Decision to Admit Stat 08/04/23 13:50 Consult Gastroenterology Routine Ordered Studies 08/03/23 17:45 CT for pulmonary embolism PE [CT angio chest PE protocol] Stat MPRESSION: 1. No evidence for a pulmonary embolus. 2. No acute traumatic process within the chest. 3. Healing right posterior 11th and 12th rib fractures again noted. 4. Left ventricular hypertrophy. 5. Emphysema. CT head/brain wo con Stat Impression: No acute intracranial abnormality. 08/03/23 17:46 CT abd pelvis IV con only Stat IMPRESSION: 1. No acute traumatic process within the abdomen or pelvis. 2. Hepatic steatosis. 3. Healing right posterior 11th and 12th rib fractures and a right L1 transverse process fracture again noted. 4. No bowel wall thickening or obstruction. 5. Fluid-filled nondilated loops of large and small bowel. This could represent a gastroenteritis/diarrheal illness. 6. Additional findings as described above. 08/04/23 12:35 Carotid duplex [US carotid doppler BI] Routine IMPRESSION: 1. Approximately 50-69% stenosis within the proximal left internal carotid artery. 2. No significant stenosis within the right carotid arteries. Hospital Course (1) Shortness of breath: Pt is a 62 yo male with PMH of alcohol/tobacco use, HTN, colon perforation s/p colostomy and subsequent reversal, and diverticulitis presenting d/t multiple concerns. Syncope - recurrent episodes over the past 6-8 mths; appears triggered by standing with some occasional shaking witnessed by pt's girlfriend - head CT neg; echo WNL - orthostatic VS positive; suspect this is the main local driver of pt's symptoms- discussed ways to prevent recurrence/loss of consciousness - bilateral carotid dopplers showed left sided stenosis 50-69% (which does not seem to be causing pt's symptoms); discussed starting pt on statin medication- script sent for rosuvastatin 10 mg daily Shortness of breath - d/t progressive nature and smoking hx, suspect main local driver of symptoms is COPD - BNP and trop neg upon admission; echo WNL - CXR neg, CTA neg for PE but revealing for emphysema - began spiriva this hospitalization; recommended continuation upon d/c - recommend outpatient PFTs for official diagnosis - PT/OT recommended outpatient PT Nausea/vomiting - chronic, worsening, unknown etiology with significant weight loss (~20 lbs ov er the last year) - daily PPI and famotidine BID improved pt's symptoms while hospitalized - GI consulted; recommended continuation of acid reducing medications, avoidance of NSAIDs, and f/u for outpatient scope Elevated LFTs - most likely secondary to alcohol use - hepatic steatosis seen on CTAP - hepatitis panel pending - daily thiamine and folate while hospitalized; AWSS protocol- no signs of alcohol withdrawal during this hospital stay Dispo: home Code: full VTE ppx: SCDs, ambulation Diet: heart healthy (2) Syncope and collapse: (3) Nausea and vomiting: Total Time Total Time Spent Total Time Spent (In Minutes): I spent 30 minutes seeing the patient, reviewing labs and consultation, and documenting. Discharge Plan Discharge Items Patient Disposition: Home - Self-Care Reason For Visit: RECURRENT SYNCOPE, SOB Discharge Diagnosis: orthostatic hypotension, SOB Activity: Per Instructions section Non-emergency contact: Primary Care Provider Call non-emergency contact if: you have any medication questions and your symptoms worsen Follow-up/Referrals: Liliam Edward MD [Primary Care Provider] - (f/u next week) Diet: Heart Healthy Addtl Attending Provider Instructions: You were admitted to the hospital for recurrent passing out and increasing shortness of breath. You are also experiencing daily nausea/vomiting. You were treated with new medications to help control acid in stomach which helped your nausea. Your heart was also examined with an ultrasound due to the lightheaded/dizziness. This was normal- your heart is functioning as it should. An ultrasound of the arteries of your neck was also performed which showed a partial blockage of the artery of the left side of your neck. It is thought that your passing out is mostly related to changes in your blood pressure upon standing. When switching positions (ie; from laying to sitting and sitting to standing), it is recommended that you do so slowly and make sure that you aren't feeling lightheaded before standing all the way up. In terms of your shortness of breath, this is most likely related to a lung disease called COPD. You have been prescribed a daily inhaler that should help with this. It is important that you follow up with your primary care doctor to follow up wi th the plans that were started in the hospital. Namely, you should have a breathing test (PFT, pulmonary function test) and an EGD (scope to look at your stomach for ulcers, irritation, etc). A discharge summary will be sent to your primary care physician to ensure continuity of care. Please bring this discharge summary with you to your next office appointment so that your provider can review it at that time. Medications: Your medication list has been reviewed and reconciled upon discharge to ensure accuracy and continuity of care. An updated list of all your medications is included with your hospital discharge paperwork. Please review this list closely and make note of any changes to your medications. - You have been prescribed a daily inhaler. You should use this once per day each morning. - You have also been prescribed medications to help reduce acid in your stomach (and hence reduce nausea). These are pantoprazole 40 mg each morning and famotidine 20 mg twice per day. - You are also being started on a cholesterol lowering medication due to the finding of plaque build up in an artery in your neck. This is rosuvastatin 20 mg daily. Follow up appointments: - Make a follow up appointment with your PCP within the next week. It is very important that you follow up with them shortly after discharge from the hospital. - Keep all of your follow up appointments as already scheduled. If you cannot make an appointment, notify your provider. CONTACT YOUR PRIMARY CARE PROVIDER if you experience any of the following: - Difficulty following your treatment plan - Difficulty taking any of your medications CALL 911 OR GO TO THE EMERGENCY DEPARTMENT if you experience any of the fo llowing: - Sudden, severe abdominal pain or nausea/vomiting - Severe chest pain or chest pain that radiates to your jaw or arm - Sudden, severe shortness of breath or difficulty breathing Pending Studies at Discharge: No Stand-Alone Forms: [facility] [employer], Work/School Release, Smoking Cessation Medications and DC Order Prescriptions: New Incruse Ellipta 62.5 mcg/actuation Blister With Device 1 inh inhalation QAM Qty: 30 3RF famotidine 20 mg Tablet 20 mg PO BID Qty: 60 3RF pantoprazole 40 mg Tablet,Delayed Release (Dr/Ec) 40 mg PO QAM Qty: 30 3RF rosuvastatin 10 mg tablet 10 mg PO DAILY Qty: 30 3RF Continued meloxicam 15 mg tablet 15 mg PO DAILY acetaminophen 500 mg Tablet 1,000 mg PO Q6H PRN (Reason: Pain) gabapentin 600 mg tablet 600 mg PO TID gabapentin 300 mg capsule 300 mg PO HS Rx Instructions: TOTAL DOSE 900 MG--TAKES WITH 300 MG CAP. Discontinued naproxen sodium [Aleve] 220 mg Tablet 660 mg PO DIRECTED PRN (Reason: Pain) Discharge Orders: Discharge Order (Routine); Ordered 08/05/23 Ordered By: Mary Ellen Ruff/Other Patient Handouts: COPD Using Inhalers, Orthostatic Hypotension Admission Data Admit Date/Time: 08/03/23 21:38 Attending Provider: Frantz Daniels Admit Provider: Daisy Collins Primary Care Provider: Liliam Edward Other Providers: Daisy Collins; Zion Palomino Supervising Physician Co-Signing Physician Notes ATTESTATION I also saw the patient and confirmed schulz portions of the history and exam. I agree with the impression and plan in the resident discharge summary and is summarized below. EXAM 123/79, 80, 20, 36.7, 97% room air Hemodynamically stable, afebrile Alert and oriented. Heart regular rate and rhythm Respirations nonlabored DATA Labs Fractionated alkaline phosphatase pending at discharge IMPRESSION & PLAN Syncopal episodes, recurrent CT head negative, echocardiogram within normal limits Discussed ways to prevent/decrease orthostatic hypotension Carotid Dopplers demonstrated 50-69% left sided stenosis, start rosuvastatin 10 mg daily Will need repeat lipid profile and ALT in 6-8 weeks Shortness of breath Suspect related to COPD Continues previous outpatient Consider outpatient PFTs There may also be involvement of deconditioning; consider outpatient PT Nausea with vomiting, with weight loss Elevated liver transaminase, alkaline phosphatase EtOH use Outpatient EGD Continue combination of PPI and H2 orlin Additional per resident documentation Resident Activity Tracking Resident Involvement: Resident Care Provided Care Provided: Adult Hospital Medicine
[2023-08-05 14:07] LABS: HBSAG NON-REACTIVE (NON-REACTIVE); Hepatitis A Antibody IgM NON-REACTIVE (NON-REACTIVE); Hepatitis B Core Antibody IgM NON-REACTIVE (NON-REACTIVE)
[2023-08-05] MEDS: INFLUENZA VIRUS QUADRIVALENT VACCINE (IIV4) 0.5 ML SYR IM ONE (14:33)
== END 2023-08-05 15:36 | disposition home or self-care (01) | DRG 312 ==
LOC: ED 15:24 → SUATTDRO 21:38 → 4W 21:38

== ENCOUNTER 2023-09-04 12:34 | Observation (INO) ==
[2023-09-04] MEDS: SODIUM CHLORIDE 0.9% 500 ML IV STA (13:19)
--- NOTE | 2023-09-04 13:32 | Emergency Department Note ---
ED Provider Note History of Present Illness Chief Complaint: Knee Injury/Pain Stated Complaint: KNEE PAIN Time Seen by Provider: 09/04/23 13:17 62-year-old male who presents the emergency department with primary complaint of right knee pain. The patient was brought to the emergency department via EMS for evaluation after suffering a fall on Friday. The patient reports that he stood up too quickly and blacked out. The patient reports that his legs somehow got twisted, and has persistent knee discomfort. The patient does have a prior history of right knee surgery. He did call his orthopedic surgeon today, and was advised to come to the emergency department for further evaluation. The patient reports a history of passing out. He was admitted to our facility a month ago with similar symptoms. The patient does not recall if he hit his head when he fell. Patient also denies any neck pain. The patient denied any preceding or current chest pain, shortness of breath, nausea, abdominal pain or back injury from his fall. The patient rates his discomfort a 9 out of 10. Home Medications Medication Instructions Recorded Confirmed Type acetaminophen 500 mg tablet 1,000 mg PO Q6H PRN Pain 01/17/20 09/04/23 History meloxicam 15 mg tablet 15 mg PO DAILY 01/17/20 09/04/23 History gabapentin 300 mg capsule 300 mg PO HS 04/14/23 09/04/23 History gabapentin 600 mg tablet 600 mg PO TID 04/14/23 09/04/23 History famotidine 20 mg tablet 20 mg PO BID #60 tabs 08/05/23 09/04/23 Rx pantoprazole 40 mg tablet,delayed 40 mg PO QAM #30 tabs 08/05/23 09/04/23 Rx release rosuvastatin 10 mg tablet 10 mg PO DAILY #30 tabs 08/05/23 09/04/23 Rx umeclidinium 62.5 mcg/actuation 1 inh inhalation QAM #30 ea 08/05/23 09/04/23 Rx blister powder for inhalation (Incruse Ellipta) Allergies Allergy/AdvReac Type Severity Reaction Status Date / Time CELLULOSE Allergy Unknown cant Uncoded 09/04/23 14:19 process it Past Med/Surg History Medical History Alcohol use Tobacco use Syncope and collapse History of rib fracture Hx of fall fell from rope swing and landed on back. fx cervical and had emergency sugery fusion of c5-6-c7 Eczema Cellulitis RT S/T TKA 06/2018 Osteoarthritis Diverticular disease Hypertension no medication Surgical History Hx of fusion of cervical spine c5-c7 has some limitation with range of motion History of surgery on left wrist History of total knee replacement RT History of cataract surgery BILATERAL History of appendectomy History of colonoscopy History of colostomy reversal History of colostomy d/t diverticulitis Family History Brother Colon cancer Mother Cancer Brain Father Stroke Other Hypertension Social History Smoking Status: Current every day smoker Tobacco Type: Cigars Cigarettes Per Day: 4; Second Hand Exposure: No; Do You Dip or Chew Tobacco: No; Hx Alcohol Use: Yes Alcohol type: beer Hx Substance Use: No Preferred Language: Frisian Communication Ability: Effective Visual Impairment: No Limitations Hearing Ability: Normal Road Consultant Required: No Beliefs That Will Affect Care: None marital status: Current Living Situation: Significant Other Current Living Situation Comment: STEP-DAUGHTER How many Children do You have: 1 Feels Safe at Home: Yes Assistive Devices: None Physical Exam Vital Signs Vital Signs - 24 hr 09/04/23 12:53 09/04/23 13:34 09/04/23 15:32 Temperature 36.2 C L Temperature Source Temporal Artery Scan Pulse Rate 113 H Pulse Rate [Radial] 97 H Pulse Rhythm [Radial] Regular Respiratory Rate 98 H 18 Respiratory Effort / Characteristics Non-Labored Respiratory Depth Normal Normal Respiratory Pattern Regular Blood Pressure 93/71 L Blood Pressure [Right Arm] 158/105 H Blood Pressure Mean 78 Blood Pressure Mean [Right Arm] 122 Pulse Oximetry 99 98 98 Oxygen Delivery Method Room Air Room Air Room Air Sepsis Recent Fever Within 48 Hours No Sepsis New/Unexplained Change in Mental Status No Sepsis Action Taken by Nursing Adv Provider Notified CONSTITUTIONAL: Healthy and well nourished. Alert and oriented X 3. GCS 15. Patient does not appear in any significant discomfort. HEENT: Normocephalic, atraumatic. NECK: Full active range of motion without discomfort. LYMPHATICS: No cervical chain adenopathy. RESPIRATORY: Clear to auscultation bilaterally with no wheezing, crackles, rhonchi or stridor. CARDIOVASCULAR: Regular rate and rhythm with no murmurs, rubs or gallops. GASTROINTESTINAL: Bowel sounds present in all quadrants. Soft and nontender to palpation MUSCULOSKELETAL: Examination of the right knee shows a large joint effusion without any open wounds or obvious deformities. Patient is tender over the medial lateral joint line. No obvious collateral ligament instability. Negative logroll of the right hip. No tenderness to palpation about the distal leg, ankle or foot. Pedal pulses are intact INTEGUMENTARY: No rash or other significant dermatologic conditions noted. HEMATOLOGIC: No ecchymosis or petechiae. PSYCHIATRIC: Positive affect. NEUROLOGIC: Cranial nerves II-XII grossly intact. No focal neurologic deficits noted. Right lower extremity is sensory intact. Course Course Patient history and physical exam were performed. Nurses notes reviewed. Vital signs reviewed, showing a mild hypotension of 93/71, and tachycardia 113. The patient is afebrile. O2 saturation on room air is normal. An ECG was performed showing a normal sinus rhythm with prolonged QT. Comparison with a prior ECG dated 08/03/2023 did not show any significant changes. The patient was placed on groundwater monitoring technician while in the emergency department. 2 view chest x-ray was normal. X-rays of the right knee shows a nondisplaced periprosthetic fracture of the femoral component. Noncontrast CT of the head was normal. Review of completed labs shows relatively normal CBC. The patient does have elevated total bilirubin, AST and alkaline phosphatase, which is chronic for the patient. Blood cultures were also initially ordered, with an initial elevated lactate, but normal procalcitonin. A repeat lactate 2 hours later was normal. Findings were discussed with the patient. I then reached out to Dr. Everett's office, and was told that he was in the OR. While awaiting a return phone call, the patient was administered IV morphine for pain control. Dr. Everett did come to the emergency department to evaluate the patient. He has ordered a noncontrast CT of the knee for further fracture evaluation, but indicated that this is likely a nonsurgical case. Both Dr. Everett and I discussed our concerns with the patient regarding his safety at home, and history of falls. We explained that he does have a periprosthetic fracture, and certainly could cause a worsening condition with another fall. We discussed rehabilitation and direct placement, however the patient thought that this was "overkill" for his condition. After further discussions for need for some PT/OT evaluation, the patient does agree to observation overnight for this evaluation. If the patient does well, he could possibly be discharged home. The patient understands that if he does not do well, he would likely benefit from some therapy, be at through placement or outpatient rehab. This can be further discussed with the patient tomorrow with Dr. Everett. The patient was in agreement with this plan. At this point, I discussed the case with [facility], who has agreed to evaluate the patient. Please see their dictation for further treatment and final disposition. Administered Medications Nicotine (Nicotine 21 Mg/24 Hr Tdsy) 1 patch TD QAM CAPO Stop: 10/04/23 16:14 Last Admin: 09/04/23 16:18 Dose: 1 patch Documented By: MARSHA Discontinued Medications Sodium Chloride (Nss) 500 mls @ 999 mls/hr IV .Q31M STA Stop: 09/04/23 13:32 Last Infusion: 09/04/23 13:57 Dose: Infused Documented By: Admin: 09/04/23 13:19 Dose: 999 mls/hr Documented By: MAYITO Morphine Sulfate (Morphine Sulfate 4 Mg/Ml 1 Ml Carp\\Vial) 4 mg IV NOW STA Stop: 09/04/23 15:54 Last Admin: 09/04/23 16:06 Dose: 4 mg Documented By: MARSHA Medical Decision Making Medical Records Attestation: I reviewed the patient's medical records. Home Medications was personally reviewed by me Laboratory Data Attestation: I reviewed the patient's lab results. 09/04/23 13:28 09/04/23 13:28 Lab Results 09/04/23 09/04/23 09/04/23 Range/Units 13:28 13:29 14:13 WBC 6.27 (4.8-10.8) K/ul RBC 4.29 L (4.70-6.10) M/uL Hgb 15.0 (14.0-18.0) g/dl Hct 42.7 (42.0-52.0) % MCV 99.5 (80.0-100.0) fL MCH 35.0 H (25.0-34.0) pg MCHC 35.1 (32.0-36.0) g/dL RDW Std Deviation 45.2 (36.4-46.3) fL RDW Coeff of Mabel 12.4 (11.5-14.5) % Plt Count 115 L (130-400) K/uL MPV 9.4 (9.4-12.4) fL Immature Gran % (Auto) 1.1 % Neut % (Auto) 72.0 % Lymph % (Auto) 19.0 % [place] % (Auto) 5.9 % Eos % (Auto) 1.4 % Baso % (Auto) 0.6 % Neut # (Auto) 4.51 (1.40-6.50) K/uL Lymph # (Auto) 1.19 L (1.20-3.40) K/uL [place] # (Auto) 0.37 (0.11-0.59) K/uL Eos # (Auto) 0.09 (0.00-0.50) K/uL Baso # (Auto) 0.04 (0.00-0.20) K/uL Immature Gran # (Auto) 0.07 (0.01-0.20) K/uL PT 10.4 (9.0-12.0) Seconds INR 0.9 (0.9-1.1) APTT 28 (21-31) Seconds PTT Ratio 1.0 Sodium 137 (136-145) mmol/L Potassium 3.8 (3.5-5.1) mmol/L Chloride 102 (98-107) mmol/L Carbon Dioxide 25 (21-32) mmol/L Anion Gap 10 (3-11) BUN 8 (6-23) mg/dl Creatinine 0.60 (0.6-1.4) mg/dl Est Cr Clr Drug Dosing 130.9 ml/min Est GFR ( Amer) 126.7 ml/min Est GFR (Non-Af Amer) 109.3 ml/min BUN/Creatinine Ratio 13.3 (10-20) Glucose 96 (70-99(Fasting)) mg/dl Lactate 2.5 H* (0.4-2.0) mmol/L Calcium 9.1 (8.6-10.3) mg/dl Magnesium 1.6 L (1.7-2.4) mg/dl Total Bilirubin 1.9 H (0.2-1.0) mg/dl AST 64 H (13-39) U/L ALT 25 (7-52) U/L Alkaline Phosphatase 201 H (34-104) U/L Troponin I High Sens 6.3 (0-20) pg/ml Total Protein 6.9 (6.0-8.3) gm/dl Albumin 3.5 (3.4-5.0) gm/dl Globulin 3.4 (2.5-4.0) gm/dl Albumin/Globulin Ratio 1.0 (0.9-2) Procalcitonin 0.12 (0-0.5) ng/ml Ethyl Alcohol mg/dL < 10.0 (<10.0) mg/dl 09/04/23 Range/Units 15:30 WBC (4.8-10.8) K/ul RBC (4.70-6.10) M/uL Hgb (14.0-18.0) g/dl Hct (42.0-52.0) % MCV (80.0-100.0) fL MCH (25.0-34.0) pg MCHC (32.0-36.0) g/dL RDW Std Deviation (36.4-46.3) fL RDW Coeff of Mabel (11.5-14.5) % Plt Count (130-400) K/uL MPV (9.4-12.4) fL Immature Gran % (Auto) % Neut % (Auto) % Lymph % (Auto) % [place] % (Auto) % Eos % (Auto) % Baso % (Auto) % Neut # (Auto) (1.40-6.50) K/uL Lymph # (Auto) (1.20-3.40) K/uL [place] # (Auto) (0.11-0.59) K/uL Eos # (Auto) (0.00-0.50) K/uL Baso # (Auto) (0.00-0.20) K/uL Immature Gran # (Auto) (0.01-0.20) K/uL PT (9.0-12.0) Seconds INR (0.9-1.1) APTT (21-31) Seconds PTT Ratio Sodium (136-145) mmol/L Potassium (3.5-5.1) mmol/L Chloride (98-107) mmol/L Carbon Dioxide (21-32) mmol/L Anion Gap (3-11) BUN (6-23) mg/dl Creatinine (0.6-1.4) mg/dl Est Cr Clr Drug Dosing ml/min Est GFR ( Amer) ml/min Est GFR (Non-Af Amer) ml/min BUN/Creatinine Ratio (10-20) Glucose (70-99(Fasting)) mg/dl Lactate 1.1 (0.4-2.0) mmol/L Calcium (8.6-10.3) mg/dl Magnesium (1.7-2.4) mg/dl Total Bilirubin (0.2-1.0) mg/dl AST (13-39) U/L ALT (7-52) U/L Alkaline Phosphatase (34-104) U/L Troponin I High Sens (0-20) pg/ml Total Protein (6.0-8.3) gm/dl Albumin (3.4-5.0) gm/dl Globulin (2.5-4.0) gm/dl Albumin/Globulin Ratio (0.9-2) Procalcitonin (0-0.5) ng/ml Ethyl Alcohol mg/dL (<10.0) mg/dl Imaging Data Attestation: I personally reviewed and interpreted this imaging study as follows: My Impression: My interpretation of right knee x-ray shows a nondisplaced periprosthetic fracture of the femoral component. A large joint effusion is also noted. My interpretation of a two-view chest x-ray does not show evidence for pneumothorax, pneumonia or cardiomegaly. My interpretation of a noncontrast CT of the head does not show evidence for skull fracture or intracranial bleed. Radiologist reports were also reviewed with concurrence. Radiologist's Impression: Knee X-Ray 09/04/23 13:24 XR knee RT 3V HISTORY: 62 years-old Male R knee injury s/p fall acute right knee pain status post fall COMPARISON: 09/30/2022 TECHNIQUE: 3 views of the right knee FINDINGS: Demineralized appearance of the bones. There is an acute periprosthetic fracture involving the medial distal femoral metaphysis demonstrating 3 mm of medial displacement. Moderate circumferential soft tissue swelling with large joint effusion. Chronic cortical irregularity of the inferior patella. Total joint arthroplasty with patellar resurfacing. Patella baja is similar to prior with lateral tilt. IMPRESSION: 1. Total joint arthroplasty with acute minimally displaced distal femoral periprosthetic fracture. 2. Soft tissue swelling with large joint effusion. 3. Chronic lateral tilt of the patella. ACT 112: Negative or not required by law. The above report was generated using voice recognition software. It may contain grammatical, syntax or spelling errors. Electronically signed by: Josiah Hand M.D. 09/04/2023 3:11 PM Chest X-Ray 09/04/23 13:25 XR chest 2V PA/lateral CLINICAL HISTORY: Syncope. COMPARISON STUDY: Chest radiograph and chest CT August 03, 2023. FINDINGS: Lung volumes are normal. There is no pneumothorax or pleural effusion. Postoperative findings within the thoracic spine are again noted. Linear bilateral densities represent atelectasis or scarring. There is no consolidation. There is no evidence for pulmonary edema. Old left-sided rib fractures are incidentally noted. IMPRESSION: No acute cardiopulmonary findings. No change in appearance of the chest. ACT 112: Negative or not required by law. Electronically signed by: Pasha Becerril M.D. 09/04/2023 3:[address] 09/04/23 13:26 CT head/brain wo con CLINICAL HISTORY: 62 years-old Male with Syncope. Acute syncope TECHNIQUE: Multiple axial CT images of the head were obtained without contrast. A dose lowering technique was utilized adhering to the principles of ALARA. CT DOSE: 625.8 mGy.cm COMPARISON: 08/03/2023 FINDINGS: No acute intracranial hemorrhage, midline shift, intracranial mass, hydrocephalus, territorial ischemia or abnormal extra-axial collection. Involutional changes with chronic microvascular ischemic disease. The calvarium is intact. Prior bilateral lens repair. Partially imaged chronic appearing bilateral nasal bone fractures The paranasal sinuses, mastoid air cells, and middle ear cavities are clear. IMPRESSION: No acute intracranial abnormality or calvarial fracture. ACT 112: Negative or not required by law. The above report was generated using voice recognition software. It may contain grammatical, syntax or spelling errors. Electronically signed by: Josiah Hand M.D. 09/04/2023 3:15 PM ECG Data Attestation: I personally reviewed and interpreted this ECG as follows: Indication: + syncope Rate (beats per minute): 96 Rhythm: + normal sinus ECG Intervals/blocks: + Prolonged QT ECG Ponce: + Normal ECG ST segments: + Normal ST segments Comparison ECG Date: from (08/03/2023) Change: no significant change MDM Narrative Cardiac monitoring: An order was placed for continuous cardiac monitoring. The monitor shows a rate of 96 bpm with a normal sinus rhythm and prolonged QT. monitoring and evaluation advisor history was reviewed throughout the evaluation, and no dysrhythmias were noted. See ED Course section for further details of today's visit. The patient suffered a fall Friday after standing up too quickly and reportedly passing out, losing loss of consciousness. Patient reports a history of orthostatic hypotension. The patient complains mostly of right knee pain since his fall. X-rays today confirms a nondisplaced periprosthetic fracture of the femoral component. Additional workup today does not show any other concerning cardiopulmonary findings, anemia, significant electrolyte abnormality or intracranial bleed/skull fracture from his fall. Workup also is not suggestive of sepsis. The patient did have an initially elevated lactate, however that resolved with IV normal saline hydration. It is also noted that the patient was hypotensive upon arrival, but the blood pressure improved with elevated blood pressure readings. I did reach out to Dr. Everett, orthopedic surgeon who completed two prior surgeries on the same knee. After Dr. Everett's evaluation, noncontrast CT imaging of the knee was ordered, and it was suggested that the patient be brought in for observation and PT/OT evaluation tomorrow to further plan for outpatient care. Please see Dr. Everett's and the hospitalist's dictations for further treatment and final disposition. Impression Periprosthetic fracture around internal prosthetic right knee joint, Status post fall, History of orthostatic hypotension Discharge Plan Visit Data Chief Complaint: Knee Injury/Pain Stated Complaint: KNEE PAIN ED Provider: Michael Borrero ED Midlevel Provider: Olu Palm Discharge Problem: Periprosthetic fracture around internal prosthetic right knee joint, Status post fall, History of orthostatic hypotension Forms Stand Alone Forms: My [facility] Prescriptions Prescriptions: No Action meloxicam 15 mg tablet 15 mg PO DAILY acetaminophen 500 mg Tablet 1,000 mg PO Q6H PRN (Reason: Pain) gabapentin 600 mg tablet 600 mg PO TID gabapentin 300 mg capsule 300 mg PO HS Rx Instructions: TOTAL DOSE 900 MG--TAKES WITH 300 MG CAP. Incruse Ellipta 62.5 mcg/actuation Blister With Device 1 inh inhalation QAM Qty: 30 3RF famotidine 20 mg Tablet 20 mg PO BID Qty: 60 3RF pantoprazole 40 mg Tablet,Delayed Release (Dr/Ec) 40 mg PO QAM Qty: 30 3RF rosuvastatin 10 mg tablet 10 mg PO DAILY Qty: 30 3RF Referrals Referrals: Liliam Edward MD [Primary Care Provider] - Discharge Problem: Periprosthetic fracture around internal prosthetic right knee joint Qualifiers: Encounter type: initial encounter Qualified Code(s): M97.11XA - Periprosthetic fracture around internal prosthetic right knee joint, initial encounter
[2023-09-04 13:46] LABS: Basophils # (auto) 0.04 K/uL (0.00-0.20); Basophils % (auto) 0.6 %; Eosinophils # (auto) 0.09 K/uL (0.00-0.50); Eosinophils % (auto) 1.4 %; Hematocrit (blood only) 42.7 % (42.0-52.0); Immature Granulocytes # (auto) 0.07 K/uL (0.01-0.20); Immature Granulocytes % (auto) 1.1 %; Lymphocytes # (auto) 1.19 K/uL (1.20-3.40); Mean Corpuscular Hgb Conc 35.1 g/dL (32.0-36.0); Mean Corpuscular Volume 99.5 fL (80.0-100.0); Mean Platelet Volume 9.4 fL (9.4-12.4); Monocytes # (auto) 0.37 K/uL (0.11-0.59); Monocytes % (auto) 5.9 %; Neutrophils # (auto) 4.51 K/uL (1.40-6.50); Platelet Count 115 K/uL (130-400); RDW Coefficient of Variation 12.4 % (11.5-14.5); RDW Standard Deviation 45.2 fL (36.4-46.3); Red Blood Count 4.29 M/uL (4.70-6.10); White Blood Count 6.27 K/ul (4.8-10.8)
[2023-09-04 14:11] LABS: Albumin Level 3.5 gm/dl (3.4-5.0); BUN Creatinine Ratio 13.3 (10-20); Bilirubin,Total 1.9 mg/dl (0.2-1.0); Calcium 9.1 mg/dl (8.6-10.3); Creatinine Clr Calc Pharmacy 130.9 ml/min; Est GFR (African American) 126.7 ml/min; Est GFR (Non-African American) 109.3 ml/min; Globulin 3.4 gm/dl (2.5-4.0); Magnesium 1.6 mg/dl (1.7-2.4); Potassium 3.8 mmol/L (3.5-5.1); Total Protein 6.9 gm/dl (6.0-8.3)
[2023-09-04 14:12] LABS: INR 0.9 (0.9-1.1); Partial Thromboplastin Time 28 Seconds (21-31); Prothrombin Time 10.4 Seconds (9.0-12.0)
[2023-09-04 14:16] LABS: Troponin I High Sensitivity 6.3 pg/ml (0-20)
--- NOTE | 2023-09-04 15:13 | XRay Report ---
XR knee RT 3V HISTORY: 62 years-old Male R knee injury s/p fall acute right knee pain status post fall COMPARISON: 09/30/2022 TECHNIQUE: 3 views of the right knee FINDINGS: Demineralized appearance of the bones. There is an acute periprosthetic fracture involving the medial distal femoral metaphysis demonstrating 3 mm of medial displacement. Moderate circumferential soft t issue swelling with large joint effusion. Chronic cortical irregularity of the inferior patella. Tota l joint arthroplasty with patellar resurfacing. Patella baja is similar to prior with lateral tilt. IMPRESSION: 1. Total joint arthroplasty with acute minimally displaced distal femoral periprosthetic fracture. 2. Soft tissue swelling with large joint effusion. 3. Chronic lateral tilt of the patella. ACT 112: Negative or not required by law. The above report was generated using voice recognition software. It may contain grammatical, syntax o r spelling errors. Electronically signed by: Josiah Hand M.D. 09/04/2023 3:11 PM
--- NOTE | 2023-09-04 15:17 | CT Scan Report ---
CT head/brain wo con CLINICAL HISTORY: 62 years-old Male with Syncope. Acute syncope TECHNIQUE: Multiple axial CT images of the head were obtained without contrast. A dose lowering tech nique was utilized adhering to the principles of ALARA. CT DOSE: 625.8 mGy.cm COMPARISON: 08/03/2023 FINDINGS: No acute intracranial hemorrhage, midline shift, intracranial mass, hydrocephalus, territorial ischem ia or abnormal extra-axial collection. Involutional changes with chronic microvascular ischemic disea se. The calvarium is intact. Prior bilateral lens repair. Partially imaged chronic appearing bilateral na sonya bone fractures The paranasal sinuses, mastoid air cells, and middle ear cavities are clear. IMPRESSION: No acute intracranial abnormality or calvarial fracture. ACT 112: Negative or not required by law. The above report was generated using voice recognition software. It may contain grammatical, syntax o r spelling errors. Electronically signed by: Josiah Hand M.D. 09/04/2023 3:15 PM
--- NOTE | 2023-09-04 15:25 | XRay Report ---
XR chest 2V PA/lateral CLINICAL HISTORY: Syncope. COMPARISON STUDY: Chest radiograph and chest CT August 03, 2023. FINDINGS: Lung volumes are normal. There is no pneumothorax or pleural effusion. Postoperative findin gs within the thoracic spine are again noted. Linear bilateral densities represent atelectasis or sca rring. There is no consolidation. There is no evidence for pulmonary edema. Old left-sided rib fractu res are incidentally noted. IMPRESSION: No acute cardiopulmonary findings. No change in appearance of the chest. ACT 112: Negative or not required by law. Electronically signed by: Pasha Becerril M.D. 09/04/2023 3:23 PM
[2023-09-04] MEDS: MoRPHine SULFATE 4 MG/ML 1 ML CARP\\VIAL IV STA (16:06)
[2023-09-04] MEDS: NICOTINE 21 MG/24 HR TDSY TD SCH (16:18)
--- NOTE | 2023-09-04 16:52 | Electrocardiogram Report ---
Test Reason : Blood Pressure : / mmHG Vent. Rate : 096 BPM Atrial Rate : 096 BPM P-R Int : 146 ms QRS Dur : 080 ms QT Int : 380 ms P-R-T Axes : 042 026 057 degrees QTc Int : 480 ms Normal sinus rhythm Prolonged QT Abnormal ECG When compared with ECG of 03-AUG-2023 16:40, No significant change was found Confirmed by Sam Vásquez ([id number]) on 09/04/2023 4:52:07 PM Referred By: Confirmed By:Tony Vásquez
--- NOTE | 2023-09-04 17:14 | Orthopedic Consultation ---
Date of Consultation September 04, 2023 Assessment & Plan (1) Periprosthetic fracture around internal prosthetic knee joint: Findings discussed with patient and Gabe Palm. Recommend Gabriel wrap Momin dressing knee immobilizer and no weightbearing. Crutches and walker. I would like to see if any further workup or treatment is necessary for his falling spells. He has fallen several times in the last couple months. He has had a couple CT scans of his head. Additional I think the patient would benefit from being admitted to the hospital for some PT and OT. This may enable him to eventually go home but we did talk about acute care rehab or extended care facility. At least aspirin for DVT prophylaxis. We also need to get a CT scan of his right knee today to further evaluate. At least based on radiographic imaging thus far I do not think that he needs surgery. I am concerned about his need for nonweightbearing and his ability to do so.Gabe will speak with medicine about workup/admission.Will follow-up CT scan. Elevate leg apply ice. Pain medication. History of Present Illness History of Present Illness Rc is known to me from previous right knee surgery.Recently he has had several falls. He has had some workup regarding this and sounds like orthostatic hypotension.He actually had an appointment with me on Friday but did not show. He reports having a fall on Friday. He blacked out. He then had pain in his right knee. He had difficulty walking and was using 2 sticks. He came to the ER today.Rc is had a chronic extensor mechanism problem status post his knee replacement. 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 Chronic right knee pain. Allergies Allergy/AdvReac Type Severity Reaction Status Date / Time CELLULOSE Allergy Unknown cant Uncoded 09/04/23 14:19 process it Home Medications Medication Instructions Recorded Confirmed Type acetaminophen 500 mg tablet 1,000 mg PO Q6H PRN Pain 01/17/20 09/04/23 History meloxicam 15 mg tablet 15 mg PO DAILY 01/17/20 09/04/23 History gabapentin 300 mg capsule 300 mg PO HS 04/14/23 09/04/23 History gabapentin 600 mg tablet 600 mg PO TID 04/14/23 09/04/23 History famotidine 20 mg tablet 20 mg PO BID #60 tabs 08/05/23 09/04/23 Rx pantoprazole 40 mg tablet,delayed 40 mg PO QAM #30 tabs 08/05/23 09/04/23 Rx release rosuvastatin 10 mg tablet 10 mg PO DAILY #30 tabs 08/05/23 09/04/23 Rx umeclidinium 62.5 mcg/actuation 1 inh inhalation QAM #30 ea 08/05/23 09/04/23 Rx blister powder for inhalation (Incruse Ellipta) Patient History Medical History Alcohol use Tobacco use Syncope and collapse History of rib fracture Hx of fall fell from rope swing and landed on back. fx cervical and had emergency sugery fusion of c5-6-c7 Eczema Cellulitis RT S/T TKA 06/2018 Osteoarthritis Diverticular disease Hypertension no medication Surgical History Hx of fusion of cervical spine c5-c7 has some limitation with range of motion History of surgery on left wrist History of total knee replacement RT History of cataract surgery BILATERAL History of appendectomy History of colonoscopy History of colostomy reversal History of colostomy d/t diverticulitis Family History Brother Colon cancer Mother Cancer Brain Father Stroke Other Hypertension Social History Smoking Status: Current every day smoker Tobacco Type: Cigars Cigarettes Per Day: 4; Second Hand Exposure: No; Do You Dip or Chew Tobacco: No; Hx Alcohol Use: Yes Alcohol type: beer Hx Substance Use: No Preferred Language: [place] Communication Ability: Effective Visual Impairment: No Limitations Hearing Ability: Normal Plater Supervisor Required: No Beliefs That Will Affect Care: None marital status: Current Living Situation: Significant Other Current Living Situation Comment: STEP-DAUGHTER How many Children do You have: 1 Feels Safe at Home: Yes Assistive Devices: None Physical Exam Physical Exam: He cannot do a leg lift. Knee range of motion 0-30. Large effusion. 2 mm esch ar anterior knee. Tenderness mostly medial slight inferolateral. Thigh and leg not swollen. 5 out of 5 ankle and toe plantarflexion dorsiflexion inversion eversion strength. Sensation intact. DP and PT pulses 1+. The knee is stable in full extension and he has at most trace MCL laxity at 20 degrees knee flexion. Results & Data Vital Signs (Past 12 Hours) Vital Signs Temp Pulse Pulse Resp BP BP Pulse Ox 09/04/23 15:32 97 H 18 158/105 H 98 09/04/23 13:34 98 09/04/23 12:53 36.2 C L 113 H 98 H 93/71 L 99 O2 Del Method 09/04/23 15:32 Room Air 09/04/23 13:34 Room Air 09/04/23 12:53 Room Air Diagnostic Findings Radiographs are reviewed and show a large effusion. Subluxated patella which is chronic. There is acute fracture involving the medial femoral condyle epicondylar area. Components appear to be intact and stable.
--- NOTE | 2023-09-04 17:22 | History & Physical Report ---
Date of Service September 04, 2023 Assessment & Plan (1) Periprosthetic fracture around internal prosthetic knee joint: Plan: -Admit to med/tele -Currently stable and non-toxic appearing -Significant right knee pain and ambulatory dysfunction due to right minimally displaced distal femoral periprosthetic fracture -Orthopedics is consulted and following, no surgical intervention at this time -They will review the CT of the right knee tomorrow -For now they recommend right knee immobilization with Gabriel wrap Momin dressing knee immobilizer and no weightbearing of the right knee -PT/OT consults placed -Pain control with scheduled tylenol, ice, and prn morphine -Fall precautions -SQ lovenox and BL SCD's for DVT PPX -HH diet -AM CBC, BMP, mag, (2) Syncope and collapse: Plan: -Patient was recently diagnosed with orthostatic hypotension during his last admission to [facility] in July -Patient states that his syncopal episode on 08/31 was similar to previous episodes -Normally he is able to prevent syncope with sitting and rest but tried to ambulate to his bedroom -No focal neuro defects on exam, CT head negative for acute findings -Dehydrated on exam today with initial lactate of 2.5 -S/P 500 mL NSS in the ED -Will give 1L LR on admission -Fall precautions ordered (3) Thrombocytopenia: Plan: -Platelets of 115 today -Has been as low as 105 in the past -No signs of active bleeding -Likely due to a combination of alcohol abuse and recent bruising of the right knee -Monitor daily CBC (4) Lactate blood increase: Plan: -Initial lactate of 2.5 on arrival -Down to 1.8 after 500 mL NSS in the ED -Likely due to dehydration and alcohol abuse -Will continue light IV hydration on admission (5) Alcohol use: Plan: -Reports drinking approximately 3 nights a week -Denies previous alcohol withdrawal -Negative alcohol level today, no signs of withdrawal -S/P 500 mL NSS in the ED, will give another 1L LR now as he appears dehydrated -Monitor for withdrawal -Will start daily PO thiamine, folic acid, and B12 (6) Tobacco use: Plan: -Continue nicotine patch -Continue to stress importance of cessation (7) Orthostatic hypotension: Plan The patient was discussed with Dr. Gilliland at the time of the admission History of Present Illness Chief Complaint: Recurrent syncope, right knee pain Primary Care Provider: Liliam Edward MD Ancelmo is a 62 year old male with a PMH significant for recurrent orthostatic hypotension causing syncope, alcohol abuse, tobacco abuse, previous right knee replacement with Dr. Everett approximately 5 years ago, and GERD who presented to the [facility] ED on 09/04/23 for ongoing right knee pain/swelling after sustaining another syncopal episode at home on 09/01/23. He was noted to be tachycardic on arrival at 113, mildly hypotensive at 93/71, but otherwise stable. Labs were significant for an initial lactate of 2.5 -->1.8 on repeat, platelet count of 115, mag of 1.6, total bili of 1.9, and negative alcohol level. CT of the head/brain wo con and chest xray were read as negative for acute findings. Xray of the right knee was read as "1. Total joint arthroplasty with acute minimally displaced distal femoral periprosthetic fracture 2. Soft tissue swelling with large joint effusion. 3. Chronic lateral tilt of the patella.". Orthopedics was consulted and evaluated the patient. They believe that the damage to the right knee currently does not require surgical intervention. However, they recommended admission for PT/OT evaluation, CT of the right knee, and possible rehab on discharge. They will continue to follow. Prior to admission the patient was given 4 mg IV morphine, and 500 mL NSS. At the time of the exam the patient was sitting in bed in no acute distress. States he was in his normal state of health on 08/31. He sat up from his chair to walk to his bedroom when he felt his lightheadedness start. Normally he sits down and his symptoms will resolve. He thought that he could get to his bedroom before passing out, but he lost consciousness and fell in the ortiz. He does not believe that he hit his head. When asked, he states he drinks alcohol approximately 3 nights a week, normally drinks beer, and denies withdrawal symptoms if he stops drinking. Smoking approximately 4 cigars a day. Has been having progressive SOB prior to his last admission in July, he has an appointment with a Professional Soccer Player for PFT's next week. Denies recent fever, chills, chest pain, cough, abd pain, dysuria, hematuria, melena, or diarrhea. Please refer to Dr. Gilliland's attestation for any changes to the treatment plan Allergies Allergy/AdvReac Type Severity Reaction Status Date / Time CELLULOSE Allergy Unknown cant Uncoded 09/04/23 14:19 process it Home Medications Medication Instructions Recorded Confirmed Type acetaminophen 500 mg tablet 1,000 mg PO Q6H PRN Pain 01/17/20 09/04/23 History meloxicam 15 mg tablet 15 mg PO DAILY 01/17/20 09/04/23 History gabapentin 300 mg capsule 300 mg PO HS 04/14/23 09/04/23 History gabapentin 600 mg tablet 600 mg PO TID 04/14/23 09/04/23 History famotidine 20 mg tablet 20 mg PO BID #60 tabs 08/05/23 09/04/23 Rx pantoprazole 40 mg tablet,delayed 40 mg PO QAM #30 tabs 08/05/23 09/04/23 Rx release rosuvastatin 10 mg tablet 10 mg PO DAILY #30 tabs 08/05/23 09/04/23 Rx umeclidinium 62.5 mcg/actuation 1 inh inhalation QAM #30 ea 08/05/23 09/04/23 Rx blister powder for inhalation (Incruse Ellipta) Past Med/Surg History Medical History (Updated 09/05/23 @ 09:55 by Manfred Gilliland MD) Thrombocytopenia Alcohol use Tobacco use Syncope and collapse History of rib fracture Hx of fall fell from rope swing and landed on back. fx cervical and had emergency sugery fusion of c5-6-c7 Eczema Cellulitis RT S/T TKA 06/2018 Osteoarthritis Diverticular disease Hypertension no medication Surgical History (Updated 09/05/23 @ 00:09 by Ele Ledbetter) Hx of fusion of cervical spine c5-c7 has some limitation with range of motion History of surgery on left wrist History of total knee replacement RT History of cataract surgery BILATERAL History of appendectomy History of colonoscopy History of colostomy reversal History of colostomy d/t diverticulitis Family History Brother Colon cancer Mother Cancer Brain Father Stroke Other Hypertension Social History Smoking Status: Current every day smoker Tobacco Type: Cigars Cigarettes Per Day: 2-4 cigars/day; Second Hand Exposure: No; Do You Dip or Chew Tobacco: No; Hx Alcohol Use: Yes Alcohol type: beer Hx Substance Use: No Preferred Language: Occitan Communication Ability: Effective Visual Impairment: No Limitations Hearing Ability: Normal Care Process Manager Required: No Beliefs That Will Affect Care: None marital status: Current Living Situation: Significant Other Current Living Situation Comment: STEP-DAUGHTER How many Children do You have: 1 Other Information That Helps Us Care for You: No Feels Safe at Home: Yes Safety Concerns: Feels Safe At This Time Assistive Devices: Denture - Upper and Denture - Lower Assistive Devices Comment: Using 2 "walking sticks" for ambulation Physical Exam Physical Exam: Physical Exam: General: In no acute distress, stated age, chronically ill appearing, poor hygiene HEENT: Normocephalic, atraumatic, no scleral icterus, pupils around round, symmetrical, and reactive to light, dry mucus membranes, trachea midline, no thyromegaly Chest/Pulm: No respiratory distress, symmetrical chest expansion, scattered expiratory wheezing Cardiac: RRR, no murmurs noted Abdomen: Negative for ascites and bruising, normoactive bowel sounds, soft, n on-tender to palpation throughout Musculoskeletal: Right knee is currently swollen with surround bruising, no obvious deformity, able to flex right knee but with significant pain, no other acute trauma noted on exam Extremities: Radial, dorsalis pedis, and posterior tibial pulses are intact and symmetrical, no pitting edema noted in the BL LE's Skin: Swelling and bruising as described above Neuro: Alert and oriented to person, place, month, year, and president, no focal defects, no tremors noted Psych: No acute distress, calm and cooperative during the exam Results & Data Results & Data Vital Signs (Past 12 Hours) Vital Signs Temp Pulse Pulse Resp BP BP Pulse Ox 09/04/23 15:32 97 H 18 158/105 H 98 09/04/23 13:34 98 09/04/23 12:53 36.2 C L 113 H 98 H 93/71 L 99 O2 Del Method 09/04/23 15:32 Room Air 09/04/23 13:34 Room Air 09/04/23 12:53 Room Air Laboratory Results Abnormal lab results 09/04/23 09/04/23 Range/Units 13:28 13:29 RBC 4.29 L (4.70-6.10) M/uL MCH 35.0 H (25.0-34.0) pg Plt Count 115 L (130-400) K/uL Lymph # (Auto) 1.19 L (1.20-3.40) K/uL Lactate 2.5 H* (0.4-2.0) mmol/L Magnesium 1.6 L (1.7-2.4) mg/dl Total Bilirubin 1.9 H (0.2-1.0) mg/dl AST 64 H (13-39) U/L Alkaline Phosphatase 201 H (34-104) U/L Diagnostic Findings Knee X-Ray 09/04/23 13:24 XR knee RT 3V HISTORY: 62 years-old Male R knee injury s/p fall acute right knee pain status post fall COMPARISON: 09/30/2022 TECHNIQUE: 3 views of the right knee FINDINGS: Demineralized appearance of the bones. There is an acute periprosthetic fracture involving the medial distal femoral metaphysis demonstrating 3 mm of medial displacement. Moderate circumferential soft tissue swelling with large joint effusion. Chronic cortical irregularity of the inferior patella. Total joint arthroplasty with patellar resurfacing. Patella baja is similar to prior with lateral tilt. IMPRESSION: 1. Total joint arthroplasty with acute minimally displaced distal femoral periprosthetic fracture. 2. Soft tissue swelling with large joint effusion. 3. Chronic lateral tilt of the patella. ACT 112: Negative or not required by law. The above report was generated using voice recognition software. It may contain grammatical, syntax or spelling errors. Electronically signed by: Josiah Hand M.D. 09/04/2023 3:11 PM Chest X-Ray 09/04/23 13:25 XR chest 2V PA/lateral CLINICAL HISTORY: Syncope. COMPARISON STUDY: Chest radiograph and chest CT August 03, 2023. FINDINGS: Lung volumes are normal. There is no pneumothorax or pleural effusion. Postoperative findings within the thoracic spine are again noted. Linear bilateral densities represent atelectasis or scarring. There is no consolidation. There is no evidence for pulmonary edema. Old left-sided rib fractures are incidentally noted. IMPRESSION: No acute cardiopulmonary findings. No change in appearance of the chest. ACT 112: Negative or not required by law. Electronically signed by: Pasha Becerril M.D. 09/04/2023 3:[address] 04/18/24 13:26 CT head/brain wo con CLINICAL HISTORY: 62 years-old Male with Syncope. Acute syncope TECHNIQUE: Multiple axial CT images of the head were obtained without contrast. A dose lowering technique was utilized adhering to the principles of ALARA. CT DOSE: 625.8 mGy.cm COMPARISON: 08/03/2023 FINDINGS: No acute intracranial hemorrhage, midline shift, intracranial mass, h ydrocephalus, territorial ischemia or abnormal extra-axial collection. Involutional changes with chronic microvascular ischemic disease. The calvarium is intact. Prior bilateral lens repair. Partially imaged chronic appearing bilateral nasal bone fractures The paranasal sinuses, mastoid air cells, and middle ear cavities are clear. IMPRESSION: No acute intracranial abnormality or calvarial fracture. ACT 112: Negative or not required by law. The above report was generated using voice recognition software. It may contain grammatical, syntax or spelling errors. Electronically signed by: Josiah Hand M.D. 09/04/2023 3:15 PM ECG Additional Comments: Normal sinus rhythm Prolonged QT Abnormal ECG When compared with ECG of 03-AUG-2023 16:40, No significant change was found Confirmed by Sam Vásquez ([id number]) on 09/04/2023 4:52:07 PM Code Status & VTE Plan Code Status Full code VTE Prophylaxis Plan VTE Prophylaxis will be ordered: Yes Supervising Physician Co-Signing Physician Notes I personally saw and examined the patient. I verified all schulz points and agree with Carlos Mejia PA-C with the following exceptions and/or additions: 62 year old male who presents to the ER following presyncopal event with subsequent knee pain and periprosthetic fracture on XR. Significant syncopal wo rkup last admission and diagnosed with orthostatic hypotension although this was not started on treatment. He notes shortness of breath on exertion similar to last admission in addition. He has planned PFTs as outpatient and emphysema on prior CT, mild improvement with nebulizer given last admission. O/E A&Ox3, HS RRR, no murmurs, Chest CTAB, Abdo SNT, no pedal edema, PT/DP pulses equal b/l, right knee wrapped and no examined A/P Right knee periprosthetic fracture - non weight bearing, consult orthopedics Orthostatic hypotension - discussed fludrocortisone vs. midodrine. Will dehydrate overnight and defer this non-urgent decision to providers who take over tomorrow. Suspected COPD - follow up outpatient PFTs, stop smoking Tobacco use disorder - cessation encouraged PG Care Time/CCT Total # of Minutes Spent Total Time Spent with Patient: Total time spent is greater than 50% in coordination of care (as documented) at patient's floor/unit and/or counseling patient: Coding [place] [address] INT INP/OBS CARE 3/75MIN Patient Type Established Medical Decision Making High Complexity Diagnoses Periprosthetic fracture around internal prosthetic knee joint M97.8XXA; Z96.659 Syncope and collapse R55 Thrombocytopenia D69.6 Lactate blood increase R79.89 Alcohol use Z78.9 Tobacco use Z72.0 Orthostatic hypotension I95.1
--- NOTE | 2023-09-04 18:36 | CT Scan Report ---
CT SCAN OF THE RIGHT KNEE WITHOUT IV CONTRAST CLINICAL HISTORY: Right knee pain. COMPARISON STUDY: Radiographs of the right knee dated 09/04/2023. TECHNIQUE: CT scan of the right knee is performed from the distal femur to the proximal tibia and fib shahbaz. Images are reviewed in the axial, sagittal, and coronal planes. IV contrast was not administered for this examination. A dose lowering technique was utilized adhering to the principles of ALARA. Th e examination is degraded by streak artifact from a knee arthroplasty. CT DOSE: 681.47 mGy.cm FINDINGS: The skeletal structures are osteopenic. A right knee arthroplasty is in near-anatomic align ment. Again seen is a vertically-oriented periprosthetic fracture through the medial femoral condyle. Fragments are offset by up to 5 mm. No additional fracture is seen at the knee joint. There is a mauricio nt effusion with evidence of lipohemarthrosis. Generalized atrophy is observed in the regional muscul ature. There is atherosclerotic calcification of the regional arteries. IMPRESSION: 1. Vertically-oriented periprosthetic fracture through the medial femoral condyle as above. 2. No additional fracture is seen. 3. A right knee arthroplasty is in near-anatomic alignment. 4. Lipohemarthrosis. ACT 112: Negative or not required by law. Dictated: 09/04/2023 5:06 PM Transcribed: 09/04/2023 6:02 PM Will [id number] [email or web address] Electronically signed by: Dale Centeno M.D. 09/04/2023 6:35 PM
[2023-09-04] MEDS: LACTATED RINGER'S 1,000 ML IV SCH (18:47)
[2023-09-04] MEDS: MAGNESIUM SULFATE / D5W 1 GM/100 ML BAG IV SCH (18:48)
[2023-09-04] MEDS: ACETAMINOPHEN 325 MG TAB PO SCH (18:50)
[2023-09-04] MEDS: MoRPHine SULFATE 2 MG/ML CARP IV PRN (18:51)
[2023-09-04] MEDS: ENOXAPARIN INJ 40 MG/0.4 ML SYR SQ SCH (20:49)
[2023-09-04] MEDS: GABAPENTIN 600 MG TAB PO SCH (20:49)
[2023-09-04] MEDS: FAMOTIDINE 20 MG TAB PO SCH (20:49)
[2023-09-04] MEDS: GABAPENTIN 300 MG CAP PO SCH (20:49)
[2023-09-05 01:45] LABS: Appearance Urine Cloudy (Clear); Bacteria Urine Automated 1+ (None Seen); Bilirubin Urine 1+ (Negative); Blood Urine Negative (Negative); Cast Urine Automated 0-2 /lpf (0-2); Color Urine Orange; Glucose Urine UA Negative (Negative); Ketones Urine Trace (Negative); Leukocyte Esterase Urine Trace (Negative); Nitrite Urine Positive (Negative); Protein Urine Negative (Negative); RBC Urine Automated 0-2 /hpf (0-2); Urobilinogen Urine Positive (Negative); WBC Urine Automated 0-5 /hpf (0-5); pH Urine 6.5 (4.5-7.5)
[2023-09-05 02:08] LABS: Amphetamines+Metham, Urine Neg (Neg); Barbiturates, Urine Neg (Neg); Benzodiazepine, Urine Neg (Neg); Cocaine, Urine Neg (Neg); MDMA (Ecstacy), Urine Neg (Neg); Marijuana, Urine Pos (Neg); Methadone, Urine Neg (Neg); Opiate, Urine Pos (Neg); Phencyclidine, Urine Neg (Neg)
[2023-09-05 06:47] LABS: Hematocrit (blood only) 32.4 % (42.0-52.0); Hemoglobin 11.4 g/dl (14.0-18.0); Mean Corpuscular Hgb Conc 35.2 g/dL (32.0-36.0); Mean Corpuscular Volume 99.4 fL (80.0-100.0); Mean Platelet Volume 9.2 fL (9.4-12.4); Platelet Count 94 K/uL (130-400); RDW Coefficient of Variation 12.1 % (11.5-14.5); RDW Standard Deviation 44.2 fL (36.4-46.3); Red Blood Count 3.26 M/uL (4.70-6.10); White Blood Count 4.84 K/ul (4.8-10.8)
[2023-09-05 07:01] LABS: BUN Creatinine Ratio 17.6 (10-20); Calcium 8.3 mg/dl (8.6-10.3); Est GFR (African American) 135.4 ml/min; Est GFR (Non-African American) 116.8 ml/min; Potassium 3.5 mmol/L (3.5-5.1)
--- OUTSIDE RECORDS SUMMARY | 2023-09-05 07:31 | External Medical Summary | Summary of Care ---
Author Name Unknown Organization [facility] Address [address] [place] [address] Phone [phone] Care Team Providers Care Electrical Instrument Technician Name Role Phone Manuela Hernández MD Primary Care Provider [phone] Encounter Details Date Type Department Care Team (Latest Contact Info) Description 08/03/2023 6:10 PM EDT - 08/03/2023 6:14 PM EDT Hospital Encounter Radiology Film File [address] [place] [address] Discharge Disposition: Home - Self Care Allergies No known active allergiesdocumented as of this encounter (statuses as of 08/23/2023) Medications No known medicationsdocumented as of this encounter (statuses as of 08/23/2023) Immunizations Name Administration Dates Next Due Pneumococcal Polysaccharide PPV23 (Pneumovax) Seasonal Influenza Virus Vac cine, Unspecified Formulation 03/29/2017,03/09/2016 Seasonal Influenza, Quadrivalent, No Preserve, I M 03/29/2017 Seasonal Influenza, Quadrivalent, No Preserve, M dck 04/16/2019 TDAP (age 10 and older)(Boostrix) 08/24/2014 Zoster Vaccine Recombinant (Shingrix) 11/24/2021 documented as of this encounter Social History Tobacco Use Types Packs/Day Years Used Date Smoking Tobacco: Former Cigarettes 1 9.4 S tarted: 03/26/2014 Alcohol Use Standard Drinks/Week Comments No 0 (1 standard drink = 0.6 oz pur e alcohol) Sex and Gender Information Value Date Recorded Sex Assigned at Not on file Gender Identity Not on file Sexual Orientation Not on file Job Start Date Occupation Industry Not on file Not on file Not on file documented as of this encounter Plan of Treatment Upcoming Encounters Date Type Department Care Team (Late st Contact Info) Description 09/29/2023 1:00 PM EDT PulmDiagnostic Pulmonary Function Lab, [facility] [address] [place] [address] [place] Pulm Function Tech 2 [address] [place] [address] 09/29/2023 3:00 PM EDT Office Visit Pulmonary Medicine, [facility] [address] [place] [address] Alex Smith MD [address] [phone] Health Maintenance Due Date Last Done Comments Lipid Panel 1962 Depression Screening 1974 Cologuard 09/25/2007 Colonoscopy 09/25/2007 Colorectal Cancer Screening 09/25/2007 Fecal Occult Blood Test 09/25/2007 Sigmoidoscopy 09/25/2007 LUNG CANCER SCREENING - USE SMARTSET 68133 2012 Diabetes Screening 09/23/2017 09/23/2014, 0 08/16/2006, 08/15/2006, Additional history exists Pneumococcal Vaccine: Pediatrics (0 to 5 Years) and At-Risk Patients (6 to 64 Years) (2 of 2 - PCV) 04/16/2020 04/16/2019 Zoster Vaccines (2 of 2) 01/19/2022 11/24/2021 COVID-19 Vaccine ( season) 2023 11/24/2021, 01/05/2021, 12/15/2020 Influenza Vaccine (FLU shot) (Season Ended) 2024 04/16/2019, 06/10/2018, 03/29/2017, Additional history exists DTaP,Tdap,and Td Vaccines (2 - Td or Tdap) 08/24/2024 08/24/2014 GARDASIL-HPV IMMUNIZATION SERIES Aged Out No longer eligible based on patient's age to complete this topic Hepatitis B Aged Out No longer eligi ble based on patient's age to complete this topic MENINGOCOCCAL (MENACTRA/MENVEO) Aged Out No longer eligible based on patient's age to complete this topic documented as of this encounter Medical Devices Implanted Type Area Skiver Sock Linings Device Identifier Shelf Expiration Date Model / Serial / Lot Neurogen Tubes Implanted:Qty: 1 on 08/25/2006 at [facility] Left: Wrist [employer] [id number] / / [id number] documented as of this encounter Procedures Procedure Name Priority Date/Time Associated Diagnosis Comments RADIOLOGY EXAM - CT (IMAGES ONLY, NO REPORT) Routine 08/03/2023 6:10 PM EDT documented in this encounter Results * RADIOLOGY EXAM - CT (IMAGES ONLY, NO REPORT) (08/03/2023 6:10 PM EDT) 08/03/2023 6:08 PM EDT Narrative Scheduling, Silent - 08/22/2023 3:07 PM EDT This is an imaging study not interpreted or resulted by a [facility] or [facility] contracted radiologist. Manuela Hernández MD RAD CT documented in this encounter Care Teams Electrical Instrument Technician Relationship Specialty Start Date End Date Manuela Hernández MD PCP - General Internal Medicine 09/23/14 documented as of this encounter
--- OUTSIDE RECORDS SUMMARY | 2023-09-05 07:31 | External Medical Summary | Summary of Care ---
Author Name Unknown Organization [facility] Address [address] [place] [address] Phone [phone] Care Team Providers Care Clinical Services Director Name Role Phone Manuela Hernández MD Primary Care Provider [phone] Encounter Details Date Type Department Care Team (Latest Contact Info) Description 08/03/2023 6:15 PM EDT - 08/03/2023 11:59 PM EDT Hospital Encounter Radiology Film File [address] [place] [address] Discharge Disposition: Home - Self [...] 1:00 PM EDT PulmDiagnostic Pulmonary Function Lab, [facility] [address] [place] [address] [place] Pulm Function Tech [address] [place] [address] 09/29/2023 3:00 PM EDT Office Visit Pulmonary Medicine, [facility] [address] [place] [address] Alex Smith MD [address] [phone] Health Maintenance Due Date Last Done Comments Lipid Panel 1962 Depression Screening 1974 Cologuard 09/25/2007 Colonoscopy 09/25/2007 Colorectal Cancer Screening 09/25/2007 Fecal Occult Blood Test 09/25/2007 Sigmoidoscopy 09/25/2007 LUNG CANCER SCREENING - USE SMARTSET 28163 2012 Diabetes Screening 09/23/2017 09/23/2014, 0 08/16/2006, [...] this encounter Medical Devices Implanted Type Area Packing Shed Supervisor Device Identifier Shelf Expiration Date Model / Serial / Lot Neurogen Tubes Implanted:Qty: 1 on 08/25/2006 at OR [facility] Left: Wrist [employer] [id number] / / [id number] documented as of this encounter Procedures Procedure Name Priority Date/Time Associated Diagnosis Comments RADIOLOGY EXAM - CT (IMAGES ONLY, NO REPORT) Routine 08/03/2023 6:15 PM EDT documented in this encounter Results * RADIOLOGY EXAM - CT (IMAGES ONLY, NO REPORT) (08/03/2023 6:15 PM EDT) 08/03/2023 6:08 PM EDT Narrative Scheduling, Silent - 08/22/2023 3:09 PM EDT This is an imaging study not interpreted or resulted by a [facility] or [facility] [facility] contracted radiologist. aMnuela Hernández MD RAD CT documented in this encounter Care Teams Clinical Services Director Relationship Specialty Start Date End Date Manuela Hernández MD PCP - General Internal Medicine 09/23/14 documented as of this encounter
--- OUTSIDE RECORDS SUMMARY | 2023-09-05 07:31 | External Medical Summary | Summary of Care ---
Author Name Unknown Organization [facility] Address [address] [place] [address] Phone [phone] Care Team Providers Care Staff Editor Name Role Phone Manuela Hernández MD Primary Care Provider [phone] Encounter Details Date Type Department Care Team (Latest Contact Info) Description 08/03/2023 4:50 PM EDT - 08/03/2023 6:09 PM EDT Hospital Encounter Radiology Film File [address] [place] [address] Discharge Disposition: Home - Self [...] 1:00 PM EDT PulmDiagnostic Pulmonary Function Lab, [facility] [address] [place] [address] Nicholas Pulm Function Tech [address] [address] 09/29/2023 3:00 PM EDT Office Visit Pulmonary Medicine, [facility] [address] [place] [address] Alex Smith MD [address] [phone] Health Maintenance Due Date Last Done Comments Lipid Panel 1962 Depression Screening 1974 Cologuard 09/25/2007 Colonoscopy 09/25/2007 Colorectal Cancer Screening 09/25/2007 Fecal Occult Blood Test 09/25/2007 Sigmoidoscopy 09/25/2007 LUNG CANCER SCREENING - USE SMARTSET 71252 2012 Diabetes Screening 09/23/2017 09/23/2014, 0 08/16/2006, [...] this encounter Medical Devices Implanted Type Area Jowl Trimmer Device Identifier Shelf Expiration Date Model / Serial / Lot Neurogen Tubes Implanted:Qty: 1 on 08/25/2006 at OR [facility] Left: Wrist [employer] [id number] / / [id number] documented as of this encounter Procedures Procedure Name Priority Date/Time Associated Diagnosis Comments RADIOLOGY EXAM - GENERAL RAD (IMAGES ONLY,NO REPORT) Routine 08/03/2023 4:50 PM EDT documented in this encounter Results * RADIOLOGY EXAM - GENERAL RAD (IMAGES ONLY,NO REPORT) (08/03/2023 4:50 PM EDT) 08/03/2023 4:48 PM EDT Narrative Scheduling, Silent - 08/22/2023 2:53 PM EDT This is an imaging study not interpreted or resulted by a [facility] or [employer] contracted radiologist. Manuela Hernández MD RADIOLOGY (RAD GENER AL) documented in this encounter Care Teams Staff Editor Relationship Specialty Start Date End Date Manuela Hernández MD PCP - General Internal Medicine 09/23/14 documented as of this encounter
--- OUTSIDE RECORDS SUMMARY | 2023-09-05 07:31 | External Medical Summary | Summary of Care ---
Author Name Unknown Organization [facility] Address [address] [place] [address] Phone [phone] Care Team Providers Care Instructional Paraprofessional Name Role Phone Manuela Hernández MD Primary Care Provider Encounter Details Date Type Department Care Team (Latest Contact Info) Description 08/04/2023 3:25 PM EDT - 08/04/2023 11:59 PM EDT Hospital Encounter Radiology Film File [address] [place] [address] Discharge Disposition: Home - Self [...] 1:00 PM EDT PulmDiagnostic Pulmonary Function Lab, [facility] [address] [place] [address] Nicholas Pulm Function Tech [address] [address] 09/29/2023 3:00 PM EDT Office Visit Pulmonary Medicine, [facility] [address] [place] [address] Alex Smith MD [address] [phone] Health Maintenance Due Date Last Done Comments Lipid Panel 1962 Depression Screening 1974 Cologuard 09/25/2007 Colonoscopy 09/25/2007 Colorectal Cancer Screening 09/25/2007 Fecal Occult Blood Test 09/25/2007 Sigmoidoscopy 09/25/2007 LUNG CANCER SCREENING - USE SMARTSET 83376 2012 Diabetes Screening 09/23/2017 09/23/2014, 0 08/16/2006, [...] this encounter Medical Devices Implanted Type Area Sales Data Analyst Device Identifier Shelf Expiration Date Model / Serial / Lot Neurogen Tubes Implanted:Qty: 1 on 08/25/2006 at OR [facility] Left: Wrist [employer] [id number] / / [id number] documented as of this encounter Procedures Procedure Name Priority Date/Time Associated Diagnosis Comments RADIOLOGY EXAM - US (IMAGES ONLY, NO REPORT) Routine 08/04/2023 3:25 PM EDT documented in this encounter Results * RADIOLOGY EXAM - US (IMAGES ONLY, NO REPORT) (08/04/2023 3:25 PM EDT) 08/04/2023 3:21 PM EDT Narrative Scheduling, Silent - 08/22/2023 3:04 PM EDT This is an imaging study not interpreted or resulted by a [facility] or [facility] contracted radiologist. Manuela Hernández MD RAD ULTRASOUND documented in this encounter Care Teams Instructional Paraprofessional Relationship Specialty Start Date End Date Manuela Hernández MD PCP - General Internal Medicine 09/23/14 documented as of this encounter
--- OUTSIDE RECORDS SUMMARY | 2023-09-05 07:32 | External Medical Summary | Summary of Care ---
Author Name Unknown Organization [facility] Address [address] [place] [address] Phone [phone] Care Team Providers Care Glass Technologist Name Role Phone Manuela Hernández MD Primary Care Provider [phone] Encounter Details Date Type Department Care Team (Late st Contact Info) Description 08/03/2023 Orders Only General Internal Medicine [facility] [place] [address] [facility] [place] [address] Manuela Hernández MD [address] [facility] [place] [address] Allergies No known active allergiesdocumented as of this encounter (statuses as of 08/22/2023) Medications No known medicationsdocumented as of this encounter (statuses as of 08/22/2023) Immunizations Name Administration Dates Next Due Pneumococcal [...] 1:00 PM EDT PulmDiagnostic Pulmonary Function Lab, [facility] [address] [place] [address] [place], Pulm Function Tech [address] [place] [place] [address] 09/29/2023 3:00 PM EDT Office Visit Pulmonary Medicine, [facility] [address] [place] [place] [address] Alex Smith MD [address] [place] [address] Health Maintenance Due Date Last Done Comments Lipid Panel 1962 Depression Screening 1974 Cologuard 09/25/2007 Colonoscopy 09/25/2007 Colorectal Cancer Screening 09/25/2007 Fecal Occult Blood Test 09/25/2007 Sigmoidoscopy 09/25/2007 LUNG CANCER SCREENING - USE SMARTSET 31193 2012 Diabetes Screening 09/23/2017 09/23/2014, 0 08/16/2006, 08/15/2006, Additional history exists Pneumococcal Vaccine: Pediatrics (0 to 5 Years) and At-Risk Patients (6 to 64 Years) (2 of 2 - PCV) 04/16/2020 04/16/2019 Zoster Vaccines (2 of 2) 01/19/2022 11/24/2021 COVID-19 Vaccine (4 - season) 2023 11/24/2021, 01/05/2021, 12/15/2020 Influenza Vaccine (FLU shot) (Season Ended) 2024 04/16/2019, 03/29/2017, 03/29/2017, Additional history exists DTaP,Tdap,and Td Vaccines [...] this encounter Medical Devices Implanted Type Area Upsetter Setter Up Device Identifier Shelf Expiration Date Model / Serial / Lot Neurogen Tubes Implanted:Qty: 1 on 08/25/2006 at [facility] Left: Wrist [employer] [id number] / / [id number] documented as of this encounter Procedures Procedure [...] interpreted or resulted by a [facility] or [employer] contracted radiologist. Manuela Hernández MD RADIOLOGY (RAD GENER AL) documented in this encounter Care Teams Glass Technologist Relationship Specialty Start Date End Date Manuela Hernández MD PCP - General Internal Medicine 09/23/14 documented as of this encounter
--- OUTSIDE RECORDS SUMMARY | 2023-09-05 07:32 | External Medical Summary | Summary of Care ---
Author Name Unknown Organization [facility] Address [address] [place] [address] Phone [phone] Care Team Providers Care Etl Application Developer Name Role Phone Manuela Hernández MD Primary Care Provider [phone] Encounter Details Date Type Department Care Team (Late st Contact Info) Description 08/04/2023 Orders Only General Internal Medicine [facility] [place] [address] [facility] [place] [address] Manuela Hernández MD [address] [facility] [place] [address] Allergies No known active allergiesdocumented as of [...] 1:00 PM EDT PulmDiagnostic Pulmonary Function Lab, [facility] [address] [place] [address] [place], Pulm Function Tech [address] [place] [address] 09/29/2023 3:00 PM EDT Office Visit Pulmonary Medicine, [facility] [address] [place] [address] Alex Smith MD [address] [place] [address] Health Maintenance Due Date Last Done Comments Lipid Panel 1962 Depression Screening 1974 Cologuard 09/25/2007 Colonoscopy 09/25/2007 Colorectal Cancer Screening 09/25/2007 Fecal Occult Blood Test 09/25/2007 Sigmoidoscopy 09/25/2007 LUNG CANCER SCREENING - USE SMARTSET 46241 2012 Diabetes Screening 09/23/2017 09/23/2014, 0 08/16/2006, [...] this encounter Medical Devices Implanted Type Area Diesel Service Technician Device Identifier Shelf Expiration Date Model / Serial / Lot Neurogen Tubes Implanted:Qty: 1 on 08/25/2006 at OR [facility] Left: Wrist [employer] [id number] / / [id number] documented as of this encounter Procedures Procedure [...] interpreted or resulted by a [facility] or [employer] contracted radiologist. Manuela Hernández MD RAD ULTRASOUND documented in this encounter Care Teams Etl Application Developer Relationship Specialty Start Date End Date Manuela Hernández MD PCP - General Internal Medicine 09/23/14 documented as of this encounter
--- OUTSIDE RECORDS SUMMARY | 2023-09-05 07:32 | External Medical Summary | Summary of Care ---
Author Name Unknown Organization [facility] Address [address] [place] [address] Phone [phone] Care Team Providers Care Environmental Law Professor Name Role Phone Manuela Hernández MD Primary Care Provider [phone] Encounter Details Date Type Department Care Team (Late st Contact Info) Description 08/03/2023 Orders Only General Internal Medicine [facility] [place] [address] [facility] [place] [address] Manuela Hernández MD [address] [facility] [place] [address] Allergies No known active allergiesdocumented as of [...] 1:00 PM EDT PulmDiagnostic Pulmonary Function Lab, [facility] [address] [place] [address] [place], Pulm Function Tech [address] [place] [address] 09/29/2023 3:00 PM EDT Office Visit Pulmonary Medicine, [facility] [address] [place] [place] [address] Alex Smith MD [address] [place] [address] Health Maintenance Due Date Last Done Comments Lipid Panel 1962 Depression Screening 1974 Cologuard 09/25/2007 Colonoscopy 09/25/2007 Colorectal Cancer Screening 09/25/2007 Fecal Occult Blood Test 09/25/2007 Sigmoidoscopy 09/25/2007 LUNG CANCER SCREENING - USE SMARTSET 02211 2012 Diabetes Screening 09/23/2017 09/23/2014, 0 08/16/2006, [...] this encounter Medical Devices Implanted Type Area Media Traffic Manager Device Identifier Shelf Expiration Date Model / Serial / Lot Neurogen Tubes Implanted:Qty: 1 on 08/25/2006 at [facility] Left: Wrist [employer] [id number] / / [id number] documented as of this encounter Procedures Procedure [...] interpreted or resulted by a [facility] or [employer] contracted radiologist. Manuela Hernández MD RAD CT documented in this encounter Care Teams Environmental Law Professor Relationship Specialty Start Date End Date Manuela Hernández MD PCP - General Internal Medicine 09/23/14 documented as of this encounter
--- OUTSIDE RECORDS SUMMARY | 2023-09-05 07:32 | External Medical Summary | Summary of Care ---
Author Name Unknown Organization [facility] Address [address] [place] [address] Phone [phone] Care Team Providers Care Furniture Sprayer Name Role Phone Manuela Hernández MD Primary Care Provider [phone] Encounter Details Date Type Department Care Team (Late st Contact Info) Description 08/03/2023 Orders Only General Internal Medicine [facility] [place] [address] [facility] [place] [address] Manuela Hernández MD [address] [facility] [place] [address] Allergies No known active allergiesdocumented as of [...] 1:00 PM EDT PulmDiagnostic Pulmonary Function Lab, [facility] [address] [place] [address] [place], Pulm Function Tech [address] [place] [address] 09/29/2023 3:00 PM EDT Office Visit Pulmonary Medicine, [facility] [address] [place] [address] Alex Smith MD [address] [place] [address] Health Maintenance Due Date Last Done Comments Lipid Panel 1962 Depression Screening 1974 Cologuard 09/25/2007 Colonoscopy 09/25/2007 Colorectal Cancer Screening 09/25/2007 Fecal Occult Blood Test 09/25/2007 Sigmoidoscopy 09/25/2007 LUNG CANCER SCREENING - USE SMARTSET 18923 2012 Diabetes Screening 09/23/2017 09/23/2014, 0 08/16/2006, [...] this encounter Medical Devices Implanted Type Area Smoke Room Operator Device Identifier Shelf Expiration Date Model / Serial / Lot Neurogen Tubes Implanted:Qty: 1 on 08/25/2006 at [facility] Left: Wrist [employer] [id number] / / [id number] documented as of this encounter Procedures Procedure [...] interpreted or resulted by a [facility] or [employer] contracted radiologist. aMnuela Hernández MD RAD CT documented in this encounter Care Teams Furniture Sprayer Relationship Specialty Start Date End Date Manuela Hernández MD PCP - General Internal Medicine 09/23/14 documented as of this encounter
--- OUTSIDE RECORDS SUMMARY | 2023-09-05 07:32 | External Medical Summary | Continuity of Care Document ---
Author Name Unknown Organization [facility] [address] [place] [address] DR Address [address] [place], [place] [id number] Care Team Providers Care Justice Professor Name Role Phone Pradeep Edward Primary Care Physician [phone] Encounter [facility] [id number] Date(s): 08/12/23 - 08/12/[address] [place] [id number] [facility] [address] [place] [address] [phone] Encounter Diagnosis COPD with emphysema(Discharge Diagnosis) - 08/12/23 Orthostatic hypotension(Discharge Diagnosis) - 08/12/23 Chronic GERD(Discharge Diagnosis) - 08/12/23 Alcohol induced liver disorder(Discharge Diagnosis) - 08/12/23 Tobacco user(Discharge Diagnosis) - 08/12/23 Carotid stenosis, left(Discharge Diagnosis) - 08/12/23 Discharge Disposition: Home or Self Care Attending Physician: MD Edward Ravishankar E Referring Physician: MD Edward Ravishankar E Allergies, Adverse Reactions, Alerts No Known Allergies Assessment and Plan Extracted from: Title:Office Visit Note Author:MD Edward Ravishan kar E Date:08/12/23 1.COPD with emphysema - Continue incruse ellipta - Consult pulmonology for intermediate manager f/u and PFTs 2.Orthostatic hypotension - Counseled on lifestyle measures to prevent, encouraged adequate hydration and alcohol cessation 3.Chronic GERD - Continue protonix and famotidine - EGD ordered given severe symptom burden x 6 months and with blood at times 4.Alcohol induced liver disorder - Repeat CMP in 3 months - Alcohol cessation/reduction encouraged 5.Tobacco user - Encouraged smoking cessation, precontemplative but congratulated on reductions he's made 6.Carotid stenosis, left - continue rosuvastatin f/u 3 months for annual check-up and f/u. Time: 40mins 5- pre-visit chart review 30- visit, inclusive of history, exam, and discussion of assessment/plan 5- post-visit documentation/orders/coordination of care Immunizations Given and Recorded Vaccine Date Status Refusal Reason influenza virus vaccine, inactivated 05/19/15 Flaquito rded tetanus/diphtheria/pertuss, acel (Tdap) 1 08/24/14 Recorded diphtheria/tetanus/pertuss, acel (DTaP) 05/19/14 R ecorded 1Result Comment: 2021-01-15: Historical information-source unspecified Medications acetaminophen Start: 11/16/19 15:02:00 EDT, 500 mg = Start Date: 11/16/19 Status: Ordered docusate sodium 100 mg oral tablet Start: 10/31/21 8:33:00 EDT, 100 mg =, PO, bid, Disp# 60 tab, with plenty of water, [facility]: [facility] Start Date: 10/31/21 Stop Date: 11/30/21 Status: Ordered famotidine 20 mg oral tablet Start: 08/12/23 11:08:00 EDT, 1 tab, PO, bid Start Date: 08/12/23 Status: Ordered gabapentin 300 mg oral capsule See Instructions, Disp# 30 tab, Refills: 0, take 1 capsule by mouth once daily, Pharmacy: [facility]/pharmacy #[id number] Start Date: 08/07/23 Status: Ordered gabapentin 600 mg oral tablet Start: 08/07/23 9:34:00 EDT, See Instructions, Disp# 30 tab, Refills: 0, take 1 tablet by mouth three times a day, Pharmacy: [facility]/pharmacy #[id number] Start Date: 08/07/23 Status: Ordered Incruse Ellipta 62.5 mcg/inh inhalation powder Start: 08/12/23 11:08:00 EDT Start Date: 08/12/23 Status: Ordered meloxicam 15 mg oral tablet Start: 08/07/23 9:34:00 EDT, See Instructions, Disp# 30 tab, Refills: 0, take 1 tablet by mouth once daily, Pharmacy: [facility]/pharmacy #[id number] Start Date: 08/07/23 Status: Ordered pantoprazole 40 mg oral delayed release tablet Start: 08/12/23 11:08:00 EDT, 1 tab, PO, Daily Start Date: 08/12/23 Status: Ordered rosuvastatin 10 mg oral tablet Start: 08/12/23 11:08:00 EDT, 1 tab, PO, qhs Start Date: 08/12/23 Status: Ordered Mental Status 08/12/23 Barriers to Learning one year None evide nt Mandatory Health Literacy Documentation Yes Health Literacy Communication Barriers N ever Primary Language Swedish Problem List Condition Confirmation Course Effective Dates Status H ealth Status Informant Alcohol induced liver disorder Confirmed Active Arthritis of left knee Confirmed Active Hip bursitis, left Confirmed Active Olecranon bursitis, left elbow Confirmed Active Cataract Confirmed Active Chest pain Confirmed Active Chronic neuropathic pain Confirmed Active Excessive daytime sleepiness Confirmed Active Vision problem Confirmed Active Diverticulitis Confirmed Active Eczema Confirmed Active Family history of colon cancer Confirmed Active Chronic GERD Confirmed Active History of cervical fracture Confirmed Active Status post total right knee replacement Confirmed Active Hypertension Confirmed Active Effusion, right knee Confirmed Active Carotid stenosis, left Confirmed Active Orthostatic hypotension Confirmed Active Knee osteoarthritis Confirmed Active Right knee DJD Confirmed Active Painful total knee replacement, right Confirmed Active Left elbow pain Confirmed Active Pre-op exam Confirmed Active Bilateral primary osteoarthritis of knee Confirmed Active COPD with emphysema Confirmed Active Rupture of right quadriceps tendon Confirmed Active Sacro-iliac pain Confirmed Active S/P orthopedic surgery, follow-up exam Confirmed Active Tobacco user Confirmed Active Wound cellulitis Confirmed Active Diagnosis Diagnosis Type Effective Dates Health Status Clinical Service Informant COPD with emphysema Discharge Diagnosis 08/12/23 Carotid stenosis, left Discharge Diagnosis 08/12/23 Orthostatic hypotension Discharge Diagnosis 08/12/23 Alcohol induced liver disorder Discharge Diagnosis 08/12/23 Tobacco user Discharge Diagnosis 08/12/23 Chronic GERD Discharge Diagnosis 08/12/23 Procedures Procedure Date Related Diagnosis Body Site Status Bursectomy 1 12/09/19 Completed Colonoscopy 2 03/12/18 Completed Colon 3 Completed 1left olecranon bursectomy 2Patent end-to-end colo-colonic anastomosis, charecterized mby healthy appearing mucosa. The examination was otherwise normal. The examined portion of the ileum was normal. The distal rectum and ananl verge are normal on retroflexion view. No specimens collected. Repeat in 10 years. 3resection Vital Signs Most recent to oldest [Reference Range]: 1 Patient Weight 77.7 kg (08/12/23 10:20 AM) Heart Rate 108 bpm (08/12/23 10:20 AM) Blood Pressure 122/64mmHg (08/12/23 10:20 AM) Cuff Pulse Pressure 58 mmHg (08/12/23 10:20 AM) Social History Social History Type Response Tobacco Cigarettes, Stopped age 55 Years. Smoking Status Current every day he karla smoker Sex Male [facility] Outpt Note * MD Wagner, Pradeep E: PERFORM Event Display: [facility] Outpt Note Authored Date: [id number] Chief Complaint ER f/u - difficulty breathing. Tightness in chest. History of Present Illness Ancelmo is a 62yoM here today for f/u from hospitalization ending 08/05/2023 at [facility]. He was seen in the ED for seizure/syncope events over the past 6-8 months. He concurrently reported worsening SOB x 6 months both at rest and with exertion. He was felt to have syncope not seizures with negative CT and echo. He had positive orthostatics so felt it was that and counseled on ways to preventgoing forward. He was started on rosuvastatin for carotid stenosis 50-69% on L side. With regards to SOB, he was felt to have progressive COPD from smoking. BNP and troponins wnl as was echo. CXR and CTA negative for PE but notable for emphysema. He was started on spiriva in hospital and advised to continue on DC. He was recommended to be referred to pulmonology for PFTs and retirement f/u. He was also reporting nausea/vomiting felt to be acid mediated -- improving in hospital on famotidine and PPI -- consulted with GI who recommended continuation and outpatient f/u for EGD. Ongoing alcohol use with notably elevated LFTs and hepatic steatosis noted on CT abd/pelvis. Alcohol is currently 4-5x/week (2-4 beers). Currently smoking 3-4 cigars/day, cut back substantially from 6-8/day. Continues with chronic pain. Saw ortho and got cortisone shot in his knee which has helped some. Continues with gabapentin which also helps. He was recommended for surgery on R knee. Review of Systems 03/01pt ROS reviewed/negative except as noted in HPI. Physical Exam Vitals & Measurements HR:108(Monitored) BP:122/64 SpO2:95% WT:77.700kg(Dosing) WT:77.7kg GENERAL APPEARANCE: The patient is alert, oriented and in no acute distress. VITALS: As above. HEENT: Head is normocephalic/atraumatic. CARDIOVASCULAR: +2 radial pulses. RRR, no m/r/g. LUNGS: Respirations even and unlabored. CTAB, no w/r/r. EXTREMITIES: No cyanosis, clubbing or edema. NEUROLOGICAL: Grossly non-focal exam. SKIN: Warm and dry without any rash. Assessment/Plan 1.COPD with emphysema - Continue incruse ellipta - Consult pulmonology for intermediate manager f/u and PFTs 2.Orthostatic hypotension - Counseled on lifestyle measures to prevent, encouraged adequate hydration and alcohol cessation 3.Chronic GERD - Continue protonix and famotidine - EGD ordered given severe symptom burden x 6 months and with blood at times 4.Alcohol induced liver disorder - Repeat CMP in 3 months - Alcohol cessation/reduction encouraged 5.Tobacco user - Encouraged smoking cessation, precontemplative but congratulated on reductions he's made 6.Carotid stenosis, left - continue rosuvastatin f/u 3 months for annual check-up and f/u. Time: 40mins 5- pre-visit chart review 30- visit, inclusive of history, exam, and discussion of assessment/plan 5- post-visit documentation/orders/coordination of care Problem List/Past Medical History Ongoing Alcohol induced liver disorder Arthritis of left knee Bilateral primary osteoarthritis of knee Carotid stenosis, left Cataract Chest pain Chronic GERD Chronic neuropathic pain COPD with emphysema Diverticulitis Eczema Effusion, right knee Excessive daytime sleepiness Family history of colon cancer Hip bursitis, left History of cervical fracture Hypertension Knee osteoarthritis Left elbow pain Olecranon bursitis, left elbow Orthostatic hypotension Painful total knee replacement, right Pre-op exam Right knee DJD Rupture of right quadriceps tendon S/P orthopedic surgery, follow-up exam Sacro-iliac pain Status post total right knee replacement Tobacco user Vision problem Wound cellulitis Procedure/Surgical History Bursectomy| Service Date: 12/09/2019Colonoscopy| Service Date: 03/12/2018Colon Medications acetaminophen, 500 mg docusate(docusate sodium 100 mg oral tablet), 100 mg, PO, bid famotidine(famotidine 20 mg oral tablet), 20 mg= 1 tab, PO, bid gabapentin(gabapentin 300 mg oral capsule), See Instructions gabapentin(gabapentin 600 mg oral tablet), See Instructions meloxicam(meloxicam 15 mg oral tablet), See Instructions pantoprazole(pantoprazole 40 mg oral delayed release tablet), 40 mg= 1 tab, PO, Daily rosuvastatin(rosuvastatin 10 mg oral tablet), 10 mg= 1 tab, PO, qhs umeclidinium(Incruse Ellipta 62.5 mcg/inh inhalation powder) Allergies NKA Social History Smoking Status Current every day heavy smoker Alcohol - Low Risk Type:Beer Frequency:1-2 times per month Exercise - Does not exercise Tobacco - Medium Risk Type:Cigarettes Stopped at age:55Years Family History Cancer: Mother. Hypertension: Father. Stroke: Father. Health Status Family Member(s) Immunizations Vaccine Date Status influenza virus vaccine, inactivated 2015 Recorded tetanus/diphtheria/pertuss, acel (Tdap) 08/24/2014 Recorded Comments : 2021-01-15: Historical information-source unspecified diphtheria/tetanus/pertuss, acel (DTaP) 2014 Recorded Recommendations Health Maintenance Pending(in the next year) OverDue Adult Influenza Vaccine due11/15/22and every 1year Due Adult COVID-19 Vaccination due08/12/23Unknown Frequency Adult Social Determinants of Health Screening due08/12/23Unknown Frequency Pneumococcal Vaccine Adults and Adolescents with Chronic Illness due08/12/23One-time only Shingles Vaccine due08/12/23One-time only Satisfied(in the past 1 year) Satisfied Body Mass Index on09/30/22.Satisfied by MUKUL Tavares Kelley Electronic Signature on File Electronically Reviewed/Signed by: Pradeep Edward MD Author Signature Dt/Tm:08/12/2023 11:09 AM Department of Family Medicine [facility] Patient Care team information Care Team Personnel Name: MD Edward Ravishankar E Position: Physician Member Role: Primary Care Provider Address: Address: [address] [place] [address] [place]"
--- OUTSIDE RECORDS SUMMARY | 2023-09-05 07:32 | External Medical Summary | Summary of Care ---
Author Name Unknown Organization [facility] Address [address] [place] [address] Phone [phone] Care Team Providers Care Donor Relations Manager Name Role Phone Manuela Hernández MD Primary Care Provider [phone] Reason for Referral * Precert (Within 10 days (routine)) - Pending Review Specialty Diagnoses / Procedures Referred By Tone moreno Referred To Contact Cardiac Studies Diagnoses Pulmonary emphysema, unspecified emphysema type (HCC) Dyspnea and respiratory abnormalities Procedures ECHO, COMPLETE (2D), TRANS-THORACIC Alex Smith MD [address] [place] [address] Referral ID Status Reason Start Date Expiration Date Visits Requested Visits Authorized [id number] Pending Review Precert 08/22/2023 1 1 Reason for Visit * Reason Comments NEW PATIENT * Evaluate & Treat - Unlimited Visits (Within 10 days (routine)) - Pending Review Specialty Diagnoses / Procedures Referred By Tone moreno Referred To Contact Pulmonary Diseases / Pulmonary Diagnoses Emphysema of lung (HCC) COPD (chronic obstructive pulmonary disease) (HCC) Pradeep Edward MD [address] [facility] [address] [place] [address] Referral ID Status Reason Start Date Expiration Date Visits Requested Visits Authorized [id number] Pending Review Specialty Services Required 08/18/[phone] Encounter Details Date Type Department Care Team (Latest Contact Info) Description 08/21/2023 11:20 AM EDT Office Visit Pulmonary Medicine, [address] [place] [address] Alex Smith MD [address] [facility] [place] [address] Pulmonary emphysema, unspecified emphysema type (HCC)*; Dyspnea and respiratory abnormalities Allergies No known active allergiesdocumented as of this encounter (statuses as of 08/22/2023) Medications Medication Sig Dispensed Refills Start Date End Date Status Gabapentin 600 MG Oral Tablet (Neurontin) Take 1 Tablet by mouth in the morning and 1 Tablet at noon and 1 Tablet before bedtime. 0 Active Gabapentin 300 MG Oral Capsule (Neurontin) Take 1 Capsule by mouth at bedtime. With 600 mg tab at bedtime 0 Active Meloxicam 15 MG Oral Tablet (Mobic) Take 1 Tablet by mouth in the morning. 0 Active Umeclidinium [place] 62.5 MCG/ACT Inhalation Aerosol Powder Breath Activated (INCRUSE ellipta) Inhale 1 Puff by mouth in the morning. 0 Active Pantoprazole Sodium 40 MG Oral Tablet Delayed Release (Protonix) Take 1 Tablet by mouth in the morning. 0 Active Famotidine 20 MG Oral Tablet (Pepcid) Take 1 Tablet by mouth in the morning. 0 Active Rosuvastatin Calcium 10 MG Oral Tablet (Crestor) Take 1 Tablet by mouth in the morning. 0 Active oxyCODONE-acetamin ophen 5-325 mg per tab (ENDOCET) 5-325 MG per tabletIndications: Diverticulitis of large intestine with perforation TAKE 1TABLET EVERY FOUR TO SIX HOURS NEEDED FOR PAIN 90 Tab 0 09/23/2014 08/21/2023 Discontinued( Medication List Clean Up) Hospital, Clinic, or Other Facility Administered Medication Ordered Dose Route Frequency Start Date End Date Status Albuterol Sulfate (Proventil) (5 MG/ML) 0.5% *conc* inhalation solution 2.5 mgIndications:Pulmonary emphysema, unspecified emphysema type (HCC) 2.5 mg NEBULIZER PRN 08/21/2023 08/20/2024 Acti ve Albuterol Sulfate (Proventil) (2.5 MG/3ML) 0.083% inhalation solution 2.5 mgIndications:Pulmonary emphysema, unspecified emphysema type (HCC) 2.5 mg NEBULIZER PRN 08/21/2023 08/20/2024 Acti ve documented as of this encounter (statuses as of [...] Types Packs/Day Years Used Date Smoking Tobacco: Every Day Cigarettes 1 44.3 Started: 05/19/1979 Comments:08/21/23 smokes 3 c igars/day Alcohol Use Standard Drinks/Week Comments Yes 12 (1 standard drink = 0.6 oz pu re alcohol) Sex and Gender Information Value Date Recorded Sex Assigned at Not on file Gender Identity Not on file Sexual Orientation Not on file Job Start Date Occupation Industry Not on file Not on file Not on file documented as of this encounter Last Filed Vital Signs Vital Sign Reading Time Taken Comments Blood Pressure 128/98 08/21/2023 11:09 AM EDT Pulse 102 08/21/2023 11:09 AM EDT Temperature 35.8 C (96.5 F) 08/21/2023 11:09 AM E DT Respiratory Rate 22 08/21/2023 11:09 AM EDT Oxygen Saturation 97% 08/21/2023 11:10 AM EDT ra, amb Inhaled Oxygen Concentration - - Weight 78.5 kg (173 lb) 08/21/2023 11:09 AM EDT Height 175.3 cm (5' 9") 08/21/2023 11:09 AM EDT Body Mass Index 25.55 08/21/2023 11:09 AM EDT documented in this encounter Progress Notes * Alex Smith MD - 08/21/2023 11:22 AM EDT 08/21/2023 Pulmonary Medicine, [address] [place] [address] [id number] Ancelmo Fraser 1960 male 62 year old Attending Physician Documentation: 62-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 Patient describes shortness of breath on minimal exertion, current exercise distance reported as less than 1/3 of a block. Describes episodic smoker's cough. Currently using an inhaler once daily, not sure regarding name, points to Breo Diagram as the correct inhaler. No reported history of lower extremity edema, hemoptysis, high-grade fever, sick contacts. Denies recent prednisone antibiotic therapy. Physical examination is significant for alert awake oriented male, class 2 throat, scattered coarsewheezing, no dullness, regular cardiac rhythm, no evidence of volume overload and nonlateralizing Neuro examination Overall clinical picture is consistent with advanced COPD in an active smoker with 40 pack-year smoking history. Records from outside facility were requested including CT scan chest and admission records. Smoking cessation counseling was provided. Baseline pulmonary diagnostic workup including PFT, 6 minute walk test, nocturnal oximetry on room air will be done. Results will be followed up as they areavailable. Patient will be followed up in 4 weeks to reassess symptoms status, review results of above-mentioned diagnostic workup Along with available medical records, and discuss pulmonary management plan. 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 Breo Daily CHACON Follow Up: Return in about 4 weeks (around 09/18/2023) for Clinic Visit. 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 Breo Daily CHACON Plan: Records requested from [facility] PFT 6 MWT NPOX on RA Echo C/w ? [facility] f/u 4 [facility]ak Alex Smith MD Subjective CC: Chief Complaint Patient presents with NEW PATIENT HPI: Nursing Notes: Hilda Fox LPN 08/21/23 1120 Addendum New pt referred for evaluation of COPD. Interm History/Respiratory Symptoms Cough: occasional, green/yellow phlegm Hemoptysis: not currently Sinus Symptoms: no Hospitalizations: [facility] in July, for "many problems" ED Trips: July, [facility] Triggers: exertion Nocturnal: occasional cough and sob, sleeps with head elevated CPAP/BiPAP/O2: no Flu Vaccine: 2022 Pneumovax: yes, unsure of date Prevnar: yes, unsure of date COVID 19: yes, unsure of how many/when Mmrc Cat Question 08/21/2023 11:18 AM EDT - Filed by Hilda Fox LPN When do you become breathless? (4) I am too breathless to leave the house or I am breathless when dressing How frequently do you cough? (3) Do you have phlegm in your chest? (2) Is your chest tight? (0) - My chest does not feel tight at all How breathless do you become when walking up a hill or steps? (5) - When I walk up a hill or one flight of stairs I am very breathless How limited are you doing activities at home? (4) How confident are you leaving home with your lung condition? (3) How soundly do you sleep? (3) How much energy do you have? (3) Total MMRC Score (range: 0 - 4) 4 Total CAT Score (range: 0 - 40) 23 Objective Filed Vitals: 08/21/23 1109 08/21/23 1110 BP: 128/98 Pulse: 102 Resp: 22 Temp: 35.8 C (96.5 F) TempSrc: Tympanic SpO2: 98% 97% Weight: 78.5 kg (173 lb) Height: 1.753 m (5' 9") Exam: Const: No signs of acute distress present. Head/Face: Normal on inspection. Eyes: Conjunctivae clear. Pupils equal round and reactive to light. ENMT: Oropharynx: No erythema, exudate or masses. Posterior pharynx is normal. Neck: Supple and symmetric. Resp: Respiratory examination as outlined above CV: Rate is regular. Rhythm is regular. No heart murmur appreciated. Extremities: No edema of the lower limbs bilaterally. Skin: Skin is warm and dry. Neuro: Coordination normal. No involuntary movement. Psych: Patient's attitude is cooperative. Mood is normal. Affect is normal. Tests reviewed with the patient: No imaging results in the last 6 months Available Radiologic data was reviewed by me in PACS. The images were shown to the patient and findings were discussed with the patient. HOME MEDICATIONS: Gabapentin 300 MG Oral Capsule (Neurontin) Gabapentin 600 MG Oral Tablet (Neurontin) Meloxicam 15 MG Oral Tablet (Mobic) Albuterol Sulfate (Proventil) (2.5 MG/3ML) 0.083% inhalation solution 2.5 mg Albuterol Sulfate (Proventil) (5 MG/ML) 0.5% *conc* inhalation solution 2.5 mg ROS: No reported history of Hemoptysis, Hematemesis, Melena No reported history of Dysuria, Hematuria, Flank Pain No reported history of chronic headache, seizures No reported history of Fall or trauma . No reported history of recent change in weight or appetite. Past Medical History: Diagnosis Date Diverticulitis Past Surgical History: Procedure Laterality Date DRAINAGE OF FOREARM/WRIST LESION 08/13/06 INCISION AND DRAINAGE FOREARM WRIST [place]EEP [place] [facility] [place]/FASCIA DEBRIDE W/FB REMOVAL, OPEN FX 08/18/06 DEBRIDEMENT OPEN FRACTURE SKIN SUBCUTANEOUS MUSCLE AND FASCIA performed by Janes LUA at [facility] MUSCLE/FASCIA DEBRIDEMENT, FIRST 20 CM2 08/18/06 DEBRIDEMENT SKIN SUBCUTANEOUS TISSUE AND MUSCLE performed by Janes LUA at OR [facility] REMOVE CATARACT, INSERT LENS PROSTH 2001 left eye SUBQ DEBRIDEMENT, FIRST 20 CM2 08/20/06 DEBRIDEMENT SKIN AND SUBCUTANEOUS TISSUE performed by BUNNY PALACIOS at OR [facility] SUTURE OF ONE NERVE; MEDIAN MOTOR THENAR 08/25/06 SUTURE ONE NERVE HAND OR FOOT MEDIAN MOTOR performed by BUNNY PALACIOS at OR [facility] Social History Socioeconomic History Marital status: Single Number of children: 0 Occupational History Occupation: [employer] Comment: [employer] 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 No mold. Family History Problem Relation Age of Onset Lymphoma Mother Hypertension Father Stroke Father Cancer Brother Unknown type Review of patient's allergies indicates: No Known Allergies documented in this encounter Nursing Notes * Hilda Fox LPN - 08/21/2023 11:00 AM EDT New pt referred for evaluation of COPD. Interm History/Respiratory Symptoms Cough: occasional, green/yellow phlegm Hemoptysis: not currently Sinus Symptoms: no Hospitalizations: [facility] in July, for "many problems" ED Trips: July, [facility] Triggers: exertion Nocturnal: occasional cough and sob, sleeps with head elevated CPAP/BiPAP/O2: no Flu Vaccine: 2022 Pneumovax: yes, unsure of date Prevnar: yes, unsure of date COVID 19: yes, unsure of how many/when Mmrc Cat Question 08/21/2023 11:18 AM EDT - Filed by Hilda Fox LPN When do you become breathless? (4) I am too breathless to leave the house or I am breathless when dressing How frequently do you cough? (3) Do you have phlegm in your chest? (2) Is your chest tight? (0) - My chest does not feel tight at all How breathless do you become when walking up a hill or steps? (5) - When I walk up a hill or one flight of stairs I am very breathless How limited are you doing activities at home? (4) How confident are you leaving home with your lung condition? (3) How soundly do you sleep? (3) How much energy do you have? (3) Total MMRC Score (range: 0 - 4) 4 Total CAT Score (range: 0 - 40) 23 documented in this encounter Plan of Treatment Upcoming Encounters Date Type Department Care Team (Late st Contact Info) Description 09/29/2023 1:00 PM EDT PulmDiagnostic Pulmonary Function Lab, [facility] [address] [place] [address] [place] Pulm Function Tech [address] [place] [address] 09/29/2023 3:00 PM EDT Office Visit Pulmonary Medicine, [facility] [address] [facility] [place] [address] Alex Smith MD [address] [place] [address] Scheduled Orders Name Type Priority Associated Diagnoses Orde r Schedule DIFFUSION CAPACITY (DLCO) Procedures Routine Pulmonary emphysema, unspecified emphysema type (HCC) Expected: 08/28/2023, Expires: 09/19/2024 RESPIRATORY MUSCLE PRESSURES (BUGLE PRESSURES) Procedures Routine Pulmonary emphysema, unspecified emphysema type (HCC) Ordered: 08/21/2023 LUNG VOLUMES (PLETHYSMOGRAPHY) Procedures Routine Pulmonary emphysema, unspecified emphysema type (HCC) Expected: 08/28/2023, Expires: 09/19/2024 NOCTURNAL HOME OXIMETRY (OP) Procedures Routine Pulmonary emphysema, unspecified emphysema type (HCC) Ordered: 08/21/2023 SPIROMETRY B/A BRONCHODILATOR Procedures Routine Pulmonary emphysema, unspecified emphysema type (HCC) Expected: 08/28/2023, Expires: 09/19/2024 PULMONARY STRESS TESTING Procedures Routine Pulmonary emphysema, unspecified emphysema type (HCC) Expected: 08/22/2023, Expires: 09/19/2024 ECHO, COMPLETE (2D), TRANS-THORACIC Echocardiology Routine Pulmonary emphysema, unspecified emphysema type (HCC) Dyspnea and respiratory abnormalities Expected: 08/22/2023, Expires: 02/19/2025 Health Maintenance Due Date Last Done Comments Lipid Panel 1960 Depression Screening 1974 Cologuard 09/25/2007 Colonoscopy 09/25/2007 Colorectal Cancer Screening 09/25/2007 Fecal Occult Blood Test 09/25/2007 Sigmoidoscopy 09/25/2007 LUNG CANCER SCREENING - USE SMARTSET [id number] 2012 Diabetes Screening 09/23/2017 09/23/2014, 0 08/16/2006, 08/15/2006, Additional history exists Pneumococcal Vaccine: Pediatrics (0 to 5 Years) and At-Risk Patients (6 to 64 Years) (2 of 2 - PCV) 04/16/2020 04/16/2019 Zoster Vaccines (2 of 2) 01/19/2022 11/24/2021 COVID-19 Vaccine (4 - 2022-24 season) 2023 11/24/2021, 01/05/2021, 12/15/2020 Influenza Vaccine [...] this encounter Medical Devices Implanted Type Area Client Support Coordinator Device Identifier Shelf Expiration Date Model / Serial / Lot Neurogen Tubes Implanted:Qty: 1 on 08/25/2006 at OR [facility] Left: Wrist [employer] [id number] / / [id number] documented as of this encounter Visit Diagnoses Diagnosis Pulmonary emphysema, unspecified emphysema type (HCC)- Primary Dyspnea and respiratory abnormalities Other dyspnea and respiratory abnormality documented in this encounter Care Teams Donor Relations Manager Relationship Specialty Start Date End Date Manuela Hernández MD PCP - General Internal Medicine 09/23/14 documented as of this encounter
--- OUTSIDE RECORDS SUMMARY | 2023-09-05 07:32 | External Medical Summary | Summary of Care ---
Author Name Unknown Organization [facility] Address [address] [place] [address] Phone [phone] Care Team Providers Care Paper Cutting Machine Operator Name Role Phone Manuela Hernández MD Primary Care Provider [phone] Reason for Referral * Precert (Within 10 days (routine)) - Pending Review Specialty Diagnoses / Procedures Referred By Tone moreno Referred To Contact Cardiac Studies Diagnoses Pulmonary emphysema, unspecified emphysema type (HCC) Dyspnea and respiratory abnormalities Procedures ECHO, COMPLETE (2D), TRANS-THORACIC Alex Smith MD [address] [place] [address] Referral ID Status Reason Start Date Expiration Date Visits Requested Visits Authorized [id number] Pending Review Precert 08/22/2023 1 1 Reason for Visit * Reason Comments NEW PATIENT * Evaluate & Treat - Unlimited Visits (Within 10 days (routine)) - Pending Review Specialty Diagnoses / Procedures Referred By Tone moreno Referred To Contact Pulmonary Diseases / Pulmonary Diagnoses Emphysema of lung (HCC) COPD (chronic obstructive pulmonary disease) (HCC) Pradeep Edward MD [address] [facility] [address] [place] [address] Referral ID Status Reason Start Date Expiration Date Visits Requested Visits Authorized [id number] Pending Review Specialty Services Required 08/18/[phone] Encounter Details Date Type Department Care Team (Latest Contact Info) Description 08/21/2023 11:20 AM EDT Office Visit Pulmonary Medicine, [address] [place] [address] Alex Smith MD [address] [facility] [place] [address] Pulmonary emphysema, unspecified emphysema type (HCC)*; Dyspnea and respiratory abnormalities Allergies No known active allergiesdocumented as of this encounter (statuses as of 08/21/2023) Medications Medication Sig Dispensed Refills Start Date [...] as of this encounter (statuses as of 08/21/2023) Immunizations Name Administration Dates Next Due Pneumococcal [...] 08/21/2023 11:22 AM EDT 08/21/2023 Pulmonary Medicine, [address] [place] [address] [id number] Ancelmo Fraser 1960 male 62 year old Attending Physician Documentation: 62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 Patient [...] management plan. 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 Breo Daily CHACON Follow Up: Return in about 4 weeks (around 09/18/2023) for Clinic Visit. 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 Breo Daily CHACON Plan: Records requested from [facility] PFT 6 MWT NPOX on RA Echo C/w ? [facility] f/u 4 [facility] Alex Smith MD Subjective CC: Chief Complaint Patient presents with NEW PATIENT HPI: Nursing Notes: Hilda Fox, MUKUL 08/21/23 1120 Addendum New pt referred for evaluation of COPD. Interm History/Respiratory Symptoms Cough: occasional, green/yellow phlegm Hemoptysis: not currently Sinus Symptoms: no Hospitalizations: [facility] in July, for "many problems" ED Trips: July, [facility] Triggers: exertion Nocturnal: occasional cough and sob, [...] DEEP performed by Janes LUA [place] [facility] [place] MUSCLE/FASCIA DEBRIDE W/FB REMOVAL, OPEN FX 08/18/06 DEBRIDEMENT OPEN FRACTURE SKIN SUBCUTANEOUS MUSCLE AND FASCIA performed by Janes LUA at OR [facility] MUSCLE/FASCIA DEBRIDEMENT, FIRST 20 CM2 08/18/06 DEBRIDEMENT SKIN SUBCUTANEOUS TISSUE AND MUSCLE performed by Janes LUA at [facility] REMOVE CATARACT, INSERT LENS PROSTH 2000 left eye SUBQ DEBRIDEMENT, FIRST 20 CM2 [...] [employer] 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 [address] [place] [address] [place] Pulm Function Tech 2 [address] [place] [address] 09/29/2023 3:00 PM EDT Office Visit Pulmonary Medicine, [facility] [address] [place] [address] Alex Smith MD [address] [place] [address] Scheduled Orders Name Type Priority Associated Diagnoses [...] Fecal Occult Blood Test 09/25/2007 Sigmoidoscopy 09/25/2007 Diabetes Screening 09/23/2017 09/23/2014, 0 08/16/2006, 08/15/2006, Additional history exists Pneumococcal Vaccine: Pediatrics (0 to 5 Years) and At-Risk Patients (6 to 64 Years) (2 of 2 - PCV) 04/16/2020 04/16/2019 Zoster Vaccines (2 of 2) 01/19/2022 11/24/2021 COVID-19 Vaccine (4 - 2022- season) 2023 11/24/2021, 01/05/2021, 12/15/2020 Influenza Vaccine [...] this encounter Medical Devices Implanted Type Area Wares Sorter Device Identifier Shelf Expiration Date Model / Serial / Lot Neurogen Tubes Implanted:Qty: 1 on 08/25/2006 at OR [facility] Left: Wrist [employer] [id number] / / [id number] documented as of this encounter Visit Diagnoses Diagnosis Pulmonary emphysema, unspecified emphysema type (HCC)- Primary Dyspnea and respiratory abnormalities Other dyspnea and respiratory abnormality documented in this encounter Care Teams Paper Cutting Machine Operator Relationship Specialty Start Date End Date Manuela Hernández MD PCP - General Internal Medicine 09/23/14 documented as of this encounter
--- OUTSIDE RECORDS SUMMARY | 2023-09-05 07:32 | External Medical Summary | Summary of Care ---
Author Name Unknown Organization [facility] Address [address] [place] [address] Phone [phone] Care Team Providers Care In Store Marketing Representative Name Role Phone Manuela Hernández MD Primary Care Provider [phone] Reason for Referral * Evaluate & Treat - Unlimited Visits (Within 10 days (routine)) - Pending Review Specialty Diagnoses / Procedures Referred By Tone moreno Referred To Contact Pulmonary Diseases / Pulmonary Diagnoses Emphysema of lung (HCC) COPD (chronic obstructive pulmonary disease) ([facility]) Pradeep Edward MD [address] [place] [address] [address] Referral ID Status Reason Start Date Expiration Date Visits Requested Visits Authorized [id number] Pending Review Specialty Services Required 08/18/2023 999 999 Question Answer Referral Priority Within 10 days (routine) Where should this appointment be scheduled? [facility] Reason for Referral? Asthma/COPD Comments COPD emphysema, Notes scanned in [facility] on 08/18/23 Encounter Details Date Type Department Care Team (Late st Contact Info) Description 08/18/2023 Orders Only [facility], [place] [facility] [address] [place] [address] Ext *DO NOT REMOVE THIS DEPARTMENT* LEXI TREVIÑO [id number] Request, External Referral Emphysema of lung (HCC)*; COPD (chronic obstructive pulmonary disease) (HCC) Allergies No known active allergiesdocumented as of this encounter (statuses as of 08/18/2023) Medications Medication Sig Dispensed Refills Start Date End Date Status oxyCODONE-acetaminophen 5-325 mg per tab (ENDOCET) 5-325 MG per tabletIndications:Diver ticulitis of large intestine with perforation TAKE 1TABLET EVERY FOUR TO SIX HOURS NEEDED FOR PAIN 90 Tab 0 09/23/2014 Active documented as of this encounter (statuses as of 08/18/2023) Immunizations Name Administration Dates Next Due Seasonal Influenza, Quadrivalent, No Preserve, I M 03/29/2017 TDAP (age 10 and older)(Boostrix) 08/24/2014 documented as of this encounter Social History Tobacco Use Types Packs/Day Years Used Date Smoking Tobacco: Former Cigarettes 1 9.4 S tarted: 03/26/2014 Alcohol Use Standard Drinks/Week Comments No 0 (1 standard drink = 0.6 oz pur e alcohol) Sex and Gender Information Value Date Recorded Sex Assigned at Not on file Gender Identity Not on file Sexual Orientation Not on file documented as of this encounter Plan of Treatment Scheduled Referrals Name Type Priority Associated Diagnoses Orde r Schedule PULMONARY REFERRAL OP Referral Within 10 days (routine) Emphysema of lung (HCC) COPD (chronic obstructive pulmonary disease) (HCC) Ordered: 08/18/2023 Health Maintenance Due Date Last Done Comments Lipid Panel 1962 Depression Screening 1974 Cologuard 09/25/2007 Colonoscopy 09/25/2007 Colorectal Cancer Screening 09/25/2007 Fecal Occult Blood Test 09/25/2007 Sigmoidoscopy 09/25/2007 Zoster Vaccines (1 of 2) 2012 Pneumococcal Vaccine: Pediatrics (0 to 5 Years) and At-Risk Patients (6 to 64 Years) (2 of 2 - PCV) 04/16/2020 04/16/2019 COVID-19 Vaccine ( - 2022-2 4 season) 2023 Influenza Vaccine (FLU shot) (Season Ended) 2024 04/16/2019, 03/29/2017 DTaP,Tdap,and Td Vaccines (2 - Td or Tdap) 08/24/2024 08/24/2014 GARDASIL-HPV IMMUNIZATION SERIES Aged Out No longer eligible b ased on patient's age to complete this topic Hepatitis B Aged Out No longer eligi ble based on patient's age to complete this topic MENINGOCOCCAL (MENACTRA/MENVEO) Aged Out No longer eligible b ased on patient's age to complete this topic documented as of this encounter Medical Devices Implanted Type Area Email Operations Manager Device Identifier Shelf Expiration Date Model / Serial / Lot Neurogen Tubes Implanted:Qty: 1 on 08/25/2006 at OR [facility] Left: Wrist [employer] [id number] / / [id number] documented as of this encounter Visit Diagnoses Diagnosis Emphysema of lung (HCC)- Primary Other emphysema COPD (chronic obstructive pulmonary disease) (HCC) Chronic airway obstruction, not elsewhere classified documented in this encounter Care Teams In Store Marketing Representative Relationship Specialty Start Date End Date Manuela Hernández MD PCP - General Internal Medicine 09/23/14 documented as of this encounter
[2023-09-05 08:00] LABS: Basophils # (auto) 0.03 K/uL (0.00-0.20); Basophils % (auto) 0.6 %; Eosinophils # (auto) 0.14 K/uL (0.00-0.50); Eosinophils % (auto) 2.9 %; Immature Granulocytes # (auto) 0.04 K/uL (0.01-0.20); Immature Granulocytes % (auto) 0.8 %; Lymphocytes # (auto) 1.58 K/uL (1.20-3.40); Lymphocytes % (auto) 32.6 %; Monocytes # (auto) 0.36 K/uL (0.11-0.59); Monocytes % (auto) 7.4 %; Neutrophils # (auto) 2.69 K/uL (1.40-6.50); Neutrophils % (auto) 55.7 %; Polychromasia 1+
[2023-09-05] MEDS: FOLIC ACID 1 MG TAB PO SCH (08:04)
[2023-09-05] MEDS: CYANOCOBALAMIN (B-12) 100 MCG TABLET PO SCH (08:04)
[2023-09-05] MEDS: ROSUVASTATIN CALCIUM 10 MG TAB PO SCH (08:05)
[2023-09-05] MEDS: PANTOprazole 40 MG TAB PO SCH (08:05)
[2023-09-05] MEDS: THIAMINE HCL 100 MG TAB PO SCH (08:05)
[2023-09-05] MEDS: UMECLIDINIUM BROMIDE 62.5MCG/BLISTER 7 PUFFS/INHALER INH SCH (08:06)
--- NOTE | 2023-09-05 08:39 | Hospitalist Progress Note ---
Date of Service September 05, 2023 Assessment & Plan (1) Periprosthetic fracture around internal prosthetic knee joint: Plan: R knee periprosthetic fracture -Significant right knee pain and ambulatory dysfunction due to right minimally displaced distal femoral periprosthetic fracture -CT of right knee reviewed -Orthopedics is consulted and following, no surgical intervention at this time - recommended splint and NWB RLE. PT/OT evals reviewed will need walker, wc, home health PT/OT -Pain control with scheduled tylenol, ice, and prn morphine - transition to oral pain medicine (2) Syncope and collapse: Plan: -Patient was recently diagnosed with orthostatic hypotension during his last admission to [facility] in July -Patient states that his syncopal episode on 08/31 was similar to previous episodes -Normally he is able to prevent syncope with sitting and rest but tried to ambulate to his bedroom -No focal neuro defects on exam, CT head negative for acute findings -Dehydrated in ED given 1500 mL IVF since presentation -check orthostatic VS - positive by RN dropping to SBP 90s on standing. Normal standing VS during PT/OT -reviewed meds - no obvious culprits -has numbness bilateral toes/forefoot so could have autonomic neuropathy to account for orthostasis -UA mildly abnormal, urine Cx pending -check TSH, AM cortisol, B1 and B12 -monitor tele 24h but unlikely cardiac syncope -after AM cortisol is drawn we can try fludrocortisone Reviewed previous syncope workup from July 2023: EKGs unchanged with mild QTC prolongation at 480 TTE 08/03 with nl LVEF 60-65% mild concentric LVH, grade 1 diastolic dysfunction Carotid duplex - 50-69% proc LICA stenosis, no stenosis on R -no additional testing indicated except as above (3) Thrombocytopenia: Plan: -Platelets of 115 today -Has been as low as 105 in the past -has hemarthrosis on CT so some component of consumption -AM CBC (4) Alcohol use: Plan: -Reports drinking approximately 3 nights a week -Denies previous alcohol withdrawal -Monitor for withdrawal -Will start daily PO thiamine, folic acid, and B12 (5) Tobacco use: Plan: -Continue nicotine patch -Continue to stress importance of cessation Plan Acute blood loss anemia - Hg 14-->11.4 after IV fluids overnight. Previously 14 -anemia likely related to fracture and hemarthrosis present on CT -AM CBC -anemia labs: retic, iron studies, B12 Hepatic steatosis on recent abdominal CT, elevated bilirubin, mild AST/ALT/AlkP elevation -repeat LFT this am - bilirubin normalized Admission and Anticipated Discharge Date Admission Date: September 04, 2023 Subjective R knee pain present, controlled on current meds Had PT/OT today not orthostatic at that time RN orthostatic vitals were positive with standing drop to SBP 90s Physical Exam 2 Physical Exam: PHYSICAL EXAMINATION Last 24h vital signs reviewed, see documentation in flowsheet General: comfortable appearing, no distress HEENT: Normocephalic, atraumatic, pupils round and equal, sclerae anicteric, no conjunctival injection, moist mucus membranes Lungs: Normal respiratory effort. Clear to auscultation bilaterally. No RRW Heart: Regular rate and rhythm, no murmurs. No JVD Abdomen: Soft, nontender, nondistended. Bowel sounds present. Extremities: Warm, dry, well-perfused. RLE splinted and in VENITA wrap Neuro: Alert and oriented x 4, face symmetric, moves 4 extremities well Psych: Normal affect and behavior Results & Data Results & Data Vital Signs (Past 12 Hours) Vital Signs Temp Pulse Pulse Resp BP Pulse Ox O2 Del Method 09/05/23 07:03 36.6 C 79 17 143/88 H 97 Room Air 09/05/23 03:27 36.3 C L 84 18 131/89 95 Room Air 09/04/23 23:43 91 H 09/04/23 23:09 36.3 C L 90 18 103/71 96 Room Air Laboratory Results 09/05/23 05:59 09/05/23 05:59 PG Care Time/CCT Total # of Minutes Spent Total Time Spent with Patient: Total time spent is greater than 50% in coordination of care (as documented) at patient's floor/unit and/or counseling patient: Coding Level of Care Code 77628 SUB INP/OBS CARE 2/35MIN Diagnoses Periprosthetic fracture around internal prosthetic knee joint M97.8XXA; Z96.659 Syncope and collapse R55 Thrombocytopenia D69.6 Alcohol use Z78.9 Tobacco use Z72.0
[2023-09-05 08:49] LABS: Reticulocyte % 2.64 % (0.50-2.00); Reticulocytes # 0.09 10^6/uL (0.020-0.100)
[2023-09-05 09:26] LABS: Albumin Level 2.7 gm/dl (3.4-5.0); Bilirubin Direct 0.4 mg/dl (0-0.2); Bilirubin,Total 1.1 mg/dl (0.2-1.0)
[2023-09-05 09:33] LABS: Total Protein 5.2 gm/dl (6.0-8.3)
[2023-09-05 09:48] LABS: Thyroid Stimulating Hormone 7.579 uIu/ml (0.300-4.500)
[2023-09-05 09:57] LABS: Ferritin 204.2 ng/ml (8-388)
[2023-09-05 11:02] LABS: T4 Free Thyroxine 1.19 ng/dl (0.61-1.60)
--- NOTE | 2023-09-05 11:48 | Orthopedic Progress Note ---
Date of Service September 05, 2023 Assessment & Plan (1) Periprosthetic fracture around internal prosthetic knee joint: Plan - Patient is doing as expected. - He is to maintain Nonweightbearing right lower extremity at all times. Use walker, crutches or wheelchair to assist with ambulation. wheel chair order faxed from our office to case management by Donna - Ice to right knee as needed for pain and swelling. - Elevate right leg on 2 pillows as needed for pain and swelling. - SABINO stockings on bilateral lower extremities, on during the day and off at night. - Knee immobilizer on right leg at all times. - Blood thinner medication as instructed by medicine service. - Follow-up with Dr. Everett in 7 to 10 days as scheduled. Call [phone] with any increased pain, swelling, questions or concerns. Admission and Anticipated Discharge Date Admission Date: September 04, 2023 Subjective Pt is a 62 y.o male who was seed bedside today. He is in good spirits. He states he feels his pain is managed unless he moves the right leg. He states that he is getting pain medication and this is helping. He states he has been using ice to the knee. He denies any immobilizer or brace being on the right leg. He reports he has a walker at home, denies having a w/c. He is inquiring about using crutches once he is d/c. He denies any fever, chills, chest pain, shortness of breath, or calf pain. Review of Systems Review of Systems: please refer to HPI Physical Exam Physical Exam: General: Alert and oriented x3 pleasant and conversive no acute distress Integumentary/Musculoskeletal: gema wrap with soft roll is in place mid thigh to proximal tibia. No immobilizer. dressing was taken down. has a small scab over the anterior knee. Neg for any erythema or drainage. Negative for warmth. Small effusion of right knee. tenderness over medial aspect of right knee. dressing was reapplied. Calf is soft and nontender. Patient is able to actively do dorsiflexion and plantar flexion. Dorsalis pulsse is 1+ Results & Data Vital Signs (Past 12 Hours) Vital Signs Temp Pulse Pulse Resp BP Pulse Ox O2 Del Method 09/05/23 11:09 36.4 C L 86 17 114/75 96 Room Air 09/05/23 08:45 78 09/05/23 07:03 36.6 C 79 17 143/88 H 97 Room Air 09/05/23 03:27 36.3 C L 84 18 131/89 95 Room Air 09/04/23 23:43 91 H Laboratory Results 09/05/23 09/05/23 09/05/23 Range/Units Unknown 08:32 05:59 WBC 4.84 (4.8-10.8) K/ul RBC 3.26 L (4.70-6.10) M/uL Hgb 11.4 L D (14.0-18.0) g/dl Hct 32.4 L (42.0-52.0) % MCV 99.4 (80.0-100.0) fL MCH 35.0 H (25.0-34.0) pg MCHC 35.2 (32.0-36.0) g/dL RDW Std Deviation 44.2 (36.4-46.3) fL RDW Coeff of Mabel 12.1 (11.5-14.5) % Plt Count 94 L (130-400) K/uL MPV 9.2 L (9.4-12.4) fL Immature Gran % (Auto) 0.8 % Neut % (Auto) 55.7 % Lymph % (Auto) 32.6 % [place] % (Auto) 7.4 % Eos % (Auto) 2.9 % Baso % (Auto) 0.6 % Reticulocyte % (Auto) 2.64 H (0.50-2.00) % Neut # (Auto) 2.69 (1.40-6.50) K/uL Lymph # (Auto) 1.58 (1.20-3.40) K/uL Valencia # (Auto) 0.36 (0.11-0.59) K/uL Eos # (Auto) 0.14 (0.00-0.50) K/uL Baso # (Auto) 0.03 (0.00-0.20) K/uL Reticulocyte # 0.090 (0.020-0.100) 10^6/uL Immature Gran # (Auto) 0.04 (0.01-0.20) K/uL Polychromasia 1+ PT (9.0-12.0) Seconds INR (0.9-1.1) APTT (21-31) Seconds PTT Ratio Sodium 135 L (136-145) mmol/L Potassium 3.5 (3.5-5.1) mmol/L Chloride 103 (98-107) mmol/L Carbon Dioxide 26 (21-32) mmol/L Anion Gap 6 (3-11) BUN 9 (6-23) mg/dl Creatinine 0.51 L (0.6-1.4) mg/dl Est Cr Clr Drug Dosing 159.0 ml/min Est GFR ( Amer) 135.4 ml/min Est GFR (Non-Af Amer) 116.8 ml/min BUN/Creatinine Ratio 17.6 (10-20) Glucose 81 (70-99(Fasting)) mg/dl Lactate (0.4-2.0) mmol/L Calcium 8.3 L (8.6-10.3) mg/dl Magnesium (1.7-2.4) mg/dl Iron 49 (35-175) mcg/dl Transferrin 120 L (200-360) mg/dl Ferritin 204.2 (8-388) ng/ml Total Bilirubin 1.1 H (0.2-1.0) mg/dl Direct Bilirubin 0.4 H (0-0.2) mg/dl AST 48 H (13-39) U/L ALT 18 (7-52) U/L Alkaline Phosphatase 149 H (34-104) U/L Troponin I High Sens (0-20) pg/ml Total Protein 5.2 L D (6.0-8.3) gm/dl Albumin 2.7 L (3.4-5.0) gm/dl Globulin (2.5-4.0) gm/dl Albumin/Globulin Ratio (0.9-2) Vitamin B12 487 (180-914) pg/ml Procalcitonin (0-0.5) ng/ml TSH 7.579 H (0.300-4.500) uIu/ml Free T4 1.19 (0.61-1.60) ng/dl Urine Color [place] Urine Appearance Cloudy A (Clear) Urine pH 6.5 (4.5-7.5) Ur Specific [place] 1.020 (1.000-1.030) Urine Protein Negative (Negative) Urine Glucose (UA) Negative (Negative) Urine Ketones Trace H (Negative) Urine Blood Negative (Negative) Urine Nitrite Positive A (Negative) Urine Bilirubin 1+ H (Negative) Urine Urobilinogen Positive H (Negative) Ur Leukocyte Esterase Trace H (Negative) Urine WBC (Auto) 0-5 (0-5) /hpf Urine RBC (Auto) 0-2 (0-2) /hpf U Hyaline Cast (Auto) 0-2 (0-2) /lpf U Epithel Cells (Auto) 6-10 H (0-2) /hpf Urine Bacteria (Auto) 1+ H (None Seen) Urine Opiates Screen Pos H (Neg) U Codeine Confrm GC/MS Pending Ur Morphine (GC/MS) Pending Ur Hydrocodone (GC/MS) Pending Ur Norhydrocodone Pending Ur Noroxycodone Pending Urine Oxycodone (GC/MS) Pending U Oxymorphone GC/MS Pending Ur Methadone, Qual Neg (Neg) Ur Hydromorphone (GC/MS) Pending Urine Barbiturates Neg (Neg) Ur Phencyclidine (PCP) Neg (Neg) U Amphetamin/Meth Scrn Neg (Neg) MDMA (Ecstasy) Screen Neg (Neg) U Benzodiazepines Scrn Neg (Neg) Ur Cocaine Metabolite Neg (Neg) U Marijuana (THC) Screen Pos H (Neg) U Marijuana THC Carboxy Pending Drug Screen Comment Pending Ethyl Alcohol mg/dL (<10.0) mg/dl 09/04/23 09/04/23 09/04/23 Range/Units 15:30 14:13 13:29 WBC (4.8-10.8) K/ul RBC (4.70-6.10) M/uL Hgb (14.0-18.0) g/dl Hct (42.0-52.0) % MCV (80.0-100.0) fL MCH (25.0-34.0) pg MCHC (32.0-36.0) g/dL RDW Std Deviation (36.4-46.3) fL RDW Coeff of Mabel (11.5-14.5) % Plt Count (130-400) K/uL MPV (9.4-12.4) fL Immature Gran % (Auto) % Neut % (Auto) % Lymph % (Auto) % [place] % (Auto) % Eos % (Auto) % Baso % (Auto) % Reticulocyte % (Auto) (0.50-2.00) % Neut # (Auto) (1.40-6.50) K/uL Lymph # (Auto) (1.20-3.40) K/uL [place] # (Auto) (0.11-0.59) K/uL Eos # (Auto) (0.00-0.50) K/uL Baso # (Auto) (0.00-0.20) K/uL Reticulocyte # (0.020-0.100) 10^6/uL Immature Gran # (Auto) (0.01-0.20) K/uL Polychromasia PT (9.0-12.0) Seconds INR (0.9-1.1) APTT (21-31) Seconds PTT Ratio Sodium (136-145) mmol/L Potassium (3.5-5.1) mmol/L Chloride (98-107) mmol/L Carbon Dioxide (21-32) mmol/L Anion Gap (3-11) BUN (6-23) mg/dl Creatinine (0.6-1.4) mg/dl Est Cr Clr Drug Dosing ml/min Est GFR ( Amer) ml/min Est GFR (Non-Af Amer) ml/min BUN/Creatinine Ratio (10-20) Glucose (70-99(Fasting)) mg/dl Lactate 1.1 2.5 H* (0.4-2.0) mmol/L Calcium (8.6-10.3) mg/dl Magnesium (1.7-2.4) mg/dl Iron (35-175) mcg/dl Transferrin (200-360) mg/dl Ferritin (8-388) ng/ml Total Bilirubin (0.2-1.0) mg/dl Direct Bilirubin (0-0.2) mg/dl AST (13-39) U/L ALT (7-52) U/L Alkaline Phosphatase (34-104) U/L Troponin I High Sens (0-20) pg/ml Total Protein (6.0-8.3) gm/dl Albumin (3.4-5.0) gm/dl Globulin (2.5-4.0) gm/dl Albumin/Globulin Ratio (0.9-2) Vitamin B12 (180-914) pg/ml Procalcitonin (0-0.5) ng/ml TSH (0.300-4.500) uIu/ml Free T4 (0.61-1.60) ng/dl Urine Color Urine Appearance (Clear) Urine pH (4.5-7.5) Ur Specific [place] (1.000-1.030) Urine Protein (Negative) Urine Glucose (UA) (Negative) Urine Ketones (Negative) Urine Blood (Negative) Urine Nitrite (Negative) Urine Bilirubin (Negative) Urine Urobilinogen (Negative) Ur Leukocyte Esterase (Negative) Urine WBC (Auto) (0-5) /hpf Urine RBC (Auto) (0-2) /hpf U Hyaline Cast (Auto) (0-2) /lpf U Epithel Cells (Auto) (0-2) /hpf Urine Bacteria (Auto) (None Seen) Urine Opiates Screen (Neg) U Codeine Confrm GC/MS Ur Morphine (GC/MS) Ur Hydrocodone (GC/MS) Ur Norhydrocodone Ur Noroxycodone Urine Oxycodone (GC/MS) U Oxymorphone GC/MS Ur Methadone, Qual (Neg) Ur Hydromorphone (GC/MS) Urine Barbiturates (Neg) Ur Phencyclidine (PCP) (Neg) U Amphetamin/Meth Scrn (Neg) MDMA (Ecstasy) Screen (Neg) U Benzodiazepines Scrn (Neg) Ur Cocaine Metabolite (Neg) U Marijuana (THC) Screen (Neg) U Marijuana THC Carboxy Drug Screen Comment Ethyl Alcohol mg/dL < 10.0 (<10.0) mg/dl 09/04/23 Range/Units 13:28 WBC 6.27 (4.8-10.8) K/ul RBC 4.29 L (4.70-6.10) M/uL Hgb 15.0 (14.0-18.0) g/dl Hct 42.7 (42.0-52.0) % MCV 99.5 (80.0-100.0) fL MCH 35.0 H (25.0-34.0) pg MCHC 35.1 (32.0-36.0) g/dL RDW Std Deviation 45.2 (36.4-46.3) fL RDW Coeff of Mabel 12.4 (11.5-14.5) % Plt Count 115 L (130-400) K/uL MPV 9.4 (9.4-12.4) fL Immature Gran % (Auto) 1.1 % Neut % (Auto) 72.0 % Lymph % (Auto) 19.0 % [place] % (Auto) 5.9 % Eos % (Auto) 1.4 % Baso % (Auto) 0.6 % Reticulocyte % (Auto) (0.50-2.00) % Neut # (Auto) 4.51 (1.40-6.50) K/uL Lymph # (Auto) 1.19 L (1.20-3.40) K/uL [place] # (Auto) 0.37 (0.11-0.59) K/uL Eos # (Auto) 0.09 (0.00-0.50) K/uL Baso # (Auto) 0.04 (0.00-0.20) K/uL Reticulocyte # (0.020-0.100) 10^6/uL Immature Gran # (Auto) 0.07 (0.01-0.20) K/uL Polychromasia PT 10.4 (9.0-12.0) Seconds INR 0.9 (0.9-1.1) APTT 28 (21-31) Seconds PTT Ratio 1.0 Sodium 137 (136-145) mmol/L Potassium 3.8 (3.5-5.1) mmol/L Chloride 102 (98-107) mmol/L Carbon Dioxide 25 (21-32) mmol/L Anion Gap 10 (3-11) BUN 8 (6-23) mg/dl Creatinine 0.60 (0.6-1.4) mg/dl Est Cr Clr Drug Dosing 130.9 ml/min Est GFR ( Amer) 126.7 ml/min Est GFR (Non-Af Amer) 109.3 ml/min BUN/Creatinine Ratio 13.3 (10-20) Glucose 96 (70-99(Fasting)) mg/dl Lactate (0.4-2.0) mmol/L Calcium 9.1 (8.6-10.3) mg/dl Magnesium 1.6 L (1.7-2.4) mg/dl Iron (35-175) mcg/dl Transferrin (200-360) mg/dl Ferritin (8-388) ng/ml Total Bilirubin 1.9 H (0.2-1.0) mg/dl Direct Bilirubin (0-0.2) mg/dl AST 64 H (13-39) U/L ALT 25 (7-52) U/L Alkaline Phosphatase 201 H (34-104) U/L Troponin I High Sens 6.3 (0-20) pg/ml Total Protein 6.9 (6.0-8.3) gm/dl Albumin 3.5 (3.4-5.0) gm/dl Globulin 3.4 (2.5-4.0) gm/dl Albumin/Globulin Ratio 1.0 (0.9-2) Vitamin B12 (180-914) pg/ml Procalcitonin 0.12 (0-0.5) ng/ml TSH (0.300-4.500) uIu/ml Free T4 (0.61-1.60) ng/dl Urine Color Urine Appearance (Clear) Urine pH (4.5-7.5) Ur Specific [place] (1.000-1.030) Urine Protein (Negative) Urine Glucose (UA) (Negative) Urine Ketones (Negative) Urine Blood (Negative) Urine Nitrite (Negative) Urine Bilirubin (Negative) Urine Urobilinogen (Negative) Ur Leukocyte Esterase (Negative) Urine WBC (Auto) (0-5) /hpf Urine RBC (Auto) (0-2) /hpf U Hyaline Cast (Auto) (0-2) /lpf U Epithel Cells (Auto) (0-2) /hpf Urine Bacteria (Auto) (None Seen) Urine Opiates Screen (Neg) U Codeine Confrm GC/MS Ur Morphine (GC/MS) Ur Hydrocodone (GC/MS) Ur Norhydrocodone Ur Noroxycodone Urine Oxycodone (GC/MS) U Oxymorphone GC/MS Ur Methadone, Qual (Neg) Ur Hydromorphone (GC/MS) Urine Barbiturates (Neg) Ur Phencyclidine (PCP) (Neg) U Amphetamin/Meth Scrn (Neg) MDMA (Ecstasy) Screen (Neg) U Benzodiazepines Scrn (Neg) Ur Cocaine Metabolite (Neg) U Marijuana (THC) Screen (Neg) U Marijuana THC Carboxy Drug Screen Comment Ethyl Alcohol mg/dL (<10.0) mg/dl Diagnostic Findings Knee X-Ray 09/04/23 13:24 XR knee RT 3V HISTORY: 62 years-old Male R knee injury s/p fall acute right knee pain status post fall COMPARISON: 09/30/2022 TECHNIQUE: 3 views of the right knee FINDINGS: Demineralized appearance of the bones. There is an acute periprosthetic fracture involving the medial distal femoral metaphysis demonstrating 3 mm of medial displacement. Moderate circumferential soft tissue swelling with large joint effusion. Chronic cortical irregularity of the inferior patella. Total joint arthroplasty with patellar resurfacing. Patella baja is similar to prior with lateral tilt. IMPRESSION: 1. Total joint arthroplasty with acute minimally displaced distal femoral periprosthetic fracture. 2. Soft tissue swelling with large joint effusion. 3. Chronic lateral tilt of the patella. ACT 112: Negative or not required by law. The above report was generated using voice recognition software. It may contain grammatical, syntax or spelling errors. Electronically signed by: Josiah Hand M.D. 09/04/2023 3:11 PM Chest X-Ray 09/04/23 13:25 XR chest 2V PA/lateral CLINICAL HISTORY: Syncope. COMPARISON STUDY: Chest radiograph and chest CT August 03, 2023. FINDINGS: Lung volumes are normal. There is no pneumothorax or pleural effusion. Postoperative findings within the thoracic spine are again noted. Linear bilateral densities represent atelectasis or scarring. There is no consolidation. There is no evidence for pulmonary edema. Old left-sided rib fractures are incidentally noted. IMPRESSION: No acute cardiopulmonary findings. No change in appearance of the chest. ACT 112: Negative or not required by law. Electronically signed by: Pasha Becerril M.D. 09/04/2023 3:[address] 09/04/23 13:26 CT head/brain wo con CLINICAL HISTORY: 62 years-old Male with Syncope. Acute syncope TECHNIQUE: Multiple axial CT images of the head were obtained without contrast. A dose lowering technique was utilized adhering to the principles of ALARA. CT DOSE: 625.8 mGy.cm COMPARISON: 08/03/2023 FINDINGS: No acute intracranial hemorrhage, midline shift, intracranial mass, hydrocephalus, territorial ischemia or abnormal extra-axial collection. Involutional changes with chronic microvascular ischemic disease. The calvarium is intact. Prior bilateral lens repair. Partially imaged chronic appearing bilateral nasal bone fractures The paranasal sinuses, mastoid air cells, and middle ear cavities are clear. IMPRESSION: No acute intracranial abnormality or calvarial fracture. ACT 112: Negative or not required by law. The above report was generated using voice recognition software. It may contain grammatical, syntax or spelling errors. Electronically signed by: Josiah Hand M.D. 09/04/2023 3:[address] 09/04/23 16:36 CT SCAN OF THE RIGHT KNEE WITHOUT IV CONTRAST CLINICAL HISTORY: Right knee pain. COMPARISON STUDY: Radiographs of the right knee dated 09/04/2023. TECHNIQUE: CT scan of the right knee is performed from the distal femur to the proximal tibia and fibula. Images are reviewed in the axial, sagittal, and coronal planes. IV contrast was not administered for this examination. A dose lowering technique was utilized adhering to the principles of ALARA. The examination is degraded by streak artifact from a knee arthroplasty. CT DOSE: 681.47 mGy.cm FINDINGS: The skeletal structures are osteopenic. A right knee arthroplasty is in near-anatomic alignment. Again seen is a vertically-oriented periprosthetic fracture through the medial femoral condyle. Fragments are offset by up to 5 mm. No additional fracture is seen at the knee joint. There is a joint effusion with evidence of lipohemarthrosis. Generalized atrophy is observed in the regional musculature. There is atherosclerotic calcification of the regional arteries. IMPRESSION: 1. Vertically-oriented periprosthetic fracture through the medial femoral condyle as above. 2. No additional fracture is seen. 3. A right knee arthroplasty is in near-anatomic alignment. 4. Lipohemarthrosis. ACT 112: Negative or not required by law. Dictated: 09/04/2023 5:06 PM Transcribed: 09/04/2023 6:02 PM Will [id number] [email or web address] Electronically signed by: Dale Centeno M.D. 09/04/2023 6:35 PM
[2023-09-06 07:33] LABS: Basophils # (auto) 0.04 K/uL (0.00-0.20); Basophils % (auto) 0.9 %; Eosinophils # (auto) 0.12 K/uL (0.00-0.50); Eosinophils % (auto) 2.8 %; Hematocrit (blood only) 36.5 % (42.0-52.0); Hemoglobin 12.3 g/dl (14.0-18.0); Immature Granulocytes # (auto) 0.05 K/uL (0.01-0.20); Immature Granulocytes % (auto) 1.2 %; Mean Corpuscular Hemoglobin 34.4 pg (25.0-34.0); Mean Corpuscular Hgb Conc 33.7 g/dL (32.0-36.0); Mean Platelet Volume 8.9 fL (9.4-12.4); Monocytes # (auto) 0.37 K/uL (0.11-0.59); Monocytes % (auto) 8.6 %; Neutrophils % (auto) 58.5 %; Platelet Count 97 K/uL (130-400); RDW Coefficient of Variation 12.6 % (11.5-14.5); RDW Standard Deviation 46.8 fL (36.4-46.3); Red Blood Count 3.58 M/uL (4.70-6.10); White Blood Count 4.28 K/ul (4.8-10.8)
[2023-09-06 07:52] LABS: BUN Creatinine Ratio 13.3 (10-20); Calcium 8.9 mg/dl (8.6-10.3); Creatinine Clr Calc Pharmacy 180.2 ml/min; Est GFR (African American) 142.6 ml/min; Potassium 4.2 mmol/L (3.5-5.1)
[2023-09-06] MEDS: COSYNTROPIN 250 MCG in SYRINGE 4 ML IV ONE (10:57)
[2023-09-06] MEDS: oxyCODONE HCL IR 5 MG TAB (IMMEDIATE RELEASE) PO PRN (10:59)
[2023-09-06] MEDS: FLUDROCORTISONE ACETATE 0.1 MG TAB PO SCH (15:48)
--- NOTE | 2023-09-06 17:37 | Hospitalist Progress Note ---
Date of Service September 06, 2023 Assessment & Plan (1) Periprosthetic fracture around internal prosthetic knee joint: Plan: R knee periprosthetic fracture -Significant right knee pain and ambulatory dysfunction due to right minimally displaced distal femoral periprosthetic fracture -CT of right knee reviewed -Orthopedics is consulted and following, no surgical intervention at this time - recommended splint and NWB RLE. PT/OT evals reviewed will need walker, wc, home health PT/OT -Pain control with scheduled tylenol, ice, and ordered oxycodone 5 mg -discussed with PT for re-eval today, tried crutches so he can use on 4 but he did not do well, could not stay off RLE. She recommended waiting until WC available (Friday from [facility]) and bedside commode, he has walker at home -ortho follow up is scheduled (2) Syncope and collapse: Plan: -Patient was recently diagnosed with orthostatic hypotension during his last admission to [facility] in July -Patient states that his syncopal episode on 08/31 was similar to previous episodes -Normally he is able to prevent syncope with sitting and rest but tried to ambulate to his bedroom -No focal neuro defects on exam, CT head negative for acute findings -Dehydrated in ED given 1500 mL IVF since presentation -check orthostatic VS - positive by RN dropping to SBP 90s on standing 09/04. Normal standing VS during PT/OT -reviewed meds - no obvious culprits -has numbness bilateral toes/forefoot so could have autonomic neuropathy to account for orthostasis -UA mildly abnormal, urine Cx pending -check TSH - mildly elevated, AM cortisol - indeterminate at 7, B1 pending and B12 normal -no events on tele indeterminate AM cortisol - arranged cosyntropin stim test today and he stim to >18 (was 22), ruling out adrenal insufficiency mild hypothyroidism TSH 7s with T4 normal - unlikely to be symptomatic but given the context will start treatment with levothyroxine - follow up with PCP for TSH check 4-6 weeks start trial of fludrocortisone 0.1 mg. BMP in 1-2 weeks check K. can be increased to 0.2 if no edema on lower dose. Follow up with PCP -midodrine would be next thing to try Reviewed previous syncope workup from July 2023: EKGs unchanged with mild QTC prolongation at 480 TTE 08/03 with nl LVEF 60-65% mild concentric LVH, grade 1 diastolic dysfunction Carotid duplex - 50-69% proc LICA stenosis, no stenosis on R -no additional testing indicated except as above (3) Thrombocytopenia: Plan: -Platelets of 97 today -Has been as low as 105 in the past -has hemarthrosis on CT so some component of consumption -AM CBC (4) Alcohol use: Plan: -Reports drinking approximately 3 nights a week -Denies previous alcohol withdrawal -Monitor for withdrawal -Will start daily PO thiamine, folic acid, and B12 (5) Tobacco use: Plan: -Continue nicotine patch -Continue to stress importance of cessation Plan Acute blood loss anemia - Hg 14-->11.4-->12.3 Previously 14 -anemia likely related to fracture and hemarthrosis present on CT -AM CBC -anemia labs: retic appropriately elevated, iron studies pretty normal (49, ferr 204), B12 wnl Hepatic steatosis on recent abdominal CT, elevated bilirubin, mild AST/ALT/AlkP elevation -repeat LFT this am - bilirubin normalized Admission and Anticipated Discharge Date Admission Date: September 04, 2023 Subjective R knee pain ok, tolerated 5 mg oxycodone with improvement Did PT/OT yesterday - was not lightheaded for that session but had trouble keeping off R foot Physical Exam 2 Physical Exam: PHYSICAL EXAMINATION Last 24h vital signs reviewed, see documentation in flowsheet General: comfortable appearing, no distress HEENT: Normocephalic, atraumatic, pupils round and equal, sclerae anicteric, no conjunctival injection, moist mucus membranes Lungs: Normal respiratory effort. Clear to auscultation bilaterally. No RRW Heart: Regular rate and rhythm, no murmurs. No JVD Abdomen: Soft, nontender, nondistended. Bowel sounds present. Extremities: Warm, dry, well-perfused. RLE in brace Neuro: Alert and oriented x 4, face symmetric, moves 4 extremities well Psych: Normal affect and behavior Results & Data Results & Data Vital Signs (Past 12 Hours) Vital Signs Temp Pulse Pulse Resp BP Pulse Ox O2 Del Method 09/06/23 16:26 75 09/06/23 16:26 100 H 09/06/23 15:36 36.2 C L 105 H 19 136/85 90 Room Air 09/06/23 10:46 36.3 C L 92 H 19 116/78 95 Room Air 09/06/23 08:00 79 09/06/23 07:08 36.2 C L 82 20 154/108 H 98 Room Air Laboratory Results 09/06/23 07:08 09/06/23 07:08 PG Care Time/CCT Total # of Minutes Spent Total Time Spent with Patient: I spent 55 minutes today on clinical care activities including discussions with RN, pediatric physical therapist, chemistry maintenance mechanic supervisor, PT, care coordination, two patient visits, writing orders, reviewing lab tests, documentation Coding Level of Care Code 52959 SUB INP/OBS CARE 3/50MIN Diagnoses Periprosthetic fracture around internal prosthetic knee joint M97.8XXA; Z96.659 Syncope and collapse R55 Thrombocytopenia D69.6 Alcohol use Z78.9 Tobacco use Z72.0
[2023-09-07 06:49] LABS: Basophils # (auto) 0.04 K/uL (0.00-0.20); Basophils % (auto) 0.9 %; Eosinophils # (auto) 0.13 K/uL (0.00-0.50); Eosinophils % (auto) 2.8 %; Hematocrit (blood only) 33.7 % (42.0-52.0); Hemoglobin 11.9 g/dl (14.0-18.0); Immature Granulocytes # (auto) 0.08 K/uL (0.01-0.20); Immature Granulocytes % (auto) 1.7 %; Lymphocytes # (auto) 1.29 K/uL (1.20-3.40); Lymphocytes % (auto) 27.9 %; Mean Corpuscular Hemoglobin 34.9 pg (25.0-34.0); Mean Corpuscular Hgb Conc 35.3 g/dL (32.0-36.0); Mean Corpuscular Volume 98.8 fL (80.0-100.0); Mean Platelet Volume 9.1 fL (9.4-12.4); Monocytes # (auto) 0.47 K/uL (0.11-0.59); Monocytes % (auto) 10.2 %; Neutrophils # (auto) 2.62 K/uL (1.40-6.50); Neutrophils % (auto) 56.5 %; Platelet Count 117 K/uL (130-400); RDW Coefficient of Variation 12.4 % (11.5-14.5); RDW Standard Deviation 45.1 fL (36.4-46.3); Red Blood Count 3.41 M/uL (4.70-6.10); White Blood Count 4.63 K/ul (4.8-10.8)
[2023-09-07 07:06] LABS: BUN Creatinine Ratio 14.3 (10-20); Creatinine Clr Calc Pharmacy 193.1 ml/min; Est GFR (African American) 146.7 ml/min; Est GFR (Non-African American) 126.5 ml/min; Potassium 3.3 mmol/L (3.5-5.1)
[2023-09-07] MEDS: POTASSIUM CHLORIDE CRTAB 20 MEQ TABCR PO STA (09:13)
[2023-09-07 12:37] LABS: Codeine Urine NEGATIVE ng/mL (<50); Hydrocodone Urine NEGATIVE ng/mL (<50); Hydromor Urine NEGATIVE ng/mL (<50); Marijuana Quant, GCMS Urine 87 ng/mL (<5); Morphine Urine 9020 ng/mL (<50); Norhydrocodone Conf Ur NEGATIVE ng/mL (<50); Noroxycodone Urine NEGATIVE ng/mL (<50); Oxycodone Urine NEGATIVE ng/mL (<50); Oxymorph Urine NEGATIVE ng/mL (<50)
--- NOTE | 2023-09-07 18:33 | Discharge Summary ---
Date of Service September 07, 2023 Admission HPI Per Admitting Provider Ancelmo is a 62 year old male with a PMH significant for recurrent orthostatic hypotension causing syncope, alcohol abuse, tobacco abuse, previous right knee replacement with Dr. Everett approximately 5 years ago, and GERD who presented to the [facility] ED on 09/04/23 for ongoing right knee pain/swelling after sustaining another syncopal episode at home on 09/01/23. He was noted to be tachycardic on arrival at 113, mildly hypotensive at 93/71, but otherwise stable. Labs were significant for an initial lactate of 2.5 -->1.8 on repeat, platelet count of 115, mag of 1.6, total bili of 1.9, and negative alcohol level. CT of the head/brain wo con and chest xray were read as negative for acute findings. Xray of the right knee was read as "1. Total joint arthroplasty with acute minimally displaced distal femoral periprosthetic fracture 2. Soft tissue swelling with large joint effusion. 3. Chronic lateral tilt of the patella.". Orthopedics was consulted and evaluated the patient. They believe that the damage to the right knee currently does not require surgical intervention. However, they recommended admission for PT/OT evaluation, CT of the right knee, and possible rehab on discharge. They will continue to follow. Prior to admission the patient was given 4 mg IV morphine, and 500 mL NSS. At the time of the exam the patient was sitting in bed in no acute distress. States he was in his normal state of health on 08/31. He sat up from his chair to walk to his bedroom when he felt his lightheadedness start. Normally he sits down and his symptoms will resolve. He thought that he could get to his bedroom before passing out, but he lost consciousness and fell in the ortiz. He does not believe that he hit his head. When asked, he states he drinks alcohol approximately 3 nights a week, normally drinks beer, and denies withdrawal symptoms if he stops drinking. Smoking approximately 4 cigars a day. Has been having progressive SOB prior to his last admission in July, he has an appointment with a Senior Systems Software Engineer for PFT's next week. Denies recent fever, chills, chest pain, cough, abd pain, dysuria, hematuria, melena, or diarrhea. Principal Diagnosis Right distal femur periprosthetic fracture, orthostatic hypotension with syncope Discharge Exam PHYSICAL EXAMINATION Last 24h vital signs reviewed, see documentation in flowsheet exam unchanged 09/06 General: comfortable appearing, no distress HEENT: Normocephalic, atraumatic, pupils round and equal, sclerae anicteric, no conjunctival injection, moist mucus membranes Lungs: Normal respiratory effort. Clear to auscultation bilaterally. No RRW Heart: Regular rate and rhythm, no murmurs. No JVD Abdomen: Soft, nontender, nondistended. Bowel sounds present. Extremities: Warm, dry, well-perfused. RLE in brace. No LLE edema. Mild RLE edema below the brace Neuro: Alert and oriented x 4, face symmetric, moves 4 extremities well Psych: Normal affect and behavior Discharge Data Allergies Allergy/AdvReac Type Severity Reaction Status Date / Time CELLULOSE AdvReac Severe Gastrointestinal Uncoded 09/06/23 14:54 Upset Consultations 09/04/23 17:30 ED Decision to Admit Stat 09/04/23 17:31 Consult Orthopedic Surgery Stat Ordered Studies 09/04/23 13:26 CT head/brain wo con Stat 09/04/23 16:36 CT knee RT wo con Stat Knee X-Ray 09/04/23 13:24 XR knee RT 3V HISTORY: 62 years-old Male R knee injury s/p fall acute right knee pain status post fall COMPARISON: 09/30/2022 TECHNIQUE: 3 views of the right knee FINDINGS: Demineralized appearance of the bones. There is an acute periprosthetic fracture involving the medial distal femoral metaphysis demonstrating 3 mm of medial displacement. Moderate circumferential soft tissue swelling with large joint effusion. Chronic cortical irregularity of the inferior patella. Total joint arthroplasty with patellar resurfacing. Patella baja is similar to prior with lateral tilt. IMPRESSION: 1. Total joint arthroplasty with acute minimally displaced distal femoral periprosthetic fracture. 2. Soft tissue swelling with large joint effusion. 3. Chronic lateral tilt of the patella. ACT 112: Negative or not required by law. The above report was generated using voice recognition software. It may contain grammatical, syntax or spelling errors. Electronically signed by: Josiah Hand M.D. 09/04/2023 3:11 PM Chest X-Ray 09/04/23 13:25 XR chest 2V PA/lateral CLINICAL HISTORY: Syncope. COMPARISON STUDY: Chest radiograph and chest CT August 03, 2023. FINDINGS: Lung volumes are normal. There is no pneumothorax or pleural effusion. Postoperative findings within the thoracic spine are again noted. Linear bilateral densities represent atelectasis or scarring. There is no consolidation. There is no evidence for pulmonary edema. Old left-sided rib fractures are incidentally noted. IMPRESSION: No acute cardiopulmonary findings. No change in appearance of the chest. ACT 112: Negative or not required by law. Electronically signed by: Pasha Becerril M.D. 09/04/2023 3:[address] 09/04/23 13:26 CT head/brain wo con CLINICAL HISTORY: 62 years-old Male with Syncope. Acute syncope TECHNIQUE: Multiple axial CT images of the head were obtained without contrast. A dose lowering technique was utilized adhering to the principles of ALARA. CT DOSE: 625.8 mGy.cm COMPARISON: 08/03/2023 FINDINGS: No acute intracranial hemorrhage, midline shift, intracranial mass, hydrocephalus, territorial ischemia or abnormal extra-axial collection. Involutional changes with chronic microvascular ischemic disease. The calvarium is intact. Prior bilateral lens repair. Partially imaged chronic appearing bilateral nasal bone fractures The paranasal sinuses, mastoid air cells, and middle ear cavities are clear. IMPRESSION: No acute intracranial abnormality or calvarial fracture. ACT 112: Negative or not required by law. The above report was generated using voice recognition software. It may contain grammatical, syntax or spelling errors. Electronically signed by: Josiah Hand M.D. 09/04/2023 3:[address] 09/04/23 16:36 CT SCAN OF THE RIGHT KNEE WITHOUT IV CONTRAST CLINICAL HISTORY: Right knee pain. COMPARISON STUDY: Radiographs of the right knee dated 09/04/2023. TECHNIQUE: CT scan of the right knee is performed from the distal femur to the proximal tibia and fibula. Images are reviewed in the axial, sagittal, and coronal planes. IV contrast was not administered for this examination. A dose lowering technique was utilized adhering to the principles of ALARA. The examination is degraded by streak artifact from a knee arthroplasty. CT DOSE: 681.47 mGy.cm FINDINGS: The skeletal structures are osteopenic. A right knee arthroplasty is in near-anatomic alignment. Again seen is a vertically-oriented periprosthetic fracture through the medial femoral condyle. Fragments are offset by up to 5 mm. No additional fracture is seen at the knee joint. There is a joint effusion with evidence of lipohemarthrosis. Generalized atrophy is observed in the regional musculature. There is atherosclerotic calcification of the regional arteries. IMPRESSION: 1. Vertically-oriented periprosthetic fracture through the medial femoral condyle as above. 2. No additional fracture is seen. 3. A right knee arthroplasty is in near-anatomic alignment. 4. Lipohemarthrosis. ACT 112: Negative or not required by law. Dictated: 09/04/2023 5:06 PM Transcribed: 09/04/2023 6:02 PM Will [id number] [email or web address] Electronically signed by: Dale Centeno M.D. 09/04/2023 6:35 PM 09/07/23 06:02 09/07/23 06:02 Hospital Course (1) Periprosthetic fracture around internal prosthetic knee joint: R knee periprosthetic fracture -Significant right knee pain and ambulatory dysfunction due to right minimally displaced distal femoral periprosthetic fracture -CT of right knee reviewed -Orthopedics consulted - no surgical intervention at this time - recommended splint and NWB RLE. PT/OT evals reviewed will need walker, wc, home health PT/OT -Pain control with scheduled tylenol, ice, oxycodone 5 mg -has trouble keeping weight off R leg. failed crutches but did well scooting on his behind up/down stairs (has 4 DE his home), has walker at home, arranged wheelchair, home health PT -ortho follow up is scheduled (2) Syncope and collapse: -Patient was recently diagnosed with orthostatic hypotension during his last admission to [facility] in July -Patient states that his syncopal episode on 08/31 was similar to previous episodes -Normally he is able to prevent syncope with sitting and rest but tried to ambulate to his bedroom -No focal neuro defects on exam, CT head negative for acute findings -Dehydrated in ED given 1500 mL IVF since presentation -orthostatic VS - positive by RN dropping to SBP 90s on standing 09/04. Normal standing VS during PT/OT -reviewed meds - no obvious culprits -has numbness bilateral toes/forefoot so could have autonomic neuropathy to account for orthostasis -UA mildly abnormal, urine Cx pending -check TSH - mildly elevated, AM cortisol - indeterminate at 7, B1 pending and B12 normal -no events on tele indeterminate AM cortisol - arranged cosyntropin stim test and he stim to >18 (was 22), ruling out adrenal insufficiency mild hypothyroidism TSH 7s with T4 normal - unlikely to be symptomatic but given the context will start treatment with levothyroxine - follow up with PCP for TSH check 4-6 weeks start trial of fludrocortisone 0.1 mg. BMP in 1-2 weeks check K. can be increased to 0.2 if no edema on lower dose. Follow up with PCP -midodrine would be next thing to try B1 level is pending Reviewed previous syncope workup from July 2023: EKGs unchanged with mild QTC prolongation at 480 TTE 08/03 with nl LVEF 60-65% mild concentric LVH, grade 1 diastolic dysfunction Carotid duplex - 50-69% proc LICA stenosis, no stenosis on R -no additional testing indicated except as above (3) Thrombocytopenia: -Platelets of 97 today -Has been as low as 105 in the past -has hemarthrosis on CT so some component of consumption -improved to 117 -CBC on follow up to see if resolved, MCV normalized while in hospital, suspicion of excessive alcohol but he states he only drinks about three days a week (4) Alcohol use: -Reports drinking approximately 3 nights a week -Denies previous alcohol withdrawal, no symptoms this admission (5) Tobacco use: -Continue nicotine patch -Continue to stress importance of cessation Plan Acute blood loss anemia - Hg 14-->11.4-->12.3 Previously 14 -anemia likely related to fracture and hemarthrosis present on CT -anemia labs: retic appropriately elevated, iron studies pretty normal (49, ferr 204), B12 wnl Hepatic steatosis on recent abdominal CT, elevated bilirubin, mild AST/ALT/AlkP elevation -repeat LFT - bilirubin normalized Total Time Total Time Spent Total Time Spent (In Minutes): I personally spent: 35 minutes today on clinical care activities including: reviewing chart notes and vital signs discussion with transition of care specialist, PT examining and counseling the patient communication with PCP writing orders documentation Discharge Plan Discharge Items Patient Disposition: Home - Home Health Services Reason For Visit: SYNCOPE, RIGHT KNEE PAIN Discharge Diagnosis: Orthostatic syncope, right knee periprosthetic fracture Activity: Per Instructions section Weightbearing: Right non-weightbearing Non-emergency contact: Primary Care Provider and Surgeon Call non-emergency contact if: you have any medication questions, your symptoms worsen and you have a fever Follow-up/Referrals: Liliam Edward MD [Primary Care Provider] - Gasper Everett MD [Surgeon] - 09/15/23 3:00 pm Diet: Regular Addtl Attending Provider Instructions: Your thyroid is mildly underactive - its probably too mild to be causing symptoms but low thyroid can cause drop in standing blood pressure I prescribed levothyroxine (thyroid replacement) - your doctor should check your thyroid labs (TSH) in about 6 weeks I prescribed fludrocortisone to help with your standing blood pressure. You should see your primary care doctor in 1-2 weeks and have labs checked (chemistry panel). The dose can be increased if you still have symptoms Aspirin 81 mg twice a day is recommended to prevent blood clots in your leg until stopped by Dr. Everett - usually 4-6 weeks or until you are more mobile. This is available over the counter Your adrenal function was normal B12 level was normal B1 (thiamine) level is not resulted yet. I will call you if this level is low - it is easy to replace with thiamine supplements that are available over the counter at the drug store. If we need to replace this we use 200 mg of thiamine/B1 twice a day for a month, then decrease to 100 mg daily and stay on that [facility] Use the walker or wheelchair primarily. You should use the walker sideways in the hallway. It is safest to sit down and scoot up and down the steps on your behind. -slate picker or have the wheelchair delivered [facility] Addtl Striper Machine Provider Instructions: Orthopedic Instructions: - Nonweightbearing right lower extremity at all times. Use walker, crutches or wheelchair to assist with ambulation. - Ice to right knee as needed for pain and swelling. - Elevate right leg on 2 pillows as needed for pain and swelling. - SABINO stockings on bilateral lower extremities, on during the day and off at night. - Knee immobilizer on right leg at all times. - Blood thinner medication as instructed by medicine service. - Follow-up with Dr. Everett in 7 to 10 days as scheduled. Call [phone] with any increased pain, swelling, questions or concerns. Pending Studies at Discharge: Yes Studies:: B1 Stand-Alone Forms: [facility], Pain - Opioid Pain Management, Smoking Cessation Medications and DC Order Prescriptions: New fludrocortisone 0.1 mg Tablet 0.1 mg PO QAM Qty: 30 0RF levothyroxine 75 mcg capsule 75 mcg PO DAILY Qty: 30 0RF oxycodone 5 mg tablet 5 mg PO Q4H PRN (Reason: pain) Qty: 30 0RF aspirin 81 mg tablet,chewable 81 mg PO BID Qty: 90 0RF Rx Instructions: buy over the counter. For DVT prophylaxis Continued meloxicam 15 mg tablet 15 mg PO DAILY acetaminophen 500 mg Tablet 1,000 mg PO Q6H PRN (Reason: Pain) gabapentin 600 mg tablet 600 mg PO TID gabapentin 300 mg capsule 300 mg PO HS Rx Instructions: TOTAL DOSE 900 MG--TAKES WITH 300 MG CAP. Incruse Ellipta 62.5 mcg/actuation Blister With Device 1 inh inhalation QAM Qty: 30 3RF famotidine 20 mg Tablet 20 mg PO BID Qty: 60 3RF pantoprazole 40 mg Tablet,Delayed Release (Dr/Ec) 40 mg PO QAM Qty: 30 3RF rosuvastatin 10 mg tablet 10 mg PO DAILY Qty: 30 3RF Discharge Orders: Discharge Order (Routine); Ordered 09/07/23 Ordered By: Jenn Ruff/Other Patient Handouts: Reducing Knee Pain and Swelling, ED Hypotension, Orthostatic Admission Data Admit Date/Time: 09/07/23 08:29 Attending Provider: Jenn Randall Admit Provider: Manfred Gilliland Primary Care Provider: Liliam Edward Other Providers: [facility],Home Healthcare; Manfred Gilliland; Gasper Everett Other Interventions: Discharge Summary Assessment (RN) Last Done: 09/07/23 13:05 Coding Level of Care Code 23237 INP/OBS DISCH >30 MIN Diagnoses Periprosthetic fracture around internal prosthetic knee joint M97.8XXA; Z96.659 Syncope and collapse R55 Thrombocytopenia D69.6 Alcohol use Z78.9 Tobacco use Z72.0
== END 2023-09-07 14:39 | disposition home health service (06) | DRG 534 ==
LOC: 4W 12:34 → ED 12:34 → SUATTDRO 17:18 → 4W 18:19 → 3W 09-06 20:18

== ENCOUNTER 2024-07-13 07:28 | Inpatient (IN) ==
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
[~2024-07-13 07:28] MED LIST changes: -CEFAZOLIN 2000MG 2,000 MG/15 ML SYR IV SCH; -LR 15ML/HR IV SCH; +ROPIVACAINE 0.5% 5 MG/ML 30 ML VIAL ONE
[2024-07-13] MEDS ORDERED: ONDANSETRON INJ 2 MG/ML 2 ML VIAL ONE (07:44)
[2024-07-13] MEDS ORDERED: fentaNYL citrate PF 100 MCG/2 ML VIAL ONE ×4 (07:44→13:14)
[2024-07-13] MEDS ORDERED: GLYCOPYRROLATE 0.2 MG/ML VIAL ONE (07:44)
[2024-07-13] MEDS ORDERED: DEXAMETHASONE SOD INJ 4 MG/ML VIAL ONE (07:44)
[2024-07-13] MEDS ORDERED: PROPOFOL IV EMULSION 10 MG/ML 20 ML VIAL IV ONE (07:44)
[2024-07-13] MEDS ORDERED: ROCURONIUM BROMIDE 10 MG/ML 5 ML VIAL IV ONE ×2 (07:44→10:45)
--- OUTSIDE RECORDS SUMMARY | 2024-07-13 07:46 | External Medical Summary | Continuity of Care Document ---
Author Name Unknown Organization [facility] [address] [place] [address] DR [address] [place] [address] [place], [place] [id number] Care Team Providers Care Lower In Supervisor Name Role Phone Pradeep Edward Primary Care Physician [phone] [id number] Date(s): 06/30/24 - 06/30/[address] [place] [address], [address] [place] [address] [phone] Encounter Diagnosis Body mass index [BMI] 23.0-23.9, adult(Discharge Diagnosis) - 06/30/24 Pre-op evaluation(Discharge Diagnosis) - 06/30/24 COPD with emphysema(Discharge Diagnosis) - 06/30/24 DVT (deep venous thrombosis)(Discharge Diagnosis) - 06/30/24 Discharge Disposition: Home or Self Care Attending Physician: MD Edward Ravishankar E Referring Physician: MD Edward Ravishankar E Encounter Type: Clinic Allergies, Adverse Reactions, Alerts No Known Allergies Assessment and Plan Extracted from: Title:Pre-Op Evaluation Author:MD Edward Ravishan kar E Date:06/30/24 1.Pre-op evaluation - Reasonable risk to proceed with medical conditions stable/at baseline presently - DVT prophylaxis recommended given history and need for ADA stay after surgery 2.COPD with emphysema - Chronic/stable, continue current regimen - Refilled inhaler 3.DVT (deep venous thrombosis) - Completed 3 months anticoagulation without recurrence - DVT prophylaxis recommended post-operatively particularly with prolonged immobility planned f/u PRN. Time: 40mins 10- pre-visit chart review 25- visit, inclusive of history, exam, and discussion of assessment/plan 5 - post-visit documentation/orders/coordination of care Immunizations Given and Recorded Vaccine Date Status Refusal Reason influenza virus vaccine, inactivated 05/19/15 Flaquito rded tetanus/diphtheria/pertuss, acel (Tdap) 1 08/24/14 Recorded diphtheria/tetanus/pertuss, acel (DTaP) 05/19/14 R ecorded 1Result Comment: 2021-01-15: Historical information-source unspecified Medications fludrocortisone 0.1 mg oral tablet Start: 06/30/24 8:05:00 AM EST, 1 tab, PO, Daily, Disp# 90 tab, Refills: 0, Pharmacy: [id number] Start Date: 06/30/24 Status: Ordered Quantity: 90.0 Unit: tab Repeat number: 1 gabapentin 600 mg oral tablet Start: 06/30/24 8:05:00 AM EST, 1 tab, PO, tid, Disp# 90 tab, Refills: 0, Pharmacy: [id number] Start Date: 06/30/24 Status: Ordered Quantity: 90.0 Unit: tab Repeat number: 1 Incruse Ellipta 62.5 mcg/inh inhalation powder Start: 06/30/24 9:53:00 AM EST, 1 inh, inhaled, q24h, Disp# 30 blister, Refills: 3, Pharmacy: [id number] Start Date: 06/30/24 Status: Ordered Quantity: 30.0 Unit: Repeat number: 4 levothyroxine 75 mcg (0.075 mg) oral tablet Start: 12/30/23 11:27:00 AM EDT, 1 tab, PO, Daily, Disp# 90 tab, Refills: 5, Pharmacy: [facility][id number] Start Date: 12/30/23 Status: Ordered Quantity: 90.0 Unit: tab Repeat number: 6 pantoprazole 40 mg oral delayed release tablet Start: 06/30/24 8:05:00 AM EST, 1 tab, PO, Daily, Disp# 90 tab, Refills: 5, Pharmacy: [id number] Start Date: 06/30/24 Status: Ordered Quantity: 90.0 Unit: tab Repeat number: 6 rosuvastatin 10 mg oral tablet Start: 12/30/23 11:27:00 AM EDT, 1 tab, PO, qhs, Disp# 90 tab, Refills: 3, Pharmacy: [id number] Start Date: 12/30/23 Status: Ordered Quantity: 90.0 Unit: tab Repeat number: 4 Mental Status 06/30/24 Barriers to Learning one year None evide nt Mandatory Health Literacy Documentation Yes Health Literacy Communication Barriers N ever Primary Language Estonian Problem List Condition Confirmation Course Effective Dates Status H ealth Status Informant Alcohol induced liver disorder Confirmed Active Arthritis of left knee Confirmed Active Hip bursitis, left Confirmed Active Olecranon bursitis, left elbow Confirmed Active Cataract Confirmed Active Chest pain Confirmed Active Chronic neuropathic pain Confirmed Active Excessive daytime sleepiness Confirmed Active DVT (deep venous thrombosis) Confirmed Active Vision problem Confirmed Active Diverticulitis [...] pain Confirmed Active Pre-op exam Confirmed Active Periprosthetic fracture of knee Confirmed Active Bilateral primary osteoarthritis of knee Confirmed Active COPD with emphysema Confirmed Active Rupture of right quadriceps tendon Confirmed Active Sacro-iliac pain Confirmed Active S/P orthopedic surgery, follow-up exam Confirmed Active Tobacco user Confirmed Active Wound cellulitis Confirmed Active Diagnosis Diagnosis Type Effective Dates Health Status Clinical Service Informant Body mass index [BMI] 23.0-23.9, adult Discharge Diagnosis 06/30/24 Non-Specified Pre-op evaluation Discharge Diagnosis 06/30/24 Non-Specified COPD with emphysema Discharge Diagnosis 06/30/24 Non-Specified DVT (deep venous thrombosis) Discharge Diagnosis 06/30/24 Non-Specified Procedures Procedure Date Related Diagnosis Body Site Status VITRECTOMY 1 04/12/24 Completed VITRECTOMY (Eye, Right) 2 02/16/24 Completed Bursectomy 3 12/09/19 Completed Colonoscopy 4 03/12/18 Completed Back 5 Completed Bilateral cataract extraction Completed Colon 6 Completed Revision of right total knee arthroplasty Completed Total replacement of right knee joint Completed 1auto-populated from documented surgical case 2auto-populated from documented surgical case 3left olecranon bursectomy 4Patent end-to-end colo-colonic anastomosis, charecterized mby healthy appearing mucosa. The examination was otherwise normal. The examined portion of the ileum was normal. The distal rectum and ananl verge are normal on retroflexion view. No specimens collected. Repeat in 10 years. 5hardware 6resection Vital Signs Most recent to oldest [Reference Range]: 1 Height 175 cm (06/30/24 9:42 AM) Patient Weight 73 kg (06/30/24 9:42 AM) Body Mass Index 23.84 kg/m2 (06/30/24 9:42 AM) Heart Rate 94 bpm (06/30/24 9:42 AM) Respiratory Rate 18 br/min (06/30/24 9:42 AM) Blood Pressure 102/70mmHg (06/30/24 9:42 AM) Social History Social History Type Response Tobacco Cigarettes, Stopped age 55 Years. Smoking Status Current some day lig ht smoker Sex Male Sex Representation Male (finding) FCM Outpt Note * MD Wagner, Pradeep Link: PERFORM Event Display: FCM Outpt Note Authored Date: [id number] Chief Complaint preop for right knee on 07/13 w/ Karlos History of Present Illness Ancelmo is a 63yoM with poor medical f/u here today (last seen 11/2023) for pre- op evaluation for R knee surgery planned 07/13/[address] Everett. He is to have a R tibial tubercle osteotomy, liner exchange, and possible MPFL reconstruction. He has history of R total knee in 2019 which he sustained a fall and subsequent repair in 08/2018 and has struggled with this knee ever since. His chronic conditions are generally at baseline. DVT history and completed his anticoagulation course so is no longer anticoagulated and considered baseline risk going forward unless a subsequent DVT develops. No endorsed history of bleeding disorders or surgical/anesthesia complications. He has history of orthostatic hypotension improved on fludrocortisone. Endorses 4MET tolerance at baseline, limited by knee at present. History of smoking but quit 10+yrs ago and now uses cigars intermittently. COPD with emphysemalongstanding and stable on current regimen. Review of Systems ROS reviewed/negative except as noted in HPI. Physical Exam Vitals & Measurements HR:94(Monitored) RR:18 BP:102/70 SpO2:97% HT:175cm WT:73kg BMI:23.84 PHQ2 Data(Data Documented on:06/30/2024 09:41) Emotional health assessment NEGATIVE GENERAL APPEARANCE: The patient is alert, oriented and in no acute distress. VITALS: As above. HEENT: Head is normocephalic/atraumatic. PERRL, EOM-I. Oropharynx clear without lesions. NECK: Supple without lymphadenopathy. Thyroid wnl. CARDIOVASCULAR: Regular rate and rhythm, no m/r/g. +2 radialpulses. LUNGS: Clear to auscultation bilaterally. No wheezes/rhales/rhonchi. Reduced air movement globally. ABDOMEN: Soft, nontender, nondistended with normal bowel sounds. No rebound/guarding. EXTREMITIES: No cyanosis, clubbing or edema. NEUROLOGICAL: Grossly non-focal exam. SKIN: Warm and dry without any rash. Assessment/Plan 1.Pre-op evaluation - Reasonable risk to proceed with medical conditions stable/at baseline presently - DVT prophylaxis recommended given history and need for ADA stay after surgery 2.COPD with emphysema - Chronic/stable, continue current regimen - Refilled inhaler 3.DVT (deep venous thrombosis) - Completed 3 months anticoagulation without recurrence - DVT prophylaxis recommended post-operatively particularly with prolonged immobility planned f/u PRN. Time: 40mins 10- pre-visit chart review 25- visit, inclusive of history, exam, and discussion of assessment/plan 5 - post-visit documentation/orders/coordination of care Problem List/Past Medical History Ongoing Alcohol induced liver disorder Arthritis of left knee Bilateral primary osteoarthritis of knee Carotid stenosis, left Cataract Chest pain Chronic GERD Chronic neuropathic pain COPD with emphysema Diverticulitis DVT (deep venous thrombosis) Eczema Effusion, right knee Excessive daytime sleepiness Family history of colon cancer Hip bursitis, left History of cervical fracture Hypertension Knee osteoarthritis Left elbow pain Olecranon bursitis, left elbow Orthostatic hypotension Painful total knee replacement, right Periprosthetic fracture of knee Pre-op exam Right knee DJD Rupture of right quadriceps tendon S/P orthopedic surgery, follow-up exam Sacro-iliac pain Status post total right knee replacement Tobacco user Vision problem Wound cellulitis Procedure/Surgical History Bursectomy| Service Date: 12/09/2019Colonoscopy| Service Date: 03/12/2018ColonBilateralcataract extractionRevision of right total knee arthroplastyBackTotal replacement of rightknee joint Medications fludrocortisone(fludrocortisone 0.1 mg oral tablet), 0.1 mg= 1 tab, PO, Daily gabapentin(gabapentin 600 mg oral tablet), 1 tab, PO, tid levothyroxine(levothyroxine 75 mcg (0.075 mg) oral tablet), 75 mcg= 1 tab, PO, Daily, 5 refills pantoprazole(pantoprazole 40 mg oral delayed release tablet), 40 mg= 1 tab, PO, Daily, 5 refills rosuvastatin(rosuvastatin 10 mg oral tablet), 1 tab, PO, qhs, 3 refills umeclidinium(Incruse Ellipta 62.5 mcg/inh inhalation powder), 1 inh, inhaled, q24h, 3 refills Allergies NKA Social History Smoking Status Current some day light smoker Alcohol - Low Risk Type:Beer Frequency:1-2 times per month Exercise - Does not exercise Tobacco - Medium Risk Type:Cigarettes Stopped at age:55Years Intake ([employer]) Smoking History Cigarette smoker: Current some day light smoker Tobacco Product Use: Current Cigar smoker What is/was avg daily use when smoking: .25 (5 cigarettes) How many total years have you smoked: 3 Total pack years: 0.75 Family History Cancer: Mother. Hypertension: Father. Stroke: Father. Health Status Family Member(s) Immunizations Vaccine Date Status influenza virus vaccine, inactivated 2015 Recorded tetanus/diphtheria/pertuss, acel (Tdap) 08/24/2014 Recorded Comments : 2021-01-15: Historical information-source unspecified diphtheria/tetanus/pertuss, acel (DTaP) 2014 Recorded Recommendations Health Maintenance Pending(in the next year) OverDue Adult Influenza Vaccine due11/17/23and every 1year Due Adult COVID-19 Vaccination due06/30/24Unknown Frequency Adult Social Determinants of Health Screening due06/30/24Unknown Frequency Pneumococcal Vaccine Adults and Adolescents with Chronic Illness due06/30/24One-time only Shingles Vaccine due06/30/24One-time only Satisfied(in the past 1 year) Satisfied Body Mass Index on06/30/24.Satisfied by TOMI Jett Gillian Electronic Signature on File CC: Gasper Everett MD [id number] [facility] [address] [place] [id number] Electronically Reviewed/Signed by: Pradeep Edward MD Author Signature Dt/Tm:06/30/2024 09:58 AM Department of Family Medicine [facility] Patient Care team information Care Team Personnel Name: MD Wagner, Pradeep Link Position: Physician Member Role: Primary Care Provider Address: [address] [facility] [address] [place] [address] [place] Telecom: [phone] Name: DO Flavio, Fabio Position: Resident Member Role: Lifetime Relationship Address: [address] [facility] [address] [place] [address] [place] Telecom: [phone] Care Team Related Persons Name: AMANDA TEMPLETON Insurance Providers Guarantor name: ANCELMO Tennille ROSARIO Health Plan Information #: 1 Payer: [employer] Member Number: [id number] Policy Number: NA Group Number: NA Health Plan Information #: 2 Payer: [employer] Member Number: [id number] Policy Number: NA Group Number: NA Health Plan Information #: 3 Payer: SHAHRZAD ELLIOTT Member Number: NA Policy Number: NA Group Number: NA"
--- OUTSIDE RECORDS SUMMARY | 2024-07-13 07:46 | External Medical Summary | Continuity of Care Document ---
Author Name Unknown Organization [facility] [id number] Address [address] [place] [phone] Care Team Providers Care Rpg Developer Name Role Phone Pradeep Edward Primary Care Physician [phone] [facility]counter [facility] [id number] Date(s): 06/21/24 - 06/21/24 [facility] [place] [id number] Medicine [address] [place] [id number] Encounter Diagnosis Painful total knee replacement, right(Discharge Diagnosis) - 06/21/24 Discharge Disposition: Home or Self Care Attending Physician: MD Karlos, Gasper La Referring Physician: MD Karlos, Gasper La Allergies, Adverse Reactions, Alerts No Known Allergies Immunizations Given and Recorded Vaccine Date Status Refusal Reason influenza virus vaccine, inactivated 05/19/15 Flaquito rded tetanus/diphtheria/pertuss, acel (Tdap) 1 08/24/14 Recorded diphtheria/tetanus/pertuss, acel (DTaP) 05/19/14 R ecorded 1Result Comment: 2021-01-15: Historical information-source unspecified Medications fludrocortisone 0.1 mg oral tablet Start: 02/04/24 1:53:00 PM EDT, 1 tab, PO, Daily, Disp# 90 tab, Refills: 0, Pharmacy: [facility] #[id number] Start Date: 02/04/24 Status: Ordered gabapentin 600 mg oral tablet Start: 04/28/24 8:41:00 AM EST, 1 tab, PO, tid, Disp# 90 tab, Refills: 0, Pharmacy: [facility] ST[id number] Start Date: 04/28/24 Status: Ordered Incruse Ellipta 62.5 mcg/inh inhalation powder Start: 02/04/24 2:34:00 PM EDT, 1 inh, inhaled, q24h, Disp# 30 blister, Refills: 0, [id number] Start Date: 02/04/24 Status: Ordered levothyroxine 75 mcg (0.075 mg) oral tablet Start: 12/30/23 11:27:00 AM EDT, 1 tab, PO, Daily, Disp# 90 tab, Refills: 5, [id number] Start Date: 12/30/23 Status: Ordered pantoprazole 40 mg oral delayed release tablet Start: 12/30/23 11:27:00 AM EDT, 1 tab, PO, Daily, Disp# 90 tab, Refills: 5, [id number] Start Date: 12/30/23 Status: Ordered Pataday 0.2% ophthalmic solution Start: 12/01/23 11:18:00 AM EDT, 1 drop, both eyes, Daily, Disp# 2.5 mL, Refills: 0, [id number] Start Date: 12/01/23 Stop Date: 12/11/23 Status: Ordered rosuvastatin 10 mg oral tablet Start: 12/30/23 11:27:00 AM EDT, 1 tab, PO, qhs, Disp# 90 tab, Refills: 3, [id number] Start Date: 12/30/23 Status: Ordered Mental Status 06/21/24 Barriers to Learning one year None evide nt Mandatory Health Literacy Documentation Yes Health Literacy Communication Barriers N ever Primary Language Upper Sorbian Problem List Condition Confirmation Course Effective Dates [...] Diagnosis Diagnosis Type Effective Dates Health Status Cl inical Service Informant Painful total knee replacement, right Discharge Diagnosis 06/21/24 Non-Specified Procedures Procedure Date Related Diagnosis Body [...] recent to oldest [Reference Range]: 1 Height 175.26 cm (06/21/24 12:00 PM) Patient Weight 73.2 kg (06/21/24 12:00 PM) Body Mass Index 23.83 kg/m2 (06/21/24 12:00 PM) Temperature [36.5-37.9 DegC] 36.2 DegC *LOW* (06/21/24 12:00 PM) Respiratory Rate 20 br/min (06/21/24 12:00 PM) Blood Pressure 138/80mmHg (06/21/24 12:00 PM) Social History Social History Type Response Tobacco Cigarettes, Stopped age 55 Years. Smoking Status Current some day lig ht smoker Sex Male Sex Representation Male (finding) Pre-OP H & P * CAITY Chase, Tala R: PERFORM, MODIFY Event Display: Pre-OP H & P Authored Date: [id number] Name:MONTSE ROSARIO Patient Number:[id number] :1960 Date of Service:06/21/2024 Chief Complaint R knee preop History of Present Illness With a is a 63-year-old male who is here today for preoperative history and physical. He is scheduled to have aright knee tibial tubercle osteotomy, possible polyethyleneliner exchange, possible medial patellofemoral ligament reconstruction withallograft, possible patellarresurfacing, extensor mechanism repair with Dr. Everett. Surgery is scheduled forbruary 2024. He has history of having a right total knee arthroplastywith Dr. Everett2018. He then had a fall andhe did undergo an arthrotomy repair of the right knee in August 2018. He has been having issues with the right knee ever since. 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 He wears a brace on a daily basis. He has pain in his right kneeevery day. He has had no recent injuries. He hashad multiple x-rays and a recent MRI inNov2023. 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 He does agree to proceed with surgery. Review of Systems Denies any recentcold, fevers, chills or flulike symptoms. He states that he did have a recent cough but no fevers or chills. Denies anycurrent treatment. States that that was a few weeks ago and it is better now. He denies any lightheadedness, dizziness, syncopal episodes, headaches, migraines or seizures. Denies any bleeding or clotting disorders or history of DVT or pulmonary embolism. Denies any recent hospitalizations. Denies any history of metal sensitivity, latex allergy or MRSA. Denies any shortness of breath or chest pain. Denies abdominal pain, heartburn, indigestion, nausea, vomiting, diarrhea or constipation. Denies any urinary tract infections. Denies any hearing issues. He does have blurry vision in the right eye due to his recentretinal detachments x 2.. Denies any dental problems -upper and lower dentures. Physical Exam Vitals & Measurements T:36.2C RR:20 BP:138/80 SpO2:85% HT:175.26cm WT:73.200kg(Dosing) WT:73.2kg BMI:23.83 Vitals:Last Updated 06/21/24 12:00 Date Temp BP Location Pulse RR SpO2 Pain 06/21/24 36.2 138/80 20 85 06/21/24 6 05/04/24 6 Height and Weight:Last Updated 06/21/24 12:00 Date BMI Wt(kg) Wt(lb) Method Ht(cm) (ft-in) Method 06/21/24 23.83 73.2 161 Standing Scale 175.26 5-9 04/12/24 23.16 73.2 161 Standing Scale 177.8 5-10 Patient stated 03/12/24 73.5 162 Standing Scale General:Well-dressed, well-nourished. Normal mood and affect. Alert and oriented x3. HEENT:Head: Atraumatic, normocephalic. Eyes: Extraocular movements intact, pupils nonreactive to light,right pupil is larger than the left,rightsclera mildly injection, left sclera normal. Ears: Ears grossly normal, TMs are clear normal light reflex. Nose: Nares are patent bilaterally. Throat: Oropharynx clear, mucous membranes moist, upper and lower dentures. Gum healthy. Uvula midline. Neck:Supple, no lymphadenopathy, nontender palpation, full range of motion. Cardiac:Regular rate and rhythm, normal S1, S2. No murmurs, rubs or gallops appreciated. Lungs:Clear to auscultation bilaterally. No adventitious sounds. No accessory muscle use. Abdomen:Soft, nontender, nondistended, normal bowel sounds heard in all 4 quadrants. Extremities:Focusing on the patient'srightlower extremity: - Neutral alignment Ambulates with assistance NonpalpableDP andNonpalpablePT pulses, dopplerablewithDoppler Capillary refill less than 2 seconds Sensationintact to light touch Motor strength:5/5Knee flexion 5-/5 pull to hamstring. palpable defect in quadriceps tendon just above the patella Lateral subluxation with knee flexion Knee stable to varus and valgus at 30 Knee (right) ROM: 0/ 0/ 110 Active straight leg raiseintact AbsentEffusion Ligament exam: MCL1+,Endpoint intact LCL1+,Endpoint intact Patellar exam: Patellar translation1.5 quadrantof medial patellar mobility Intact posterior drawer Positivepatellar tendernessover medial knee and above patella Diagnostic Results Right knee MRIdone 04/09/2024 reviewed and noted. MRIinformation limited due to artifact. There is a short patellar ligament. It is difficult to see the extensor mechanism. Report noted Ultrasound reviewed.right TOMMIE is 1.2 , right peroneal artery not seen. Diffuse atherosclerosis but no significant stenosis. Assessment/Plan 1.Painful total knee replacement, right Patient is scheduled for a right knee tibial tubercle osteotomy, possible polyethylene liner exchange, possible medial patellofemoral ligament reconstruction with allograft, possible patellarresurfacing, extensor mechanism repairwith Dr. Everett on July 13, 2024. Risks and complications of the procedure were explained to the patientand include but are not limited to infection, pain, bleeding, scarring, nerve or blood vessel damage, wound problems, weakness, stiffness, incompleterelief of symptoms, tendon or ligament injury, blood clots, stiffness, immune reaction,disease tra nsmission, osteonecrosis, malunion,nonunion,fracture, hardware failure, blood clots, embolisms,heart attack, stroke and .Patient will have preoperative medical clearance with his familyphysician Dr. Edward on June 30, 2024. He will obtain a preoperative CBC, CMP and vitamin D levelprior to surgery. He had an EKG performed in August 2023with no indication for repeat EKG prior to the surgery unless otherwise indicated by anesthesia or his family physician. He will be placed on Eliquis 2.5 mg p.o. twice daily for 2 to 4 weeks after surgery for DVT prophylaxis. This will be prescribed at the time of discharge from the hospital. He will also be placed onoxycodone most likely after surgery forpain controlagain will be prescribed this medication upon discharge from the hospital. [facility] He would like to go to some inpatientrehab facility or jail facility after surgery. He does have a walker for use at home. [place] PDMP was checked with no issues identified. He was instruct ed on usage of the CHG wipes preoperatively. He willfollow-up as scheduled approximately [address] Everett. All questions were answered. He knows to call with any further problems, questions or concerns. This chart was completed utilizing [employer] voice recognition software. Grammatical errors, random word insertions, pronoun errors, and in complete sentences are an occasional consequence of the system. Any questions or concerns about the content, text, or information contained within the body of this dictation should be addressed directly to the provider for clarification. Problem List/Past Medical History Ongoing Alcohol induced liver disorder Arthritis of left knee Bilateral primary osteoarthritis of knee Carotid stenosis, left Cataract Chest pain Chronic GERD Chronic neuropathic pain COPD with emphysema Diverticulitis DVT (deep venous thrombosis) Eczema Effusion, right knee Excessive daytime sleepiness Family history of colon cancer Hip bursitis, left History of cervical fracture Hypertension Left elbow pain Olecranon bursitis, left elbow Orthostatic hypotension Painful total knee replacement, right Periprosthetic fracture of knee Rupture of right quadriceps tendon S/P orthopedic surgery, follow-up exam Sacro-iliac pain Status post total right knee replacement Tobacco user Vision problem Wound cellulitis Hypothyroidism History of retinal detachment right eyex 2 Procedure/Surgical History Bursectomy| Service Date: 12/09/2019Colonoscopy| Service Date: 03/12/2018ColonBilateralcataract extractionRevision of right total knee arthroplastyBackTotal replacement of rightknee joint Medications Home fludrocortisone(fludrocortisone 0.1 mg oral tablet), 0.1 mg= 1 tab, PO, Daily levothyroxine(levothyroxine 75 mcg (0.075 mg) oral tablet), 75 mcg= 1 tab, PO, Daily, 5 refills pantoprazole(pantoprazole 40 mg oral delayed release tablet), 40 mg= 1 tab, PO, Daily, 5 refills rosuvastatin(rosuvastatin 10 mg oral tablet), 1 tab, PO, qhs, 3 refills umeclidinium(Incruse Ellipta 62.5 mcg/inh inhalation powder), 1 inh, inhaled, q24h Gabapentin 800 mg 3 times daily Allergies NKA Social History Smoking Status Current some day light smoker Alcohol - Low Risk Type:Beer Frequency:1-2 times per month Exercise - Does not exercise Tobacco - Medium Risk Type:Cigarettes Stopped at age:55Years Drinks approximately 6 alcoholic drinks per week. Also smokesmarijuana recreationally. Family History Cancer: Mother. Hypertension: Father. Stroke: Father. Immunizations Vaccine Date Status influenza virus vaccine, inactivated 2015 Recorded tetanus/diphtheria/pertuss, acel (Tdap) 08/24/2014 Recorded Comments : 2021-01-15: Historical information-source unspecified diphtheria/tetanus/pertuss, acel (DTaP) 2014 Recorded Lab Results Review of labs from 04/28/2024 CRP: 0.62; Sed rate: 32 Right knee joint aspirationnegative for infection. No growth on a routine aerobic culture and a 2-week periprostheticanaerobic culture. Done at [place]. Electronic Signature on File Electronically Reviewed/Signed by: Tala Chase PA-C Author Signature Dt/Tm:06/21/2024 01:40PM Division of Sports Medicine Electronically Reviewed/Signed by: Tala Chase PA-C Cosigner Signature Dt/Tm: 06/21/2024 02:10 PM Division of Sports Medicine Electronically Reviewed/Signed by: Gasper Everett MD Cosigner Signature Dt/Tm: 06/21/2024 04:43 PM Division of Sports Medicine [facility] Ortho Outpt Note * Viridiana Marte: PERFORM, MODIFY MD Karlos, Gasper La: MODIFY, MODIFY MD Karlos, Gasper La: MODIFY Event Display: Ortho Outpt Note Authored Date: Name:MONTSE ROSARIO Patient Number:[id number] :1960 Date of Service:06/21/2024 CHIEF COMPLAINT: Right knee surgery discussion HPI: [id number] Nery presents today for surgery discussion of right knee. He is agreeable to stay at a care facility following surgery for appropriate rehab and care. PHYSICAL EXAM: Focusing on the patient'srightlower extremity: - Neutral alignment Ambulates with assistance NonpalpableDP andNonpalpablePT pulses. Able to be dopplered. He has had previous circulation studiesshowing nosignificant stenosis. Capillary refill less than 2 seconds Sensationintact to light touch Motor strength:5/5Knee flexionand extension Palpable defect in quadriceps tendon just above the patella Lateral subluxation with knee flexion Knee stable to varus and valgus at 0and 20 degrees knee flexion. Posterior drawer intact Knee (right) ROM: 0/ 0/ 110 Active straight leg raiseintact AbsentEffusion Ligament exam: 1+ MCL and LCL laxity at 20 degrees of knee flexion Patellar exam: Patellar translation1.5 quadrantof medial patellar mobility Intact posterior drawer Positivepatellar tendernessover medial knee and above patella DIAGNOSTIC REVIEW: Review of labs from 04/28/2024 CRP: 0.62 Sed rate: 32 Knee aspiration done at [place] was no growthfor 2 weeks. Periprostheticanaerobe culture x 14days negative. Test results May 04. White blood cell count was 6000 with only 29% polys. No crystals. CT scan of the needs to check for rotation has been done previously and showsonly a few degreesdifference [id number] internal rotation of the femoral componenton the right. 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 The solutions are high risk. If he can live with the do so. Surgery is an option. The patient has elected to proceed with surgical interventionat this time. I do notsee any compelling evidence forinfection. The problem is a low riding patellawith a disruption of his medial retinaculumand lateral tracking of the patella. This has likely resulted in patellar arthrosis. The plan would be foropening the kneeand doing a tibial tubercleosteotomy with a proximalslide andwhat ever degree ofmedialization necessary. This would befixed with screws or wire. He would likely need a lateral release. The medialdefect would be repaired and may need aMPFL type reconstruction with an Achilles allograft. Risks of allograftdiscussed. The polyethylene may need to be exchanged. Due to thesurgery in the peripatellar area even though he may havearthrosis of his patellawould favornot trying to resurface the patella given theelevated risk for AVN. We discussedproblems related to the surgery includinghealing of the osteotomy and failure of the hardware. He will need to be nonweightbearing for approximately 6 weeks and will have restrictions on his knee range of motion. He is willing to go to a jail facility or acute care rehab aftersurgery and this is our plan. He has a prior history ofDVTand will needDVT prophylaxis. He will seeDr. Raopreoperatively. It is possible that he could have some continued anterior knee pain and may needan additional procedure to resurface his patella. It is possible that the patellar trackingdoes not improve or that any of the repairs may fail. There is a risk of wound problems and infection. Dr. Abdalla will be co-surgeon. Patient aware. Return for preop. Patient was educated about surgical procedure, and treatment options were discussed, as well as risks, benefits and the recovery process. The patient hasno issues withbleeding, staph infections or MRSA. Informed consent was obtained, and the patient signed a consent form. ATTESTATION: Viridiana Bhat, have scribed for, and in the presence of, Gasper Everett, on this date,06/21/2024 12:25:03. Electronic Signature on File Electronically Reviewed/Signed by: Viridiana Marte Author Signature Dt/Tm:06/21/2024 01:11 PM Electronically Reviewed/Signed by: Viridiana Marte Cosigner Signature Dt/Tm: 06/21/2024 03:53 PM Electronically Reviewed/Signed by: Gasper Everett MD Cosigner Signature Dt/Tm: 06/23/2024 11:06 AM Division of Sports Medicine [facility] Patient Care team information Care Team Personnel Name: MD Wagner, Pradeep Link Position: Physician Member Role: Primary Care Provider Address: [address] [place] [address] [place] Name: DO Muniz Sameer Position: Resident Member Role: Lifetime Relationship Address: [address] [place] [address] [place] Care Team Related Persons Name: AMANDA TEMPLETON"
[2024-07-13] MEDS: LR 15ML/HR IV SCH (08:25)
[2024-07-13] MEDS: LACTATED RINGER'S 1,000 ML IV SCH (08:34)
--- NOTE | 2024-07-13 09:01 | History & Physical Bridge Note ---
Date of Service July 13, 2024 History & Physical Bridge Note I have examined the patient, reviewed the History & Physical and in the interval since the performance of the History & Physical I have noted the following changes of clinical significance: no changes noted
[2024-07-13] MEDS ORDERED: MIDAZOLAM HCL 1 MG/ML 2ML VIAL ONE (09:05)
[2024-07-13] MEDS ORDERED: ATROPINE SULFATE 0.1 MG/ML 10ML SYR IV PRN (09:56)
[2024-07-13] MEDS ORDERED: ePHEDrine sulfate 50 MG/ML AMP IV PRN (09:56)
[2024-07-13] MEDS: TRANEXAMIC ACID 1,000 MG **IV Pre-op IV SCH (10:02)
[2024-07-13] MEDS: ceFAZolin 2000MG 2,000 MG/15 ML SYR IV SCH (10:15)
[2024-07-13] MEDS ORDERED: PHENYLEPHRINE 100MCG/ML 5ML SYR ONE ×2 (10:29→12:19)
[2024-07-13] MEDS ORDERED: KETAMINE HCL 10MG/ML SYR ONE (10:38)
[2024-07-13] MEDS ORDERED: SUGAMMADEX SODIUM 200 MG/2 ML VIAL IV ONE ×2 (10:48→11:32)
[2024-07-13] MEDS: VANCOMYCIN HCL 1000MG/20ML VIAL ONE (11:02)
--- NOTE | 2024-07-13 12:32 | Operative Report ---
Post Operative Report Pre & Post Diagnosis Operation Date: 07/13/24 09:20 Pre-Op Diagnosis: Right Knee: Extensor Mechanism Disruption, Patellafemoral Instability Post-Op Diagnosis: Right Knee: Extensor Mechanism Disruption, Patellafemoral Instability I identified the patient and participated in the time-out.: Yes Procedure Operation Date: 07/13/24 09:20 Actual Procedures p Right Knee: Tibial Tubercle Osteotomy with Internal Fixation, Patella Resurfacing, Polyethylene Liner Exchange, Medial Patellofemoral Ligament Reconstruction with Achilles Allograft, Extensor Mechanism Repair lateral retinacular lengthening (Right) - Gasper Everett MD complex case modifier 22 applies Surgeon Gasper Everett MD, Billet Shearer was Brent Hackett MD Billet Shearer Lew/Michael jain Estimated Blood Loss 50 Findings Consistent with Post-Op Diagnosis Patellofemoral instability poly wear patella Baha midrange instability right knee Fluids See anesthesia Specimens None Drains None Complications None Indications Pain and instability weakness of his right total knee replacement Description of Procedure After the patient was appropriate notified site verified consent verified antibiotics were has been given this patient Dr. Everett I was asked to assist on this difficult case. Please see Dr. Garcia's operative report for appropriate details. I was present from the positioning to subcutaneous closure. Assisted on all aspects of the extensor mechanism realignment with the Angélica osteotomy lateral retinacular lengthening and the MPFL reconstruction and the poly exchange. Total tourniquet time was 87 minutes additional surgical time was roughly 40 minutes. In addition to the Angélica osteotomy fixed with 3 screws like technique 4.5 screws varying in length from 4850 and 52. Initially there was an Arthrex tape used for the MPFL reconstruction shuttles point. Additional small soft tissue anchors were placed in the patella. Multiple sutures were utilized to stabilize the extensor mechanism. The Z- lengthening of the lateral retinaculum allowed the patella to be well-balanced prior to doing the MPFL reconstruction following a Angélica osteotomy. EBL 50 cc. Crystalloid per anesthesia no pathology pending. DVT prophylaxis per protocol. I attest to the content of the Intraoperative Record and any orders documented therein. Any exceptions are noted below.
--- NOTE | 2024-07-13 12:54 | Fluoroscopy Report ---
FL knee RT 1 or 2V CLINICAL HISTORY: RIGHT KNEE/PATELLA COMPARISON STUDY: None FLUOROSCOPY TIME: 5 seconds FLUOROSCOPY IMAGES: 2 EXPOSURE DOSE: 0.2 mGy FINDINGS: Fluoroscopy was provided for right knee surgery. IMPRESSION: Intraoperative fluoroscopy. ACT 112: Negative or not required by law. Electronically signed by: Bradly Bazan M.D. 07/13/2024 12:53 PM
[2024-07-13] MEDS: fentaNYL citrate PF 100 MCG/2 ML VIAL IV PRN (13:53)
--- NOTE | 2024-07-13 13:57 | Operative Report ---
Post Operative Report Pre & Post Diagnosis Operation Date: 07/13/24 09:20 Pre-Op Diagnosis: Right Knee: Extensor Mechanism Disruption, Patellafemoral Instability Post-Op Diagnosis: Right Knee: Extensor Mechanism Disruption, Patellafemoral Instability I identified the patient and participated in the time-out.: Yes Procedure Operation Date: 07/13/24 09:20 Actual Procedures p Right Knee: Tibial Tubercle Osteotomy with Internal Fixation, Patella Resurfacing, Polyethylene Liner Exchange, Medial Patellofemoral Ligament Reconstruction with Achilles Allograft, Lateral Retinacular Lengthening (Right) - Gasper Everett MD Surgeon Gasper Everett MD Associate Sales Representative Lew/Rena Estimated Blood Loss 50 Findings Consistent with Post-Op Diagnosis Specimens none Anesthesia Type General Regional Complications none Disposition Accompanied Patient To Recovery: No Disposition: Recovery Room Indications Rc is 63 years old. He had a total knee replacement several years ago which was complicated by a arthrotomy disruption. He also has patella inferior. An early postoperative attempt at repair was performed without success. He now presents with chronic lateral patellar tracking and ongoing disruption of his superior medial retinacular repair. He has also had a medial femoral epicondylar fracture. He has profound patella inferior. Description of Procedure Patient identified. Informed consent obtained. I marked the operative site with my initials. A preoperative surgical timeout was performed. Preop dose of IV antibiotics and TXA given. Patient taken to the OR positioned supine on the operating room table. Tourniquet on the right thigh. The leg was prepped and draped in usual sterile fashion. DVT prophylaxis intraoperatively with mechan ical devices. Postop early mobility mechanical devices and Eliquis. Fluoroscopic guidance was utilized throughout the case. Bony prominences were inspected and padded. The exam under anesthesia revealed range of motion passively from 0 to 125 degrees of knee flexion. Knee was stable to varus and valgus and may have had a trace bit of hyperextension at full extension. There appeared to be slight LCL laxity at 90 degrees knee flexion and there was 1+ varus valgus laxity at 20 degrees of knee flexion. With knee flexion the patella subluxated lateral. There was a palpable defect in the quadriceps tendon beginning at the superior pole of the patella proceeding proximally for about 6 to 8 cm. It coursed along the superior medial border of the patella and then back up the quadriceps in a triangular type fashion. Limb exsanguinated the Esmarch. Tourniquet inflated 250 mmHg. The previous longitudinal incision was made and extended distally for the osteotomy. Thin subcutaneous layer. Medial and lateral flaps were elevated as necessary for exposure for the MPFL reconstruction and the lateral retinacular Z-lengthening. The patellar tendon was identified. The patella was identified. The quadriceps tendon was split longitudinally which went directly through the center of the defect which was covered over the scar tissue. Then did a medial arthrotomy and carried this distally along the tibial tuberosity. The lateral extent of the patellar ligament was identified and beginning at the tibial plateau the lateral compartment was opened distally along the crest of the tibia for distance of 10 cm. Blunt tip retractor was inserted. After doing the arthrotomy it was evident that there was severe wear of the superior lateral patella which would require resurfacing. The femoral and tibial components appear to be well fixated although a residual stable fissure in the medial femoral condyle was noted. This is likely secondary to the previous healed medial epicondylar av ulsion fracture. There was wear of the anterior lateral polyethylene likely from the patella. The osteotomy shingle was measured out. Access was gained posterior and proximal to the patellar ligament which was preserved and protected. An 9 cm osteotomy shingle was marked out tapered from deep proximal to shallow distal. The osteotomy was completed using an oscillating saw under direct visualization and osteotomes to complete distal and proximal. The patella was then able to be everted. The patella thickness measured 28 mm. It was much thicker distal and medial versus proximal and lateral. The guide was set to preserve 16 mm of bone. A 41 mm meter patella was selected. The cut was made. The paddle was aligned to the knee in slight flexion and the lug holes were drilled. This was followed up by several 3.2 mm drill holes in the eburnated bone. A bag of Simplex P cement was mixed with 1 g of vancomycin. The patella was cemented into place and the clamp was held until hardened. Composite patellar thickness was measured at the end of the case however this was done after the allograft ligament reconstruction was placed over the top of the patella and this measured 32 mm. The composite patellar thickness was likely approximately 26 to 28 mm. Attention was then turned to the osteotomy. The osteotomy was advanced about a centimeter proximal and medial. The osteotomy was performed performed at approximately a 30 degree angle from the frontal plane. Even with the osteotomy held into this position the patella continued to subluxate lateral although there was no medial support present. The osteotomy was then fixed into position with three 4.5 mm bicortical lag screws confirmed in position fluoroscopically. The patella still wanted to subluxate and therefore a lateral retinacular lengthening was performed which was then repaired at the end of the case and the loose fashion with 0 Vicryl. The interval between layers 2 and 3 was identified and the medial retinaculum. This was dissected posteriorly to the level of the adductor tubercle. A guidepin was introduced x 2 to be at shuttles point. This area was then opened up and then a Arthrex self clinching suture was inserted in this position. An Achilles allograft was thawed out and then loop placed through the loop which was then cinched into place. Half of the graft was brought up through the after mentioned layer. Stay stitches were passed through the graft at shuttles point for additional security. The graft was then laid over the superior medial patella. 2 all suture anchors from Arthrex were introduced into the patella and these were used to imbricate and tack down the Achilles allograft in a broad and fashion over the upper half of the patella. At this time preliminary assessment of patellar tracking was found to be stable with knee flexion easily to 90 degrees. The Achilles was imbricated in place. The medial retinaculum was then advanced onto the patella as it had previously been released as a sleeve from the medial one quarter of the patella. This was held into place with the sutures and the patella. The quadriceps tendon was repaired with interrupted #2 Vicryl. The allograft was brought up over the medial retinaculum onto the surface of the patella and reinforced there with #2 Vicryl. The medial arthrotomy distally was repaired in a likewise fashion. After repair gravity assisted flexion was easily at 90 degrees with central patellar tracking. About this time the tourniquet was let down. Meticulous hemostasis was performed. Copious irrigation was performed throughout the case. The osteotomy shingle and proximal anterior tibia were previously trimmed as necessary to allow accommodation of the graft sliding proximal. Prior to fixing the osteotomy site the knee laxity profile was assessed. The knee was stable in full extension but had a trace bit of hyperextension. There was 1+ varus valgus laxity at 20 degrees knee flexion and 1+ LCL laxity at 90 degrees knee flexion although this may have been due to the lack of support from the patella/extensor mechanism. The poly was removed and trialing was performed at 15 and 17.5. The poly that was removed was 12.5 mm. The 17.5 gave full extension and eliminated the mid position laxity. This final polyethylene was inserted after debriding some peripheral scar tissue. Vancomycin powder 1/2 g was applied within the joint and another half gram subcutaneous tissues. A Hemovac drain was inserted and subcutaneous tissues. Meticulous hemostasis was performed. DBX putty was applied along the osteotomy site and autograft bone was applied distally at the osteotomy site as well. The skin was then closed meticulously in layers with 0 and 2-0 and 3-0 Vicryl followed by janina on the skin. The leg was cleaned with wet and dry sponges saw sterile dressing was applied Xeroform 4 x 4's ABD cast padding cotton wrap full-length Gabriel hinged brace locked in extension. Patient awakened from anesthesia without difficulty and taken to the recovery room in stable condition. There were no specimens or complications. Counts were correct and blood loss is estimated to be 50 cc. Patient will be admitted to the hospital. Pain control. Elevation. Nonweightbearing. At this time we will hold on knee range of motion. He will Bianca routine course of postop IV antibiotics followed by Bactrim DS 1 p.o. twice daily x 7 days and he will also be started on Eliquis 2.5 mg p.o. twice daily in the morning. I attest to the content of the Intraoperative Record and any orders documented therein. Any exceptions are noted below.
--- NOTE | 2024-07-13 14:08 | Operative Report ---
Post Operative Report Pre & Post Diagnosis Operation Date: 07/13/24 09:20 Pre-Op Diagnosis: Right Knee: Extensor Mechanism Disruption, Patellafemoral Instability Post-Op Diagnosis: Right Knee: Extensor Mechanism Disruption, Patellafemoral Instability I identified the patient and participated in the time-out.: Yes Procedure Operation Date: 07/13/24 09:20 Actual Procedures p Right Knee: Tibial Tubercle Osteotomy with Internal Fixation, Patella Resurfacing, Polyethylene Liner Exchange, Medial Patellofemoral Ligament Reconstruction with Achilles Allograft, Lateral Retinacular Lengthening (Right) - Gasper Everett MD Surgeon Gapser Everett M.D. Brent Hackett M.D. - Co-Surgeon Natural Developer Lew/Rena Estimated Blood Loss 50 Findings Consistent with Post-Op Diagnosis Specimens bone and soft tissue Anesthesia Type General Regional Description of Procedure Patient was taken to the operating room and placed under general anesthesia with a peripheral nerve block given preoperatively. He was given 2 g of IV Ancef for surgical prophylaxis along with 1 g IV TXA for bleeding prophylaxis prior to surgery. He was prepped and draped in routine sterile fashion. I was present during the entire case. Please see Dr. Everett operative report for further details regarding today's procedure. Patient was awakened and transferred to the recovery room in stable condition. I attest to the content of the Intraoperative Record and any orders documented therein. Any exceptions are noted below.
[2024-07-13] MEDS: ONDANSETRON INJ 2 MG/ML 2 ML VIAL IV PRN (14:09)
[2024-07-13] MEDS: HYDROmorphone INJ 1 MG/ML SYRINGE IV PRN (14:18)
[2024-07-13] MEDS: HYDROmorphone INJ 2 MG/ML SYR/VIAL IV PRN (14:43)
[2024-07-13] MEDS: HYDROmorphone INJ 2 MG/ML SYR/VIAL ONE (14:48)
--- NOTE | 2024-07-13 15:14 | XRay Report ---
XR knee RT 1 or 2V routine CLINICAL HISTORY: post op right knee COMPARISON: 09/30/2022 x-ray and MRI 04/09/2024 FINDINGS: Right knee prosthesis and screws at the proximal tibia shows no hardware complication. Sub acute fracture at the medial femoral condyle remains nondisplaced. There is an osteotomy at the upper anterior tibial shaft. There is expected soft tissue gas. Skin janina are present. IMPRESSION: Postoperative exam as described. ACT 112: Negative or not required by law. Electronically signed by: Bradly Bazan M.D. 07/13/2024 3:12 PM
[2024-07-13] MEDS ORDERED: traMADol HCL 50 MG TABLET PO PRN (15:58)
[2024-07-13] MEDS ORDERED: HYDROmorphone INJ 0.5 MG/0.5 ML SYR IV PRN (15:58)
[2024-07-13] MEDS ORDERED: HYDROmorphone INJ 1 MG/ML SYRINGE IV PRN (15:58)
[2024-07-13] MEDS ORDERED: MAGNESIUM HYDROXIDE SUSP 30 ML UDC PO PRN (15:58)
[2024-07-13] MEDS ORDERED: NALOXONE HCL 0.4 MG/1 ML VIAL/CARP IV PRN (15:58)
[2024-07-13] MEDS ORDERED: TAMSULOSIN HCL 0.4 MG CAP PO PRN (15:58)
[2024-07-13] MEDS ORDERED: METOCLOPRAMIDE HCL INJ 5 MG/ML 2 ML VIAL IV PRN (15:58)
[2024-07-13] MEDS ORDERED: diphenhydrAMINE 50 MG/ML VIAL IV PRN (15:58)
[2024-07-13] MEDS ORDERED: ONDANSETRON INJ 2 MG/ML 2 ML VIAL IV PRN (15:58)
[2024-07-13] MEDS ORDERED: bisacodyL 10 MG SUPP PR PRN (15:58)
[2024-07-13] MEDS: oxyCODONE HCL IR 5 MG TAB (IMMEDIATE RELEASE) PO PRN (16:56)
[2024-07-13] MEDS: GABAPENTIN 800 MG TAB PO SCH (16:56)
[2024-07-13] MEDS: ACETAMINOPHEN 500 MG TAB PO SCH (16:57)
[2024-07-13] MEDS: KETOROLAC 30 MG/ML VIAL IV SCH (16:58)
--- NOTE | 2024-07-13 18:25 | Orthopedic Progress Note ---
Date of Service July 13, 2024 Assessment & Plan (1) Patellofemoral maltracking: Admission and Anticipated Discharge Date Admission Date: July 13, 2024 Orthopedic Progress Note Rc is resting comfortably. His pain is well-controlled. I discussed with him the findings relative to his surgery. Paresthesias in the toes. He has 5- out of 5 ankle and toe plantarflexion dorsiflexion and eversion strength. The foot is warm with capillary refill less than 2 seconds. DP and PT pulses are nonpalpable. Both of the Dopplers on the third floor were missing. Doppler from U did not work properly. His vital signs are stable. Postop x-rays show good positioning of the implants and components. There is no evidence of complication. Plan is elevation icing pain control Eliquis for DVT prophylaxis beginning in the morning. PT and OT. Nonweightbearing.
[2024-07-13] MEDS: TRANEXAMIC ACID / 0.7% NACL 1,000 MG/100 ML BAG IV SCH (19:31)
[2024-07-13] MEDS: ceFAZolin 1000MG 1,000 MG/7.5 ML SYR IV SCH (19:54)
[2024-07-13] MEDS: FAMOTIDINE 20 MG TAB PO SCH (20:58)
[2024-07-13] MEDS: DOCUSATE SODIUM 100 MG CAP PO SCH (20:58)
[2024-07-13] MEDS: SENNA 8.6 MG TAB PO SCH (20:58)
[2024-07-13] MEDS: ROSUVASTATIN CALCIUM 10 MG TAB PO SCH (20:59)
[2024-07-14] MEDS: LEVOTHYROXINE SODIUM 75 MCG TABLET PO SCH (05:16)
--- NOTE | 2024-07-14 06:35 | Anesthesiology Progress Note ---
Date of Service July 14, 2024 Anesthesia Post Procedure Vital Signs Vital Signs: Temp Pulse Pulse Resp BP Pulse Ox O2 Del Method 07/14/24 03:05 36.5 C 72 16 113/76 96 Room Air 07/14/24 01:09 102/65 07/13/24 23:39 36.4 C L 73 16 88/56 L 96 Room Air 07/13/24 19:51 36.4 C L 70 16 115/78 96 Room Air 07/13/24 18:34 36.3 C L 80 18 101/68 96 Room Air 07/13/24 16:53 66 16 136/87 97 Nasal Cannula 07/13/24 16:13 36.1 C L 67 16 130/90 98 Nasal Cannula 07/13/24 15:58 36.4 C L 62 16 131/82 98 Nasal Cannula 07/13/24 15:45 Nasal Cannula 07/13/24 15:25 67 12 130/82 96 Room Air 07/13/24 15:15 67 17 117/74 96 Room Air 07/13/24 15:05 36.4 C L 68 20 108/71 99 Nasal Cannula 07/13/24 14:55 68 12 122/88 92 Room Air 07/13/24 14:45 68 17 109/77 98 Room Air 07/13/24 14:35 65 16 120/84 98 Nasal Cannula 07/13/24 14:25 62 17 123/86 99 Nasal Cannula 07/13/24 14:15 63 12 131/84 97 Nasal Cannula 07/13/24 14:05 75 21 151/99 H 92 Nasal Cannula 07/13/24 13:55 79 12 148/97 H 97 Nasal Cannula 07/13/24 13:46 36.5 C 82 13 159/100 H 96 Nasal Cannula 07/13/24 08:01 37 C 91 H 20 127/82 96 Room Air O2 Flow Rate 07/14/24 03:05 07/14/24 01:09 07/13/24 23:39 07/13/24 19:51 07/13/24 18:34 07/13/24 16:53 2 07/13/24 16:13 2 07/13/24 15:58 2 07/13/24 15:45 2 07/13/24 15:25 2 07/13/24 15:15 2 07/13/24 15:05 2 07/13/24 14:55 07/13/24 14:45 07/13/24 14:35 3 07/13/24 14:25 3 07/13/24 14:15 3 07/13/24 14:05 3 07/13/24 13:55 3 07/13/24 13:46 3 07/13/24 08:01 Pain Intensity Right Knee: Pain Intensity: 5 Transfer of Care Handoff Completed per policy Notes Mental Status: alert / awake / arousable and participated in evaluation Patient Amnestic to Procedure: Yes Nausea / Vomiting: adequately controlled Pain: adequately controlled Airway Patency, RR, SpO2: stable & adequate BP & HR: stable & adequate Hydration State: stable & adequate Anesthetic Complications: no major complications apparent and Pt Satisfied with anesthetic care
[2024-07-14 08:06] LABS: Hematocrit (blood only) 30.5 % (42.0-52.0); Hemoglobin 10.4 g/dl (14.0-18.0); Mean Corpuscular Hemoglobin 33.4 pg (25.0-34.0); Mean Corpuscular Hgb Conc 34.1 g/dL (32.0-36.0); Mean Corpuscular Volume 98.1 fL (80.0-100.0); Platelet Count 129 K/uL (130-400); RDW Coefficient of Variation 15.3 % (11.5-14.5); RDW Standard Deviation 54.7 fL (36.4-46.3); Red Blood Count 3.11 M/uL (4.70-6.10); White Blood Count 6.55 K/ul (4.8-10.8)
[2024-07-14 08:08] LABS: BUN Creatinine Ratio 8.8 (10-20); Calcium 7.5 mg/dl (8.6-10.3); Potassium 3.5 mmol/L (3.5-5.1)
[2024-07-14] MEDS: UMECLIDINIUM BROMIDE 62.5MCG/BLISTER 7 PUFFS/INHALER INH SCH (08:09)
[2024-07-14] MEDS: FLUDROCORTISONE ACETATE 0.1 MG TAB PO SCH (08:09)
[2024-07-14] MEDS: dexAMETHasone 4 MG TAB PO SCH (08:10)
[2024-07-14] MEDS: ERGOCALCIFEROL 1250 MCG (50,000 UNITS) CAP PO SCH (08:10)
[2024-07-14] MEDS: APIXABAN 2.5 MG TAB PO SCH (08:11)
[2024-07-14] MEDS: SULFAMETHOXAZOLE/TRIMETHOPRIM DS 800/160MG TAB PO SCH (08:11)
[2024-07-14] MEDS: MULTIVITAMIN TAB PO SCH (08:11)
--- NOTE | 2024-07-14 10:44 | Orthopedic Progress Note ---
Date of Service July 14, 2024 Assessment & Plan (1) Patellofemoral maltracking: Plan: Postop day 1-status post right knee tibial tubercle osteotomy, patellar resurfacing, poly exchange, MPFL reconstruction with allograft with Dr. Everett. Status post right total knee arthroplasty. Patient may be out of bed, nonweightbearing right lower extremity at all times. Keep hinged range of motion brace on at all times and locked in extension. Use crutches or walker to assist with ambulation. May do gluteal squeezes, straight leg raises, quad sets, ankle pumps as tolerated. PT and OT to start today. Regular diet as ordered. Home medications resumed. Eliquis 2.5 mg p.o. twice daily for DVT prophylaxis for 2 to 4 weeks after surgery. This was started this morning. Thigh-high SABINO stockings and AV impulse boots also during inpatient stay. Bactrim DS p.o. twice daily x 7 days after surgery for suppressive therapy. Case management for disposition needs. Patient will most likely need inpatient rehab or correction facility. Will plan to keep Hemovac in place. Will follow drainage potentially pull at this afternoon or tomorrow. Due to his nondopplerable posterior tibial pulse Dr. Everett talked with Dr. Garcia. He recommended a CT angiogram. Order has been placed. Patient made aware. All questions were answered. Surgery discussed. Dr. Everett present for today's visit. Will continue to follow while inpatient. Will plan for dressing change tomorrow. (2) Vitamin D deficiency: Plan: Patient's vitamin D was less than 7. Started vitamin D2 50,000 IU weekly for 6 weeks today. This will be continued as an outpatient and vitamin D level rechecked after completion. Admission and Anticipated Discharge Date Admission Date: July 13, 2024 Subjective Rc is sitting up in bed. Relatively comfortable. States that he has had some elevations of pain that have been controlled with pain medication. Dr. Everett present for today's visit. Denies any numbness or tingling in his right leg out of the ordinary. He states that he is unable to lift his leg actively. Has been working on ankle range of motion. Has left the brace intact. Has not been out of bed. Physical Exam Musculoskeletal: Exam of his right lower extremity: He is able to actively dorsiflex and plantarflex his right foot. He can invert and aurelio. Mildly diminished sen sation which is normal for him. No edema. Strength is 5/5. Dorsalis pedis pulses nonpalpable but dopplerable. The posterior tibial pulse is not palpable and unable to obtain with Doppler. Toes are warm. Capillary refill is brisk. Postoperative dressings are clean, dry and intact. Hinged brace is locked in extension and in place. He is unable to independently perform a straight leg raise today due to discomfort. Hemovac in place and functioning. Results & Data Vital Signs (Past 12 Hours) Vital Signs Temp Pulse Pulse Resp BP Pulse Ox O2 Del Method 07/14/24 07:40 36.4 C L 65 16 102/68 99 Room Air 07/14/24 03:05 36.5 C 72 16 113/76 96 Room Air 07/14/24 01:09 102/65 07/13/24 23:39 36.4 C L 73 16 88/56 L 96 Room Air Laboratory Results 07/14/24 Range/Units 06:55 WBC 6.55 (4.8-10.8) K/ul RBC 3.11 L (4.70-6.10) M/uL Hgb 10.4 L (14.0-18.0) g/dl Hct 30.5 L (42.0-52.0) % MCV 98.1 (80.0-100.0) fL MCH 33.4 (25.0-34.0) pg MCHC 34.1 (32.0-36.0) g/dL RDW Std Deviation 54.7 H (36.4-46.3) fL RDW Coeff of Mabel 15.3 H (11.5-14.5) % Plt Count 129 L (130-400) K/uL MPV 10.0 (9.4-12.4) fL Sodium 132 L (136-145) mmol/L Potassium 3.5 (3.5-5.1) mmol/L Chloride 100 (98-107) mmol/L Carbon Dioxide 27 (21-32) mmol/L Anion Gap 5 (3-11) BUN 7 (6-23) mg/dl Creatinine 0.80 (0.6-1.4) mg/dl Est Cr Clr Drug Dosing 99.0 ml/min eGFR 100.69 BUN/Creatinine Ratio 8.8 L (10-20) Glucose 100 H (70-99(Fasting)) mg/dl Calcium 7.5 L (8.6-10.3) mg/dl
[2024-07-14] MEDS: OPTIRAY 320 125ml IV ONE (12:50)
--- NOTE | 2024-07-14 13:58 | CT Scan Report ---
CT angio LE RT w inc wo if don CLINICAL HISTORY: nonpalpable right posterior tibial pulse COMPARISON STUDY: Ultrasound of 04/14/2024 FINDINGS: There are diffuse atherosclerotic calcifications. The right common femoral artery shows no significant narrowing. Deep femoral artery is patent. Right SFA/pop shows no significant narrowing. A portion of the right popliteal artery is obscured by spray artifact from the right knee prosthesis. There is two-vessel runoff to the right foot via the right anterior tibial artery and the peroneal ar genaro. Posterior tibial artery is occluded.. Knee prosthesis is present. There is osteotomy with screws at the proximal anterior tibia. There is a n old fracture at the medial femoral condyle. There is expected postoperative fluid and a small amoun t of gas. IMPRESSION: 1. Diffuse atherosclerotic calcification at the right lower extremity with occlusion of the posterior tibial artery. No other significant narrowing or occlusion seen. 2. Otherwise as described. ACT 112: Negative or not required by law. Electronically signed by: Bradly Bazan M.D. 07/14/2024 1:57 PM
--- NOTE | 2024-07-14 16:09 | Orthopedic Progress Note ---
Date of Service July 14, 2024 Assessment & Plan (1) Patellofemoral maltracking: Plan: CTA shows occluded posterior tibial artery. This was reported to be patent on the previous arterial ultrasound. I have a consult with vascular surgery. Discussed with patient. The foot remains well-perfused. Drainage since 6 AM this morning was 100 cc. This was emptied and I pulled the drain. Spoke with case management. We will look into acute care versus intermediate facility. I think he will need a longer duration of care. (2) Vitamin D deficiency: Admission and Anticipated Discharge Date Admission Date: July 13, 2024
--- NOTE | 2024-07-15 09:50 | Orthopedic Progress Note ---
Date of Service July 15, 2024 Assessment & Plan (1) Patellofemoral maltracking: Plan: POD 2-status post right knee tibial tubercle osteotomy, patellar resurfacing, poly exchange, MPFL reconstruction with allograft with Dr. Everett. Status post right total knee arthroplasty. Patient may be out of bed, nonweightbearing right lower extremity at all times. Keep hinged range of motion brace on at all times and locked in extension. Use crutches or walker to assist with ambulation. May do gluteal squeezes, straight leg raises, quad sets, ankle pumps as tolerated. PT and OT to start today. Regular diet as ordered. Home medications resumed. Eliquis 2.5 mg p.o. twice daily for DVT prophylaxis for 2 to 4 weeks after surgery. Thigh-high SABINO stockings and AV impulse boots also during inpatient stay. Bactrim DS p.o. twice daily x 7 days after surgery for suppressive therapy. Case management for disposition needs. [facility] referral made. Hemovac discontinued yesterday. CTA shows occluded posterior tibial artery. This was reported to be patent on the previous arterial ultrasound. I have a consult with vascular surgery. Discussed with patient. The foot remains well-perfused. CBC and BMP ordered for tomorrow morning. Recommended aspiration of the prepatellar effusion today. He was agreeable. Dr. Everett performed. Dr. Everett present for today's visit. Will continue to follow while inpatient. New dressings were applied to the right lower extremity today. Brace reapplied. Procedure: Verbal consent obtained. Timeout performed. Dr. Everett performed to this procedure. The medial side of the knee was marked, prepped with alcohol and then using an 18-gauge needle and a 20 cc syringe 25 cc of blood was removed from the right knee. Patient tolerated the aspiration without difficulty. Pressure was held to the injection site using a 4 x 4 and this area was recleansed with Alcohol swab. New dressings were applied to the right knee. (2) Vitamin D deficiency: Admission and Anticipated Discharge Date Admission Date: July 13, 2024 Subjective Patient sitting up in bed. Comfortable. Awake and alert. Has tolerated a regular diet. He states his pain is well-controlled on oral pain medication. He is kept the brace in place. He is keeping the leg elevated on a couple of blankets and pillows. Denies any numbness or tingling. Physical Exam Musculoskeletal: Exam of his right lower extremity: Postoperative brace and dressings were removed today. His right has no significant distal edema. There is evidence of a medial subcutaneous effusion. No active bleeding from the incision. Incision is clean, dry and intact. Daquan are retained. Full ankle range of motion with normal strength. Palpable dorsalis pedis pulse 1+. Nonpalpable posterior tibial pulse. Moves toes well. Foot is warm. Capillary refill is brisk. Results & Data Vital Signs (Past 12 Hours) Vital Signs Temp Pulse Resp BP Pulse Ox O2 Del Method 07/15/24 07:52 36.5 C 76 18 124/83 96 Room Air Laboratory Results CBC and BMP were not performed today. Will order for tomorrow morning.
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
[2024-07-15 15:21] VITALS: O2SAT 95
[2024-07-16 07:29] VITALS: BP 103/64; PULSE 80; RESP 16; TEMP 97.3
[2024-07-16 08:12] LABS: Hematocrit (blood only) 25.4 % (42.0-52.0); Hemoglobin 8.6 g/dl (14.0-18.0); Mean Corpuscular Hgb Conc 33.9 g/dL (32.0-36.0); Mean Corpuscular Volume 97.3 fL (80.0-100.0); Mean Platelet Volume 9.5 fL (9.4-12.4); Platelet Count 131 K/uL (130-400); Red Blood Count 2.61 M/uL (4.70-6.10); White Blood Count 5.24 K/ul (4.8-10.8)
[2024-07-16 08:31] LABS: BUN Creatinine Ratio 10.2 (10-20); Calcium 7.4 mg/dl (8.6-10.3); Creatinine Clr Calc Pharmacy 161.7 ml/min; Potassium 3.5 mmol/L (3.5-5.1)
--- NOTE | 2024-07-16 13:51 | Orthopedic Progress Note ---
Date of Service July 16, 2024 Assessment & Plan (1) Patellofemoral maltracking: Plan: POD 3-status post right knee tibial tubercle osteotomy, patellar resurfacing, poly exchange, MPFL reconstruction with allograft with Dr. Everett. Status post right total knee arthroplasty. Patient may be out of bed, nonweightbearing right lower extremity at all times. Keep hinged range of motion brace on at all times and locked in extension. Use crutches or walker to assist with ambulation. May do gluteal squeezes, straight leg raises, quad sets, ankle pumps as tolerated. PT and OT Regular diet as ordered. Continued home medications. Eliquis 2.5 mg p.o. twice daily for DVT prophylaxis for 2 to 4 weeks after surgery. Thigh-high SABINO stockings and AV impulse boots also during inpatient stay. Bactrim DS p.o. twice daily x 7 days after surgery for suppressive therapy. D/C instructions reviewed. CTA shows occluded posterior tibial artery. This was reported to be patent on the previous arterial ultrasound. I have a consult with vascular surgery. Discussed with patient. The foot remains well-perfused. Case management for disposition needs. D/C to [facility] this afternoon. Orthopedically stable for discharge. (2) Vitamin D deficiency: Plan: Continue Vitamin D supplementation. (3) Acute blood loss anemia: Plan: Will monitor. Mild dizziness but mostly asymptomatic. No tachycardia. No need for blood transfusion at this time. Admission and Anticipated Discharge Date Admission Date: July 13, 2024 Subjective Doing well, no complaints of bed, was out of bed with PT/OT today. Gets a "little dizzy with change in positions". Resolves after sitting for a minute. Physical Exam Musculoskeletal: Exam of his right leg: post op dressings and splint clean, dry and intact. Brace opened to 45 degrees of flexion. Full ankle ROM and normal strength. Toes are warm. Right leg elevated on 3 pillows. Results & Data Vital Signs (Past 12 Hours) Vital Signs Temp Pulse Resp BP Pulse Ox O2 Del Method 07/16/24 07:28 36.3 C L 80 16 103/64 95 Room Air 07/16/24 03:00 36.4 C L 83 12 124/70 95 Room Air Laboratory Results 07/16/24 Range/Units 07:40 WBC 5.24 (4.8-10.8) K/ul RBC 2.61 L (4.70-6.10) M/uL Hgb 8.6 L (14.0-18.0) g/dl Hct 25.4 L (42.0-52.0) % MCV 97.3 (80.0-100.0) fL MCH 33.0 (25.0-34.0) pg MCHC 33.9 (32.0-36.0) g/dL RDW Std Deviation 54.0 H (36.4-46.3) fL RDW Coeff of Mabel 15.0 H (11.5-14.5) % Plt Count 131 (130-400) K/uL MPV 9.5 (9.4-12.4) fL Sodium 136 (136-145) mmol/L Potassium 3.5 (3.5-5.1) mmol/L Chloride 106 (98-107) mmol/L Carbon Dioxide 26 (21-32) mmol/L Anion Gap 4 (3-11) BUN 5 L (6-23) mg/dl Creatinine 0.49 L (0.6-1.4) mg/dl Est Cr Clr Drug Dosing 161.7 ml/min eGFR 116.75 BUN/Creatinine Ratio 10.2 (10-20) Glucose 83 (70-99(Fasting)) mg/dl Calcium 7.4 L (8.6-10.3) mg/dl
--- NOTE | 2024-07-16 16:53 | Discharge Summary ---
Date of Service July 16, 2024 Discharge Data Consultations 07/14/24 15:36 Consult Vascular Surgery Routine Procedures Performed Operation Date: 07/13/24 09:20 Actual Procedures p Right Knee: Tibial Tubercle Osteotomy with Internal Fixation, Patella Resurfacing, Polyethylene Liner Exchange, Medial Patellofemoral Ligament Reconstruction with Achilles Allograft, Lateral Retinacular Lengthening (Right) - Gasper Everett MD Hospital Course (1) Patellofemoral maltracking: Patient was admitted to [facility] after undergoing an elective right knee tibial tubercle osteotomy, patellar resurfacing, poly exchange, MPFL reconstruction with allograft with Dr. Everett/Dr. Hackett. Surgery was performed on July 13, 2024. He was kept at [facility] for postoperative pain management and medical management. He has a history of having a right total knee arthroplasty. He was allowed out of bed, with the assistance of a walker. He was instructed to be nonweightbearing on his right lower extremity at all times. While in the hospital he did not allow any range of motion of the right knee, Although at the time of discharge we did allow him to go 0 to 45 degrees of flexion. His home medications were continued during his inpatient stay. He was also given SABINO stockings and AV impulse boots in the left leg as well as started on Eliquis 2.5 mg p.o. twice daily for DVT prophylaxis. He was given 2 g of IV Ancef for surgical prophylaxis and this was continued for 24 hours after surgery. Once that was completed he was started on Bactrim DS p.o. twice daily which will be for 7 days after surgery. He was also given 1 g of IV TXA prior to surgery which was also repeated 6 hours after this initial dose for bleeding prophylaxis. He had a vitamin D level that was less than 7 he was started on 50,000 international units weekly for at least 6 weeks. His vitamin D level be rechecked at that time. Physical therapy and Occupational Therapy consults were placed. He was seen and evaluated while he was in the hospital. Hemovac was placed intraoperatively and his right knee which had about 250 mL of blood loss. This was removed on the andree of postoperative day 1. His dressings from surgery were changed on postoperative day 2. He was found to have some subcutaneous fluid collection and this was aspirated by Dr. Everett using sterile technique. A new compressive dressing was applied to the right lower extremity along with his hinged range of motion brace. Case management was involved for disposition needs. It was determined that he would need a alf facility after surgery. Referrals were placed for [facility] and [facility]. [facility] had a bed available and it was improved by his insurance. He was given a regular diet during his inpatient stay. He did not develop any postoperative nausea, vomiting, diarrhea, chest pain, shortness of breath or dizziness. He did develop some postoperative acute blood loss anemia which cause a little lightheadedness with change of positions but otherwise remained and symptomatic. He was afebrile during his inpatient stay. His vital signs remained stable. On postoperative day 1 his dorsalis pedis pulse was not palpable or dopplerable. CT angiogram was performed on his right lower extremity and was found to have blockage of the posterior tibial pulse. This was discussed with vascular surgery and a vascular consult was placed. No intervention was recommended at this time. He was deemed safe for discharge to a alf facility. He was discharged to [facility] on Tuesday, July 16, 2024 in stable condition. All questions were answered. Discharge instructions were reviewed. He will follow-up as scheduled. (2) Vitamin D deficiency: Continue Vitamin D supplementation. (3) Acute blood loss anemia: Will monitor. Mild dizziness but mostly asymptomatic. No tachycardia. No need for blood transfusion at this time.
== END 2024-07-16 15:28 | DRG 488 ==
LOC: ASU 07:28 → 3N 14:46
DX: T84.84XA Pain due to internal orthopedic prosthetic devices, implants and grafts, initial encounter; M25.361 Other instability, right knee; T84.022A Instability of internal right knee prosthesis, initial encounter; K21.9 Gastro-esophageal reflux disease without esophagitis; I10 Essential (primary) hypertension; E03.9 Hypothyroidism, unspecified; F17.290 Nicotine dependence, other tobacco product, uncomplicated; Z96.651 Presence of right artificial knee joint; E55.9 Vitamin D deficiency, unspecified; Y92.009 Unspecified place in unspecified non-institutional (private) residence as the place of occurrence of the external cause; D62 Acute posthemorrhagic anemia; Z98.1 Arthrodesis status; Z79.890 Hormone replacement therapy; T84.062A Wear of articular bearing surface of internal prosthetic right knee joint, initial encounter; Y79.2 Prosthetic and other implants, materials and accessory orthopedic devices associated with adverse incidents; I70.92 Chronic total occlusion of artery of the extremities

== ENCOUNTER 2025-01-24 13:26 | Observation (INO) ==
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
[2025-01-24 14:19] LABS: Hematocrit (blood only) 30.1 % (42.0-52.0); Hemoglobin 10.1 g/dl (14.0-18.0); Immature Granulocytes # (auto) 0.04 K/uL (0.01-0.20); Immature Granulocytes % (auto) 0.9 %; Mean Corpuscular Hemoglobin 28.7 pg (25.0-34.0); Mean Corpuscular Volume 85.5 fL (80.0-100.0); Platelet Count 68 K/uL (130-400); RDW Standard Deviation 51.7 fL (36.4-46.3); Red Blood Count 3.52 M/uL (4.70-6.10); White Blood Count 4.57 K/ul (4.8-10.8)
--- NOTE | 2025-01-24 14:36 | XRay Report ---
XR chest 2V PA/lateral CLINICAL HISTORY: Chest pain, nonspecific COMPARISON STUDY: 09/04/2023 FINDINGS: Stable mid thoracic instrumented spinal fusion. Heart size and pulmonary vasculature are no rmal. Stable mild scarring at the right lower lung. No consolidation or pleural effusion seen. No pne umothorax. Stable old left-sided rib fractures. IMPRESSION: No acute findings. ACT 112: Negative or not required by law. Electronically signed by: Bradly Bazan M.D. 01/24/2025 2:34 PM
[2025-01-24 14:38] LABS: Alanine Aminotransferase 22.0 U/L (7-52); Albumin Globulin Ratio 1.1 (0.9-2); Alkaline Phosphatase 92.0 U/L (34-104); Anion Gap 18.0 (3-11); Bilirubin,Total 1.7 mg/dl (0.2-1.0); Blood Urea Nitrogen 5.0 mg/dl (6-23); Calcium 9.2 mg/dl (8.6-10.3); Carbon Dioxide 22.0 mmol/L (21-32); Chloride 93.0 mmol/L (98-107); Creatinine Clr Calc Pharmacy 141.2 ml/min; Globulin 2.9 gm/dl (2.5-4.0); Glucose 116.0 mg/dl (70-99(Fasting)); Lipase 57.0 U/L (11-82); Potassium 3.0 mmol/L (3.5-5.1); Sodium 133.0 mmol/L (136-145); Total Protein 6.2 gm/dl (6.0-8.3)
[2025-01-24 15:02] LABS: Thyroid Stimulating Hormone 5.563 uIu/ml (0.300-4.500)
[2025-01-24 15:04] LABS: Influenza A virus by PCR Negative (Neg); Influenza B virus by PCR Negative (Neg); SARS CoV2 RNA(COVID-19) Ceph NEGATIVE (Negative)
--- NOTE | 2025-01-24 15:12 | Electrocardiogram Report ---
Test Reason : Blood Pressure : */* mmHG Vent. Rate : 70 BPM Atrial Rate : 70 BPM P-R Int : 168 ms QRS Dur : 88 ms QT Int : 446 ms P-R-T Axes : 24 46 45 degrees QTcB Int : 481 ms Normal sinus rhythm Prolonged QT Abnormal ECG When compared with ECG of 04-Sep-2023 13:12, No significant change was found Confirmed by Delmar Lynch ([id number]) on 01/24/2025 3:11:42 PM Referred By: Confirmed By: Delmar Lynch
[2025-01-24] MEDS: POTASSIUM CHLORIDE CRTAB 20 MEQ TABCR PO STA (15:16)
[2025-01-24] MEDS: OPTIRAY 320 125ml IV ONE (15:44)
--- NOTE | 2025-01-24 16:01 | CT Scan Report ---
CT ANGIOGRAM OF THE CHEST CLINICAL HISTORY: Shortness of breath. Chest pain. Evaluate for pulmonary embolus. COMPARISON STUDY: Chest CT August 03, 2023. TECHNIQUE: Following the IV administration of 118 cc of Optiray 320, CT angiogram of the chest was pe rformed from the upper abdomen to the thoracic inlet utilizing the pulmonary embolus protocol. Images are reviewed in the axial, sagittal, and coronal planes. 3-D MIPS images are created and assessed. I V contrast was administered without complication. A dose lowering technique was utilized adhering to the principles of ALARA. CT DOSE: 536.98 mGy.cm FINDINGS: No pulmonary emboli are identified although subsegmental pulmonary arteries are suboptimall y assessed due to respiratory motion. Size of the heart is normal. There is no pericardial effusion. There is moderate coronary artery calcification. Lungs are suboptimally assessed due to respiratory m otion. Linear densities within the lower lobes represent atelectasis or scarring. There is no consoli dation to suggest pneumonia. There is moderate upper lobe predominant emphysema. No pneumothorax or p leural effusion is present. Postoperative appearance of the thoracic spine fusion is unchanged. Multi ple old left-sided rib fractures are present. There is hepatic steatosis. Small low-attenuation bilat eral adrenal nodules are unchanged. These favor adenomas. IMPRESSION: 1. No pulmonary emboli identified although subsegmental pulmonary arteries suboptimally assessed. 2. No acute intrathoracic findings. 3. Emphysema. ACT 112: Negative or not required by law. Electronically signed by: Pasha Becerril M.D. 01/24/2025 3:59 PM
[2025-01-24] MEDS: MoRPHine SULFATE 2 MG/ML CARP IV STA (17:29)
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
[2025-01-24] MEDS ORDERED: ONDANSETRON INJ 2 MG/ML 2 ML VIAL IV PRN (19:51)
[2025-01-24] MEDS ORDERED: MAGNESIUM HYDROXIDE SUSP 30 ML UDC PO PRN (19:51)
[2025-01-24] MEDS ORDERED: MELATONIN 3 MG TAB PO PRN (19:51)
[2025-01-24] MEDS ORDERED: MoRPHine SULFATE 4 MG/ML 1 ML CARP\\VIAL IV PRN (19:51)
[2025-01-24] MEDS: KETOROLAC TROMETHAMINE 15 MG/ML VIAL IV ONE (20:34)
[2025-01-24] MEDS: MAGNESIUM SULFATE / D5W 1 GM/100 ML BAG IV SCH (20:34)
[2025-01-24] MEDS: ROSUVASTATIN CALCIUM 10 MG TAB PO SCH (21:48)
[2025-01-24] MEDS: GABAPENTIN 800 MG TAB PO SCH (21:48)
[2025-01-24] MEDS: APIXABAN 2.5 MG TAB PO SCH (21:48)
[2025-01-24] MEDS: LIDOCAINE 5% 1 PATCH TD SCH (21:49)
[2025-01-24] MEDS: DICLOFENAC SOD 1% GEL 100 GM TUBE EXT SCH (21:49)
[2025-01-24] MEDS: FAMOTIDINE 20 MG TAB PO SCH (21:54)
[2025-01-24] MEDS: ACETAMINOPHEN 325 MG TAB PO SCH (21:55)
[2025-01-25] MEDS: NICOTINE 7 MG/24 HR TDSY TD SCH (01:59)
[2025-01-25] MEDS: LEVOTHYROXINE SODIUM 75 MCG TABLET PO SCH (06:10)
[2025-01-25 07:34] LABS: Hematocrit (blood only) 28.1 % (42.0-52.0); Hemoglobin 9.9 g/dl (14.0-18.0); Immature Granulocytes # (auto) 0.03 K/uL (0.01-0.20); Immature Granulocytes % (auto) 0.8 %; Mean Corpuscular Hemoglobin 30.6 pg (25.0-34.0); Mean Corpuscular Volume 86.7 fL (80.0-100.0); Platelet Count 70 K/uL (130-400); RDW Standard Deviation 52.6 fL (36.4-46.3); Red Blood Count 3.24 M/uL (4.70-6.10); White Blood Count 3.81 K/ul (4.8-10.8)
[2025-01-25 08:00] LABS: Anion Gap 8.0 (3-11); Blood Urea Nitrogen 7.0 mg/dl (6-23); Calcium 9.0 mg/dl (8.6-10.3); Carbon Dioxide 28.0 mmol/L (21-32); Chloride 97.0 mmol/L (98-107); Creatinine Clr Calc Pharmacy 130.6 ml/min; Glucose 116.0 mg/dl (70-99(Fasting)); Potassium 3.5 mmol/L (3.5-5.1); Sodium 133.0 mmol/L (136-145)
[2025-01-25] MEDS: REMOVE NICODERM PATCH SCH (08:24)
[2025-01-25] MEDS: UMECLIDINIUM BROMIDE 62.5MCG/BLISTER 7 PUFFS/INHALER INH SCH (08:27)
[2025-01-25] MEDS: FLUDROCORTISONE ACETATE 0.1 MG TAB PO SCH (08:27)
[2025-01-25] MEDS: THIAMINE HCL 100 MG TAB PO SCH (08:27)
[2025-01-25] MEDS: FOLIC ACID 1 MG TAB PO SCH (08:28)
[2025-01-25] MEDS: REMOVE LIDODERM PATCH SCH (08:29)
--- NOTE | 2025-01-25 13:06 | Hospitalist Progress Note ---
Date of Service January 25, 2025 Assessment & Plan (1) Rib pain on left side: (2) Hx of deep venous thrombosis: (3) Pancytopenia: (4) Chronic obstructive pulmonary disease: (5) Peripheral neuropathy: Plan #left-sided chest painalmost certainly rib related - multiple hours of absolutely unremitting is stabbing in quality (i.e. atypical) and EKG/troponin are negativemaking cardiac ischemia exceedingly unlikely; CT chest without pneumonia or PE making pleuritic very unlikely, flu/covid/rsv negative Suspect musculoskeletal quality and is quite reproducible (in addition to the fact that his ribs articulate where he is a large scar from previous surgery and seems to be right in the area where he has old fractures) - however with spinous process tenderness will check t-spine CT Pain control: lidocaine patch at bedtime, Voltaren gel during the day, Tylenol s cheduled; Valium at bedtime as a muscle relaxant. PRN oxycodone for breakthrough - consider OMT outpatient Given magnesium 4 g IV x 1 as a muscle relaxant #orthostatic hypotension on Flor[place] possible contributing to fall at home - monitor with opioid use #prior DVT continue Eliquis #thrombocytopenia/pancytopenia appears to be chronic, off and on in severity, and appears based on chart review to relate to liver disease. #alcohol abuse I suspect it was worse in the past, follow for potential for withdrawal. Thiamine and folate. #Bilateral foot numbness suspect neuropathy related to lumbar spine disease. Outpatient follow-up, does not seem to have a lot of pain, at least not acutely #mild conjunctivitis - mostly symptoms, although mild injection on exambilateral and symmetric, almost certainly viral. Reassurance. dispo: continued inpatient stay for pain control DVT proh: Eliquis Admission and Anticipated Discharge Date Admission Date: January 24, 2025 Subjective Patient seen sitting up in bed, reports mild improvement in pain but still limiting his ability to move shortness of breath slightly better states that he feel about 3 weeks ago, thinks he landed on his left leg, maybe hit his back and pretty sure he hit his head no trauma just prior to onset of rib pain Review of Systems Review of Systems: All systems reviewed & are unremarkable except as noted in Subjective Physical Exam Physical Exam: General: NAD, VS as above Resp: normal respiratory effort, lungs clear to auscultation CV: RRR, no murmur, Abd: normal bowel sounds, non tender, no hepatosplenomegaly Chest/back: mild tenderness with palpation to the anterior chest wall, significant tenderness over thoracic spinous process, near site of prior surgery Extremities: Moves all extremities, Neuro: A&O x3, Results & Data Results & Data Vital Signs (Past 12 Hours) Vital Signs Temp Pulse Resp BP Pulse Ox O2 Del Method 01/25/25 07:43 98.2 F 74 18 103/68 95 Room Air Laboratory Results cbc and chemistry reviewed Diagnostic Findings chest CTA reviewed PG Care Time/CCT Total # of Minutes Spent Total Time Spent with Patient: Total time spent is greater than 50% in coordination of care (as documented) at patient's floor/unit and/or counseling patient: Coding Level of Care Code 33805 SUB INP/OBS CARE 2/35MIN Diagnoses Rib pain on left side R07.81 Hx of deep venous thrombosis Z86.718 Pancytopenia D61.818 Chronic obstructive pulmonary disease J44.9 Peripheral neuropathy G62.9
--- NOTE | 2025-01-25 14:33 | CT Scan Report ---
CT OF THE THORACIC SPINE CLINICAL HISTORY: History of surgery, back pain, recent fall COMPARISON STUDY: Chest CT August 03, 2023. TECHNIQUE: Helical axial images of the thoracic spine were obtained. Sagittal and coronal reconstru ctions were viewed. Automated exposure control was utilized for the study. A dose lowering techniqu e was utilized adhering to the principles of ALARA. FINDINGS: There are stable findings following the 6-T9 fusion when compared to chest CT August 02 4. There are bilateral pedicle screws at the T6 and T8 levels and a left-sided pedicle screw at the T 9 level. Hardware is intact. Mild anterior wedging of the T7 vertebral body is unchanged. No acute th oracic spine fractures are present. Extensive anterior osteophytosis is again noted. There are no oss eous lesions. Central canal and neural foramen are suboptimally assessed given CT technique. Multilev el disc space narrowing is most pronounced at the T1-T2 level. There is associated endplate osteophyt osis. Paravertebral soft tissues are unremarkable. Incidental note is made of multiple old, healed bi lateral rib fractures. There is moderate upper lobe predominant emphysema. Lower lobe linear densitie s represent atelectasis or scarring. IMPRESSION: 1. No acute thoracic spine fracture or subluxation. 2. Stable findings following T6-T9 fusion. Hardware intact. 3. Moderate multilevel degenerative disc disease and facet arthrosis. Suboptimal evaluation of the ce ntral canal and neural foramen given CT technique. 4. Multiple old bilateral rib fractures. ACT 112: Negative or not required by law. Electronically signed by: Pasha Becerril M.D. 01/25/2025 2:32 PM
[2025-01-25] MEDS: POLYETHYLENE (MIRALAX) 17 GM PACK PO PRN (16:25)
[2025-01-26 07:50] VITALS: BP 94/63; PULSE 82; RESP 18; TEMP 98.1; O2SAT 96
--- NOTE | 2025-01-26 11:36 | Discharge Summary ---
Discharge Summary Date of Service January 26, 2025 Principal Dx & Hospital Course #1 = Principal Diagnosis (1) Rib pain on left side: (2) Hx of deep venous thrombosis: (3) Pancytopenia: (4) Chronic obstructive pulmonary disease: (5) Peripheral neuropathy: Plan #left-sided chest painalmost certainly rib related - multiple hours of absolutely unremitting is stabbing in quality (i.e. atypical) and EKG/troponin are negativemaking cardiac ischemia exceedingly unlikely; CT chest without pneumonia or PE making pleuritic very unlikely, flu/covid/rsv negative. Suspect musculoskeletal quality and is quite reproducible (in addition to the fact that his ribs articulate where he is a large scar from previous surgery and seems to be right in the area where he has old fractures). T spine CT without acute findings, prior surgical changes stable. Pain control: lidocaine patch at bedtime, Voltaren gel during the day, Tylenol scheduled; heat prn . PRN oxycodone for breakthrough consider OMT outpatient #orthostatic hypotension - on Florinef. possible contributing to fall at home - monitor with opioid use. asymptomatic while inpatient. #prior DVT - continue Eliquis #thrombocytopenia/pancytopeniaappears to be chronic, off and on in severity, and appears based on chart review to relate to liver disease. PCP folow up #alcohol abuse - no signs of withdrawal inpatient, started on thiamine and folate. 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 Outpatient follow-up, does not seem to have a lot of pain, at least not acutely #mild conjunctivitis - suspect viral, resolved. dispo: discharge to home today Notes For Next Care Provider consider OMT outpatient Admission HPI Per Admitting Provider patient is a pleasant 64-year-old male who presents with chest painhe notes that he woke up with it this morning. It has been absolutely unremitting since, severe in intensity, and stabbing in quality. He cannot tell if it radiates anywhere due to a lot of other chronic pain making it hard for him to tell what is new or what is old elsewhere. He feels short of breath with the pain. He does not have a cough or new sputum. He does not currently smoke cigarettesused to but quit quite a while ago, smokes an occasional cigar. Alcoholabout 3 beers 34 times a week. Has a lot of chronic pain and a lot of spinal and arthritis issues. Discharge Exam General: NAD, vitals as above, sitting up in the bed Pulm: breathing unlabored CV: well perfused extremities: moves all extremities Discharge Plan Discharge Items Patient Disposition: Home - Self-Care Reason For Visit: RIB PAIN (INTRACTABLE) Discharge Diagnosis: Rib Pain Condition on Discharge: Fair Activity: Resume your previous activity Non-emergency contact: Primary Care Provider Call non-emergency contact if: you have any medication questions, your pain is not controlled and your temperature is above 101 Follow-up/Referrals: Bety Jalloh [Primary Care Provider] - Diet: Regular Addtl Attending Provider Instructions: Mr. Fraser, You were hospitalized after having terrible rib pain, thankfully you were not found to have any broken ribs or injury to your previous surgical site. You were treated with a multi-modal pain approach and your pain has improved. I suspect your pulled or strained your muscle while sleeping. As we discussed, your ribs and the muscles around them take prolonged time to heal because they are never able to take a break as they move with every breath. You should continue to do your daily activities as you are able and make sure you are using the incentive spirometer to help keep your lungs fully open. Recommendations for pain control: -heat pad every hour for 15-20 minutes as needed, this will help relax your muscles -voltaren gel 4x day - this is a pain cream that will help, I have sent in a prescription but if it is not covered, please purchase over the counter - lidocaine patch - use this at night, you can wear for twelve hours and then remove for 12 hours - tylenol - recommended taking 650mg three times a day and weaning off as your pain improves - oxycodone - one tablet as needed for breakthrough pain that is not covered by the above options. Be cautious as common side effect is nausea and it can lower your blood pressure It is important to realize you pain will likely not be a zero with all of these medications, goal is for pain to be at a level that still allows you to do your daily activities. The best thing that is going to help you feel better is time. I have attached a handout about rib fractures, and while your ribs are not broken, this has helpul information about care at home that still applies to you. Continue to use the incentive spirometer. You have also been started on Vitamin B1 and folic acid supplementation. Activity: You can do normal everyday activities as your body allows. Take rest breaks if you feel tired. Do not overexert. Stop activity if you have pain, shortness of breath or feel dizzy. Follow-up appointments: Make an appointment with your primary care physician within one week of discharge. A copy of this summary will be sent to them. Every time you see your primary care physician, or any other doctor, bring your medication list, and a list of questions. CONTACT YOUR PRIMARY CARE PROVIDER if you experience any of the following: Shortness of breath or difficulty breathing Fevers or chills Feeling tired with normal activity or experiencing dizziness or fainting Difficulty following your treatment plan, or difficulty taking medications CALL 911 OR GO TO THE EMERGENCY DEPARTMENT if you experience any of the following: Severe abdominal pain or nausea/vomiting Severe chest pain, or chest pain that radiates (moves) to your jaw or arm Sudden, severe shortness of breath or difficulty breathing Thank you for allowing us to participate in your care. Pending Studies at Discharge: No Stand-Alone Forms: My [facility], Smoking Cessation Medications and DC Order Prescriptions: New diclofenac sodium [Voltaren Arthritis Pain] 1 % Gel 4 g EXT QID Qty: 100 1RF oxycodone 5 mg Tablet 5 mg PO Q6 PRN (Reason: breakthrough pain, severe) Qty: 12 0RF thiamine HCl (vitamin B1) 100 mg Tablet 100 mg PO QAM Qty: 30 0RF folic acid 1 mg Tablet 1 mg PO QAM Qty: 30 0RF acetaminophen 325 mg Tablet 650 mg PO TID Qty: 30 0RF Eliquis 2.5 mg Tablet 2.5 mg PO BID Qty: 30 0RF Continued Incruse Ellipta 62.5 mcg/actuation Blister With Device 1 inh inhalation QAM Qty: 30 3RF famotidine 20 mg Tablet 20 mg PO BID Qty: 60 3RF pantoprazole 40 mg Tablet,Delayed Release (Dr/Ec) 40 mg PO QAM Qty: 30 3RF fludrocortisone 0.1 mg Tablet 0.1 mg PO QAM Qty: 30 0RF gabapentin 800 mg Tablet 800 mg PO TID rosuvastatin 10 mg tablet 10 mg PO HS levothyroxine 75 mcg capsule 75 mcg PO QAM baclofen 5 mg tablet 5 mg PO BID Discharge Orders: Discharge Order (Routine); Ordered 01/26/25 Ordered By: Ksenia Ruff/Other Patient Handouts: ED Rib Fracture Admission Data Admit Date/Time: 01/24/25 17:27 Attending Provider: Jenn Randall Admit Provider: Antonio Headley Primary Care Provider: Bety Jalloh Other Providers: Antonio Headley Hospital Stay Data Consultations 01/24/25 16:58 ED Decision to Admit Stat Diagnostic Imagining Performed Chest X-Ray 01/24/25 14:00 XR chest 2V PA/lateral CLINICAL HISTORY: Chest pain, nonspecific COMPARISON STUDY: 09/04/2023 FINDINGS: Stable mid thoracic instrumented spinal fusion. Heart size and pulmonary vasculature are normal. Stable mild scarring at the right lower lung. No consolidation or pleural effusion seen. No pneumothorax. Stable old left- sided rib fractures. IMPRESSION: No acute findings. ACT 112: Negative or not required by law. Electronically signed by: Bradly Bazan M.D. 01/24/2025 2:34 PM Chest CTA 01/24/25 15:01 CT ANGIOGRAM OF THE CHEST CLINICAL HISTORY: Shortness of breath. Chest pain. Evaluate for pulmonary embolus. COMPARISON STUDY: Chest CT August 03, 2023. TECHNIQUE: Following the IV administration of 118 cc of Optiray 320, CT angiogram of the chest was performed from the upper abdomen to the thoracic inlet utilizing the pulmonary embolus protocol. Images are reviewed in the axial, sagittal, and coronal planes. 3-D MIPS images are created and assessed. IV contrast was administered without complication. A dose lowering technique was utilized adhering to the principles of ALARA. CT DOSE: 536.98 mGy.cm FINDINGS: No pulmonary emboli are identified although subsegmental pulmonary arteries are suboptimally assessed due to respiratory motion. Size of the heart is normal. There is no pericardial effusion. There is moderate coronary artery calcification. Lungs are suboptimally assessed due to respiratory motion. Linear densities within the lower lobes represent atelectasis or scarring. There is no consolidation to suggest pneumonia. There is moderate upper lobe predominant emphysema. No pneumothorax or pleural effusion is present. Postoperative appearance of the thoracic spine fusion is unchanged. Multiple old left-sided rib fractures are present. There is hepatic steatosis. Small low-attenuation bilateral adrenal nodules are unchanged. These favor adenomas. IMPRESSION: 1. No pulmonary emboli identified although subsegmental pulmonary arteries suboptimally assessed. 2. No acute intrathoracic findings. 3. Emphysema. ACT 112: Negative or not required by law. Electronically signed by: Pasha Becerril M.D. 01/24/2025 3:[address] 01/25/25 10:38 CT OF THE THORACIC SPINE CLINICAL HISTORY: History of surgery, back pain, recent fall COMPARISON STUDY: Chest CT August 03, 2023. TECHNIQUE: Helical axial images of the thoracic spine were obtained. Sagittal and coronal reconstructions were viewed. Automated exposure control was utilized for the study. A dose lowering technique was utilized adhering to the principles of ALARA. FINDINGS: There are stable findings following the 6-T9 fusion when compared to chest CT August 03, 2023. There are bilateral pedicle screws at the T6 and T8 levels and a left-sided pedicle screw at the T9 level. Hardware is intact. Mild anterior wedging of the T7 vertebral body is unchanged. No acute thoracic spine fractures are present. Extensive anterior osteophytosis is again noted. There are no osseous lesions. Central canal and neural foramen are suboptimally assessed given CT technique. Multilevel disc space narrowing is most pronounced at the T1-T2 level. There is associated endplate osteophytosis. Paravertebral soft tissues are unremarkable. Incidental note is made of multiple old, healed bilateral rib fractures. There is moderate upper lobe predominant emphysema. Lower lobe linear densities represent atelectasis or scarring. IMPRESSION: 1. No acute thoracic spine fracture or subluxation. 2. Stable findings following T6-T9 fusion. Hardware intact. 3. Moderate multilevel degenerative disc disease and facet arthrosis. Suboptimal evaluation of the central canal and neural foramen given CT technique. 4. Multiple old bilateral rib fractures. ACT 112: Negative or not required by law. Electronically signed by: Pasha Becerril M.D. 01/25/2025 2:32 PM Pending Results Patient Have Any Pending Studies at Discharge: No Discharge Instructions Given to Patient (Per Discharging Provider) Mr. Fraesr, You were hospitalized after having terrible rib pain, thankfully you were not found to have any broken ribs or injury to your previous surgical site. You were treated with a multi-modal pain approach and your pain has improved. I suspect your pulled or strained your muscle while sleeping. As we discussed, your ribs and the muscles around them take prolonged time to heal because they are never able to take a break as they move with every breath. You should continue to do your daily activities as you are able and make sure you are using the incentive spirometer to help keep your lungs fully open. Recommendations for pain control: -heat pad every hour for 15-20 minutes as needed, this will help relax your muscles -voltaren gel 4x day - this is a pain cream that will help, I have sent in a prescription but if it is not covered, please purchase over the counter - lidocaine patch - use this at night, you can wear for twelve hours and then remove for 12 hours - tylenol - recommended taking 650mg three times a day and weaning off as your pain improves - oxycodone - one tablet as needed for breakthrough pain that is not covered by the above options. Be cautious as common side effect is nausea and it can lower your blood pressure It is important to realize you pain will likely not be a zero with all of these medications, goal is for pain to be at a level that still allows you to do your daily activities. The best thing that is going to help you feel better is time. I have attached a handout about rib fractures, and while your ribs are not broken, this has helpul information about care at home that still applies to you. Continue to use the incentive spirometer. You have also been started on Vitamin B1 and folic acid supplementation. Activity: You can do normal everyday activities as your body allows. Take rest breaks if you feel tired. Do not overexert. Stop activity if you have pain, shortness of breath or feel dizzy. Follow-up appointments: Make an appointment with your primary care physician within one week of discharge. A copy of this summary will be sent to them. Every time you see your primary care physician, or any other doctor, bring your medication list, and a list of questions. CONTACT YOUR PRIMARY CARE PROVIDER if you experience any of the following: Shortness of breath or difficulty breathing Fevers or chills Feeling tired with normal activity or experiencing dizziness or fainting Difficulty following your treatment plan, or difficulty taking medications CALL 911 OR GO TO THE EMERGENCY DEPARTMENT if you experience any of the following: Severe abdominal pain or nausea/vomiting Severe chest pain, or chest pain that radiates (moves) to your jaw or arm Sudden, severe shortness of breath or difficulty breathing Thank you for allowing us to participate in your care. Total Time Total Time Spent Total Time Spent (In Minutes): Time spent day of discharge 35 minutes including direct patient care, medication reconciliation, documentation, review of labs and images, and coordination of care. Coding Level of Care Code 07676 INP/OBS DISCH >30 MIN Diagnoses Rib pain on left side R07.81 Hx of deep venous thrombosis Z86.718 Pancytopenia D61.818 Chronic obstructive pulmonary disease J44.9 Peripheral neuropathy G62.9
== END 2025-01-26 14:36 | disposition home or self-care (01) ==
LOC: ED 13:26 → EDINP 13:26 → SUATTDRO 17:27 → 3N 19:51